=== PATIENT | female | born 1960 | race Caucasian/White ===

== ENCOUNTER → 2016-07-10 | Outpatient (CLI) | payer MEDICARE, MEDICAID ==
[~2016-07-10] MED LIST: AMIT10TA6 PO; AMIT25TA9 PO; AMLO5TAB2 PO; ASP81TEC PO; ATEN100T88 PO; ATOR40TA PO; DEXT1DRO8 OU; LEVO125T6 PO; LSNP20T PO; METO25TA PO; MULT1CAP27 PO; NF-FLON16G; SALINE EYE DROPS; VITA1CAP59 PO
--- NOTE | 2016-07-11 08:13 | Diagnostic Imaging Report ---
Bilateral screening mammogram The current study was also evaluated with a Computer Aided Detection (CAD) system. Indication: Screening. No current complaints stated on the questionnaire. COMPARISON: 05/12/15 FINDINGS: The breasts are composed of heterogeneously dense parenchyma which may decrease mammographic sensitivity. There are benign-appearing calcifications. Allowing for technique and positional differences, no suspicious change is seen. IMPRESSION: No significant change. ACR BI-RADS Category 2: Benign findings. Result letter will be mailed to the patient. Note: At least 10% of breast cancer is not imaged by mammography. Dictated by: Dictated on workstation # [id number]
== END ==
LOC: RAD 12:38
PROVIDERS: ATTEND Nurse Practitioner Community Health
DX: Z12.31 Encounter for screening mammogram for malignant neoplasm of breast (principal)
CPT/HCPCS: 77067

== ENCOUNTER → 2017-06-24 | Outpatient (CLI) | payer MEDICARE, MEDICAID ==
--- NOTE | 2017-06-24 10:37 | Diagnostic Imaging Report ---
CLINICAL INDICATION: Patient with stenosis of carotid artery. COMPARISON: None. EXAMINATION: Real-time carotid Doppler duplex imaging is performed bilaterally. Peak systolic velocity, ICA/CCA peak systolic ratio, spectral analysis, and vascular morphology are studied. FINDINGS: ARTERY VELOCITY Right Left CCA 0.68 m/s 0.73 m/s ICA 1.20 m/s 1.96 m/s ECA 1.45 m/s 1.33 m/s ICA/CCA 1.8 2.7 VERT.ART Antegrade Antegrade There is interval progression of elevated velocities within the distal left ICA which are 1.96 m/s compared to the prior study previously measured 1.17 m/s. There is also progression of elevated velocities within the right and left ECA which measure 1.45 m/s and 1.33 m/s, respectively, compared to the prior study measured at 1.12 m/s and 1.27 m/s, respectively. The bilateral ECA and distal left ICA does not show as much visible stenosis as indicated by velocities. There is heterogeneous atherosclerotic disease involving the bilateral carotid arteries which has slightly progressed. IMPRESSION: 1: There are elevated velocities involving the distal left ICA and bilateral ECAs suggesting 60-79% stenosis. The degree of visible grayscale stenosis on the imaging does not appear as significant as the velocities. CT angiogram of the head and neck is suggested to better evaluate for true stenosis. 2: There is slight progression of carotid artery atherosclerotic disease. Dictated by: Dictated on workstation # [id number]
== END ==
LOC: RAD 09:03
PROVIDERS: ATTEND Internal Medicine
DX: I65.22 Occlusion and stenosis of left carotid artery (principal)
CPT/HCPCS: 93880

== ENCOUNTER → 2019-04-21 | Outpatient (CLI) | payer MEDICARE, MEDICAID ==
--- NOTE | 2019-04-21 16:56 | Diagnostic Imaging Report ---
EXAMINATION: Digital mammogram bilateral screening. The current study was also evaluated with a Computer Aided Detection (CAD) system. 3-D tomosynthesis was also performed and reviewed. INDICATION: Breast cancer screening. This study was compared to the prior exams of 07/10/2016, 05/12/2015, and 08/25/2013. At this time, there are no current complaints. FINDINGS: The fibroglandular tissue in both breasts is heterogeneously dense. This does limit the sensitivity of this exam. Overall, there does not appear to have been any significant change when compared to the prior study. No primary or secondary sign of malignancy is noted. 3D tomographic images fail to show any sign of malignancy. IMPRESSION: 1. There is no evidence for malignancy. 2. The patient should have her annual bilateral screening mammogram on schedule in April 2020. ACR BI-RADS Category 1: Negative. Result letter will be mailed to the patient. Note: At least 10% of breast cancer is not imaged by mammography. Dictated by: Dictated on workstation # [id number]
== END ==
LOC: CARD 13:26
PROVIDERS: ATTEND Nurse Practitioner Community Health
DX: Z12.31 Encounter for screening mammogram for malignant neoplasm of breast (principal); R01.1 Cardiac murmur, unspecified
CPT/HCPCS: 77067; 93306

== ENCOUNTER 2019-04-29 16:41 | Emergency (ER) | payer MEDICARE, MEDICAID ==
[~2019-04-29] VITALS: Ht 167 cm; Wt 85.0 kg
[2019-04-29] MEDS ORDERED: cloNIDine 0.1 MG (CATAPRES) TAB PO ONE (17:00)
--- NOTE | 2019-04-29 17:04 | ED Headache ---
General Chief Complaint: Head/Cervical Problems Stated Complaint: BP COMPLICATIONS Nursing Triage Note: THE PT IS AMBULATORY TO THE ROOM WITHOUT DIFFICULTY. NO DISTRESS IS SEEN ON ARRIVAL. LOC IS NORMAL FOR THE PT. THE TP C/O OF A HEADACHE. Nursing Sepsis Screen: No Definite Risk Source: patient Exam Limitations: no limitations History of Present Illness Date Seen by Provider: Apr 29, 2019 Time Seen by Provider: 17:02 Initial Comments To ER with reports of high blood pressure. She reports lightheadedness. She takes propranolol. She was seeing her neurologist today who she sees for chronic daily migraines with aura and without pain (takes amitriptyline for this). They noticed her blood pressure to be elevated, recommended that she go to the emergency room at [facility]. However, she wanted to come to the emergency room here. Timing/Duration: 4-6 hours Severity/Quality: moderate Associated Symptoms: denies symptoms Allergies and Home Medications Allergies Coded Allergies: No Known Drug Allergies (Unverified , 11/20/10) Home Medications Amitriptyline Hcl 10 Mg Tablet, 1 EACH PO HS, (Reported) Amitriptyline Hcl 25 Mg Tablet, 1 EACH PO HS, (Reported) Aspirin 81 Mg Tabec, 162 MG PO DAILY, (Reported) Atenolol 100 Mg Tablet, 1 EACH PO DAILY, (Reported) Atorvastatin Calcium 40 Mg Tablet, 1 EACH PO DAILY, (Reported) Dextran 70/Hypromellose/Pf 1 Each Droperette, 1 EACH OU PRN, (Reported) Fluticasone Propionate 50 Mcg/16 G [place], 50 MCG NA PRN, (Reported) Levothyroxine Sodium 125 Mcg Tablet, 1 EACH PO DAILY, (Reported) Lisinopril 20 Mg Tab, 20 MG PO HS, (Reported) Metoprolol Succinate 25 Mg Tab.sr.24h, 1 EACH PO DAILY, (Reported) Multivitamins 1 Each Capsule, 1 EACH PO EVERY OTHER DAY, (Reported) Vitamin B Complex 1 Cap Capsule, 1 CAP PO EVERY OTHER DAY, (Reported) [Saline Eye Drops] , PRN, (Reported) Patient Home Medication List Home Medication List Reviewed: Yes Review of Systems Review of Systems Constitutional: see HPI, dizziness Eyes: No Symptoms Reported Ears, Nose, Mouth, Throat: no symptoms reported Respiratory: no symptoms reported Cardiovascular: no symptoms reported Genitourinary: no symptoms reported Musculoskeletal: no symptoms reported Skin: no symptoms reported Psychiatric/Neurological: No Symptoms Reported Past Jkocrve-Ndkxry-Iwtjuu Hx Patient Social History Recent Foreign Travel: No Contact w/Someone Who Travel: No Recent Infectious Disease Expo: No Physical Abuse: No Sexual Abuse: No Mistreated: No Fear: No Physical Exam Vital Signs Vital Signs - First Documented 04/29/19 16:50 Temp 36.6 Pulse 89 Resp 18 B/P (MAP) 180/90 (120) Capillary Refill : Less Than 3 Seconds Height, Weight, BMI Height: '" Weight: lbs. oz. kg; 30.00 BMI Method:Stated General Appearance: WD/WN, no apparent distress HEENT: PERRL/EOMI, normal ENT inspection Respiratory: no respiratory distress, no accessory muscle use Extremities: normal range of motion, non-tender Psychiatric: alert, oriented x 3 Crainal Nerves: normal hearing, normal speech, PERRL Progress/Results/Core Measures Results/Orders Lab Results Laboratory Tests Test 04/29/19 17:15 Range/Units White Blood Count 8.7 4.3-11.0 10^3/uL Red Blood Count 5.16 4.35-5.85 10^6/uL Hemoglobin 14.5 11.5-16.0 G/DL Hematocrit 44 35-52 % Mean Corpuscular Volume 85 80-99 FL Mean Corpuscular Hemoglobin 28 25-34 PG Mean Corpuscular Hemoglobin Concent 33 32-36 G/DL Red Cell Distribution Width 14.4 10.0-14.5 % Platelet Count 228 130-400 10^3/uL Mean Platelet Volume 9.7 7.4-10.4 FL Neutrophils (%) (Auto) 67 42-75 % Lymphocytes (%) (Auto) 23 12-44 % Monocytes (%) (Auto) 8 0-12 % Eosinophils (%) (Auto) 1 0-10 % Basophils (%) (Auto) 0 0-10 % Neutrophils # (Auto) 5.8 1.8-7.8 X 10^3 Lymphocytes # (Auto) 2.0 1.0-4.0 X 10^3 Monocytes # (Auto) 0.7 0.0-1.0 X 10^3 Eosinophils # (Auto) 0.1 0.0-0.3 10^3/uL Basophils # (Auto) 0.0 0.0-0.1 10^3/uL Sodium Level 139 135-145 MMOL/L Potassium Level 3.5 L 3.6-5.0 MMOL/L Chloride Level 102 98-107 MMOL/L Carbon Dioxide Level 26 21-32 MMOL/L Anion Gap 11 5-14 MMOL/L Blood Urea Nitrogen 12 7-18 MG/DL Creatinine 0.74 0.60-1.30 MG/DL Estimat Glomerular Filtration Rate > 60 BUN/Creatinine Ratio 16 Glucose Level 109 H 70-105 MG/DL Calcium Level 9.1 8.5-10.1 MG/DL My Orders Orders - BERKLEY MARIN APRN Clonidine Tablet (Catapres Tablet) (04/29/19 17:00) Cbc With Automated Diff (04/29/19 17:01) Basic Metabolic Panel (04/29/19 17:01) Medications Given in ED Current Medications Medications Dose Ordered Sig/Marv Route Start Time Stop Time Status Last Admin Dose Admin Clonidine HCl 0.1 mg ONCE ONCE PO 04/29/19 17:00 04/29/19 17:01 DC 04/29/19 17:16 0.1 MG Vital Signs/I&O 04/29/19 16:50 Temp 36.6 Pulse 89 Resp 18 B/P (MAP) 180/90 (120) Blood Pressure Mean: 120 Departure Communication (Admissions) She is feeling better at this time, 1741. Blood pressure down to 150 systolic. Impression Primary Impression: Hypertension Qualified Codes: I10 - Essential (primary) hypertension Disposition: HOME, SELF-CARE Condition: Stable Departure-Patient Inst. Decision time for Depature: 17:04 Referrals: [facility] (PCP) Primary Care Physician ANASTACIO VAZQUEZ (Family) Primary Care Physician Patient Instructions: High Blood Pressure in Adults Scripts Clonidine HCl (Clonidine HCl) 0.1 Mg Tablet 0.1 MG PO BID PRN for high blood pressure, #10 TAB Used for systolic (top number) blood pressure over 170 Prov: BERKLEY MARIN APRN 04/29/19 BERKLEY MARIN APRN Apr 29, 2019 17:04
[2019-04-29 17:24] LABS: BASOPHILS % (AUTO) 0 % (0-10); EOSINOPHILS # (AUTO) 0.1 10^3/uL (0.0-0.3); EOSINOPHILS % (AUTO) 1 % (0-10); HEMATOCRIT 44 % (35-52); HEMOGLOBIN 14.5 G/DL (11.5-16.0); LYMPHOCYTES % (AUTO) 23 % (12-44); MEAN CORPUSCULAR HEMOGLOBIN 28 PG (25-34); MEAN CORPUSCULAR HGB CONC 33 G/DL (32-36); MEAN CORPUSCULAR VOLUME 85 FL (80-99); MEAN PLATELET VOLUME 9.7 FL (7.4-10.4); MONOCYTES # (AUTO) 0.7 X 10^3 (0.0-1.0); MONOCYTES % (AUTO) 8 % (0-12); NEUTROPHILS # (AUTO) 5.8 X 10^3 (1.8-7.8); NEUTROPHILS % (AUTO) 67 % (42-75); PLATELET COUNT 228 10^3/uL (130-400); RED CELL DISTRIBUTION WIDTH 14.4 % (10.0-14.5); WHITE BLOOD COUNT 8.7 10^3/uL (4.3-11.0)
[2019-04-29 17:49] LABS: BUN/CREATININE RATIO 16; CALCIUM 9.1 MG/DL (8.5-10.1); CARBON DIOXIDE 26 MMOL/L (21-32); CHLORIDE 102 MMOL/L (98-107); CREATININE SERUM 0.74 MG/DL (0.60-1.30); GFR ESTIMATED > 60; GLUCOSE 109 MG/DL (70-105); POTASSIUM 3.5 MMOL/L (3.6-5.0); SODIUM 139 MMOL/L (135-145)
[2019-04-29 17:52] VITALS: BP 155/88
[2019-04-29] MEDS ORDERED: CLON0.1T PO (17:53)
--- OUTSIDE RECORDS SUMMARY | 2019-05-01 17:42 | XMS REPORT | Encounter Summary ---
Author Author [facility] Organization [facility] Address Unknown Phone Unavailable Care Team Providers Care Extract Wringer Name Role Phone Zandra Peter SOUND TESTER PCP Reason for Referral * Radiology Services (Routine) Referred By Contact Referred To Contact Status Reason Specialty Diagnoses / [place] [address] [place] [address] New Request Radiology Diagnoses Stenosis of left carotid artery P rocedures CTA NECK WO/W CONTRAST+POST P Reason for Visit * Reason Comments Migraine Encounter Details Care Team Description Date Type [place] [address] [place] [address] [phone] Migraine with aura and without status mi grainosus, not intractable (Primary Dx); Stenosis of left carotid artery 04/29/2019 Office Visit [facility] [address] [place] [address] Social History Date Tobacco Use Types Packs/Day Years Used Passive Smoke Exposure - Never Smoker Smokeless Tobacco: Never Used Tobacco Cessation: Counseling Given: No Drinks/Week oz/Week Comments Alcohol Use No Sex Assigned at Date Recorded Not on file Industry Job Start Date Occupation Not on file Not on file Not on file Travel End Travel History Travel Start No recent travel history available. documented as of this encounter Last Filed Vital Signs Reading Time Taken Comments Vital Sign 185/81 04/29/2019 1:48 PM CDT Notified Miguel Walton MD Blood Pressure 73 04/29/2019 1:48 PM CDT Pulse - - Temperature - - Respiratory Rate 97% 04/29/2019 12:37 PM CDT Oxygen Saturation - - Inhaled Oxygen Concentration 92.3 kg (203 lb 6.4 oz) 04/29/2019 12:37 PM CDT Weight 170.2 cm (5' 7") 04/29/2019 12:37 PM CDT Height 31.86 04/29/2019 12:37 PM CDT Body Mass Index documented in this encounter Patient Instructions * Patient Instructions* Luis Alberto Walton MD - 04/29/2019 12:30 PM CDT RECOMMENDATIONS -- Continue aspirin 81mg daily -- Continue amitriptyline 150mg daily for prevention/prophylaxis. -- CTA neck due to h/o carotid stenosis, upcoming surgery on heart, migraines. - -> order is placed, but since you are seeing cardiothoracic surgery, they will likely be able to address this as well with the imaging they will be doing. --> I have placed a vascular surgery referral in the past, but Ms. Lan says she did not follow up on this. She is agreeable to having this looked at more locall y. --> prior reports was more significant in findings of ECAs, but also had some elevated velocities in left ICA. Check BUN/Creatinine one week prior to procedure. -- Please follow up with your PCP about your blood pressure. For Acute Headache: -- For a more severe headache, take naproxen 220-440mg + magnesium 400mg +/- be nadryl 25mg (depending on if you are at work/needing to drive) -- Please refrain from taking any combination of "as needed" medications more th an 8-10 times per month, as this can lead to medication overuse/rebound headache s. documented in this encounter Progress Notes * Inge More, RN - 04/29/2019 12:30 PM CDT This nurse checked BP as check-in BP was >150/90. Notified Miguel Walton MD about elevated pressures. (180/88 MAP 111, 181/89 MAP 113, 188/87 MAP 113, 185/81 MAP 110) patient refused to go to ER here in [place], wants to drive home to [place], [place]. Notifsmita Walton MD. * Luis Alberto Walton MD - 04/29/2019 12:30 PM CDT Subjective: History of Present Illness Candace Lan is a 58 y.o. female. Initial Visit Date: 11/14/16 Reason for Visit: Migraines Previous Neurologist: Dr. Collins Type of Work: She is disabled. 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 Onset: October 2010 She had a stroke in the past by diagnosis per review of her MRI. There was poten tial symptoms 10 years earlier and her PCP then told her it was a stroke. She de scribes "feeling weak" and that there was a problem into her arm. Location: right sided behind the eye Quality: dull, but uncomfortable Severity: moderate Total headache days per month: This visit she notes about 1-2 migraines per year and last up to 17 days. Associated symptoms: photophobia Denies: nausea, vomiting, phonophobia Aura: some flashes of light or static in her vision Triggers: lack of sleep, too much sleep, lighting, stress, weather changes Mood is good. Using CPAP. She is getting a surgery for a calcified heart valve, but she says that she is n ot sure which valve just yet. She says that this was due to her PCP hearing a he art murmur. CTA neck 01/01/17 recommended Cartoid US in 6 months, which she says she did get completed, but we did not get the results. She says in the past she was told she had 90% blockage, but on formal testing she says it was not blocked. Ultrasound carotids done at [facility] on 06/24/17 which we just now go t on 11/20/17 at 1340: There are elevated velocities involving the distal left IC A and bilateral ECA suggesting 60-79% stenosis. The degree of visible grayscal e stenosis on the imaging does not appear significant at the velocities. CT an giogram of the head and neck is suggested to better evaluate for true stenosis. There is slight progression of carotid artery atherosclerotic disease. Please contact the patient and advise that I would like her to be evaluated with vascular surgery due to the stenosis and the bruit she has. Order placed. Abortive tx: Aspirin 81mg Diclofenac PPx tried/length of trial: Amitriptyline 150mg bedtime daily Atenolol 20 mg twice daily - no help Timolol 20mg twice daily Botoxnot covered by her insurance Acetazolamide 250 mg twice daily Depakote 500 mg twice dailymade her sick Topamax - did not help Venlafaxine 75 mg twice daily Echocardiogram 01/23/2011: Essentially normal with moderate mitral regurgitation moderate tricuspid regurgitation mild to moderate aortic regurgitation, estimate d PA pressure 35. Sleep study 01/04/2011: Obstructive sleep apnea recommended CPAP at 9 cm H2O. MRI brain with and without contrast 12/07/2010 impression: There are scattered f oci of T2 and flair hyperintense signal abnormality, nonspecific especially in a patient of this age. White matter changes have been described in patients with migraine headaches. Sequela of chronic microvascular ischemic disease would be another consideration. The distribution is not particularly suggestive of infl ammatory demyelinating disease. There is no abnormal intracranial enhancement o r evidence of an acute infarct. There is fluid within mastoid air cells on the greater on the left MRA head without contrast 11/21/2010: Unremarkable MRI cervical spine without contrast 12/07/2010: There is no significant spinal s tenosis of the cervical spine, minimal left lateral recess stenosis at C5-6 and right lateral recess stenosis at C4-5. There is mild to moderate neuroforaminal compromise as described including on the right at C2-3 and C4-5 and on the left at C5-6. There is multilevel facet degenerative change. CTA of the neck performed 12/26/16, noted the patient had 30% right and 50% left ICA stenosis. Calcified carotid bulb plaque bilaterally is advanced for age. It was recommended that the patient had a six-month follow-up carotid ultrasoun d. There is no high-grade stenosis noted. __ Medical History: Diagnosis Date Anxiety Cerebrovascular disease Depression Dyslipidemia Dysthymia Heart abnormality Hypertension Hypothyroid Impulse disorder, unspecified Migraines Obstructive sleep apnea Strabismus Stroke (HCC) Unspecified glaucoma(365.9) Surgical History: Procedure Laterality Date EYE SURGERY 1975 RHINOPLASTY 1976 MOUTH SURGERY 1986 jaw reconstruction APPENDECTOMY 1990 HYSTERECTOMY 2000 STRABISMUS SURGERY 1974, 1978 Social History Socioeconomic History Marital status: Single Spouse name: Not on file Number of children: Not on file Years of education: Not on file Highest education level: Not on file Occupational History Not on file Tobacco Use Smoking status: Passive Smoke Exposure - Never Smoker Smokeless tobacco: Never Used Substance and Sexual Activity Alcohol use: No Drug use: No Sexual activity: Not on file Other Topics Concern Not on file Social History Narrative Not on file Family History Problem Relation Age of Onset Cancer Mother Hypertension Mother Lung Disease Mother Anxiety Mother Depression Mother Seizures Mother Cancer Father Heart Attack Father Lung Disease Father Mental Illness Father Heart Disease Father Stroke Maternal Grandmother Allergies Allergen Reactions Tetanus Toxoid UNKNOWN Review of Systems Constitutional: Negative. HENT: Negative. Eyes: Positive for photophobia and visual disturbance. Respiratory: Negative. Cardiovascular: Negative. Gastrointestinal: Negative. Genitourinary: Negative. Musculoskeletal: Negative. Skin: Negative. Neurological: Positive for headaches. Psychiatric/Behavioral: Negative. Objective: amitriptyline (ELAVIL) 150 mg tablet Take one tablet by mouth at bedtime neal ly. aspirin EC 81 mg tablet Take 81 mg by mouth daily. Take with food. atorvastatin (LIPITOR) 80 mg tablet Take 80 mg by mouth daily. BIMATOPROST (LUMIGAN OP) Place 1 drop into or around eye(s) daily. gabapentin (NEURONTIN) 300 mg capsule Take one capsule by mouth twice daily. levothyroxine (SYNTHROID) 150 mcg tablet Take 150 mcg by mouth daily. Timolol Maleate 20 mg tab Take 20 mg by mouth twice daily. Vitals: 04/29/19 1237 BP: (!) 177/91 Pulse: 75 SpO2: 97% Weight: 92.3 kg (203 lb 6.4 oz) Height: 170.2 cm (67") PainSc: Three Body mass index is 31.86 kg/m. Physical Exam General: alert, oriented x 3 Speech: normal, no dysarthria Cardiovascular: regular rate and rhythm, + murmur Lungs: clear to auscultation Ext: no edema, pedal pulses 2+, skin with no breakdown Carotids: + right sided bruit vs extension of murmur? Cranial nerves: ophthalmoscopic exam: no papilledema or optic pallor; II Visual rao full to finger counting; III, IV, PERRL, extraocular muscles with weak ness of abduction bilaterally - has h/o strabismus with surgery on both eyes, no nystagmus; V facial sensation intact; VII facial expression symmetric; VIII hea ring intact to conversation; IX, X palate rise symmetric; XI sternocleidomastoid strength intact; XII tongue midline, no fasciculations present Motor: (Right/Left) Deltoid 5/5, Biceps 5/5, Triceps 5/5, Finger ext 5/5, inter ossei 5/5, Hip Flexion 5/5, Knee ext 5/5, Knee flex 5/5, Ankle dorsiflexion 5/5 Sensory: Normal to light touch. Coordination: normal finger nose finger Gait: normal based, good arm swing Assessment and Plan: Candace Lan is a 58 y.o. female who presents for evaluation of rare bobby elodia with aura, but mainly auras only now. This is in both eyes. She also rep orts visual distortion, which may be related to her glaucoma and strabismus hist ory as well. 1. Migraine with aura and without status migrainosus, not intractable 2. Stenosis of left carotid artery RECOMMENDATIONS -- Continue aspirin 81mg daily -- Continue amitriptyline 150mg daily for prevention/prophylaxis. -- CTA neck due to h/o carotid stenosis, upcoming surgery on heart, migraines. - -> order is placed, but since you are seeing cardiothoracic surgery, they will likely be able to address this as well with the imaging they will be doing. --> I have placed a vascular surgery referral in the past, but Ms. Lan says she did not follow up on this. She is agreeable to having this looked at more locall y. --> prior reports was more significant in findings of ECAs, but also had some elevated velocities in left ICA. Check BUN/Creatinine one week prior to procedure. -- Please follow up with your PCP about your blood pressure. For Acute Headache: -- For a more severe headache, take naproxen 220-440mg + magnesium 400mg +/- be nadryl 25mg (depending on if you are at work/needing to drive) -- Please refrain from taking any combination of "as needed" medications more th an 8-10 times per month, as this can lead to medication overuse/rebound headache s. Ms. Lan had a very elevated blood pressure on multiple repeats, associated wi th headache. She declined going to ED or calling EMS. She signed AMA form due to h/o stroke/carotid disease/valvular disease. She expressed clear understanding of her risk of stroke or other end organ damage. FOLLOWUP PLAN Return in about 1 year (around 04/28/2020) for follow up headaches. The patient is instructed to contact me if there are any concerns with the agree d plan. documented in this encounter Plan of Treatment Order Schedule Name Type Priority Associated Diag noses Expected: 04/29/2019 (Approximate), Expi res: 04/28/2020 CTA NECK WO/W Imaging Routine Stenosis of lef t carotid CONTRAST+POST P artery Expected: 04/29/2019 (Approximate), Expi res: 04/28/2020 BUN Lab Routine Stenosis of lef t carotid artery Expected: 04/29/2019 (Approximate), Expi res: 04/28/2020 CREATININE Lab Routine Stenosis of lef t carotid artery documented as of this encounter Visit Diagnoses Diagnosis Migraine with aura and without status m igrainosus, not intractable Migraine with aura, without mention of intractable migraine without mention of status migrainosus Stenosis of left carotid artery Occlusion and stenosis of carotid arter y without mention of cerebral infarction documented in this encounter
--- OUTSIDE RECORDS SUMMARY | 2019-05-01 17:42 | XMS REPORT | Clinical Summary ---
Author Author [facility] Organization [facility] Address Unknown Phone Unavailable Care Team Providers Care Metal Tester Name Role Phone Zandra Peter APRN PCP Source Comments Some departments are not documenting in the electronic medical record. If you d o not see the information that you expected, contact Release of Information in [facility] Must See [place] Information Management department at [phone] for further assistan ce in locating additional records.[facility] Allergies Comments Active Allergy Reactions Severity Noted Date Tetanus Toxoid UNKNOWN Low 11/02/2016 Medications End Date Status Medication Sig Dispensed Refills Start Date Active levothyroxine (SYNTHROID) Take 150 mcg 0 150 mcg tablet by mouth daily. Active Timolol Maleate 20 mg tab Take 20 mg by 0 mouth twice daily. Active atorvastatin (LIPITOR) 80 Take 80 mg by 0 mg tablet mouth daily. Active BIMATOPROST (LUMIGAN OP) Place 1 drop 0 into or around eye(s) daily. Active aspirin EC 81 mg tablet Take 81 mg by 0 mouth daily. Take with food. Active gabapentin (NEURONTIN) Take one 60 capsule 3 300 mg capsule capsule by 8 mouth twice daily. Active amitriptyline (ELAVIL) Take one 90 tablet 4 150 mg tablet tablet by 0 mouth at bedtime daily. 04/29/2019 Discontinued (Reorder) amitriptyline (ELAVIL) TAKE 1 TABLET 90 tablet 4 1 150 mg tablet AT BEDTIME 9 Active Problems No known active problems Encounters Care Team Description Date Type Specialty Luis Alberto Walton MD Migraine with aura and without status mi grainosus, not intractable (Primary Dx); Stenosis of left carotid artery 04/29/2019 Office Visit Neurology from Last 3 Months Family History Medical History Relation Name Comments Cancer Father Heart Attack Father Heart Disease Father Lung Disease Father Mental Illness Father Stroke Maternal Grandmother Anxiety Mother Cancer Mother Depression Mother Hypertension Mother Lung Disease Mother Seizures Mother Relation Name Status Comments Father (Age 59) Maternal Grandmother Mother (Age 69) Social History Date Tobacco Use Types Packs/Day Years Used Passive Smoke Exposure - Never Smoker Smokeless Tobacco: Never Used Tobacco Cessation: Counseling Given: No Drinks/Week oz/Week Comments Alcohol Use No Sex Assigned at Date Recorded Not on file Industry Job Start Date Occupation Not on file Not on file Not on file Travel End Travel History Travel Start No recent travel history available. Last Filed Vital Signs Reading Time Taken [...] 04/29/2019 12:37 PM CDT Body Mass Index Plan of Treatment Health Maintenance Due Date Last Done Comments HEPATITIS C SCREENING 1960 MEDICARE ANNUAL WELLNESS 1960 VISIT DTAP/TDAP VACCINES (1 - 10/09/1971 Tdap) HIV SCREENING 10/09/1975 PHYSICAL (COMPREHENSIVE) 1978 EXAM CERVICAL CANCER SCREENING 1990 BREAST CANCER SCREENING 2000 COLORECTAL CANCER 2010 SCREENING SHINGLES RECOMBINANT 2010 VACCINE (1 of 2) INFLUENZA VACCINE 09/18/2018 11/25/2007, 02/14/2006, 12/28/2002, Additional history exists Results Not on filefrom Last 3 Months Insurance Type Payer Benefit Subscriber ID Effective Phone Address Plan / Dates Group Medicare MEDICARE MEDICARE xxxxxxxxxxx 2003-P PART A AND resent B Medicaid [facility] MEDICAID [facility] xxxxxxxxx 2016-P [place] [address] [address] Third Self 1960 [phone] [id number] [place] ([place]) [place] [address] Liability Advance Directives Patient Ensemble Member Explanation Type Date Recorded Advance Directive/DPOA
--- OUTSIDE RECORDS SUMMARY | 2019-05-01 17:42 | XMS REPORT | Encounter Summary ---
Author Author [facility] Organization [facility] Address Unknown Phone Unavailable Care Team Providers Care Looper Fixer Name Role Phone RomeZnadra dang NAMRATA PCP Reason for Visit * Reason Comments Medication Refill Encounter Details Care Team Description Date [place] [address] [facility] [place] [address] [place] [address] 01/04/[address] [facility] [address] [place], [place] [id number] Social History Date Tobacco Use Types Packs/Day Years Used Passive Smoke Exposure - Never Smoker Smokeless Tobacco: Never Used Drinks/Week oz/Week Comments Alcohol Use No Sex Assigned at Date Recorded Not on file Industry Job Start Date Occupation Not on file Not on file Not on file Travel End Travel History Travel Start No recent travel history available. documented as of this encounter Plan of Treatment Not on filedocumented as of this encounter Visit Diagnoses Not on filedocumented in this encounter
--- OUTSIDE RECORDS SUMMARY | 2019-05-01 17:42 | XMS REPORT ---
Author Author Wally. Organization Wally. Address [address] [address] Care Team Providers Care Strategic Planner Name Role Phone GEORGE, ANASTACIO Unavailable Unavailable GEORGE, ANASTACIO Unavailable GEORGE, ANASTACIO Unavailable Andra Klein Unavailable STEVEN PULIDO Unavailable Unavailable MO ROBLES Unavailable Unavailable Andra Klein Unavailable Unavailable GEORGE, ANASTACIO Unavailable GEORGE, ANASTACIO Unavailable GEORGE, ANASTACIO Unavailable TAHIR ZUNIGA Unavailable GEORGE, ANASTACIO Unavailable GEORGE, ANASTACIO Unavailable GEORGE, ANASTACIO Unavailable GEORGE, ANASTACIO Unavailable GEORGE, ANASTACIO Unavailable GEORGE, ANASTACIO Unavailable GEORGE, ANASTACIO Unavailable GEORGE, ANASTACIO Unavailable CYNTHIA MARTELL Unavailable GEORGE, ANASTACIO Unavailable GEORGE, ANASTACIO Unavailable ALVARO RICH Unavailable Unavailable GEORGE, ANASTACIO Unavailable GEORGE, ANASTACIO Unavailable GEORGE, ANASTACIO Unavailable Migration, Doctor Unavailable Unavailable Migration, Doctor Unavailable Unavailable GEORGE, ANASTACIO Unavailable GEORGE, ANASTACIO Unavailable GEORGE, ANASTACIO Unavailable GEORGE, ANASTACIO Unavailable GEORGE, ANASTACIO Unavailable GEORGE, ANASTACIO Unavailable GEORGE, ANASTACIO Unavailable GEORGE, ANASTACIO Unavailable GEORGE, ANASTACIO Unavailable GEORGE, ANASTACIO Unavailable GEORGE, ANASTACIO METAL CONTROL COORDINATOR Unavailable Unavailable GEORGE, ANASTACIO Unavailable GEORGE, ANASTACIO S Unavailable Unavailable GEORGE, ANASTACIO Unavailable GEORGE, ANASTACIO Unavailable GEORGE, ANASTACIO Unavailable GEORGE, ANASTACIO Unavailable GEORGE, ANASATCIO Unavailable GEORGE METAL CONTROL COORDINATOR, ANASTACIO Unavailable Unavailable [facility] BENTLEY MD Unavailable Unavailable GEORGE, ANASTACIO Unavailable GEORGE, ANASTACIO Unavailable GEORGE, ANASTACIO Unavailable GEORGE, ANASTACIO Unavailable Allergies Normalized Allergy Reported Date of Reaction(s) Care Provider Facility Allergy Type classification allergen Allergy Onset DA (8 Unclassified No Known Drug 11-20-2010 - no information ESEQUIEL Not Available sources.) Allergies EDITH , (65106) DO NKMA (1 Unclassified No Known no information no name Not A vailable source.) Medication (80433) Allergies Medications Current Medications Medication Ingredient Drug Dose Dates Status Sig Sig Care Class(es) (Normalized) (Original) Provid er augmented betamethaso Corticoster 0.5 09-10-19 Active no Betamethason no betamethaso ne oid mg/mL 18 - information e name ne 0.5 Translation 09-20-19 Dipropionate (no mg/ml s: [ 18 Aug 0.05 % phone) topical Betamethaso Externally cream (1 ne Once a day 1 source.) Dipropionat application e Aug 0.05 to affected %] area 24h Aug, Sep, 10 days Active bimatoprost bimatoprost Prostagland 1 Active take 1 Lumigan 0.01 no 0.1 mg/ml Translation in Analog drop(s drop(s) into % Ophthalm ic name ophthalmic s: [ ) the eye(s) Once a day 1 (no solution (6 Lumigan once daily drop into phone) sources.) 0.01 %, in the affected eye Lumigan evening in the 0.01 %] evening 24h Active 1 drop(s) Active take 1 Lumigan no name drop(s 0.01 % (no ) into Ophthalm phone) the ic Once eye(s) a day 1 once drop daily into in the affected evenin eye in g the evening 24h Active no cetirizine Histamine-1 10 mg 08-01-19 Active no Zyrt ec no information Translation Receptor 18 - information Allergy 1 0 name (1 source.) s: [ Zyrtec Antagonist 08-31-19 mg Orally (no Allergy 10 18 Once a day 1 phone) mg] tablet 24h Jul, 13 Aug, 2017 30 day(s) Active no Flonase 50 no 1 Active take 1 Flonase 50 no information MCG/ACT information spray( spray(s) MCG/ACT nam e (1 source.) s) nasal route Nasally Once (no once daily a day 1 phone) spray in each nostril 24h Active no Flonase 50 no 1 04-24-19 Active take 1 Flonase 5 0 no information mcg/actuati information spray( 14 spray(s) mcg/ac tuatio name (1 source.) on s) nasal route n 1 sprays (no twice daily by Nasal phone) route 2 times per day in each nostril Apr, Active gabapentin gabapentin Anti-epilep 300 mg 12-13-19 Active take 1 Gabapentin no 300 mg oral Translation tic Agent 18 capsule by 300 MG name capsule (2 s: [ mouth twice Orally twice (no sources.) Gabapentin daily a day 1 phone) 300 MG] capsule 12h Nov, 30 day(s) Active predniSONE predniSONE Corticoster 20 mg 08-01-19 Active no PredniSONE no 10 mg oral Translation oid 18 - information 10 mg Orall y name tablet (1 s: [ 08-06-19 Once a day (no source.) PredniSONE 18 On Saturday, phone) 10 mg] begin taking 2 tablets daily for 5 days 24h 13 Jul, 2017 18 Jul, 2017 05 days Active propranolol Propranolol beta-Adrene 20 mg 03-03-19 Active take 1 Propranolol no hydrochlori Translation rgic 19 tablet by HCl 20 mg n suze de 20 mg s: [ Logan mouth twice Orally twice (no oral tablet Propranolol daily a day 1 phone) (1 source.) HCl 20 mg] tablet on an empty stomach 12h Feb, 30 days Active Completed/Discontinued Medications Medication Ingredient Drug Dose Dates Status Sig Sig Care Class(es) (Normalized) (Original) Provid er no docusate no 100 mg 09-10-19 Suspende no Colace 10 0 no information Translation information 18 - d information mg Orally name (2 s: [ Colace 20 twice a day (no sources.) 100 mg] 18 1 capsule as phone) needed 12h Aug, 20 Dec, 2017 30 day(s) Not-Taking 100 mg 09-09-2017 Active no Colace no name - inform 100 mg (no 01-07-2018 ation Orally phone) twice a day 1 capsule as needed 12h Aug, 20 Dec, 2017 30 day(s) Active NEGATED no no 30 mg 03-01-19 no no no no no information information 17 informat information infor mation name information ion (no (2 phone) sources.) 30 mg 12-06-2015 no no no no name - information inform informat (no 03-01-2016 ation ion phone) Problems Active Problems Problem Normalized Date of Normalized Normalized Provider Fac ili Classification Problem(s) Problem Problem Problem Sta tus Onset/Resoluti Duration on Attention-defi Attention-defi 12-06-2015 - Chronic Active no name Not Available cit conduct cit (50478) and disruptive hyperactivity behavior disorder, disorders (1 combined type source.) Attention-defi Attention-defi 12-06-2015 - Chronic Active no name Not Available cit conduct cit (56504) and disruptive hyperactivity behavior disorder, disorders (1 unspecified source.) type 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 EDITH , (48675) r disease (1 occlusion, DO source.) unspecified with cerebral infarction Other skin Corns and Episodic Active TAHIR Community disorders (20 callosities [facility] sources.) Translations: [address] of [facility] [ - Callus [place] (84894) L84, - Hidradenitis L73.2, - Callus L84] Administrative Exercise Episodic Active ANASTACIO VAZQUEZ Com munity /social counseling [address] [facility] Center admission (4 Translations: of [facility] sources.) [ - Exercise [place] (81484) counseling Z71.82] Heart valve Mitral valve Chronic Active ESEQUIEL Not Sindy ilable disorders (2 insufficiency EDITH , (17390) sources.) and aortic DO valve insufficiency Translations: [ TRICUSPID VALVE DISEASE] Occlusion or Occlusion and 04-13-2019 - Chronic Active [facility] Via stenosis of stenosis of [place] [facility] arteries (9 artery [place] sources.) (99636) Other Other obesity 12-06-2015 - Chronic Active no name Not Available nutritional; due to excess (64388) endocrine; and calories metabolic disorders (1 source.) Other Psoriasis, Chronic Active JAIMA MARTELL Communit y inflammatory unspecified [address] [facility] Center condition of Translations: of [facility] skin (20 [ - Psoriasis [place] (57319) sources.) L40.9, - Psoriasis L40.9] Past or Other Problems Problem Normalized Date of Normalized Normalized Provider Fac ility Classification Problem(s) Problem Problem Problem Sta tus Onset/Resoluti Duration on Other Care involving Episodic Completed YESY Not Sindy ilable aftercare (2 other physical MD BETSY (83531) sources.) therapy Spondylosis; Cervicalgia Episodic Completed YESY Not Sindy ilable intervertebral MD BETSY (16803) disc disorders; other back problems (2 sources.) Procedures Procedure Normalized Procedure Procedure Result Performer Facility Date 04-23-2013 Assay of thyroid no information no name (no phone) [facility] hormone [facility] ([id number]) 04-02-2018 [facility] visit, estab pt no information no name (no janes ne) [facility] (36395) 10-22-2017 [facility] visit, estab pt no information no name (no janes ne) [facility] (01700) 09-09-2017 [facility] visit, estab pt no information no name (no janes ne) [facility] (61074) 07-31-2017 [facility] visit, estab pt no information no name (no janes ne) [facility] (97066) 05-06-2017 [facility] visit, estab pt no information no name (no janes ne) [facility] (47468) 01-30-2017 [facility] visit, estab pt no information no name (no janes ne) [facility] (30743) 11-06-2016 [facility] visit, estab pt no information no name (no janes ne) [facility] (76915) Initial comprehensive no information no name (no phone) Not Available (01240) preventive medicine evaluation and management of an individual including an age and gender appropriate history, examination, counseling/anticipator y guidance/risk factor reductio 04-02-2018 LAB NOT BILLED BY no information no name (no phone) [facility] (98554) 10-22-2017 LAB NOT BILLED BY no information no name (no phone) [facility] (66213) 11-06-2016 LAB NOT BILLED BY no information no name (no phone) [facility] (52098) 09-24-2011 Mammogram, screening no information no name (no janes ne) [facility] ([id number]) 07-31-2017 Methylprednisolone no information no name (no phone ) [facility] injection [facility] (83471) 07-31-2017 Therapeutic no information no name (no phone) [facility] prophylactic/dx [facility] subq/im [place] (03004) 10-22-2017 Urnls dip stick/tablet no information no name (no p fili) [facility] rgnt auto w/o [facility] (83405) Immunizations Normalized Immunization Date Notes Care Provider Facili ty Immunization influenza, seasonal, 12-22-2018 no information no name [facility] injectable [facility] (71689) influenza, seasonal, 12-05-2009 no information no name [facility] injectable [facility] (14835) SOLUMEDROL (UP TO 07-31-2017 no information CYNTHIA MARTELL [address]2747 [facility] 125 MG) [facility] (79540) Results Test Name Value Interpretation Reference Range Date Time Fa cility (Normalized) (Normalized) (Medline Reference) cologuard (outside order) on null COLOGUARD no information (no code) [facility] ([facility] ORDER) [facility] (67718) No panel information on 2019-01-08 Albumin 4.0 g/dL (N) 3.4 - 5.4 g/dL [facility] [Mass/Vol] [facility] (95143) Albumin/Globulin 1.5 {ratio} (N) 1 - 2.5 {ratio} [facility] [Mass ratio] [facility] (82642) ALP [Catalytic 139 U/L (H) 44 - 147 U/L [facility] activity/Vol] [facility] (99631) ALT [Catalytic 31 U/L (H) 4 - 40 U/L [facility] activity/Vol] [facility] (34034) AST [Catalytic 23 U/L (N) 10 - 34 U/L [facility] activity/Vol] [facility] (33889) Basophils (Bld) 0.031 10*3/uL (N) 0 - 0.3 10*3/uL [facility] [#/Vol] [facility] (86930) Basophils/100 0.7 % (N) 0.5 - 1 % [facility] WBC (Bld) [facility] (30021) Bilirubin 0.5 mg/dL (N) 0.1 - 1.2 mg/dL [facility] [Mass/Vol] [facility] (17973) Calcium 9.4 mg/dL (N) 8.5 - 10.2 mg/dL [facility] [Mass/Vol] [facility] (03679) Chloride 103 mmol/L (N) 95 - 106 mmol/L [facility] [Moles/Vol] [facility] (56934) Cholesterol 278 mg/dL (H) 180 - 200 mg/dL [facility] [Mass/Vol] [facility] (55239) Cholesterol in 41 mg/dL (L) [facility] HDL [Mass/Vol] [facility] (57187) Cholesterol in 214 mg/dL (H) 0 - 100 mg/dL [facility] LDL [Mass/Vol] [facility] (63592) Cholesterol non 237 mg/dL (H) [facility] HDL [Mass/Vol] [facility] (53599) Cholesterol.tota 6.8 {ratio} (H) [facility]Ch[facility] HDL [Mass ratio] [facility] (12399) CO2 [Moles/Vol] 31 mmol/L (N) 23 - 29 mmol/L [facility] (97034) Creatinine 0.71 mg/dL (N) [facility] h [Mass/Vol] [facility] (90172) Eosinophils 0.07 10*3/uL (N) 0.05 - 0.5 [facility] lth (Bld) [#/Vol] 10*3/uL [facility] (96940) Eosinophils/100 1.6 % (N) 1 - 4 % [facility] WBC (Bld) [facility] (31534) Erythrocyte 13.2 % (N) 11.6 - 14.6 % [facility] distribution [facility] width (RBC) [facility] [Ratio] (84451) GFR/1.73 sq M 109 (N) 90 - 120 [facility] predicted among mL/min/{1.73_m2} mL/min/{1.73_m2} [facility] [place] MDRD [facility] (S/P/Bld) [Vol (46692) rate/Area] GFR/1.73 sq 94 (N) 90 - 120 [facility] M.predicted MDRD mL/min/{1.73_m2} mL/min/{1.73_m2} [facility] (S/P/Bld) [Vol [facility] rate/Area] (48471) Globulin (S) 2.6 g/dL (N) 2 - 3.5 g/dL [facility] [Mass/Vol] [facility] (84010) Glucose 87 mg/dL (N) 60 - 125 mg/dL [facility] [Mass/Vol] [facility] (00275) Hematocrit (Bld) 44.7 % (N) 36.1 - 50.3 % [facility] ity [facility] [Volume [facility] (88578) Hemoglobin (Bld) 15.1 g/dL (N) 12.1 - 17.2 g/dL [facility] [Mass/Vol] [facility] (06084) Lymphocytes 0.959 10*3/uL (N) 0.9 - 2.9 [facility]th (Bld) [#/Vol] 10*3/uL [facility] (31598) Lymphocytes/100 21.8 % (N) 20 - 40 % [facility] WBC (Bld) [facility] (29448) MCH (RBC) 28.4 pg (N) 27 - 31 pg [facility] th [Entitic mass] [facility] (36900) MCHC (RBC) 33.8 g/dL (N) 32 - 36 g/dL [facility] alth [Mass/Vol] [facility] (00719) MCV (RBC) 84.2 fL (N) 80 - 100 fL [facility] [Entitic vol] [facility] (59185) Monocytes (Bld) 0.51 10*3/uL (N) 0.3 - 0.9 [facility] [#/Vol] 10*3/uL [facility] (62659) Monocytes/100 11.6 % (N) 2 - 8 % [facility] WBC (Bld) [facility] (55072) Neutrophils 2.829 10*3/uL (N) 1.7 - 7 10*3/uL [facility] Health (Bld) [#/Vol] [facility] (62611) Neutrophils/100 64.3 % (N) 40 - 60 % [facility] WBC (Bld) [facility] (90091) Platelet mean 10.3 fL (N) 7.2 - 11.7 fL [facility] volume (Bld) [facility] [Entitic vol] [facility] (37216) Platelets (Bld) 236 10*3/uL (N) 150 - 450 [facility] [#/Vol] 10*3/uL [facility] () Potassium 3.9 mmol/L (N) 3.7 - 5.2 mmol/L [facility] [Moles/Vol] [facility] (38438) Protein 6.6 g/dL (N) 6.4 - 8.3 g/dL [facility] [Mass/Vol] [facility] (09105) RBC (Bld) 5.31 10*6/uL (H) 4.2 - 6.1 [facility] lth [#/Vol] 10*6/uL [facility] () Sodium 140 mmol/L (N) 135 - 145 mmol/L [facility] [Moles/Vol] [facility] (42051) Triglyceride 104 mg/dL (N) 0 - 150 mg/dL [facility] [Mass/Vol] [facility] () TSH Qn 0.13 m[IU]/L (L) 0.4 - 4 m[IU]/L [facility] (07083) Urea nitrogen 12 mg/dL (N) 7 - 20 mg/dL [facility] [Mass/Vol] [facility] (11400) Urea NOT APPLICABLE (no code) [facility] nitrogen/Creatin [facility] [Mass ratio] [facility] () WBC (Bld) 4.4 10*3/uL (N) 3.5 - 10.5 [facility] [#/Vol] 10*3/uL [facility] (59830) No panel information on 2018-04-02 Albumin 4.0 g/dL (N) 3.4 - 5.4 g/dL [facility] [Mass/Vol] [facility] (19645) Albumin/Globulin 1.6 (N) [facility] [Mass ratio] [facility] (58150) ALP [Catalytic 155 U/L (H) 44 - 147 U/L [facility] activity/Vol] [facility] (04621) ALT [Catalytic 34 U/L (H) 4 - 40 U/L [facility] e[facility] activity/Vol] [facility] (74381) AST [Catalytic 24 U/L (N) 10 - 34 U/L [facility] activity/Vol] [facility] (54065) Basophils (Bld) 0.04 10*3/uL (N) 0 - 0.3 10*3/uL [facility] [#/Vol] [facility] () Basophils/100 0.5 % (N) 0.5 - 1 % [facility] WBC (Bld) [facility] () Bilirubin 0.4 mg/dL (N) 0.1 - 1.2 mg/dL [facility] [Mass/Vol] [facility] (14707) Calcium 9.3 mg/dL (N) 8.5 - 10.2 mg/dL [facility] [Mass/Vol] [facility] (37191) Chloride 105 mmol/L (N) 95 - 106 mmol/L [facility] [Moles/Vol] [facility] (73133) Cholesterol 188 mg/dL (N) 180 - 200 mg/dL [facility] [Mass/Vol] [facility] (85463) Cholesterol in 40 mg/dL (L) [facility] h HDL [Mass/Vol] [facility] (64131) Cholesterol in 111 (H) [facility] LDL [Mass/Vol] [facility] (66365) Cholesterol non 148 (H) [facility] HDL [Mass/Vol] [facility] (36883) Cholesterol.tota 4.7 (N) [facility] l/Cholesterol in [facility] HDL [Mass ratio] [facility] (10163) CO2 [Moles/Vol] 29 mmol/L (N) 23 - 29 mmol/L [facility] (45393) Creatinine 0.65 mg/dL (N) [facility] [Mass/Vol] [facility] (46312) Eosinophils 0.198 10*3/uL (N) 0.05 - 0.5 [facility] (Bld) [#/Vol] 10*3/uL [facility] (48215) Eosinophils/100 2.5 % (N) 1 - 4 % [facility] WBC (Bld) [facility] (98729) Erythrocyte 13.2 % (N) 11.6 - 14.6 % [facility] width (RBC) [facility] [Ratio] (23091) GFR/1.73 sq M 114 (N) 90 - 120 [facility] predicted among mL/min/{1.73_m2} mL/min/{1.73_m2} [facility] blacks MDRD [facility] (S/P/Bld) [Vol (22649) rate/Area] GFR/1.73 sq 99 (N) 90 - 120 [facility] th M.predicted MDRD mL/min/{1.73_m2} mL/min/{1.73_m2} [facility] (S/P/Bld) [Vol [facility] rate/Area] (62150) Globulin (S) 2.5 (N) [facility] h [Mass/Vol] [facility] (93806) Glucose 104 mg/dL (H) 60 - 125 mg/dL [facility] [Mass/Vol] [facility] (31769) Hematocrit (Bld) 42.9 % (N) 36.1 - 50.3 % [facility] [Volume Center [facility] (87213) Hemoglobin (Bld) 14.3 g/dL (N) 12.1 - 17.2 g/dL [facility] [Mass/Vol] [facility] (93728) Lymphocytes 1.785 10*3/uL (N) 0.9 - 2.9 [facility] (Bld) [#/Vol] 10*3/uL [facility] (75275) Lymphocytes/100 22.6 % (N) 20 - 40 % [facility] WBC (Bld) [facility] (94809) MCH (RBC) 28.5 pg (N) 27 - 31 pg [facility] [Entitic mass] [facility] (64677) MCHC (RBC) 33.3 g/dL (N) 32 - 36 g/dL [facility] [Mass/Vol] [facility] (05954) MCV (RBC) 85.5 fL (N) 80 - 100 fL [facility] [Entitic vol] [facility] (25926) Monocytes (Bld) 0.735 10*3/uL (N) 0.3 - 0.9 [facility] [#/Vol] 10*3/uL [facility] (95447) Monocytes/100 9.3 % (N) 2 - 8 % [facility] WBC (Bld) [facility] (04495) Neutrophils 5.143 10*3/uL (N) 1.7 - 7 10*3/uL [facility] Health (Bld) [#/Vol] [facility] (05911) Neutrophils/100 65.1 % (N) 40 - 60 % [facility] WBC (Bld) [facility] (40628) Platelet mean 10.4 fL (N) 7.2 - 11.7 fL [facility] volume (Bld) [facility] [Entitic vol] [facility] (04618) Platelets (Bld) 249 10*3/uL (N) 150 - 450 [facility] [#/Vol] 10*3/uL [facility] (68144) Potassium 3.9 mmol/L (N) 3.7 - 5.2 mmol/L [facility] [Moles/Vol] [facility] (75563) Protein 6.5 g/dL (N) 6.4 - 8.3 g/dL [facility] [Mass/Vol] [facility] (02245) RBC (Bld) 5.02 10*6/uL (N) 4.2 - 6.1 [facility] lth [#/Vol] 10*6/uL [facility] (61346) Sodium 141 mmol/L (N) 135 - 145 mmol/L [facility] [Moles/Vol] [facility] (92042) Triglyceride 246 mg/dL (H) 0 - 150 mg/dL [facility] [Mass/Vol] [facility] (37398) TSH Qn 0.74 m[IU]/L (N) 0.4 - 4 m[IU]/L [facility] (03624) Urea nitrogen 15 mg/dL (N) 7 - 20 mg/dL [facility] [Mass/Vol] [facility] (88394) Urea NOT APPLICABLE (no code) [facility] nitrogen/Creatin [facility] [Mass ratio] [facility] (25133) WBC (Bld) 7.9 10*3/uL (N) 3.5 - 10.5 [facility] th [#/Vol] 10*3/uL [facility] (82063) No panel information on 2017-10-22 Bacteria SEE NOTE (no code) [facility] (U) [facility] (85255) NEGATED no information (no code) no information no information NEGATED no information (no code) no information no information NEGATED no information (no code) no information no information NEGATED no information (no code) no information no information NEGATED no information (no code) no information no information NEGATED no information (no code) no information no information NEGATED no information (no code) no information no information NEGATED no information (no code) no information no information stool (o & p) on 2016-11-06 Ova + Parasite no information (no code) 11-06-2016 [facility] Exam 13:00-0400 [facility] (69948) culture, stool on 2016-11-06 Campylobacter in Preliminary (no code) 11-06-2016 [facility] stool report 13:00-0400 [facility] (08349) Campylobacter in Final report (no code) 11-06-2016 [facility] stool 13:00-0400 [facility] (51131) E coli no information (no code) 11-06-2016 [facility] shiga-like 13:00-0400 [place] [facility] stool (27418) Salmonella/Shige Final report (no code) 11-06-2016 [facility] lla Screen 13:00-0400 [facility] (04904) CULTURE, STOOL no information (no code) 11-06-2016 [facility] 13:00-0400 [facility] (55357) No panel information on 2016-05-08 TSH Qn 0.308 (L) 05-08-2016 Not Available 09:57 (08393) Vital Signs Vital Sign Value Interpretation Reference Date Time Care Prov ider Facility (Normalized) (Normalized) Range BMI (Body Mass 33.31 kg/m2 (no code) 15 - 25 kg/m2 04-02-2018 B ELISE VAZQUEZ Community Index) 10:00-[address] [place] [address] ([id number]) BMI (Body Mass 32.89 kg/m2 (no code) 15 - 25 kg/m2 10-22-2017 Kevon RICH Community Index) 10:20-[address] [place] [address] ([id number]) BMI (Body Mass 33.39 kg/m2 (no code) 15 - 25 kg/m2 09-09-2017 B ELISE VAZQUEZ Community Index) 11:40-[address] [place] [address] ([id number]) BMI (Body Mass 33.07 kg/m2 (no code) 15 - 25 kg/m2 07-31-2017 Alexey MARTELL Community Index) 10:50-[address] [place] [address] ([id number]) BMI (Body Mass 32.79 kg/m2 (no code) 15 - 25 kg/m2 05-06-2017 B ELISE VAZQUEZ Community Index) 11:00-[address] [place] [address] ([id number]) BMI (Body Mass 31.79 kg/m2 (no code) 15 - 25 kg/m2 01-30-2017 B ELISE VAZQUEZ Community Index) 13:00-[address] [place] [address] ([id number]) BMI (Body Mass 32.01 kg/m2 (no code) 15 - 25 kg/m2 11-06-2016 VASQUEZ OROZCO Community Index) 13:05-0400 [place] [id number] [place] [address] ([id number]) Body height 170.18 cm (no code) cm 04-23-2013 ANASTACIO HILL Community 11:17-[address] [place] [address] ([id number]) Body 97.9 [degF] (no code) 97.8 - 99.0 04-02-2018 [facility] [degF[facility] 10:00-0500 [id number] [facility] ([id number]) Body 98.1 [degF] (no code) 97.8 - 99.0 10-22-2017 [facility] Temperature [degF] 10:20-0400 73191 [facility] ([id number]) Body 98 [degF] (no code) 97.8 - 99.0 09-09-2017 [facility] Temperature [degF] 11:40-0400 45877 [facility] ([id number]) Body 98.3 [degF] (no code) 97.8 - 99.0 07-31-2017 [facility] Temperature [degF] 10:50-0400 14909 [facility] ([id number]) Body 98.1 [degF] (no code) 97.8 - 99.0 05-06-2017 [facility] Temperature [degF] 11:00-0400 99131 [facility] ([id number]) Body 98.3 [degF] (no code) 97.8 - 99.0 01-30-2017 [facility] Temperature [degF] 13:00-0500 21898 [facility] Cent[facility] ([id number]) Body 97.9 [degF] (no code) 97.8 - 99.0 11-06-2016 [facility] Temperature [degF] 13:05-0400 [facility] [id number] [facility] ([id number]) Body 99.2 [degF] (no code) 97.8 - 99.0 05-12-2014 [facility] Temperature [degF] 12:02-0400 52888 [facility] ([id number]) Body 98.6 [degF] (no code) 97.8 - 99.0 11-11-2013 [facility] Temperature [degF] 09:57-0400 83221 [facility] Cent[facility] ([id number]) Body 98.2 [degF] (no code) 97.8 - 99.0 04-23-2013 [facility] temperature [degF] 11:17-[id number] [place] [address] ([id number]) Body 97.4 [degF] (no code) 97.8 - 99.0 09-24-2011 [facility] Temperature [degF] 12:48-0400 96919 [facility] ([id number]) Body weight 90.52 kg (no code) kg 05-12-2014 [facility] 12:02-0400 19343 [facility] ([id number]) Body weight 90.89 kg (no code) kg 11-11-2013 [facility] 09:57-[address] [place] [address] ([id number]) Body weight 87.2 kg (no code) kg 04-23-2013 [facility] 11:1705[id number] [place] [address] ([id number]) Body weight 84.55 kg (no code) kg 09-24-2011 [facility] 12:48-[address] [place] [address] ([id number]) Height 170.18 cm (no code) cm 04-02-2018 [facility] 10:00-[address] [place] [address] ([id number]) Height 170.18 cm (no code) cm 10-22-[address] [facility] 10:20-0400 27288 [facility] ([id number]) Height 170.18 cm (no code) cm 09-09-2017 [facility] 11:40-[id number] [place] [address] ([id number]) Height 170.18 cm (no code) cm 07-31-2017 CYNTHIA Dove [facility] 10:50-0400 22549 [facility] ([id number]) Height 170.18 cm (no code) cm 05-06-2017 [facility] 11:00-[address] [place] [address] ([id number]) Height 170.18 cm (no code) cm 01-30-2017 [facility] 13:00-[address] [place] [address] ([id number]) Height 170.18 cm (no code) cm 11-06-2016 TAHIR graham 13:05-0400 [place] [id number] ([id number]) Height 170.18 cm (no code) cm 05-12-2014 [facility] 12:02-[address] [place] [address] ([id number]) Height 170.18 cm (no code) cm 11-11-2013 [facility] 09:57-[address] [place] [address] ([id number]) Height 170.18 cm (no code) cm 09-24-2011 [facility] 12:48-[address] [place] [address] ([id number]) Pulse Oximetry 98 % (no code) 95 - 100 % 04-02-2018 [facility] 10:00-[address] [place] [address] ([id number]) Pulse Oximetry 98 % (no code) 95 - 100 % 09-09-2017 [facility] 11:40-[address] [place] [address] ([id number]) Weight 96.48 kg (no code) kg 04-02-2018 [facility] 10:00-[address] [place] [address] ([id number]) Weight 95.26 kg (no code) kg 10-22-[address] [facility] 10:20-[address] [place] [address] ([id number]) Weight 96.71 kg (no code) kg 09-09-2017 [facility] 11:40-[address] [place] [address] ([id number]) Weight 95.8 kg (no code) kg 07-31-[address] [facility] 10:50-[address] [place] [address] ([id number]) Weight 94.98 kg (no code) kg 05-06-2017 ANASTACIO VAZQUEZ [facility] 11:00-0400 01801 [facility] ([id number]) Weight 92.08 kg (no code) kg 01-30-2017 ANASTACIO VAZQUEZ [facility] 13:00-0500 76307 [facility] ([id number]) Weight 92.72 kg (no code) kg 11-06-2016 TAHIR Simpson [facility] 13:05-0400 [facility] [id number] [facility] ([id number]) Interventions No Information Plan of Treatment Normalized Care Care Detail Care Activity Date Care Provider F acility Activity Patient encounter no information 04-21-2019 YUE JI [facility] ([id number]) no information no information no information ANASTACIO VAZQUEZ [phone] [facility] ([id number]) Goals No Information Social History The data below is from unstructured sources Social History Element Description Quantity Unknown Functional Status No Information Mental Status No Information Encounters Encounter Normalized Encounter Encounter Diagnosis Care Provi selena Organization Date Type 04-08-2019 [facility] Exercise counseling ANASTACIO GARCIA (no [facility] - phone) (no phone) 04-08-2019 - 04-08-2019 NEGATED Patient encounter no information no name (no phone) no organization name 10-22-2017 (no phone) NEGATED Patient encounter no information no name (no phone) no organization name 09-13-2017 (no phone) NEGATED Patient encounter no information no name (no phone) no organization name 09-09-2017 (no phone) 07-31-2017 Patient encounter no information no name (no phone) no organization name (no phone) 06-24-2017 Patient encounter no information no name (no phone) no organization name (no phone) 05-06-2017 Patient encounter no information no name (no phone) no organization name (no phone) 04-08-2019 Patient encounter no information ANASTACIO VAZQUEZ ( no [facility] phone) [facility] (no phone) 03-30-2019 Patient encounter no information ANASTACIO VAZQUEZ ( no [facility] procedure phone) [facility] (no phone) 01-08-2019 Patient encounter no information no name (no phone) no organization name procedure (no phone) 12-30-2018 Patient encounter no information no name (no phone) no organization name procedure (no phone) 12-26-2018 Patient encounter no information no name (no phone) no organization name procedure (no phone) 12-22-2018 Patient encounter no information no name (no phone) no organization name procedure (no phone) 04-02-2018 Patient encounter no information no name (no phone) no organization name procedure (no phone) 06-24-2017 Patient encounter no information [facility] BENTLEY MD ( no [facility] procedure phone) [facility] (no phone) 07-10-2016 Patient encounter no information no name (no phone) no organization name procedure (no phone) 07-10-2016 Patient encounter no information ANASTACIO James [facility] procedure (no phone) [facility] (no phone) 05-12-2015 Patient encounter no information ANASTACIO James [facility] procedure (no phone) [facility] (no phone) 08-25-2013 Patient encounter no information no name (no phone) no organization name procedure (no phone) 03-16-2013 Patient encounter no information no name (no phone) no organization name - procedure (no phone) 05-01-2013 10-01-2011 Patient encounter no information no name (no phone) no organization name procedure (no phone) 05-17-2011 Patient encounter no information no name (no phone) no organization name - procedure (no phone) 05-17-2011 01-23-2011 Patient encounter no information no name (no phone) no organization name procedure (no phone) 12-06-2015 no information Encounter for general no name (no ph one) no organization name [facility] (no phone) examination without abnormal findings Medical Equipment No Information Payers The data below is from unstructured sources Payer name Insurance type Covered alliance party ID Authorization(s) Unknown History general Narrative - Reported Note Type Note Facility History general Narrative - Reported Type Medical Hypertension History Medical Hyperlipidemia History Medical Migraines History Medical Anxiety History Medical Compulsive Disorder History Medical depression History Medical hypothyroidism History Medical TIA-in 2002 History Medical right heel spur History Medical stroke History Surgical thyroid surgery 1989 History Surgical appendectomy 1989 History Surgical hysterectomy partial 2000 History Surgical Rhinoplasty 1996 History Surgical eye surgery 1975 History Surgical facial reconstruction 1986 History Surgical jaw surgery History Surgical torn retina/eye surgery 07/2018 History Hospitaliz surgeries ation History [facility] ([id number]) Summary Purpose eClinicalWorks SubmissioneClinicalWorks SubmissioneClinicalWorks SubmissioneClinicalWorks SubmissioneClinicalWorks SubmissioneClinicalWorks SubmissioneClinicalWorks SubmissioneClinicalWorks Submission Assessments and Plan Title: Office Author: Ernie, Date: Visit Note Andra Fitzgerald MD 12/06/15 Assessment/Plan 1.Routine medical exam She will return to clinic in 6 months for reevaluation. Patient was seen for her hypertension, fatigue,obesity. Way. Patient agrees white femalepatient return to clinic in one year for routine physical exam. Patient to current care for hypertension. Did discuss ways to lose weight. ÂWe'll follow-up on lab for her fatigue. She may be diabetic. Patient work on diet and exercise. Patient has had her flu shot. She does have a new job. Her weight is down 6 pounds. I'm hoping she continues to lose weight. Continue the current blood pressure dose that she may decrease if she loses 10 more pounds. Refills were given on her medication for ADHD. 2.Fatigue Ordered: Comprehensive Metabolic Panel Hemoglobin A1c Lipid Panel Urinalysis with Culture if Indicated Vitamin B12 Level 3.Hypertension Ordered: Comprehensive Metabolic Panel Hemoglobin A1c Lipid Panel Urinalysis with Culture if Indicated Vitamin B12 Level 4.Obesity due to excess calories Ordered: Comprehensive Metabolic Panel Hemoglobin A1c Lipid Panel Urinalysis with Culture if Indicated Vitamin B12 Level 5.ADHD (attention deficit hyperactivity disorder) Ordered: Comprehensive Metabolic Panel Hemoglobin A1c Lipid Panel Urinalysis with Culture if Indicated Vitamin B12 Level Title: Office Author: Ernie, Date: Visit Note Andra Fitzgerald MD 12/03/14 Assessment/Plan 1.Routine medical exam Patient was seen in one year for routine physical exam. 2.Benign essential HTN Continue medications for blood pressure be seen in 6 months. 3.Adult ADHD Refill given on her Adderall. 4.Obesity due to excess calories Did discuss diet, exercise and weight loss. Patient was given a refill on her B12 shots. Orders: cyanocobalamin, 1,000 mcg 1 mL, IntraMuscular, qMonth, Pt wants single dose injections., # 1 mL, 11 Refill(s), Pharmacy: [facility] [id number], 1 mL IntraMuscular qMonth,Instr:Pt wants single dose injections. dextroamphetamine-amphetamine, 0.5, Oral, BID, for ADD, # 30 tabs, 0 Refill(s) Title: Author: Gianfrancokhanh, Date: Ambulatory Patient Education Andra Fitzgerald MD 06/07/15 Family Medicine Cholesterol Cholesterol is a fat. Your body needs a small amount of cholesterol. Cholesterol may build up in your blood vessels. This increases your chance of having a heart attack or stroke. You cannot feel your cholesterol levels. The only way to know your cholesterol level is high is with a blood test. Keep your test results. Work with your doctor to keep your cholesterol at a good level. WHAT DO THE TEST RESULTS MEAN? Total cholesterol is how much cholesterol is in your blood. LDL is bad cholesterol. This is the type that can build up. You want LDL to be low. HDL is good cholesterol. It cleans your blood vessels and carries LDL away. You want HDL to be high. Triglycerides are fat that the body can burn for energy or store. WHAT ARE GOOD LEVELS OF CHOLESTEROL? Total cholesterol below 200. LDL below 100 for people at risk. Below 70 for those at very high risk. HDL above 50 is good. Above 60 is best. Triglycerides below 150. HOW CAN I LOWER MY CHOLESTEROL? Diet. Follow your diet programs as told by your doctor. Choose fish, white meat chicken, roasted turkey, or baked turkey. Try not to eat red meat, fried foods, or processed meats such as sausage and lunch meats. Eat lots of fresh fruits and vegetables. Choose whole grains, beans, pasta, potatoes, and cereals. Use only small amounts of olive, corn, or canola oils. Try not to eat butter, mayonnaise, shortening, or palm kernel oils. Try not to eat foods with trans fats. Drink skim or nonfat milk. Eat low-fat or nonfat yogurt and cheeses. Try not to drink whole milk or cream. Try not to eat ice cream, egg yolks, and full-fat cheeses. Healthy desserts include shalom food cake, everardo snaps, animal crackers, hard candy, popsicles, and low-fat or nonfat frozen yogurt. Try not to eat pastries, cakes, pies, and cookies. Exercise. Follow your exercise programs as told by your doctor. Be more active. You can try gardening, walking, or taking the stairs. Ask your doctor about how you can be more active. Medicine. Take medicine as told by your doctor. This information is not intended to replace advice given to you by your health care provider. Make sure you discuss any questions you have with your health care provider. Document Released: 05/03/2009 Document Revised: 06/21/2014 Document Reviewed: 11/18/2013 ExitCare Patient Information 2015 [employer]. No follow up information was provided. Title: Office Author: Ernie, Date: Visit Note Andra Fitzgerald MD 06/07/15 Assessment/Plan 1.Benign essential HTN Patient will continue current care and be seen in 6 months. Patient really needs to work on weight loss and exercise. I believe her ADHD is not adequately controlled. She believes it is. She did not want to go up on the medication. Patient is to seek out a counselor. 2.Fatigue Lab 3.Glucose intolerance not due to malabsorption Lab 4.Mixed hyperlipidemia Lab 5.Obesity due to excess calories Patient continue to work on diet and exercise. She'll increase fiber. Patient watch the starches. 6.Adult ADHD Patient will continue current medications. We did not discuss her back pain today. Patient be seen by me at least every 6 months. Patient will fill her prescriptions monthly for ADHDand B12 deficiency. Orders: cyanocobalamin, 1,000 mcg 1 mL, IntraMuscular, qMonth, Pt wants single dose injections., # 1 mL, 11 Refill(s), 1 mL IntraMuscular qMonth,Instr:Pt wants single dose injections. dextroamphetamine-amphetamine, 0.5, Oral, BID, for ADD may fill 5-16, # 30 tabs, 0 Refill(s) lisinopril, See Instructions, TAKE 1 TABLET BY MOUTH EVERY DAY., # 90 tabs, 3 Refill(s), [id number], TAKE 1 TABLET BY MOUTH EVERY DAY. Family History Family Member Diagnosis Age At Onset Status Father (Unknown) Diabetes Yes Father (Unknown) Hyperlipidemia Yes Mother (Unknown) COPD Yes Father (Unknown) Hypertension Yes Father (Unknown) MVA Yes Additional Source Comments This clinical document has been generated using Fin[employer] software that has been certified by the Office of the National Coordinator for Health Information Technology (ONC 15.99.04.3023.Diam.31.00.0.265877) and the National Committee for Metal Flow Coordinator (NCQA, as an eMeasure certified technology). FOR RECORDS PERTAINING TO PATIENTS WHO ARE OR HAVE BEEN ENROLLED IN A CHEMICAL D EPENDENCY/SUBSTANCE ABUSE PROGRAM, SOME INFORMATION MAY BE OMITTED. This clinica l summary was aggregated from multiple sources. Caution should be exercised in using it in the provision of clinical care. This summary normalizes information from multiple sources, and as a consequence, information in this document may ma terially change the coding, format and clinical context of patient data. In donta tion, data may be omitted in some cases. CLINICAL DECISIONS SHOULD BE BASED ON T HE PRIMARY CLINICAL RECORDS. [employer] provides no warranty or guara ntee of the accuracy or completeness of information in this document.The [facility] information is based on time limited clinical information UNRECOGNIZED CONTENT PROVIDED BELOW FOR UNRECOGNIZED SECTION MEDICAL (GENERAL) HISTORY Type Description Date Medical History Hypertension Medical History Hyperlipidemia Medical History Migraines Medical History Anxiety Medical History Compulsive Disorder Medical History depression Medical History hypothyroidism Medical History TIA-in 2002 Medical History right heel spur Medical History stroke Surgical History thyroid surgery 1989 Surgical History appendectomy 1989 Surgical History hysterectomy partial 2000 Surgical History Rhinoplasty 1996 Surgical History eye surgery 1975 Surgical History facial reconstruction 1986 Surgical History jaw surgery Hospitalization History surgeries UNRECOGNIZED CONTENT PROVIDED BELOW FOR UNRECOGNIZED SECTION REASON FOR VISIT Refill requestHypothyroid, PT reports she needs some medication for her psoriasi s flared up on the palm of her hands -Thomas CHOE UTI symptoms started almost 2 weeks ago JStrasserRNmedication reconciliationmedication reconciliation--per [facility] visitHypothyroid --Jennifer Rachel-Mig
--- OUTSIDE RECORDS SUMMARY | 2019-05-01 17:43 | XMS REPORT ---
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 Name Role Phone ANASTACIO VAZQUEZ Unavailable PROBLEMS Type Condition ICD9-CM Code JWF93-ML Code Onset Dates Condition S tatus SNOMED Code Problem Sleep apnea in adult G47.33 Active 46480834 Problem Hyperlipidemia, unspecified hyperlipidemia type E7 8.5 Active 17246094 Problem Lipoma D17.9 Active 43299145 Problem Migraine with aura, not intractable, without sta tus migrainosus G43.109 Active 29593012 Problem Slow transit constipation K59.01 Acti ve 12285675 Problem Mood disorder F39 Active 612183 05 Problem Tension headache G44.209 Active 398 084119 Problem Essential (primary) hypertension I10 Active 67847723 Problem Hypothyroid E03.9 Active 78560649 Problem Sleep apnea, unspecified G47.30 Activ e 62897660 Problem Seasonal allergic rhinitis due to pollen J30.1 Active 24986835 Problem Psoriasis L40.9 Active 6813594 ALLERGIES No Information ENCOUNTERS Encounter Location Date Diagnosis [place] [address] [address] 19 Mar, 2019 Exercise counseling Z71.[address] [address] Mar, Hyperlipidemia, unspecified hyperlipidem ia type E78.5 ; Hypothyroid E03.9 ; Breast cancer screening by mammogram Z12.31 and Heart murmur, systolic R01.1 [place] [address] [address] Jan, Hyperlipidemia, unspecified hyperlipidem ia type E78.5 and Hypothyroidism, unspecified E03.[address] [address] Dec, Hyperlipidemia, unspecified hyperlipidem ia type E78.5 ; Essential (primary) hypertension I10 and Hypothyroid E03.9 [place] [address] [address] Dec, Hyperlipidemia, unspecified hyperlipidem ia type E78.5 ; Hypothyroid E03.9 ; Essential (primary) hypertension I10 ; Tension headache G44.209 ; Breast cancer screening by mammogram Z12.31 and Encounter for immunization Z23 [place] [address] [address] Oct, [place] [address] [address] Sep, [place] [address] [address] June, [place] [address] [address] May, Hyperlipidemia, unspecified hyperlipidem ia type E78.5 [place] [address] [address] Mar, Hypothyroid E03.9 ; Hyperlipidemia, unsp ecified hyperlipidemia type E78.5 ; Tension headache G44.209 ; Psoriasis L40.9 and Breast cancer screening by mammogram Z12.31 [place] [address] [address] Feb, Essential (primary) hypertension I10 [place] [address] [address] Feb, Essential (primary) hypertension I10 [place] [address] [address] Dec, Essential (primary) hypertension I10 [place] [address] [address] Nov, Migraine with aura, not intractable, wit hout status migrainosus G43.109 [facility] [address] [facility] [id number] [address] [address] Oct, Dysuria R30.0 [place] [address] [address] Sep, Psoriasis L40.9 [place] [address] [address] Aug, Psoriasis L40.9 ; Poison jaylon L23.7 ; Slo w transit constipation K59.01 ; Breast cancer screening by mammogram Z12.31 and Colon cancer screening Z12.11 [facility] [address] [facility] [id number] [address] [address] Jul, Poison jaylon L23.7 [place] [address] [address] Apr, Elevated LFTs R79.89 ; Hypothyroid E03.9 ; Hyperlipidemia, unspecified hyperlipidemia type E78.5 ; Seasonal allergic rhinitis due to pollen J30.1 and Essential (primary) hypertension I10 [place] [address] [address] Mar, [place] [address] [address] Mar, [place] [address] [address] Feb, Hypothyroid E03.9 and Hyperlipidemia, un specified hyperlipidemia type E78.5 [place] [address] [address] Jan, Sleep apnea, unspecified G47.30 ; Hypoth yroid E03.9 and Hyperlipidemia, unspecified hyperlipidemia type E78.5 [place] [address] [address] Jan, [place] [address] [address] Jan, [place] [address] [address] Dec, [facility] [address] [facility] [id number] [address] [place] [address] Oct, Blood in stool K92.1 and Ext ernal hemorrhoid, bleeding K64.4 [place] [address] [address] Aug, Migraine with aura, not intractable, wit hout status migrainosus G43.109 [place] [address] [address] June, Breast cancer screening Z12.39 [place] [address] [address] May, Callus L84 [place] [address] [address] Apr, Callus L84 [place] [address] [address] Apr, Hypothyroid E03.9 [place] [address] [address] Apr, Hypothyroid E03.9 ; Callus L84 and Hidra denitis L73.2 [place] [address] [address] Jan, Hyperlipidemia, unspecified hyperlipidem ia type E78.5 [place] [address] [address] Jan, [place] [address] [address] Oct, Hyperlipidemia, unspecified hyperlipidem ia type E78.5 [place] [address] [address] Oct, Seroma T14.8 [place] [address] [address] Sep, [place] [address] [place] [id number] Sep, Hyperlipidemia, unspecified hyperlipidem ia type E78.5 and Hypothyroid E03.9 [place] [address] [address] Sep, Hyperlipidemia, unspecified hyperlipidem ia type E78.5 ; Hypothyroid E03.9 ; Tension headache G44.209 and Candidiasis of anus B37.89 [place] [address] [address] Jul, [place] [address] [address] June, Tension headache G44.209 [place] [address] [address] Apr, Hyperlipidemia, unspecified hyperlipidem ia type E78.5 ; Hypothyroid E03.9 ; Lipoma D17.9 and Breast cancer screening Z12.39 [place] [address] [address] Mar, [facility] [address] [facility] [place] [id number] 10 Mar, 2015 Encounter for dental examination Z01.20 [place] [address] [address] Feb, [facility] [address] [place] [id number] [place] [address] Jan, Allergic rhinitis J30.9 [place] [address] [address] Jan, [facility] [address] [place] [id number] [place] [address] Dec, Dysuria R30.0 and UTI (urina ry tract infection) N39.0 [place] [address] [address] Dec, [place] [address] [address] Dec, Dysuria R30.0 and Urinary tract infectio n, site unspecified N39.0 [facility] [address] [address] Nov, Benign lipomatous neoplasm of 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, face and neck D17.0 and Hypothyroidism, unspecified E03.9 [facility] [address] [address] Sep, [facility] [address] [address] Aug, Hypothyroidism 244.9 [facility] [address] [address] Jul, Hypothyroidism 244.9 [facility] [address] [address] Jul, Sleep apnea 780.57 [facility] [address] [address] May, [facility] [address] [address] May, [facility] [address] [address] Apr, [facility] [address] [address] Apr, [facility] [address] [address] Mar, [facility] [address] [address] Mar, [facility] [address] [address] Mar, [facility] [address] [address] Mar, [facility] [address] [address] Mar, [facility] [id number] [place] [address] Mar, [facility] [id number] [place] [address] Jan, [facility] [id number] [place] [address] Jan, [facility] [id number] [place] [address] Jan, [facility] [id number] [place] [address] Jan, [facility] [id number] [place] [address] Oct, [facility] [id number] [place] [address] Oct, [facility] [id number] [place] [address] Sep, [facility] [id number] [place] [address] Sep, [facility] [id number] [place] [address] Aug, [facility] [id number] [place] [address] Aug, [facility] [id number] [place] [address] Aug, [facility] [id number] [place] [address] Aug, [facility] [id number] [place] [address] Jul, [facility] [id number] [place] [address] Jul, [facility] [id number] [place] [address] June, [facility] [id number] [place] [address] June, [facility] [id number] [place] [address] June, [facility] [id number] [place] [address] June, [facility] [id number] [place] [address] June, [facility] [id number] [place] [address] June, [facility] [id number] [facility] [place] [address] May, [facility] [id number] [place] [address] May, [facility] [id number] [place] [address] Apr, [facility] [id number] [place] [address] Apr, [facility] [id number] [place] [address] Apr, [facility] [id number] [place] [address] Apr, [facility] [id number] [place] [address] Apr, [facility] [id number] [place] [address] Mar, [facility] [id number] [place] [address] Mar, [facility] [id number] [place] [address] Mar, [facility] [id number] [place] [address] Mar, [facility] [id number] [place] [address] Feb, [facility] [id number] [place] [address] Feb, [facility] [id number] [place] [address] Jan, [facility] [id number] [place] [address] Jan, [facility] [id number] [place] [address] Jan, [facility] [id number] [place] [address] Jan, [facility] [id number] [place] [address] Jan, [facility] [id number] [place] [address] Jan, [facility] [id number] [place] [address] Dec, [facility] [id number] [place] [address] Dec, [facility] [id number] [place] [address] Nov, [facility] [id number] [place] [address] Nov, [facility] [id number] [place] [address] Oct, [facility] [id number] [place] [address] Aug, [facility] [id number] [place] [address] Aug, [facility] [id number] [place] [address] Jul, [facility] [id number] [place] [address] May, [facility] [id number] [place] [address] Apr, [facility] [id number] [place] [address] Apr, [facility] [id number] [place] [address] Mar, [facility] [id number] [place] [address] Dec, [facility] [id number] [place] [address] Dec, [facility] [id number] [place] [address] Dec, [facility] [id number] [place] [address] Dec, [facility] [id number] [place] [address] Dec, [facility] [id number] [place] [address] Dec, [facility] [id number] [place] [address] Nov, [facility] [id number] [place] [address] Nov, [facility] [id number] [place] [address] Nov, [facility] [id number] [place] [address] Nov, [facility] [id number] [place] [address] Sep, [facility] [id number] [place] [address] Sep, [facility] [id number] [place] [address] Aug, [facility] [id number] [place] [address] Aug, [facility] [id number] [place] [address] 08 May, 2011 [facility] [id number] [place] [address] May, [facility] [id number] [place] [address] May, [facility] [id number] [place] [address] Apr, [facility] [id number] [place] [address] 14 Apr, 2011 [facility] [id number] [place] [address] Apr, [facility] [id number] [place] [address] Feb, [facility] [id number] [place] [address] Feb, [facility] [address] [place] [id number] [place] [address] Jan, [facility] [id number] [place] [address] Jan, [facility] [address] [place] [id number] [place] [address] Dec, [facility] [id number] [place] [address] Dec, [facility] [address] [place] [id number] [place] [address] Dec, [facility] [id number] [place] [address] Nov, [facility] [address] [place] [id number] [place] [address] 10 Nov, 2010 [facility] [id number] [place] [address] 15 Mar, 2010 [facility] [id number] [place] [address] 16 Jan, 2010 [facility] [id number] [place] [address] Dec, [facility] [id number] [place] [address] Dec, [facility] [id number] [place] [address] Dec, [facility] [id number] [place] [address] Dec, [facility] [id number] [place] [address] Nov, [facility] [id number] [place] [address] 14 Jan, 2009 [facility] [id number] [place] [address] 14 Nov, 2008 [facility] [id number] [place] [address] 12 Nov, 2008 IMMUNIZATIONS No Known Immunizations SOCIAL HISTORY Never Assessed REASON FOR VISIT PLAN OF CARE VITAL SIGNS MEDICATIONS Unknown Medications RESULTS No Results PROCEDURES No Known procedures INSTRUCTIONS MEDICATIONS ADMINISTERED No Known Medications MEDICAL (GENERAL) HISTORY Type Description Date Medical History Hypertension Medical History Hyperlipidemia Medical History Migraines Medical History Anxiety Medical History Compulsive Disorder Medical History depression Medical History hypothyroidism Medical History TIA-in 2002 Medical History right heel spur Medical History stroke Surgical History thyroid surgery 1989 Surgical History appendectomy 1989 Surgical History hysterectomy partial 2000 Surgical History Rhinoplasty 1996 Surgical History eye surgery 1976 Surgical History facial reconstruction 1986 Surgical History jaw surgery Surgical History torn retina/eye surgery 07/2018 Hospitalization History surgeries
--- OUTSIDE RECORDS SUMMARY | 2019-05-01 17:43 | XMS REPORT ---
Author Author Candace VAZQUEZ Organization [facility] Address [address] [place] [address] Care Team Providers Care Gear Repair Supervisor Name Role Phone ANASTACIO VAZQUEZ Unavailable PROBLEMS Type Condition ICD9-CM Code MSP12-CP Code Onset Dates Condition S tatus SNOMED Code Problem Sleep apnea in adult G47.33 Active 71014525 Problem Hyperlipidemia, unspecified hyperlipidemia type E7 8.5 Active 07573178 Problem Lipoma D17.9 Active 48129099 Problem Migraine with aura, not intractable, without sta tus migrainosus G43.109 Active 82574491 Problem Slow transit constipation K59.01 Acti ve 74737644 Problem Mood disorder F39 Active 335034 05 Problem Tension headache G44.209 Active 398 360605 Problem Essential (primary) hypertension I10 Active 33574684 Problem Hypothyroid E03.9 Active 97464766 Problem Sleep apnea, unspecified G47.30 Activ e 28315545 Problem Seasonal allergic rhinitis due to pollen J30.1 Active 75579352 Problem Psoriasis L40.9 Active 3775335 ALLERGIES No Information ENCOUNTERS Encounter Location Date Diagnosis [place] [address] [address] 19 Mar, 2019 Exercise counseling Z71.[address] [address] Mar, Hyperlipidemia, unspecified hyperlipidem ia type E78.5 ; Hypothyroid E03.9 ; Breast cancer screening by mammogram Z12.31 and Heart murmur, systolic R01.1 [place] [address] [address] Jan, Hyperlipidemia, unspecified hyperlipidem ia type E78.5 and Hypothyroidism, unspecified E03.[address] [address] Dec, Hyperlipidemia, unspecified hyperlipidem ia type E78.5 ; Essential (primary) hypertension I10 and Hypothyroid E03.9 [place] [address] [address] Dec, Hyperlipidemia, unspecified hyperlipidem ia type E78.5 ; Hypothyroid E03.9 ; Essential (primary) hypertension I10 ; Tension headache G44.209 ; Breast cancer screening by mammogram Z12.31 and Encounter for immunization Z23 [place] [address] [address] Oct, [place] [address] [address] Sep, [place] [address] [address] June, [place] [address] [address] May, Hyperlipidemia, unspecified hyperlipidem ia type E78.5 [place] [address] [address] Mar, Hypothyroid E03.9 ; Hyperlipidemia, unsp ecified hyperlipidemia type E78.5 ; Tension headache G44.209 ; Psoriasis L40.9 and Breast cancer screening by mammogram Z12.31 [place] [address] [address] Feb, Essential (primary) hypertension I10 [place] [address] [address] Feb, Essential (primary) hypertension I10 [place] [address] [address] Dec, Essential (primary) hypertension I10 [place] [address] [address] Nov, Migraine with aura, not intractable, wit hout status migrainosus G43.109 [facility] [address] [facility] [id number] [address] [address] Oct, Dysuria R30.0 [place] [address] [address] Sep, Psoriasis L40.9 [place] [address] [address] Aug, Psoriasis L40.9 ; Poison jaylon L23.7 ; Slo w transit constipation K59.01 ; Breast cancer screening by mammogram Z12.31 and Colon cancer screening Z12.11 [facility] [address] [facility] [id number] [address] [address] Jul, Poison jaylon L23.7 [place] [address] [address] Apr, Elevated LFTs R79.89 ; Hypothyroid E03.9 ; Hyperlipidemia, unspecified hyperlipidemia type E78.5 ; Seasonal allergic rhinitis due to pollen J30.1 and Essential (primary) hypertension I10 [place] [address] [address] Mar, [place] [address] [address] Mar, [place] [address] [address] Feb, Hypothyroid E03.9 and Hyperlipidemia, un specified hyperlipidemia type E78.5 [place] [address] [address] Jan, Sleep apnea, unspecified G47.30 ; Hypoth yroid E03.9 and Hyperlipidemia, unspecified hyperlipidemia type E78.5 [place] [address] [address] Jan, [place] [address] [address] Jan, [place] [address] [address] Dec, [facility] [address] [facility] [id number] [address] [place] [address] Oct, Blood in stool K92.1 and Ext ernal hemorrhoid, bleeding K64.4 [place] [address] [address] Aug, Migraine with aura, not intractable, wit hout status migrainosus G43.109 [place] [address] [address] June, Breast cancer screening Z12.39 [place] [address] [address] May, Callus L84 [place] [address] [address] Apr, Callus L84 [place] [address] [address] Apr, Hypothyroid E03.9 [place] [address] [address] Apr, Hypothyroid E03.9 ; Callus L84 and Hidra denitis L73.2 [place] [address] [address] Jan, Hyperlipidemia, unspecified hyperlipidem ia type E78.5 [place] [address] [address] Jan, [place] [address] [address] Oct, Hyperlipidemia, unspecified hyperlipidem ia type E78.5 [place] [address] [address] Oct, Seroma T14.8 [place] [address] [address] Sep, [place] [address] [place] [id number] Sep, Hyperlipidemia, unspecified hyperlipidem ia type E78.5 and Hypothyroid E03.9 [place] [address] [address] Sep, Hyperlipidemia, unspecified hyperlipidem ia type E78.5 ; Hypothyroid E03.9 ; Tension headache G44.209 and Candidiasis of anus B37.89 [place] [address] [address] Jul, [place] [address] [address] June, Tension headache G44.209 [place] [address] [address] Apr, Hyperlipidemia, unspecified hyperlipidem ia type E78.5 ; Hypothyroid E03.9 ; Lipoma D17.9 and Breast cancer screening Z12.39 [place] [address] [address] Mar, [facility] [address] [facility] [place] [id number] 10 Mar, 2015 Encounter for dental examination Z01.20 [place] [address] [address] Feb, [facility] [address] [place] [id number] [place] [address] Jan, Allergic rhinitis J30.9 [place] [address] [address] Jan, [facility] [address] [place] [id number] [place] [address] Dec, Dysuria R30.0 and UTI (urina ry tract infection) N39.0 [place] [address] [address] Dec, [place] [address] [address] Dec, Dysuria R30.0 and Urinary tract infectio n, site unspecified N39.0 [facility] [address] [address] Nov, Benign lipomatous neoplasm of 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, face and neck D17.0 and Hypothyroidism, unspecified E03.9 [facility] [address] [address] Sep, [facility] [address] [address] Aug, Hypothyroidism 244.9 [facility] [address] [address] Jul, Hypothyroidism 244.9 [facility] [address] [address] Jul, Sleep apnea 780.57 [facility] [address] [address] May, [facility] [address] [address] May, [facility] [address] [address] Apr, [facility] [address] [address] Apr, [facility] [address] [address] Mar, [facility] [address] [address] Mar, [facility] [address] [address] Mar, [facility] [address] [address] Mar, [facility] [address] [address] Mar, [facility] [address] [id number] [place] [address] Mar, [facility] [address] [id number] [place] [address] Jan, [facility] [address] [id number] [place] [address] Jan, [facility] [address] [id number] [place] [address] Jan, [facility] [address] [id number] [place] [address] Jan, [facility] [address] [id number] [place] [address] Oct, [facility] [address] [id number] [place] [address] Oct, [facility] [address] [id number] [place] [address] Sep, [facility] [address] [id number] [place] [address] Sep, [facility] [address] [id number] [place] [address] Aug, [facility] [address] [id number] [place] [address] Aug, [facility] [address] [id number] [place] [address] Aug, [facility] [address] [id number] [place] [address] Aug, [facility] [address] [id number] [place] [address] Jul, [facility] [address] [id number] [place] [address] Jul, [facility] [address] [id number] [place] [address] June, [facility] [address] [id number] [place] [address] June, [facility] [address] [id number] [place] [address] June, [facility] [address] [id number] [place] [address] June, [facility] [address] [id number] [place] [address] June, [facility] [address] [id number] [place] [address] June, [facility] [address] [id number] [facility] [place] [address] May, [facility] [address] [id number] [place] [address] May, [facility] [address] [id number] [place] [address] Apr, [facility] [address] [id number] [place] [address] Apr, [facility] [address] [id number] [place] [address] Apr, [facility] [address] [id number] [place] [address] Apr, [facility] [address] [id number] [place] [address] Apr, [facility] [address] [id number] [place] [address] Mar, [facility] [address] [id number] [place] [address] Mar, [facility] [address] [id number] [place] [address] Mar, [facility] [address] [id number] [place] [address] Mar, [facility] [address] [id number] [place] [address] Feb, [facility] [address] [id number] [place] [address] Feb, [facility] [address] [id number] [place] [address] Jan, [facility] [address] [id number] [place] [address] Jan, [facility] [address] [id number] [place] [address] Jan, [facility] [address] [id number] [place] [address] Jan, [facility] [address] [id number] [place] [address] Jan, [facility] [address] [id number] [place] [address] Jan, [facility] [address] [id number] [place] [address] Dec, [facility] [address] [id number] [place] [address] Dec, [facility] [address] [id number] [place] [address] Nov, [facility] [address] [id number] [place] [address] Nov, [facility] [address] [id number] [place] [address] Oct, [facility] [address] [id number] [place] [address] Aug, [facility] [address] [id number] [place] [address] Aug, [facility] [address] [id number] [place] [address] Jul, [facility] [address] [id number] [place] [address] May, [facility] [address] [id number] [place] [address] Apr, [facility] [address] [id number] [place] [address] Apr, [facility] [address] [id number] [place] [address] Mar, [facility] [address] [id number] [place] [address] Dec, [facility] [address] [id number] [place] [address] Dec, [facility] [address] [id number] [place] [address] Dec, [facility] [address] [id number] [place] [address] Dec, [facility] [address] [id number] [place] [address] Dec, [facility] [address] [id number] [place] [address] Dec, [facility] [address] [id number] [place] [address] Nov, [facility] [address] [id number] [place] [address] Nov, [facility] [address] [id number] [place] [address] Nov, [facility] [address] [id number] [place] [address] Nov, [facility] [address] [id number] [place] [address] Sep, [facility] [address] [id number] [place] [address] Sep, [facility] [address] [id number] [place] [address] Aug, [facility] [address] [id number] [place] [address] Aug, [facility] [address] [id number] [place] [address] 08 May, 2011 [facility] [address] [id number] [place] [address] May, [facility] [address] [id number] [place] [address] May, [facility] [address] [id number] [place] [address] Apr, [facility] [address] [id number] [place] [address] 14 Apr, 2011 [facility] [address] [id number] [place] [address] Apr, [facility] [address] [id number] [place] [address] Feb, [facility] [address] [id number] [place] [address] Feb, [facility] [address] [place] [id number] [place] [address] Jan, [facility] [address] [id number] [place] [address] Jan, [facility] [address] [place] [id number] [place] [address] Dec, [facility] [address] [id number] [place] [address] Dec, [facility] [address] [place] [id number] [place] [address] Dec, [facility] [address] [id number] [place] [address] Nov, [facility] [address] [place] [id number] [place] [address] 10 Nov, 2010 [facility] [address] [id number] [place] [address] 15 Mar, 2010 [facility] [address] [id number] [place] [address] 16 Jan, 2010 [facility] [address] [id number] [place] [address] Dec, [facility] [address] [id number] [place] [address] Dec, [facility] [address] [id number] [place] [address] Dec, [facility] [address] [id number] [place] [address] Dec, [facility] [address] [id number] [place] [address] Nov, [facility] [address] [id number] [place] [address] 14 Jan, 2009 [facility] [address] [id number] [place] [address] 14 Nov, 2008 [facility] [address] [id number] [place] [address] 12 Nov, 2008 IMMUNIZATIONS No Known Immunizations [...]
--- OUTSIDE RECORDS SUMMARY | 2019-05-01 17:43 | XMS REPORT ---
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 Name Role Phone ANASTACIO VAZQUEZ Unavailable PROBLEMS Type Condition ICD9-CM Code OHD02-OS Code Onset Dates Condition S tatus SNOMED Code Problem Sleep apnea in adult G47.33 Active 78871092 Problem Hyperlipidemia, unspecified hyperlipidemia type E7 8.5 Active 23459410 Problem Lipoma D17.9 Active 50590393 Problem Migraine with aura, not intractable, without sta tus migrainosus G43.109 Active 92068325 Problem Slow transit constipation K59.01 Acti ve 43333754 Problem Mood disorder F39 Active 298135 05 Problem Tension headache G44.209 Active 398 403864 Problem Essential (primary) hypertension I10 Active 02367468 Problem Hypothyroid E03.9 Active 09095375 Problem Sleep apnea, unspecified G47.30 Activ e 62634801 Problem Seasonal allergic rhinitis due to pollen J30.1 Active 36657885 Problem Psoriasis L40.9 Active 3917855 ALLERGIES No Information ENCOUNTERS Encounter Location Date Diagnosis [place] [address] [address] Mar, [address] [address] Mar, Hyperlipidemia, unspecified hyperlipidem ia type E78.5 ; Hypothyroid E03.9 ; Breast cancer screening by mammogram Z12.31 and Heart murmur, systolic R01.1 [place] [address] [address] Jan, Hyperlipidemia, unspecified hyperlipidem ia type E78.5 and Hypothyroidism, unspecified E03.9 [place] [address] [address] Dec, Hyperlipidemia, unspecified hyperlipidem ia type E78.5 ; Essential (primary) hypertension I10 and Hypothyroid E03.9 [place] [address] [address] Dec, Hyperlipidemia, unspecified hyperlipidem ia type E78.5 ; Hypothyroid E03.9 ; Essential (primary) hypertension I10 ; Tension headache G44.209 ; Breast cancer screening by mammogram Z12.31 and Encounter for immunization Z23 [place] [address] [address] Oct, [place] [address] [address] Sep, [place] [address] [address] June, [place] [address] [address] May, Hyperlipidemia, unspecified hyperlipidem ia type E78.5 [place] [address] [address] Mar, Hypothyroid E03.9 ; Hyperlipidemia, unsp ecified hyperlipidemia type E78.5 ; Tension headache G44.209 ; Psoriasis L40.9 and Breast cancer screening by mammogram Z12.31 [place] [address] [address] Feb, Essential (primary) hypertension I10 [place] [address] [address] Feb, Essential (primary) hypertension I10 [place] [address] [address] Dec, Essential (primary) hypertension I10 [place] [address] [address] Nov, Migraine with aura, not intractable, wit hout status migrainosus G43.109 [facility] [address] [address] 04 Oct, 2017 Dysuria R30.0 [place] [address] [address] Sep, Psoriasis L40.9 [place] [address] [address] Aug, Psoriasis L40.9 ; Poison jaylon L23.7 ; Slo w transit constipation K59.01 ; Breast cancer screening by mammogram Z12.31 and Colon cancer screening Z12.11 [facility] [address] [address] Jul, Poison jaylon L23.7 [place] [address] [address] Apr, Elevated LFTs R79.89 ; Hypothyroid E03.9 ; Hyperlipidemia, unspecified hyperlipidemia type E78.5 ; Seasonal allergic rhinitis due to pollen J30.1 and Essential (primary) hypertension I10 [place] [address] [address] Mar, [place] [address] [address] Mar, [place] [address] [address] Feb, Hypothyroid E03.9 and Hyperlipidemia, un specified hyperlipidemia type E78.5 [place] [address] [address] Jan, Sleep apnea, unspecified G47.30 ; Hypoth yroid E03.9 and Hyperlipidemia, unspecified hyperlipidemia type E78.5 [place] [address] [address] Jan, [place] [address] [address] Jan, [place] [address] [address] Dec, [facility] [address] [facility] [id number] [place] [address] Oct, Blood in stool K92.1 and Ext ernal hemorrhoid, bleeding K64.4 [place] [address] [address] Aug, Migraine with aura, not intractable, wit hout status migrainosus G43.109 [place] [address] [address] June, Breast cancer screening Z12.39 [place] [address] [address] May, Callus L84 [place] [address] [address] Apr, Callus L84 [place] [address] [address] Apr, Hypothyroid E03.9 [place] [address] [address] Apr, Hypothyroid E03.9 ; Callus L84 and Hidra denitis L73.2 [place] [address] [address] Jan, Hyperlipidemia, unspecified hyperlipidem ia type E78.5 [place] [address] [address] Jan, [place] [address] [address] Oct, Hyperlipidemia, unspecified hyperlipidem ia type E78.5 [place] [address] [address] Oct, Seroma T14.8 [place] [address] [address] Sep, [place] [address] [address] Sep, Hyperlipidemia, unspecified hyperlipidem ia type E78.5 and Hypothyroid E03.9 [place] [address] [address] Sep, Hyperlipidemia, unspecified hyperlipidem ia type E78.5 ; Hypothyroid E03.9 ; Tension headache G44.209 and Candidiasis of anus B37.89 [place] [address] [address] Jul, [place] [address] [address] June, Tension headache G44.209 [place] [address] [address] Apr, Hyperlipidemia, unspecified hyperlipidem ia type E78.5 ; Hypothyroid E03.9 ; Lipoma D17.9 and Breast cancer screening Z12.39 [place] [address] [address] Mar, [facility] [address] [id number] [place] [id number] Mar, Encounter for dental examination Z01.20 [place] [address] [address] Feb, [facility] [address] [place] [id number] [place] [address] Jan, Allergic rhinitis J30.9 [place] [address] [address] Jan, [facility] [address] [place] [id number] [place] [address] Dec, Dysuria R30.0 and UTI (urina ry tract infection) N39.0 [place] [address] [address] Dec, [place] [address] [address] Dec, Dysuria R30.0 and Urinary tract infectio n, site unspecified N39.0 [facility] [address] [address] Nov, Benign lipomatous neoplasm of 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, face and neck D17.0 and Hypothyroidism, unspecified E03.9 [facility] [address] [address] Sep, [facility] [address] [address] Aug, Hypothyroidism 244.9 [facility] [address] [address] Jul, Hypothyroidism 244.9 [facility] [address] [address] Jul, Sleep apnea 780.57 [facility] [address] [address] May, [facility] [address] [address] May, [facility] [address] [address] Apr, [facility] [address] [address] Apr, [facility] [address] [address] Mar, [facility] [address] [address] Mar, [facility] [address] [address] Mar, [facility] [address] [address] Mar, [facility] [address] [address] Mar, [facility] [address] [id number] [place] [address] Mar, [facility] [address] [id number] [place] [address] Jan, [facility] [address] [id number] [place] [address] Jan, [facility] [address] [id number] [place] [address] Jan, [facility] [address] [id number] [place] [address] Jan, [facility] [address] [id number] [place] [address] Oct, [facility] [address] [id number] [place] [address] Oct, [facility] [address] [id number] [place] [address] Sep, [facility] [address] [id number] [place] [address] Sep, [facility] [address] [id number] [place] [address] Aug, [facility] [address] [id number] [place] [address] Aug, [facility] [address] [id number] [place] [address] Aug, [facility] [address] [id number] [place] [address] Aug, [facility] [address] [id number] [place] [address] Jul, [facility] [address] [id number] [place] [address] Jul, [facility] [address] [id number] [place] [address] June, [facility] [address] [id number] [place] [address] June, [facility] [address] [facility] [id number] [place] [address] June, [facility] [address] [facility] [id number] [place] [address] June, [facility] [address] [facility] [id number] [place] [address] June, [facility] [address] [id number] [place] [address] June, [facility] [address] [facility] [id number] [place] [address] May, [facility] [address] [id number] [place] [address] May, [facility] [address] [id number] [place] [address] Apr, [facility] [address] [id number] [place] [address] Apr, [facility] [address] [id number] [place] [address] Apr, [facility] [address] [id number] [place] [address] Apr, [facility] [address] [id number] [place] [address] Apr, [facility] [address] [id number] [place] [address] Mar, [facility] [address] [id number] [place] [address] Mar, [facility] [address] [id number] [place] [address] Mar, [facility] [address] [id number] [place] [address] Mar, [facility] [address] [id number] [place] [address] Feb, [facility] [address] [id number] [place] [address] Feb, [facility] [address] [id number] [place] [address] Jan, [facility] [address] [id number] [place] [address] Jan, [facility] [address] [id number] [place] [address] Jan, [facility] [address] [id number] [place] [address] Jan, [facility] [address] [id number] [place] [address] Jan, [facility] [address] [id number] [place] [address] Jan, [facility] [address] [id number] [place] [address] Dec, [facility] [address] [id number] [place] [address] Dec, [facility] [address] [id number] [place] [address] Nov, [facility] [address] [id number] [place] [address] Nov, [facility] [address] [id number] [place] [address] Oct, [facility] [address] [id number] [place] [address] Aug, [facility] [address] [id number] [place] [address] Aug, [facility] [address] [place] [id number] [place] [address] Jul, [facility] [address] [id number] [place] [address] May, [facility] [address] [id number] [place] [address] Apr, [facility] [address] [id number] [place] [address] Apr, [facility] [address] [id number] [place] [address] Mar, [facility] [address] [id number] [place] [address] Dec, [facility] [address] [id number] [place] [address] Dec, [facility] [address] [id number] [place] [address] Dec, [facility] [address] [id number] [place] [address] Dec, [facility] [address] [id number] [place] [address] Dec, [facility] [address] [id number] [place] [address] Dec, [facility] [address] [id number] [place] [address] Nov, [facility] [address] [id number] [place] [address] Nov, [facility] [address] [id number] [place] [address] Nov, [facility] [address] [id number] [place] [address] Nov, [facility] [address] [id number] [place] [address] Sep, [facility] [address] [id number] [place] [address] Sep, [facility] [address] [id number] [place] [address] Aug, [facility] [address] [id number] [place] [address] Aug, [facility] [address] [id number] [place] [address] 08 May, 2011 [facility] [address] [id number] [place] [address] May, [facility] [address] [id number] [place] [address] May, [facility] [address] [id number] [place] [address] Apr, [facility] [address] [id number] [place] [address] Apr, [facility] [address] [id number] [place] [address] Apr, [facility] [address] [id number] [place] [address] Feb, [facility] [address] [id number] [place] [address] Feb, [facility] [address] [place] [id number] [place] [address] Jan, [facility] [address] [id number] [place] [address] Jan, [facility] [address] [place] [id number] [place] [address] Dec, [facility] [address] [place] [id number] [place] [address] 29 Dec, 2010 [facility] [address] [place] [id number] [place] [address] Dec, [facility] [address] [id number] [place] [address] Nov, [facility] [address] [place] [id number] [place] [address] Nov, [facility] [address] [id number] [place] [address] 15 Mar, 2010 [facility] [address] [place] [id number] [place] [address] 16 Jan, 2010 [facility] [address] [id number] [place] [address] Dec, [facility] [address] [id number] [place] [address] Dec, [facility] [address] [id number] [place] [address] Dec, [facility] [address] [id number] [place] [address] Dec, [facility] [address] [id number] [place] [address] Nov, [facility] [address] [id number] [place] [address] Jan, [facility] [address] [id number] [place] [address] 14 Nov, 2008 [facility] [address] [id number] [place] [address] Nov, IMMUNIZATIONS No Known Immunizations SOCIAL HISTORY Never [...]
--- OUTSIDE RECORDS SUMMARY | 2019-05-01 17:43 | XMS REPORT ---
Author Author Candace VAZQUEZ Organization [facility] Address [address] [place] [address] Care Team Providers Care Manager Behavior Name Role Phone ANASTACIO VAZQUEZ Unavailable PROBLEMS Type Condition ICD9-CM Code OJH14-GM Code Onset Dates Condition S tatus SNOMED Code Problem Sleep apnea in adult G47.33 Active 22811123 Problem Hyperlipidemia, unspecified hyperlipidemia type E7 8.5 Active 16579649 Problem Lipoma D17.9 Active 07073042 Problem Migraine with aura, not intractable, without sta tus migrainosus G43.109 Active 67612046 Problem Slow transit constipation K59.01 Acti ve 82265354 Problem Mood disorder F39 Active 412213 05 Problem Tension headache G44.209 Active 398 639324 Problem Essential (primary) hypertension I10 Active 56018869 Problem Hypothyroid E03.9 Active 61327904 Problem Sleep apnea, unspecified G47.30 Activ e 85079278 Problem Seasonal allergic rhinitis due to pollen J30.1 Active 69284204 Problem Psoriasis L40.9 Active 3792614 ALLERGIES No Information ENCOUNTERS Encounter Location Date Diagnosis [place] [address] [address] 19 Mar, 2019 Exercise counseling Z71.[address] [address] Mar, Hyperlipidemia, unspecified hyperlipidem ia type E78.5 ; Hypothyroid E03.9 ; Breast cancer screening by mammogram Z12.31 and Heart murmur, systolic R01.1 [place] [address] [address] Jan, Hyperlipidemia, unspecified hyperlipidem ia type E78.5 and Hypothyroidism, unspecified E03.[address] [address] Dec, Hyperlipidemia, unspecified hyperlipidem ia type E78.5 ; Essential (primary) hypertension I10 and Hypothyroid E03.9 [place] [address] [address] Dec, Hyperlipidemia, unspecified hyperlipidem ia type E78.5 ; Hypothyroid E03.9 ; Essential (primary) hypertension I10 ; Tension headache G44.209 ; Breast cancer screening by mammogram Z12.31 and Encounter for immunization Z23 [place] [address] [address] Oct, [place] [address] [address] Sep, [place] [address] [address] June, [place] [address] [address] May, Hyperlipidemia, unspecified hyperlipidem ia type E78.5 [place] [address] [address] Mar, Hypothyroid E03.9 ; Hyperlipidemia, unsp ecified hyperlipidemia type E78.5 ; Tension headache G44.209 ; Psoriasis L40.9 and Breast cancer screening by mammogram Z12.31 [place] [address] [address] Feb, Essential (primary) hypertension I10 [place] [address] [address] Feb, Essential (primary) hypertension I10 [place] [address] [address] Dec, Essential (primary) hypertension I10 [place] [address] [address] Nov, Migraine with aura, not intractable, wit hout status migrainosus G43.109 [facility] [address] [facility] [id number] [address] [address] Oct, Dysuria R30.0 [place] [address] [address] Sep, Psoriasis L40.9 [place] [address] [address] Aug, Psoriasis L40.9 ; Poison jaylon L23.7 ; Slo w transit constipation K59.01 ; Breast cancer screening by mammogram Z12.31 and Colon cancer screening Z12.11 [facility] [address] [facility] [id number] [address] [address] Jul, Poison jaylon L23.7 [place] [address] [address] Apr, Elevated LFTs R79.89 ; Hypothyroid E03.9 ; Hyperlipidemia, unspecified hyperlipidemia type E78.5 ; Seasonal allergic rhinitis due to pollen J30.1 and Essential (primary) hypertension I10 [place] [address] [address] Mar, [place] [address] [address] Mar, [place] [address] [address] Feb, Hypothyroid E03.9 and Hyperlipidemia, un specified hyperlipidemia type E78.5 [place] [address] [address] Jan, Sleep apnea, unspecified G47.30 ; Hypoth yroid E03.9 and Hyperlipidemia, unspecified hyperlipidemia type E78.5 [place] [address] [address] Jan, [place] [address] [address] Jan, [place] [address] [address] Dec, [facility] [address] [facility] [id number] [address] [place] [address] Oct, Blood in stool K92.1 and Ext ernal hemorrhoid, bleeding K64.4 [place] [address] [address] Aug, Migraine with aura, not intractable, wit hout status migrainosus G43.109 [place] [address] [address] June, Breast cancer screening Z12.39 [place] [address] [address] May, Callus L84 [place] [address] [address] Apr, Callus L84 [place] [address] [address] Apr, Hypothyroid E03.9 [place] [address] [address] Apr, Hypothyroid E03.9 ; Callus L84 and Hidra denitis L73.2 [place] [address] [address] Jan, Hyperlipidemia, unspecified hyperlipidem ia type E78.5 [place] [address] [address] Jan, [place] [address] [address] Oct, Hyperlipidemia, unspecified hyperlipidem ia type E78.5 [place] [address] [address] Oct, Seroma T14.8 [place] [address] [address] Sep, [place] [address] [place] [id number] Sep, Hyperlipidemia, unspecified hyperlipidem ia type E78.5 and Hypothyroid E03.9 [place] [address] [address] Sep, Hyperlipidemia, unspecified hyperlipidem ia type E78.5 ; Hypothyroid E03.9 ; Tension headache G44.209 and Candidiasis of anus B37.89 [place] [address] [address] Jul, [place] [address] [address] June, Tension headache G44.209 [place] [address] [address] Apr, Hyperlipidemia, unspecified hyperlipidem ia type E78.5 ; Hypothyroid E03.9 ; Lipoma D17.9 and Breast cancer screening Z12.39 [place] [address] [address] Mar, [facility] [address] [id number] [place] [id number] 10 Mar, 2015 Encounter for dental examination Z01.20 [place] [address] [address] Feb, [facility] [address] [place] [id number] [place] [address] Jan, Allergic rhinitis J30.9 [place] [address] [address] Jan, [facility] [address] [place] [id number] [place] [address] Dec, Dysuria R30.0 and UTI (urina ry tract infection) N39.0 [place] [address] [address] Dec, [place] [address] [address] Dec, Dysuria R30.0 and Urinary tract infectio n, site unspecified N39.0 [facility] [address] [address] Nov, Benign lipomatous neoplasm of 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, face and neck D17.0 and Hypothyroidism, unspecified E03.9 [facility] [address] [address] Sep, [facility] [address] [address] Aug, Hypothyroidism 244.9 [facility] [address] [address] Jul, Hypothyroidism 244.9 [facility] [address] [address] Jul, Sleep apnea 780.57 [facility] [address] [address] May, [facility] [address] [address] May, [facility] [address] [address] Apr, [facility] [address] [address] Apr, [facility] [address] [address] Mar, [facility] [address] [address] Mar, [facility] [address] [address] Mar, [facility] [address] [address] Mar, [facility] [address] [address] Mar, [facility] [id number] [place] [address] Mar, [facility] [id number] [place] [address] Jan, [facility] [id number] [place] [address] Jan, [facility] [id number] [place] [address] Jan, [facility] [id number] [place] [address] Jan, [facility] [id number] [place] [address] Oct, [facility] [id number] [place] [address] Oct, [facility] [id number] [place] [address] Sep, [facility] [id number] [place] [address] Sep, [facility] [id number] [place] [address] Aug, [facility] [id number] [place] [address] Aug, [facility] [id number] [place] [address] Aug, [facility] [id number] [place] [address] Aug, [facility] [id number] [place] [address] Jul, [facility] [id number] [place] [address] Jul, [facility] [id number] [place] [address] June, [facility] [id number] [place] [address] June, [facility] [id number] [place] [address] June, [facility] [id number] [place] [address] June, [facility] [id number] [place] [address] June, [facility] [id number] [place] [address] June, [facility] [id number] [facility] [place] [address] May, [facility] [id number] [place] [address] May, [facility] [id number] [place] [address] Apr, [facility] [id number] [place] [address] Apr, [facility] [id number] [place] [address] Apr, [facility] [id number] [place] [address] Apr, [facility] [id number] [place] [address] Apr, [facility] [id number] [place] [address] Mar, [facility] [id number] [place] [address] Mar, [facility] [id number] [place] [address] Mar, [facility] [id number] [place] [address] Mar, [facility] [id number] [place] [address] Feb, [facility] [id number] [place] [address] Feb, [facility] [id number] [place] [address] Jan, [facility] [id number] [place] [address] Jan, [facility] [id number] [place] [address] Jan, [facility] [id number] [place] [address] Jan, [facility] [id number] [place] [address] Jan, [facility] [id number] [place] [address] Jan, [facility] [id number] [place] [address] Dec, [facility] [id number] [place] [address] Dec, [facility] [id number] [place] [address] Nov, [facility] [id number] [place] [address] Nov, [facility] [id number] [place] [address] Oct, [facility] [id number] [place] [address] Aug, [facility] [id number] [place] [address] Aug, [facility] [id number] [place] [address] Jul, [facility] [id number] [place] [address] May, [facility] [id number] [place] [address] Apr, [facility] [id number] [place] [address] Apr, [facility] [id number] [place] [address] Mar, [facility] [id number] [place] [address] Dec, [facility] [id number] [place] [address] Dec, [facility] [id number] [place] [address] Dec, [facility] [id number] [place] [address] Dec, [facility] [id number] [place] [address] Dec, [facility] [id number] [place] [address] Dec, [facility] [id number] [place] [address] Nov, [facility] [id number] [place] [address] Nov, [facility] [id number] [place] [address] Nov, [facility] [id number] [place] [address] Nov, [facility] [id number] [place] [address] Sep, [facility] [id number] [place] [address] Sep, [facility] [id number] [place] [address] Aug, [facility] [id number] [place] [address] Aug, [facility] [id number] [place] [address] 08 May, 2011 [facility] [id number] [place] [address] May, [facility] [id number] [place] [address] May, [facility] [id number] [place] [address] Apr, [facility] [id number] [place] [address] 14 Apr, 2011 [facility] [id number] [place] [address] Apr, [facility] [id number] [place] [address] Feb, [facility] [id number] [place] [address] Feb, [facility] [address] [place] [id number] [place] [address] Jan, [facility] [id number] [place] [address] Jan, [facility] [address] [place] [id number] [place] [address] Dec, [facility] [id number] [place] [address] Dec, [facility] [address] [place] [id number] [place] [address] Dec, [facility] [id number] [place] [address] Nov, [facility] [address] [place] [id number] [place] [address] 10 Nov, 2010 [facility] [id number] [place] [address] 15 Mar, 2010 [facility] [id number] [place] [address] 16 Jan, 2010 [facility] [id number] [place] [address] Dec, [facility] [id number] [place] [address] Dec, [facility] [id number] [place] [address] Dec, [facility] [id number] [place] [address] Dec, [facility] [id number] [place] [address] Nov, [facility] [id number] [place] [address] 14 Jan, 2009 [facility] [id number] [place] [address] 14 Nov, 2008 [facility] [id number] [place] [address] 12 Nov, 2008 IMMUNIZATIONS No Known Immunizations [...]
--- OUTSIDE RECORDS SUMMARY | 2019-05-01 17:43 | XMS REPORT ---
Author Author Candace VAZQUEZ Organization [facility] Address [address] [place] [address] Care Team Providers Care Lace Roller Name Role Phone ANASTACIO VAZQUEZ Unavailable PROBLEMS Type Condition ICD9-CM Code VVE47-HM Code Onset Dates Condition S tatus SNOMED Code Problem Sleep apnea in adult G47.33 Active 90256184 Problem Hyperlipidemia, unspecified hyperlipidemia type E7 8.5 Active 18902792 Problem Lipoma D17.9 Active 08920540 Problem Migraine with aura, not intractable, without sta tus migrainosus G43.109 Active 44845451 Problem Slow transit constipation K59.01 Acti ve 72497673 Problem Mood disorder F39 Active 750989 05 Problem Tension headache G44.209 Active 398 023818 Problem Essential (primary) hypertension I10 Active 53294807 Problem Hypothyroid E03.9 Active 69849099 Problem Sleep apnea, unspecified G47.30 Activ e 37811715 Problem Seasonal allergic rhinitis due to pollen J30.1 Active 91504836 Problem Psoriasis L40.9 Active 8351677 ALLERGIES No Information ENCOUNTERS Encounter Location Date Diagnosis [place] [address] [address] 19 Mar, 2019 Exercise counseling Z71.[address] [address] Mar, Hyperlipidemia, unspecified hyperlipidem ia type E78.5 ; Hypothyroid E03.9 ; Breast cancer screening by mammogram Z12.31 and Heart murmur, systolic R01.1 [place] [address] [address] Jan, Hyperlipidemia, unspecified hyperlipidem ia type E78.5 and Hypothyroidism, unspecified E03.[address] [address] Dec, Hyperlipidemia, unspecified hyperlipidem ia type E78.5 ; Essential (primary) hypertension I10 and Hypothyroid E03.9 [place] [address] [address] Dec, Hyperlipidemia, unspecified hyperlipidem ia type E78.5 ; Hypothyroid E03.9 ; Essential (primary) hypertension I10 ; Tension headache G44.209 ; Breast cancer screening by mammogram Z12.31 and Encounter for immunization Z23 [place] [address] [address] Oct, [place] [address] [address] Sep, [place] [address] [address] June, [place] [address] [address] May, Hyperlipidemia, unspecified hyperlipidem ia type E78.5 [place] [address] [address] Mar, Hypothyroid E03.9 ; Hyperlipidemia, unsp ecified hyperlipidemia type E78.5 ; Tension headache G44.209 ; Psoriasis L40.9 and Breast cancer screening by mammogram Z12.31 [place] [address] [address] Feb, Essential (primary) hypertension I10 [place] [address] [address] Feb, Essential (primary) hypertension I10 [place] [address] [address] Dec, Essential (primary) hypertension I10 [place] [address] [address] Nov, Migraine with aura, not intractable, wit hout status migrainosus G43.109 [facility] [address] [facility] [id number] [address] [address] Oct, Dysuria R30.0 [place] [address] [address] Sep, Psoriasis L40.9 [place] [address] [address] Aug, Psoriasis L40.9 ; Poison jaylon L23.7 ; Slo w transit constipation K59.01 ; Breast cancer screening by mammogram Z12.31 and Colon cancer screening Z12.11 [facility] [address] [facility] [id number] [address] [address] Jul, Poison jaylon L23.7 [place] [address] [address] Apr, Elevated LFTs R79.89 ; Hypothyroid E03.9 ; Hyperlipidemia, unspecified hyperlipidemia type E78.5 ; Seasonal allergic rhinitis due to pollen J30.1 and Essential (primary) hypertension I10 [place] [address] [address] Mar, [place] [address] [address] Mar, [place] [address] [address] Feb, Hypothyroid E03.9 and Hyperlipidemia, un specified hyperlipidemia type E78.5 [place] [address] [address] Jan, Sleep apnea, unspecified G47.30 ; Hypoth yroid E03.9 and Hyperlipidemia, unspecified hyperlipidemia type E78.5 [place] [address] [address] Jan, [place] [address] [address] Jan, [place] [address] [address] Dec, [facility] [address] [facility] [id number] [address] [place] [address] Oct, Blood in stool K92.1 and Ext ernal hemorrhoid, bleeding K64.4 [place] [address] [address] Aug, Migraine with aura, not intractable, wit hout status migrainosus G43.109 [place] [address] [address] June, Breast cancer screening Z12.39 [place] [address] [address] May, Callus L84 [place] [address] [address] Apr, Callus L84 [place] [address] [address] Apr, Hypothyroid E03.9 [place] [address] [address] Apr, Hypothyroid E03.9 ; Callus L84 and Hidra denitis L73.2 [place] [address] [address] Jan, Hyperlipidemia, unspecified hyperlipidem ia type E78.5 [place] [address] [address] Jan, [place] [address] [address] Oct, Hyperlipidemia, unspecified hyperlipidem ia type E78.5 [place] [address] [address] Oct, Seroma T14.8 [place] [address] [address] Sep, [place] [address] [place] [id number] Sep, Hyperlipidemia, unspecified hyperlipidem ia type E78.5 and Hypothyroid E03.9 [place] [address] [address] Sep, Hyperlipidemia, unspecified hyperlipidem ia type E78.5 ; Hypothyroid E03.9 ; Tension headache G44.209 and Candidiasis of anus B37.89 [place] [address] [address] Jul, [place] [address] [address] June, Tension headache G44.209 [place] [address] [address] Apr, Hyperlipidemia, unspecified hyperlipidem ia type E78.5 ; Hypothyroid E03.9 ; Lipoma D17.9 and Breast cancer screening Z12.39 [place] [address] [address] Mar, [facility] [address] [id number] [place] [id number] 10 Mar, 2015 Encounter for dental examination Z01.20 [place] [address] [address] Feb, [facility] [address] [place] [id number] [place] [address] Jan, Allergic rhinitis J30.9 [place] [address] [address] Jan, [facility] [address] [place] [id number] [place] [address] Dec, Dysuria R30.0 and UTI (urina ry tract infection) N39.0 [place] [address] [address] Dec, [place] [address] [address] Dec, Dysuria R30.0 and Urinary tract infectio n, site unspecified N39.0 [facility] [address] [address] Nov, Benign lipomatous neoplasm of 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, face and neck D17.0 and Hypothyroidism, unspecified E03.9 [facility] [address] [address] Sep, [facility] [address] [address] Aug, Hypothyroidism 244.9 [facility] [address] [address] Jul, Hypothyroidism 244.9 [facility] [address] [address] Jul, Sleep apnea 780.57 [facility] [address] [address] May, [facility] [address] [address] May, [facility] [address] [address] Apr, [facility] [address] [address] Apr, [facility] [address] [address] Mar, [facility] [address] [address] Mar, [facility] [address] [address] Mar, [facility] [address] [address] Mar, [facility] [address] [address] Mar, [facility] [address] [id number] [place] [address] Mar, [facility] [address] [id number] [place] [address] Jan, [facility] [address] [id number] [place] [address] Jan, [facility] [address] [id number] [place] [address] Jan, [facility] [address] [id number] [place] [address] Jan, [facility] [address] [id number] [place] [address] Oct, [facility] [address] [id number] [place] [address] Oct, [facility] [address] [id number] [place] [address] Sep, [facility] [address] [id number] [place] [address] Sep, [facility] [address] [id number] [place] [address] Aug, [facility] [address] [id number] [place] [address] Aug, [facility] [address] [id number] [place] [address] Aug, [facility] [address] [id number] [place] [address] Aug, [facility] [address] [id number] [place] [address] Jul, [facility] [address] [id number] [place] [address] Jul, [facility] [address] [id number] [place] [address] June, [facility] [address] [id number] [place] [address] June, [facility] [address] [id number] [place] [address] June, [facility] [address] [id number] [place] [address] June, [facility] [address] [id number] [place] [address] June, [facility] [address] [id number] [place] [address] June, [facility] [address] [id number] [place] [address] May, [facility] [address] [id number] [place] [address] May, [facility] [address] [id number] [place] [address] Apr, [facility] [address] [id number] [place] [address] Apr, [facility] [address] [id number] [place] [address] Apr, [facility] [address] [id number] [place] [address] Apr, [facility] [address] [id number] [place] [address] Apr, [facility] [address] [id number] [place] [address] Mar, [facility] [address] [id number] [place] [address] Mar, [facility] [address] [id number] [place] [address] Mar, [facility] [address] [id number] [place] [address] Mar, [facility] [address] [id number] [place] [address] Feb, [facility] [address] [id number] [place] [address] Feb, [facility] [address] [id number] [place] [address] Jan, [facility] [address] [id number] [place] [address] Jan, [facility] [address] [id number] [place] [address] Jan, [facility] [address] [id number] [place] [address] Jan, [facility] [address] [id number] [place] [address] Jan, [facility] [address] [id number] [place] [address] Jan, [facility] [address] [id number] [place] [address] Dec, [facility] [address] [id number] [place] [address] Dec, [facility] [address] [id number] [place] [address] Nov, [facility] [address] [id number] [place] [address] Nov, [facility] [address] [id number] [place] [address] Oct, [facility] [address] [id number] [place] [address] Aug, [facility] [address] [id number] [place] [address] Aug, [facility] [address] [id number] [place] [address] Jul, [facility] [address] [id number] [place] [address] May, [facility] [address] [id number] [place] [address] Apr, [facility] [address] [id number] [place] [address] Apr, [facility] [address] [id number] [place] [address] Mar, [facility] [address] [id number] [place] [address] Dec, [facility] [address] [id number] [place] [address] Dec, [facility] [address] [id number] [place] [address] Dec, [facility] [address] [id number] [place] [address] Dec, [facility] [address] [id number] [place] [address] Dec, [facility] [address] [id number] [place] [address] Dec, [facility] [address] [id number] [place] [address] Nov, [facility] [address] [id number] [place] [address] Nov, [facility] [address] [id number] [place] [address] Nov, [facility] [address] [id number] [place] [address] Nov, [facility] [address] [id number] [place] [address] Sep, [facility] [address] [id number] [place] [address] Sep, [facility] [address] [id number] [place] [address] Aug, [facility] [address] [id number] [place] [address] Aug, [facility] [address] [id number] [place] [address] 08 May, 2011 [facility] [address] [id number] [place] [address] May, [facility] [address] [id number] [place] [address] May, [facility] [address] [id number] [place] [address] Apr, [facility] [address] [id number] [place] [address] 14 Apr, 2011 [facility] [address] [id number] [place] [address] Apr, [facility] [address] [id number] [place] [address] Feb, [facility] [address] [id number] [place] [address] Feb, [facility] [address] [place] [id number] [place] [address] Jan, [facility] [address] [id number] [place] [address] Jan, [facility] [address] [place] [id number] [place] [address] Dec, [facility] [address] [id number] [place] [address] Dec, [facility] [address] [place] [id number] [place] [address] Dec, [facility] [address] [id number] [place] [address] Nov, [facility] [address] [place] [id number] [place] [address] 10 Nov, 2010 [facility] [address] [id number] [place] [address] 15 Mar, 2010 [facility] [address] [id number] [place] [address] 16 Jan, 2010 [facility] [address] [id number] [place] [address] Dec, [facility] [address] [id number] [place] [address] Dec, [facility] [address] [id number] [place] [address] Dec, [facility] [address] [id number] [place] [address] Dec, [facility] [address] [id number] [place] [address] Nov, [facility] [address] [place] [id number] [place] [address] Jan, [facility] [address] [id number] [place] [address] Nov, [facility] [address] [id number] [place] [address] Nov, IMMUNIZATIONS No Known Immunizations SOCIAL HISTORY Never Assessed REASON FOR VISIT PLAN OF CARE VITAL SIGNS Height 67 in 2013-04-23 Weight 192.25 lbs 2013-04-23 Temperature 98.2 degrees Fahrenheit 2013-04-23 Heart Rate 76 bpm 2013-04-23 Respiratory Rate 18 2013-04-23 Blood pressure systolic 132 mmHg 2013-04-23 Blood pressure diastolic 84 mmHg 2013-04-23 MEDICATIONS Unknown Medications RESULTS No Results PROCEDURES Procedure Date Ordered Result Body Site ASSAY THYROID STIM HORMONE April 23, 2013 INSTRUCTIONS MEDICATIONS ADMINISTERED No Known Medications MEDICAL [...]
--- OUTSIDE RECORDS SUMMARY | 2019-05-01 17:44 | XMS REPORT ---
Author Author Candace VAZQUEZ Organization [facility] Address [address] [place] [address] Care Team Providers Care Cop Breaker Name Role Phone ANASTACIO VAZQUEZ Unavailable PROBLEMS Type Condition ICD9-CM Code ZKW35-GT Code Onset Dates Condition S tatus SNOMED Code Problem Essential (primary) hypertension I10 Active 68292443 Problem Migraine with aura, not intractable, without sta tus migrainosus G43.109 Active 07191933 Problem Hyperlipidemia, unspecified hyperlipidemia type E7 8.5 Active 38913654 Problem Lipoma D17.9 Active 17347057 Problem Hypothyroid E03.9 Active 16433878 Problem Tension headache G44.209 Active 398 899458 Problem Sleep apnea in adult G47.33 Active 83985912 Problem Hypothyroidism, unspecified E03.9 Ac tive 39067044 Problem Mood disorder F39 Active 206980 05 Problem Sleep apnea, unspecified G47.30 Activ e 23941788 Problem Seasonal allergic rhinitis due to pollen J30.1 Active 11781036 Problem Slow transit constipation K59.01 Acti ve 08866301 Problem Psoriasis L40.9 Active 3636345 ALLERGIES No Information ENCOUNTERS Encounter Location Date Diagnosis [place] [address] [address] Mar, [facility] [address] [address] Jan, Hyperlipidemia, unspecified hyperlipidem ia type E78.5 and Hypothyroidism, unspecified E03.9 [place] [address] [address] Dec, Hyperlipidemia, unspecified hyperlipidem ia type E78.5 ; Essential (primary) hypertension I10 and Hypothyroid E03.9 [place] [address] [address] Dec, Hyperlipidemia, unspecified hyperlipidem ia type E78.5 ; Hypothyroid E03.9 ; Essential (primary) hypertension I10 ; Tension headache G44.209 ; Breast cancer screening by mammogram Z12.31 and Encounter for immunization Z23 [place] [address] [address] Oct, [place] [address] [address] Sep, [place] [address] [address] June, [place] [address] [address] May, Hyperlipidemia, unspecified hyperlipidem ia type E78.5 [place] [address] [address] Mar, Hypothyroid E03.9 ; Hyperlipidemia, unsp ecified hyperlipidemia type E78.5 ; Tension headache G44.209 ; Psoriasis L40.9 and Breast cancer screening by mammogram Z12.31 [place] [address] [address] Feb, Essential (primary) hypertension I10 [place] [address] [address] Feb, Essential (primary) hypertension I10 [place] [address] [address] Dec, Essential (primary) hypertension I10 [place] [address] [address] Nov, Migraine with aura, not intractable, wit hout status migrainosus G43.109 [facility] [address] [facility] [facility] [id number] [place] [address] Oct, Dysuria R30.0 [facility] [address] [address] Sep, Psoriasis L40.9 [facility] [address] [address] Aug, Psoriasis L40.9 ; Poison jaylon L23.7 ; Slo w transit constipation K59.01 ; Breast cancer screening by mammogram Z12.31 and Colon cancer screening Z12.11 [facility] [address] [place] [id number] [address] [place] [address] Jul, Poison jaylon L23.7 [place] [address] [address] Apr, Elevated LFTs R79.89 ; Hypothyroid E03.9 ; Hyperlipidemia, unspecified hyperlipidemia type E78.5 ; Seasonal allergic rhinitis due to pollen J30.1 and Essential (primary) hypertension I10 [place] [address] [address] Mar, [place] [address] [address] Mar, [place] [address] [address] Feb, Hypothyroid E03.9 and Hyperlipidemia, un specified hyperlipidemia type E78.5 [place] [address] [address] Jan, Sleep apnea, unspecified G47.30 ; Hypoth yroid E03.9 and Hyperlipidemia, unspecified hyperlipidemia type E78.5 [place] [address] [address] Jan, [place] [address] [address] Jan, [place] [address] [address] Dec, [facility] [address] [facility] [address] [facility] [id number] [address] [address] Oct, Blood in stool K92.1 and Ext ernal hemorrhoid, bleeding K64.4 [place] [address] [address] Aug, Migraine with aura, not intractable, wit hout status migrainosus G43.109 [place] [address] [address] June, Breast cancer screening Z12.39 [place] [address] [address] May, Callus L84 [place] [address] [address] Apr, Callus L84 [place] [address] [address] Apr, Hypothyroid E03.9 [place] [address] [address] Apr, Hypothyroid E03.9 ; Callus L84 and Hidra denitis L73.2 [place] [address] [address] Jan, Hyperlipidemia, unspecified hyperlipidem ia type E78.5 [place] [address] [address] Jan, [place] [address] [address] Oct, Hyperlipidemia, unspecified hyperlipidem ia type E78.5 [place] [address] [address] Oct, Seroma T14.8 [place] [address] [address] Sep, [place] [address] [address] Sep, Hyperlipidemia, unspecified hyperlipidem ia type E78.5 and Hypothyroid E03.9 [place] [address] [address] Sep, Hyperlipidemia, unspecified hyperlipidem ia type E78.5 ; Hypothyroid E03.9 ; Tension headache G44.209 and Candidiasis of anus B37.89 [place] [address] [address] Jul, [place] [address] [address] June, Tension headache G44.[address] [address] Apr, Hyperlipidemia, unspecified hyperlipidem ia type E78.5 ; Hypothyroid E03.9 ; Lipoma D17.9 and Breast cancer screening Z12.[address] [address] 24 Mar, 2015 [facility] [address] [id number] [place] [id number] 10 Mar, 2015 Encounter for dental examination Z01.[address] [address] Feb, [facility] [address] [place] [address] Jan, Allergic rhinitis J30.[address] [address] Jan, [facility] [address] [place] [address] Dec, Dysuria R30.0 and UTI (urina ry tract infection) N39.[address] [address] Dec, [address] [address] Dec, Dysuria R30.0 and Urinary tract infectio n, site unspecified N39.[address] [address] Nov, Benign lipomatous neoplasm of 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, face and neck D17.0 and Hypothyroidism, unspecified E03.9 [facility] [address] [address] Sep, [facility] [address] [address] Aug, Hypothyroidism 244.9 [facility] [address] [address] Jul, Hypothyroidism 244.9 [facility] [address] [address] Jul, Sleep apnea 780.57 [facility] [address] [address] May, [facility] [address] [address] May, [facility] [address] [address] Apr, [facility] [address] [address] Apr, [facility] [address] [address] Mar, [facility] [address] [address] Mar, [facility] [address] [address] Mar, [facility] [address] [address] Mar, [facility] [address] [address] Mar, [facility] [address] [address] Mar, [facility] [address] [address] Jan, [facility] [address] [id number] [place] [address] Jan, [facility] [address] [id number] [place] [address] Jan, [facility] [address] [id number] [place] [address] Jan, [facility] [address] [id number] [place] [address] Oct, [facility] [address] [id number] [place] [address] Oct, [facility] [address] [id number] [place] [address] Sep, [facility] [address] [id number] [place] [address] Sep, [facility] [address] [id number] [place] [address] Aug, [facility] [address] [id number] [place] [address] Aug, [facility] [address] [id number] [place] [address] Aug, [facility] [address] [id number] [place] [address] Aug, [facility] [address] [id number] [place] [address] Jul, [facility] [address] [id number] [place] [address] Jul, [facility] [address] [id number] [place] [address] June, [facility] [address] [id number] [place] [address] June, [facility] [address] [id number] [place] [address] June, [facility] [address] [id number] [place] [address] June, [facility] [address] [id number] [place] [address] June, [facility] [address] [id number] [place] [address] June, [facility] [address] [id number] [place] [address] May, [facility] [address] [id number] [place] [address] May, [facility] [address] [id number] [place] [address] Apr, [facility] [address] [id number] [place] [address] Apr, [facility] [address] [id number] [place] [address] Apr, [facility] [address] [id number] [place] [address] Apr, [facility] [address] [id number] [place] [address] Apr, [facility] [address] [id number] [place] [address] Mar, [facility] [address] [id number] [place] [address] Mar, [facility] [address] [id number] [place] [address] Mar, [facility] [address] [id number] [place] [address] Mar, [facility] [address] [id number] [place] [address] Feb, [facility] [address] [id number] [place] [address] Feb, [facility] [address] [id number] [place] [address] Jan, [facility] [address] [id number] [place] [address] Jan, [facility] [address] [id number] [place] [address] Jan, [facility] [address] [id number] [place] [address] Jan, [facility] [address] [id number] [place] [address] Jan, [facility] [address] [id number] [place] [address] Jan, [facility] [address] [id number] [place] [address] Dec, [facility] [address] [id number] [place] [address] Dec, [facility] [address] [id number] [place] [address] Nov, [facility] [address] [id number] [place] [address] Nov, [facility] [address] [id number] [place] [address] Oct, [facility] [address] [id number] [place] [address] Aug, [facility] [address] [id number] [place] [address] Aug, [facility] [address] [id number] [place] [address] Jul, [facility] [address] [id number] [place] [address] May, [facility] [address] [id number] [place] [address] Apr, [facility] [address] [id number] [place] [address] Apr, [facility] [address] [id number] [place] [address] Mar, [facility] [address] [id number] [place] [address] Dec, [facility] [address] [id number] [place] [address] Dec, [facility] [address] [id number] [place] [address] Dec, [facility] [address] [id number] [place] [address] Dec, [facility] [address] [id number] [place] [address] Dec, [facility] [address] [id number] [place] [address] Dec, [facility] [address] [id number] [place] [address] Nov, [facility] [address] [place] [id number] [place] [address] Nov, [facility] [address] [id number] [place] [address] Nov, [facility] [address] [id number] [place] [address] Nov, [facility] [address] [id number] [place] [address] Sep, [facility] [address] [id number] [place] [address] Sep, [facility] [address] [id number] [place] [address] Aug, [facility] [address] [id number] [place] [address] Aug, [facility] [address] [id number] [place] [address] May, [facility] [address] [id number] [place] [address] May, [facility] [address] [id number] [place] [address] May, [facility] [address] [id number] [place] [address] Apr, [facility] [address] [id number] [place] [address] Apr, [facility] [address] [id number] [place] [address] Apr, [facility] [address] [id number] [place] [address] Feb, [facility] [address] [id number] [place] [address] Feb, [facility] [address] [id number] [place] [address] Jan, [facility] [address] [id number] [place] [address] Jan, [facility] [address] [id number] [place] [address] Dec, [facility] [address] [id number] [place] [address] 29 Dec, 2010 [facility] [address] [id number] [place] [address] Dec, [facility] [address] [id number] [place] [address] Nov, [facility] [address] [id number] [place] [address] Nov, [facility] [address] [id number] [place] [address] 15 Mar, 2010 [facility] [address] [id number] [place] [address] Jan, [facility] [address] [id number] [place] [address] Dec, [facility] [address] [id number] [place] [address] Dec, [facility] [address] [id number] [place] [address] 18 Dec, 2009 [facility] [address] [id number] [place] [address] Dec, [facility] [address] [id number] [place] [address] Nov, [facility] [address] [id number] [place] [address] 14 Jan, 2009 [facility] [address] [id number] [place] [address] 14 Nov, 2008 [facility] [address] [id number] [place] [address] 12 Nov, 2008 IMMUNIZATIONS No Known Immunizations SOCIAL HISTORY Never Assessed REASON FOR VISIT PLAN OF CARE VITAL SIGNS Height 67 in 2013-08-12 Weight 195.6 lbs 2013-08-12 Temperature 98.9 degrees Fahrenheit 2013-08-12 Heart Rate 80 bpm 2013-08-12 Respiratory Rate 18 2013-08-12 Blood pressure systolic 152 mmHg 2013-08-12 Blood pressure diastolic 92 mmHg 2013-08-12 MEDICATIONS Unknown Medications RESULTS No Results PROCEDURES Procedure Date Ordered Result Body Site MAMMOGRAM, SCREENING August 12, 2013 INSTRUCTIONS MEDICATIONS ADMINISTERED No Known Medications [...]
--- OUTSIDE RECORDS SUMMARY | 2019-05-01 17:44 | XMS REPORT ---
Author Author Candace VAZQUEZ Organization [facility] Address [address] [place] [address] Care Team Providers Care Stem Maker Name Role Phone ANASTACIO VAZQUEZ Unavailable PROBLEMS Type Condition ICD9-CM Code [id number] Code Onset Dates Condition S tatus SNOMED Code Problem Essential (primary) hypertension I10 Active 22089503 Problem Migraine with aura, not intractable, without sta tus migrainosus G43.109 Active 32016831 Problem Hyperlipidemia, unspecified hyperlipidemia type E7 8.5 Active 62786096 Problem Lipoma D17.9 Active 05349714 Problem Hypothyroid E03.9 Active 97234392 Problem Tension headache G44.209 Active 398 274055 Problem Sleep apnea in adult G47.33 Active 41990750 Problem Hypothyroidism, unspecified E03.9 Ac tive 43853737 Problem Mood disorder F39 Active 081801 05 Problem Sleep apnea, unspecified G47.30 Activ e 72116109 Problem Seasonal allergic rhinitis due to pollen J30.1 Active 50924449 Problem Slow transit constipation K59.01 Acti ve 92369633 Problem Psoriasis L40.9 Active 1014803 ALLERGIES No Information ENCOUNTERS Encounter Location Date Diagnosis [place] [address] [address] Mar, [facility] [address] [address] Jan, Hyperlipidemia, unspecified hyperlipidem ia type E78.5 and Hypothyroidism, unspecified E03.9 [place] [address] [address] Dec, Hyperlipidemia, unspecified hyperlipidem ia type E78.5 ; Essential (primary) hypertension I10 and Hypothyroid E03.9 [place] [address] [address] Dec, Hyperlipidemia, unspecified hyperlipidem ia type E78.5 ; Hypothyroid E03.9 ; Essential (primary) hypertension I10 ; Tension headache G44.209 ; Breast cancer screening by mammogram Z12.31 and Encounter for immunization Z23 [place] [address] [address] Oct, [place] [address] [address] Sep, [place] [address] [address] June, [place] [address] [address] May, Hyperlipidemia, unspecified hyperlipidem ia type E78.5 [place] [address] [address] Mar, Hypothyroid E03.9 ; Hyperlipidemia, unsp ecified hyperlipidemia type E78.5 ; Tension headache G44.209 ; Psoriasis L40.9 and Breast cancer screening by mammogram Z12.31 [place] [address] [address] Feb, Essential (primary) hypertension I10 [place] [address] [address] Feb, Essential (primary) hypertension I10 [place] [address] [address] Dec, Essential (primary) hypertension I10 [place] [address] [address] Nov, Migraine with aura, not intractable, wit hout status migrainosus G43.109 [facility] [address] [facility] [id number] [address] [place] [address] Oct, Dysuria R30.0 [facility] [address] [address] Sep, Psoriasis L40.9 [facility] [address] [address] Aug, Psoriasis L40.9 ; Poison jaylon L23.7 ; Slo w transit constipation K59.01 ; Breast cancer screening by mammogram Z12.31 and Colon cancer screening Z12.11 [facility] [address] [place] [id number] [address] [place] [address] Jul, Poison jaylon L23.7 [place] [address] [address] Apr, Elevated LFTs R79.89 ; Hypothyroid E03.9 ; Hyperlipidemia, unspecified hyperlipidemia type E78.5 ; Seasonal allergic rhinitis due to pollen J30.1 and Essential (primary) hypertension I10 [place] [address] [address] Mar, [place] [address] [address] Mar, [place] [address] [address] Feb, Hypothyroid E03.9 and Hyperlipidemia, un specified hyperlipidemia type E78.5 [place] [address] [address] Jan, Sleep apnea, unspecified G47.30 ; Hypoth yroid E03.9 and Hyperlipidemia, unspecified hyperlipidemia type E78.5 [place] [address] [address] Jan, [place] [address] [address] Jan, [place] [address] [address] Dec, [facility] [address] [facility] [id number] [place] [address] Oct, Blood in stool K92.1 and Ext ernal hemorrhoid, bleeding K64.4 [place] [address] [address] Aug, Migraine with aura, not intractable, wit hout status migrainosus G43.109 [place] [address] [address] June, Breast cancer screening Z12.39 [place] [address] [address] May, Callus L84 [place] [address] [address] Apr, Callus L84 [place] [address] [address] Apr, Hypothyroid E03.9 [place] [address] [address] Apr, Hypothyroid E03.9 ; Callus L84 and Hidra denitis L73.2 [place] [address] [address] Jan, Hyperlipidemia, unspecified hyperlipidem ia type E78.5 [place] [address] [address] Jan, [place] [address] [address] Oct, Hyperlipidemia, unspecified hyperlipidem ia type E78.5 [place] [address] [address] Oct, Seroma T14.8 [place] [address] [address] Sep, [place] [address] [address] Sep, Hyperlipidemia, unspecified hyperlipidem ia type E78.5 and Hypothyroid E03.9 [place] [address] [address] Sep, Hyperlipidemia, unspecified hyperlipidem ia type E78.5 ; Hypothyroid E03.9 ; Tension headache G44.209 and Candidiasis of anus B37.89 [place] [address] [address] Jul, [place] [address] [address] June, Tension headache G44.[address] [address] Apr, Hyperlipidemia, unspecified hyperlipidem ia type E78.5 ; Hypothyroid E03.9 ; Lipoma D17.9 and Breast cancer screening Z12.[address] [address] 24 Mar, 2015 [facility] [address] [id number] [place] [id number] 10 Mar, 2015 Encounter for dental examination Z01.[address] [address] Feb, [facility] [address] [place] [address] Jan, Allergic rhinitis J30.[address] [address] Jan, [facility] [address] [place] [address] Dec, Dysuria R30.0 and UTI (urina ry tract infection) N39.[address] [address] Dec, [address] [address] Dec, Dysuria R30.0 and Urinary tract infectio n, site unspecified N39.[address] [address] Nov, Benign lipomatous neoplasm of 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, face and neck D17.0 and Hypothyroidism, unspecified E03.9 [facility] [address] [address] Sep, [facility] [address] [address] Aug, Hypothyroidism 244.9 [facility] [address] [address] Jul, Hypothyroidism 244.9 [facility] [address] [address] Jul, Sleep apnea 780.57 [facility] [address] [address] May, [facility] [address] [address] May, [facility] [address] [address] Apr, [facility] [address] [address] Apr, [facility] [address] [address] Mar, [facility] [address] [address] Mar, [facility] [address] [address] Mar, [facility] [address] [address] Mar, [facility] [address] [address] Mar, [facility] [address] [address] Mar, [facility] [address] [address] Jan, [facility] [address] [id number] [place] [address] Jan, [facility] [address] [id number] [place] [address] Jan, [facility] [address] [id number] [place] [address] Jan, [facility] [address] [id number] [place] [address] Oct, [facility] [address] [id number] [place] [address] Oct, [facility] [address] [id number] [place] [address] Sep, [facility] [address] [id number] [place] [address] Sep, [facility] [address] [id number] [place] [address] Aug, [facility] [address] [id number] [place] [address] Aug, [facility] [address] [id number] [place] [address] Aug, [facility] [address] [id number] [place] [address] Aug, [facility] [address] [id number] [place] [address] Jul, [facility] [address] [id number] [place] [address] Jul, [facility] [address] [id number] [place] [address] June, [facility] [address] [id number] [place] [address] June, [facility] [address] [id number] [place] [address] June, [facility] [address] [id number] [place] [address] June, [facility] [address] [id number] [place] [address] June, [facility] [address] [id number] [place] [address] June, [facility] [address] [id number] [place] [address] May, [facility] [address] [id number] [place] [address] May, [facility] [address] [id number] [place] [address] Apr, [facility] [address] [id number] [place] [address] Apr, [facility] [address] [id number] [place] [address] Apr, [facility] [address] [id number] [place] [address] Apr, [facility] [address] [id number] [place] [address] Apr, [facility] [address] [id number] [place] [address] Mar, [facility] [address] [id number] [place] [address] Mar, [facility] [address] [id number] [place] [address] Mar, [facility] [address] [id number] [place] [address] Mar, [facility] [address] [id number] [place] [address] Feb, [facility] [address] [id number] [place] [address] Feb, [facility] [address] [id number] [place] [address] Jan, [facility] [address] [id number] [place] [address] Jan, [facility] [address] [id number] [place] [address] Jan, [facility] [address] [id number] [place] [address] Jan, [facility] [address] [id number] [place] [address] Jan, [facility] [address] [id number] [place] [address] Jan, [facility] [address] [id number] [place] [address] Dec, [facility] [address] [id number] [place] [address] Dec, [facility] [address] [id number] [place] [address] Nov, [facility] [address] [id number] [place] [address] Nov, [facility] [address] [id number] [place] [address] Oct, [facility] [address] [id number] [place] [address] Aug, [facility] [address] [id number] [place] [address] Aug, [facility] [address] [id number] [place] [address] Jul, [facility] [address] [id number] [place] [address] May, [facility] [address] [id number] [place] [address] Apr, [facility] [address] [id number] [place] [address] Apr, [facility] [address] [id number] [place] [address] Mar, [facility] [address] [id number] [place] [address] Dec, [facility] [address] [id number] [place] [address] Dec, [facility] [address] [id number] [place] [address] Dec, [facility] [address] [id number] [place] [address] Dec, [facility] [address] [id number] [place] [address] Dec, [facility] [address] [id number] [place] [address] Dec, [facility] [address] [id number] [place] [address] Nov, [facility] [address] [place] [id number] [place] [address] Nov, [facility] [address] [id number] [place] [address] Nov, [facility] [address] [id number] [place] [address] Nov, [facility] [address] [id number] [place] [address] Sep, [facility] [address] [id number] [place] [address] Sep, [facility] [address] [id number] [place] [address] Aug, [facility] [address] [id number] [place] [address] Aug, [facility] [address] [id number] [place] [address] May, [facility] [address] [id number] [place] [address] May, [facility] [address] [id number] [place] [address] May, [facility] [address] [id number] [place] [address] Apr, [facility] [address] [id number] [place] [address] Apr, [facility] [address] [id number] [place] [address] Apr, [facility] [address] [id number] [place] [address] Feb, [facility] [address] [id number] [place] [address] Feb, [facility] [address] [id number] [place] [address] Jan, [facility] [address] [id number] [place] [address] Jan, [facility] [address] [id number] [place] [address] Dec, [facility] [address] [id number] [place] [address] 29 Dec, 2010 [facility] [address] [id number] [place] [address] Dec, [facility] [address] [id number] [place] [address] Nov, [facility] [address] [id number] [place] [address] Nov, [facility] [address] [id number] [place] [address] 15 Mar, 2010 [facility] [address] [id number] [place] [address] Jan, [facility] [address] [id number] [place] [address] Dec, [facility] [address] [id number] [place] [address] Dec, [facility] [address] [id number] [place] [address] 18 Dec, 2009 [facility] [address] [id number] [place] [address] Dec, [facility] [address] [id number] [place] [address] 18 Nov, 2009 [facility] [address] [id number] [place] [address] 14 Jan, 2009 [facility] [address] [id number] [place] [address] 14 Nov, 2008 [facility] [address] [id number] [place] [address] 12 Nov, 2008 IMMUNIZATIONS No Known Immunizations [...]
--- OUTSIDE RECORDS SUMMARY | 2019-05-01 17:44 | XMS REPORT ---
Author Author Candace VAZQUEZ Organization [facility] Address [address] [place] [address] Care Team Providers Care Fiberglass Boat Maker Name Role Phone ANASTACIO VAZQUEZ Unavailable PROBLEMS Type Condition ICD9-CM Code XAF93-XX Code Onset Dates Condition S tatus SNOMED Code Problem Essential (primary) hypertension I10 Active 99493323 Problem Migraine with aura, not intractable, without sta tus migrainosus G43.109 Active 71520422 Problem Hyperlipidemia, unspecified hyperlipidemia type E7 8.5 Active 01979835 Problem Lipoma D17.9 Active 30549492 Problem Hypothyroid E03.9 Active 78871774 Problem Tension headache G44.209 Active 398 858251 Problem Sleep apnea in adult G47.33 Active 74176800 Problem Hypothyroidism, unspecified E03.9 Ac tive 03077152 Problem Mood disorder F39 Active 084190 05 Problem Sleep apnea, unspecified G47.30 Activ e 22441595 Problem Seasonal allergic rhinitis due to pollen J30.1 Active 14595316 Problem Slow transit constipation K59.01 Acti ve 39601171 Problem Psoriasis L40.9 Active 6534639 ALLERGIES No Information ENCOUNTERS Encounter Location Date Diagnosis [place] [address] [address] Mar, [facility] [address] [address] Jan, Hyperlipidemia, unspecified hyperlipidem ia type E78.5 and Hypothyroidism, unspecified E03.9 [place] [address] [address] Dec, Hyperlipidemia, unspecified hyperlipidem ia type E78.5 ; Essential (primary) hypertension I10 and Hypothyroid E03.9 [place] [address] [address] Dec, Hyperlipidemia, unspecified hyperlipidem ia type E78.5 ; Hypothyroid E03.9 ; Essential (primary) hypertension I10 ; Tension headache G44.209 ; Breast cancer screening by mammogram Z12.31 and Encounter for immunization Z23 [place] [address] [address] Oct, [place] [address] [address] Sep, [place] [address] [address] June, [place] [address] [address] May, Hyperlipidemia, unspecified hyperlipidem ia type E78.5 [place] [address] [address] Mar, Hypothyroid E03.9 ; Hyperlipidemia, unsp ecified hyperlipidemia type E78.5 ; Tension headache G44.209 ; Psoriasis L40.9 and Breast cancer screening by mammogram Z12.31 [place] [address] [address] Feb, Essential (primary) hypertension I10 [place] [address] [address] Feb, Essential (primary) hypertension I10 [place] [address] [address] Dec, Essential (primary) hypertension I10 [place] [address] [address] Nov, Migraine with aura, not intractable, wit hout status migrainosus G43.109 [facility] [address] [facility] [id number] [place] [address] Oct, Dysuria R30.0 [facility] [address] [address] Sep, Psoriasis L40.9 [facility] [address] [address] Aug, Psoriasis L40.9 ; Poison jaylon L23.7 ; Slo w transit constipation K59.01 ; Breast cancer screening by mammogram Z12.31 and Colon cancer screening Z12.11 [facility] [address] [place] [id number] [place] [address] Jul, Poison jaylon L23.7 [place] [address] [address] Apr, Elevated LFTs R79.89 ; Hypothyroid E03.9 ; Hyperlipidemia, unspecified hyperlipidemia type E78.5 ; Seasonal allergic rhinitis due to pollen J30.1 and Essential (primary) hypertension I10 [place] [address] [address] Mar, [place] [address] [address] Mar, [place] [address] [address] Feb, Hypothyroid E03.9 and Hyperlipidemia, un specified hyperlipidemia type E78.5 [place] [address] [address] Jan, Sleep apnea, unspecified G47.30 ; Hypoth yroid E03.9 and Hyperlipidemia, unspecified hyperlipidemia type E78.5 [place] [address] [address] Jan, [place] [address] [address] Jan, [place] [address] [address] Dec, [facility] [address] [facility] [id number] [address] Oct, Blood in stool K92.1 and Ext ernal hemorrhoid, bleeding K64.4 [place] [address] [address] Aug, Migraine with aura, not intractable, wit hout status migrainosus G43.109 [place] [address] [address] June, Breast cancer screening Z12.39 [place] [address] [address] May, Callus L84 [place] [address] [address] Apr, Callus L84 [place] [address] [address] Apr, Hypothyroid E03.9 [place] [address] [address] Apr, Hypothyroid E03.9 ; Callus L84 and Hidra denitis L73.2 [place] [address] [address] Jan, Hyperlipidemia, unspecified hyperlipidem ia type E78.5 [place] [address] [address] Jan, [place] [address] [address] Oct, Hyperlipidemia, unspecified hyperlipidem ia type E78.5 [place] [address] [address] Oct, Seroma T14.8 [place] [address] [address] Sep, [place] [address] [address] Sep, Hyperlipidemia, unspecified hyperlipidem ia type E78.5 and Hypothyroid E03.9 [place] [address] [address] Sep, Hyperlipidemia, unspecified hyperlipidem ia type E78.5 ; Hypothyroid E03.9 ; Tension headache G44.209 and Candidiasis of anus B37.89 [place] [address] [address] Jul, [place] [address] [address] June, Tension headache G44.[address] [address] Apr, Hyperlipidemia, unspecified hyperlipidem ia type E78.5 ; Hypothyroid E03.9 ; Lipoma D17.9 and Breast cancer screening Z12.[address] [address] 24 Mar, 2015 [facility] [address] [id number] [place] [id number] 10 Mar, 2015 Encounter for dental examination Z01.[address] [address] Feb, [facility] [address] [place] [address] Jan, Allergic rhinitis J30.[address] [address] Jan, [facility] [address] [place] [address] Dec, Dysuria R30.0 and UTI (urina ry tract infection) N39.[address] [address] Dec, [address] [address] Dec, Dysuria R30.0 and Urinary tract infectio n, site unspecified N39.[address] [address] Nov, Benign lipomatous neoplasm of 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, face and neck D17.0 and Hypothyroidism, unspecified E03.9 [facility] [address] [address] Sep, [facility] [address] [address] Aug, Hypothyroidism 244.9 [facility] [address] [address] Jul, Hypothyroidism 244.9 [facility] [address] [address] Jul, Sleep apnea 780.57 [facility] [address] [address] May, [facility] [address] [address] May, [facility] [address] [address] Apr, [facility] [address] [address] Apr, [facility] [address] [address] Mar, [facility] [address] [address] Mar, [facility] [address] [address] Mar, [facility] [address] [address] Mar, [facility] [address] [address] Mar, [facility] [address] [address] Mar, [facility] [address] [address] Jan, [facility] [address] [id number] [place] [address] Jan, [facility] [address] [id number] [place] [address] Jan, [facility] [address] [id number] [place] [address] Jan, [facility] [address] [id number] [place] [address] Oct, [facility] [address] [id number] [place] [address] Oct, [facility] [address] [id number] [place] [address] Sep, [facility] [address] [id number] [place] [address] Sep, [facility] [address] [id number] [place] [address] Aug, [facility] [address] [id number] [place] [address] Aug, [facility] [address] [id number] [place] [address] Aug, [facility] [address] [id number] [place] [address] Aug, [facility] [address] [id number] [place] [address] Jul, [facility] [address] [id number] [place] [address] Jul, [facility] [address] [id number] [place] [address] June, [facility] [address] [id number] [place] [address] June, [facility] [address] [id number] [place] [address] June, [facility] [address] [id number] [place] [address] June, [facility] [address] [id number] [place] [address] June, [facility] [address] [id number] [place] [address] June, [facility] [address] [id number] [place] [address] May, [facility] [address] [id number] [place] [address] May, [facility] [address] [id number] [place] [address] Apr, [facility] [address] [id number] [place] [address] Apr, [facility] [address] [id number] [place] [address] Apr, [facility] [address] [id number] [place] [address] Apr, [facility] [address] [id number] [place] [address] Apr, [facility] [address] [id number] [place] [address] Mar, [facility] [address] [id number] [place] [address] Mar, [facility] [address] [id number] [place] [address] Mar, [facility] [address] [id number] [place] [address] Mar, [facility] [address] [id number] [place] [address] Feb, [facility] [address] [id number] [place] [address] Feb, [facility] [address] [id number] [place] [address] Jan, [facility] [address] [id number] [place] [address] Jan, [facility] [address] [id number] [place] [address] Jan, [facility] [address] [id number] [place] [address] Jan, [facility] [address] [id number] [place] [address] Jan, [facility] [address] [id number] [place] [address] Jan, [facility] [address] [id number] [place] [address] Dec, [facility] [address] [id number] [place] [address] Dec, [facility] [address] [id number] [place] [address] Nov, [facility] [address] [id number] [place] [address] Nov, [facility] [address] [id number] [place] [address] Oct, [facility] [address] [id number] [place] [address] Aug, [facility] [address] [id number] [place] [address] Aug, [facility] [address] [id number] [place] [address] Jul, [facility] [address] [id number] [place] [address] May, [facility] [address] [id number] [place] [address] Apr, [facility] [address] [id number] [place] [address] Apr, [facility] [address] [id number] [place] [address] Mar, [facility] [address] [id number] [place] [address] Dec, [facility] [address] [id number] [place] [address] Dec, [facility] [address] [id number] [place] [address] Dec, [facility] [address] [id number] [place] [address] Dec, [facility] [address] [id number] [place] [address] Dec, [facility] [address] [id number] [place] [address] Dec, [facility] [address] [id number] [place] [address] Nov, [facility] [address] [place] [id number] [place] [address] Nov, [facility] [address] [id number] [place] [address] Nov, [facility] [address] [id number] [place] [address] Nov, [facility] [address] [id number] [place] [address] Sep, [facility] [address] [id number] [place] [address] Sep, [facility] [address] [id number] [place] [address] Aug, [facility] [address] [id number] [place] [address] Aug, [facility] [address] [id number] [place] [address] May, [facility] [address] [id number] [place] [address] May, [facility] [address] [id number] [place] [address] May, [facility] [address] [id number] [place] [address] Apr, [facility] [address] [id number] [place] [address] Apr, [facility] [address] [id number] [place] [address] Apr, [facility] [address] [id number] [place] [address] Feb, [facility] [address] [id number] [place] [address] Feb, [facility] [address] [id number] [place] [address] Jan, [facility] [address] [id number] [place] [address] Jan, [facility] [address] [id number] [place] [address] Dec, [facility] [address] [id number] [place] [address] 29 Dec, 2010 [facility] [address] [id number] [place] [address] Dec, [facility] [address] [id number] [place] [address] Nov, [facility] [address] [id number] [place] [address] Nov, [facility] [address] [id number] [place] [address] 15 Mar, 2010 [facility] [address] [id number] [place] [address] Jan, [facility] [address] [id number] [place] [address] Dec, [facility] [address] [id number] [place] [address] Dec, [facility] [address] [id number] [place] [address] 18 Dec, 2009 [facility] [address] [id number] [place] [address] Dec, [facility] [address] [id number] [place] [address] 18 Nov, 2009 [facility] [address] [id number] [place] [address] 14 Jan, 2009 [facility] [address] [id number] [place] [address] 14 Nov, 2008 [facility] [address] [id number] [place] [address] 12 Nov, 2008 IMMUNIZATIONS No Known Immunizations [...]
--- OUTSIDE RECORDS SUMMARY | 2019-05-01 17:44 | XMS REPORT ---
Author Author Candace VAZQUEZ Organization [facility] Address [address] [place] [address] Care Team Providers Care Manager Corporate Strategy Name Role Phone ANASTACIO VAZQUEZ Unavailable PROBLEMS Type Condition ICD9-CM Code UIL78-BX Code Onset Dates Condition S tatus SNOMED Code Problem Essential (primary) hypertension I10 Active 76833936 Problem Migraine with aura, not intractable, without sta tus migrainosus G43.109 Active 31801891 Problem Hyperlipidemia, unspecified hyperlipidemia type E7 8.5 Active 96526085 Problem Lipoma D17.9 Active 87794649 Problem Hypothyroid E03.9 Active 40200207 Problem Tension headache G44.209 Active 398 484325 Problem Sleep apnea in adult G47.33 Active 10786664 Problem Hypothyroidism, unspecified E03.9 Ac tive 45126689 Problem Mood disorder F39 Active 568243 05 Problem Sleep apnea, unspecified G47.30 Activ e 86632827 Problem Seasonal allergic rhinitis due to pollen J30.1 Active 04499059 Problem Slow transit constipation K59.01 Acti ve 77022031 Problem Psoriasis L40.9 Active 1105865 ALLERGIES No Information ENCOUNTERS Encounter Location Date Diagnosis [place] [address] [address] Mar, [facility] [address] [address] Jan, Hyperlipidemia, unspecified hyperlipidem ia type E78.5 and Hypothyroidism, unspecified E03.9 [place] [address] [address] Dec, Hyperlipidemia, unspecified hyperlipidem ia type E78.5 ; Essential (primary) hypertension I10 and Hypothyroid E03.9 [place] [address] [address] Dec, Hyperlipidemia, unspecified hyperlipidem ia type E78.5 ; Hypothyroid E03.9 ; Essential (primary) hypertension I10 ; Tension headache G44.209 ; Breast cancer screening by mammogram Z12.31 and Encounter for immunization Z23 [place] [address] [address] Oct, [place] [address] [address] Sep, [place] [address] [address] June, [place] [address] [address] May, Hyperlipidemia, unspecified hyperlipidem ia type E78.5 [place] [address] [address] Mar, Hypothyroid E03.9 ; Hyperlipidemia, unsp ecified hyperlipidemia type E78.5 ; Tension headache G44.209 ; Psoriasis L40.9 and Breast cancer screening by mammogram Z12.31 [place] [address] [address] Feb, Essential (primary) hypertension I10 [place] [address] [address] Feb, Essential (primary) hypertension I10 [place] [address] [address] Dec, Essential (primary) hypertension I10 [place] [address] [address] Nov, Migraine with aura, not intractable, wit hout status migrainosus G43.109 [facility] [address] [facility] [id number] [address] [place] [address] Oct, Dysuria R30.0 [facility] [address] [address] Sep, Psoriasis L40.9 [facility] [address] [address] Aug, Psoriasis L40.9 ; Poison jaylon L23.7 ; Slo w transit constipation K59.01 ; Breast cancer screening by mammogram Z12.31 and Colon cancer screening Z12.11 [facility] [address] [place] [id number] [place] [address] Jul, Poison jaylon L23.7 [place] [address] [address] Apr, Elevated LFTs R79.89 ; Hypothyroid E03.9 ; Hyperlipidemia, unspecified hyperlipidemia type E78.5 ; Seasonal allergic rhinitis due to pollen J30.1 and Essential (primary) hypertension I10 [place] [address] [address] Mar, [place] [address] [address] Mar, [place] [address] [address] Feb, Hypothyroid E03.9 and Hyperlipidemia, un specified hyperlipidemia type E78.5 [place] [address] [address] Jan, Sleep apnea, unspecified G47.30 ; Hypoth yroid E03.9 and Hyperlipidemia, unspecified hyperlipidemia type E78.5 [place] [address] [address] Jan, [place] [address] [address] Jan, [place] [address] [address] Dec, [facility] [address] [facility] [id number] [address] [address] Oct, Blood in stool K92.1 and Ext ernal hemorrhoid, bleeding K64.4 [place] [address] [address] Aug, Migraine with aura, not intractable, wit hout status migrainosus G43.109 [place] [address] [address] June, Breast cancer screening Z12.39 [place] [address] [address] May, Callus L84 [place] [address] [address] Apr, Callus L84 [place] [address] [address] Apr, Hypothyroid E03.9 [place] [address] [address] Apr, Hypothyroid E03.9 ; Callus L84 and Hidra denitis L73.2 [place] [address] [address] Jan, Hyperlipidemia, unspecified hyperlipidem ia type E78.5 [place] [address] [address] Jan, [place] [address] [address] Oct, Hyperlipidemia, unspecified hyperlipidem ia type E78.5 [place] [address] [address] Oct, Seroma T14.8 [place] [address] [address] Sep, [place] [address] [address] Sep, Hyperlipidemia, unspecified hyperlipidem ia type E78.5 and Hypothyroid E03.9 [place] [address] [address] Sep, Hyperlipidemia, unspecified hyperlipidem ia type E78.5 ; Hypothyroid E03.9 ; Tension headache G44.209 and Candidiasis of anus B37.89 [place] [address] [address] Jul, [place] [address] [address] June, Tension headache G44.[address] [address] Apr, Hyperlipidemia, unspecified hyperlipidem ia type E78.5 ; Hypothyroid E03.9 ; Lipoma D17.9 and Breast cancer screening Z12.[address] [address] 24 Mar, 2015 [facility] [address] [id number] [place] [id number] 10 Mar, 2015 Encounter for dental examination Z01.[address] [address] Feb, [facility] [address] [place] [address] Jan, Allergic rhinitis J30.[address] [address] Jan, [facility] [address] [place] [address] Dec, Dysuria R30.0 and UTI (urina ry tract infection) N39.[address] [address] Dec, [address] [address] Dec, Dysuria R30.0 and Urinary tract infectio n, site unspecified N39.[address] [address] Nov, Benign lipomatous neoplasm of 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, face and neck D17.0 and Hypothyroidism, unspecified E03.9 [facility] [address] [address] Sep, [facility] [address] [address] Aug, Hypothyroidism 244.9 [facility] [address] [address] Jul, Hypothyroidism 244.9 [facility] [address] [address] Jul, Sleep apnea 780.57 [facility] [address] [address] May, [facility] [address] [address] May, [facility] [address] [address] Apr, [facility] [address] [address] Apr, [facility] [address] [address] Mar, [facility] [address] [address] Mar, [facility] [address] [address] Mar, [facility] [address] [address] Mar, [facility] [address] [address] Mar, [facility] [address] [address] Mar, [facility] [address] [address] Jan, [facility] [address] [id number] [place] [address] Jan, [facility] [address] [id number] [place] [address] Jan, [facility] [address] [id number] [place] [address] Jan, [facility] [address] [id number] [place] [address] Oct, [facility] [address] [id number] [place] [address] Oct, [facility] [address] [id number] [place] [address] Sep, [facility] [address] [id number] [place] [address] Sep, [facility] [address] [id number] [place] [address] Aug, [facility] [address] [id number] [place] [address] Aug, [facility] [address] [id number] [place] [address] Aug, [facility] [address] [id number] [place] [address] Aug, [facility] [address] [id number] [place] [address] Jul, [facility] [address] [id number] [place] [address] Jul, [facility] [address] [id number] [place] [address] June, [facility] [address] [id number] [place] [address] June, [facility] [address] [id number] [place] [address] June, [facility] [address] [id number] [place] [address] June, [facility] [address] [id number] [place] [address] June, [facility] [address] [id number] [place] [address] June, [facility] [address] [id number] [place] [address] May, [facility] [address] [id number] [place] [address] May, [facility] [address] [id number] [place] [address] Apr, [facility] [address] [id number] [place] [address] Apr, [facility] [address] [id number] [place] [address] Apr, [facility] [address] [id number] [place] [address] Apr, [facility] [address] [id number] [place] [address] Apr, [facility] [address] [id number] [place] [address] Mar, [facility] [address] [id number] [place] [address] Mar, [facility] [address] [id number] [place] [address] Mar, [facility] [address] [id number] [place] [address] Mar, [facility] [address] [id number] [place] [address] Feb, [facility] [address] [id number] [place] [address] Feb, [facility] [address] [id number] [place] [address] Jan, [facility] [address] [id number] [place] [address] Jan, [facility] [address] [id number] [place] [address] Jan, [facility] [address] [id number] [place] [address] Jan, [facility] [address] [id number] [place] [address] Jan, [facility] [address] [id number] [place] [address] Jan, [facility] [address] [id number] [place] [address] Dec, [facility] [address] [id number] [place] [address] Dec, [facility] [address] [id number] [place] [address] Nov, [facility] [address] [id number] [place] [address] Nov, [facility] [address] [id number] [place] [address] Oct, [facility] [address] [id number] [place] [address] Aug, [facility] [address] [id number] [place] [address] Aug, [facility] [address] [id number] [place] [address] Jul, [facility] [address] [id number] [place] [address] May, [facility] [address] [id number] [place] [address] Apr, [facility] [address] [id number] [place] [address] Apr, [facility] [address] [id number] [place] [address] Mar, [facility] [address] [id number] [place] [address] Dec, [facility] [address] [id number] [place] [address] Dec, [facility] [address] [id number] [place] [address] Dec, [facility] [address] [id number] [place] [address] Dec, [facility] [address] [id number] [place] [address] Dec, [facility] [address] [id number] [place] [address] Dec, [facility] [address] [id number] [place] [address] Nov, [facility] [address] [place] [id number] [place] [address] Nov, [facility] [address] [id number] [place] [address] Nov, [facility] [address] [id number] [place] [address] Nov, [facility] [address] [id number] [place] [address] Sep, [facility] [address] [id number] [place] [address] Sep, [facility] [address] [id number] [place] [address] Aug, [facility] [address] [id number] [place] [address] Aug, [facility] [address] [id number] [place] [address] May, [facility] [address] [id number] [place] [address] May, [facility] [address] [id number] [place] [address] May, [facility] [address] [id number] [place] [address] Apr, [facility] [address] [id number] [place] [address] Apr, [facility] [address] [id number] [place] [address] Apr, [facility] [address] [id number] [place] [address] Feb, [facility] [address] [id number] [place] [address] Feb, [facility] [address] [id number] [place] [address] Jan, [facility] [address] [id number] [place] [address] Jan, [facility] [address] [id number] [place] [address] Dec, [facility] [address] [id number] [place] [address] 29 Dec, 2010 [facility] [address] [id number] [place] [address] Dec, [facility] [address] [id number] [place] [address] Nov, [facility] [address] [id number] [place] [address] Nov, [facility] [address] [id number] [place] [address] 15 Mar, 2010 [facility] [address] [id number] [place] [address] Jan, [facility] [address] [id number] [place] [address] Dec, [facility] [address] [id number] [place] [address] Dec, [facility] [address] [id number] [place] [address] 18 Dec, 2009 [facility] [address] [id number] [place] [address] Dec, [facility] [address] [id number] [place] [address] 18 Nov, 2009 [facility] [address] [id number] [place] [address] 14 Jan, 2009 [facility] [address] [id number] [place] [address] 14 Nov, 2008 [facility] [address] [id number] [place] [address] 12 Nov, 2008 IMMUNIZATIONS No Known Immunizations [...]
--- OUTSIDE RECORDS SUMMARY | 2019-05-01 17:44 | XMS REPORT ---
Author Author Candace VAZQUEZ Organization [facility] Address [address] [place] [address] Care Team Providers Care [employer] Inspector Name Role Phone ANASTACIO VAZQUEZ Unavailable PROBLEMS Type Condition ICD9-CM Code XSZ23-ZF Code Onset Dates Condition S tatus SNOMED Code Problem Essential (primary) hypertension I10 Active 59557055 Problem Migraine with aura, not intractable, without sta tus migrainosus G43.109 Active 79303471 Problem Hyperlipidemia, unspecified hyperlipidemia type E7 8.5 Active 18204688 Problem Lipoma D17.9 Active 89658669 Problem Hypothyroid E03.9 Active 19690599 Problem Tension headache G44.209 Active 398 112088 Problem Sleep apnea in adult G47.33 Active 29338052 Problem Hypothyroidism, unspecified E03.9 Ac tive 23626157 Problem Mood disorder F39 Active 533991 05 Problem Sleep apnea, unspecified G47.30 Activ e 82019795 Problem Seasonal allergic rhinitis due to pollen J30.1 Active 13863856 Problem Slow transit constipation K59.01 Acti ve 84905868 Problem Psoriasis L40.9 Active 5203960 ALLERGIES No Information ENCOUNTERS Encounter Location Date Diagnosis [place] [address] [address] Mar, [facility] [address] [address] Jan, Hyperlipidemia, unspecified hyperlipidem ia type E78.5 and Hypothyroidism, unspecified E03.9 [place] [address] [address] Dec, Hyperlipidemia, unspecified hyperlipidem ia type E78.5 ; Essential (primary) hypertension I10 and Hypothyroid E03.9 [place] [address] [address] Dec, Hyperlipidemia, unspecified hyperlipidem ia type E78.5 ; Hypothyroid E03.9 ; Essential (primary) hypertension I10 ; Tension headache G44.209 ; Breast cancer screening by mammogram Z12.31 and Encounter for immunization Z23 [place] [address] [address] Oct, [place] [address] [address] Sep, [place] [address] [address] June, [place] [address] [address] May, Hyperlipidemia, unspecified hyperlipidem ia type E78.5 [place] [address] [address] Mar, Hypothyroid E03.9 ; Hyperlipidemia, unsp ecified hyperlipidemia type E78.5 ; Tension headache G44.209 ; Psoriasis L40.9 and Breast cancer screening by mammogram Z12.31 [place] [address] [address] Feb, Essential (primary) hypertension I10 [place] [address] [address] Feb, Essential (primary) hypertension I10 [place] [address] [address] Dec, Essential (primary) hypertension I10 [place] [address] [address] Nov, Migraine with aura, not intractable, wit hout status migrainosus G43.109 [facility] [address] [facility] [id number] [address] [place] [address] Oct, Dysuria R30.0 [facility] [address] [address] Sep, Psoriasis L40.9 [facility] [address] [address] Aug, Psoriasis L40.9 ; Poison jaylon L23.7 ; Slo w transit constipation K59.01 ; Breast cancer screening by mammogram Z12.31 and Colon cancer screening Z12.11 [facility] [address] [place] [id number] [address] [place] [address] Jul, Poison jaylon L23.7 [place] [address] [address] Apr, Elevated LFTs R79.89 ; Hypothyroid E03.9 ; Hyperlipidemia, unspecified hyperlipidemia type E78.5 ; Seasonal allergic rhinitis due to pollen J30.1 and Essential (primary) hypertension I10 [place] [address] [address] Mar, [place] [address] [address] Mar, [place] [address] [address] Feb, Hypothyroid E03.9 and Hyperlipidemia, un specified hyperlipidemia type E78.5 [place] [address] [address] Jan, Sleep apnea, unspecified G47.30 ; Hypoth yroid E03.9 and Hyperlipidemia, unspecified hyperlipidemia type E78.5 [place] [address] [address] Jan, [place] [address] [address] Jan, [place] [address] [address] Dec, [facility] [address] [facility] [id number] [address] [address] Oct, Blood in stool K92.1 and Ext ernal hemorrhoid, bleeding K64.4 [place] [address] [address] Aug, Migraine with aura, not intractable, wit hout status migrainosus G43.109 [place] [address] [address] June, Breast cancer screening Z12.39 [place] [address] [address] May, Callus L84 [place] [address] [address] Apr, Callus L84 [place] [address] [address] Apr, Hypothyroid E03.9 [place] [address] [address] Apr, Hypothyroid E03.9 ; Callus L84 and Hidra denitis L73.2 [place] [address] [address] Jan, Hyperlipidemia, unspecified hyperlipidem ia type E78.5 [place] [address] [address] Jan, [place] [address] [address] Oct, Hyperlipidemia, unspecified hyperlipidem ia type E78.5 [place] [address] [address] Oct, Seroma T14.8 [place] [address] [address] Sep, [place] [address] [address] Sep, Hyperlipidemia, unspecified hyperlipidem ia type E78.5 and Hypothyroid E03.9 [place] [address] [address] Sep, Hyperlipidemia, unspecified hyperlipidem ia type E78.5 ; Hypothyroid E03.9 ; Tension headache G44.209 and Candidiasis of anus B37.89 [place] [address] [address] Jul, [place] [address] [address] June, Tension headache G44.[address] [address] Apr, Hyperlipidemia, unspecified hyperlipidem ia type E78.5 ; Hypothyroid E03.9 ; Lipoma D17.9 and Breast cancer screening Z12.[address] [address] 24 Mar, 2015 [facility] [address] [id number] [place] [id number] 10 Mar, 2015 Encounter for dental examination Z01.[address] [address] Feb, [facility] [address] [place] [address] Jan, Allergic rhinitis J30.[address] [address] Jan, [facility] [address] [place] [address] Dec, Dysuria R30.0 and UTI (urina ry tract infection) N39.[address] [address] Dec, [address] [address] Dec, Dysuria R30.0 and Urinary tract infectio n, site unspecified N39.[address] [address] Nov, Benign lipomatous neoplasm of 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, face and neck D17.0 and Hypothyroidism, unspecified E03.9 [facility] [address] [address] Sep, [facility] [address] [address] Aug, Hypothyroidism 244.9 [facility] [address] [address] Jul, Hypothyroidism 244.9 [facility] [address] [address] Jul, Sleep apnea 780.57 [facility] [address] [address] May, [facility] [address] [address] May, [facility] [address] [address] Apr, [facility] [address] [address] Apr, [facility] [address] [address] Mar, [facility] [address] [address] Mar, [facility] [address] [address] Mar, [facility] [address] [address] Mar, [facility] [address] [address] Mar, [facility] [address] [address] Mar, [facility] [address] [address] Jan, [facility] [address] [id number] [place] [address] Jan, [facility] [address] [id number] [place] [address] Jan, [facility] [address] [id number] [place] [address] Jan, [facility] [address] [id number] [place] [address] Oct, [facility] [address] [id number] [place] [address] Oct, [facility] [address] [id number] [place] [address] Sep, [facility] [address] [id number] [place] [address] Sep, [facility] [address] [id number] [place] [address] Aug, [facility] [address] [id number] [place] [address] Aug, [facility] [address] [id number] [place] [address] Aug, [facility] [address] [id number] [place] [address] Aug, [facility] [address] [id number] [place] [address] Jul, [facility] [address] [id number] [place] [address] Jul, [facility] [address] [id number] [place] [address] June, [facility] [address] [id number] [place] [address] June, [facility] [address] [id number] [place] [address] June, [facility] [address] [id number] [place] [address] June, [facility] [address] [id number] [place] [address] June, [facility] [address] [id number] [place] [address] June, [facility] [address] [id number] [place] [address] May, [facility] [address] [id number] [place] [address] May, [facility] [address] [id number] [place] [address] Apr, [facility] [address] [id number] [place] [address] Apr, [facility] [address] [id number] [place] [address] Apr, [facility] [address] [id number] [place] [address] Apr, [facility] [address] [id number] [place] [address] Apr, [facility] [address] [id number] [place] [address] Mar, [facility] [address] [id number] [place] [address] Mar, [facility] [address] [id number] [place] [address] Mar, [facility] [address] [id number] [place] [address] Mar, [facility] [address] [id number] [place] [address] Feb, [facility] [address] [id number] [place] [address] Feb, [facility] [address] [id number] [place] [address] Jan, [facility] [address] [id number] [place] [address] Jan, [facility] [address] [id number] [place] [address] Jan, [facility] [address] [id number] [place] [address] Jan, [facility] [address] [id number] [place] [address] Jan, [facility] [address] [id number] [place] [address] Jan, [facility] [address] [id number] [place] [address] Dec, [facility] [address] [id number] [place] [address] Dec, [facility] [address] [id number] [place] [address] Nov, [facility] [address] [id number] [place] [address] Nov, [facility] [address] [id number] [place] [address] Oct, [facility] [address] [id number] [place] [address] Aug, [facility] [address] [id number] [place] [address] Aug, [facility] [address] [id number] [place] [address] Jul, [facility] [address] [id number] [place] [address] May, [facility] [address] [id number] [place] [address] Apr, [facility] [address] [id number] [place] [address] Apr, [facility] [address] [id number] [place] [address] Mar, [facility] [address] [id number] [place] [address] Dec, [facility] [address] [id number] [place] [address] Dec, [facility] [address] [id number] [place] [address] Dec, [facility] [address] [id number] [place] [address] Dec, [facility] [address] [id number] [place] [address] Dec, [facility] [address] [id number] [place] [address] Dec, [facility] [address] [id number] [place] [address] Nov, [facility] [address] [place] [id number] [place] [address] Nov, [facility] [address] [id number] [place] [address] Nov, [facility] [address] [id number] [place] [address] Nov, [facility] [address] [id number] [place] [address] Sep, [facility] [address] [id number] [place] [address] Sep, [facility] [address] [id number] [place] [address] Aug, [facility] [address] [id number] [place] [address] Aug, [facility] [address] [id number] [place] [address] May, [facility] [address] [id number] [place] [address] May, [facility] [address] [id number] [place] [address] May, [facility] [address] [id number] [place] [address] Apr, [facility] [address] [id number] [place] [address] Apr, [facility] [address] [id number] [place] [address] Apr, [facility] [address] [id number] [place] [address] Feb, [facility] [address] [id number] [place] [address] Feb, [facility] [address] [id number] [place] [address] Jan, [facility] [address] [id number] [place] [address] Jan, [facility] [address] [id number] [place] [address] Dec, [facility] [address] [id number] [place] [address] 29 Dec, 2010 [facility] [address] [id number] [place] [address] Dec, [facility] [address] [id number] [place] [address] Nov, [facility] [address] [id number] [place] [address] Nov, [facility] [address] [id number] [place] [address] 15 Mar, 2010 [facility] [address] [id number] [place] [address] Jan, [facility] [address] [id number] [place] [address] Dec, [facility] [address] [id number] [place] [address] Dec, [facility] [address] [id number] [place] [address] 18 Dec, 2009 [facility] [address] [id number] [place] [address] Dec, [facility] [address] [id number] [place] [address] 18 Nov, 2009 [facility] [address] [id number] [place] [address] 14 Jan, 2009 [facility] [address] [id number] [place] [address] 14 Nov, 2008 [facility] [address] [id number] [place] [address] 12 Nov, 2008 IMMUNIZATIONS No Known Immunizations [...]
--- OUTSIDE RECORDS SUMMARY | 2019-05-01 17:45 | XMS REPORT ---
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 Name Role Phone ANASTACIO VAZQUEZ Unavailable PROBLEMS Type Condition ICD9-CM Code CAZ31-YR Code Onset Dates Condition S tatus SNOMED Code Problem Mood disorder F39 Active 655567 05 Problem Sleep apnea in adult G47.33 Active 16700011 Problem Hypothyroid E03.9 Active 17623488 Problem Psoriasis L40.9 Active 3071299 Problem Essential (primary) hypertension I10 Active 06709191 Problem Slow transit constipation K59.01 Acti ve 40605657 Problem Migraine with aura, not intractable, without sta tus migrainosus G43.109 Active 27613785 Problem Hyperlipidemia, unspecified hyperlipidemia type E7 8.5 Active 43899445 Problem Lipoma D17.9 Active 44316012 Problem Sleep apnea, unspecified G47.30 Activ e 88421846 Problem Seasonal allergic rhinitis due to pollen J30.1 Active 39529346 ALLERGIES No Information ENCOUNTERS Encounter Location Date Diagnosis [place] [id number] [facility] [id number] [address] [place] [address] Oct, [facility] [address] [place] [id number] [address] [place] [address] Sep, [facility] [address] [facility] [id number] [address] [place] [address] June, [facility] [address] [place] [id number] [address] [place] [address] May, Hyperlipidemia, unspecified hyperlipidemia type E78.5 [facility] [address] [facility] [id number] [address] [place] [address] Mar, Hypothyroid E03.9 ; Hyperlip idemia, unspecified hyperlipidemia type E78.5 ; Tension headache G44.209 ; Psoriasis L40.9 and Breast cancer screening by mammogram Z12.31 [place] [address] [address] Feb, Essential (primary) hyperten vandana I10 [place] [address] [address] Feb, Essential (primary) hyperten vandana I10 [place] [address] [address] Dec, Essential (primary) hyperten vandana I10 [place] [address] [address] Nov, Migraine with aura, not intr actable, without status migrainosus G43.109 [facility] [place] [address] [address] 04 Oct, 2017 Dysuria R30.0 [place] [address] [address] Sep, Psoriasis L40.[address] [address] Aug, Psoriasis L40.9 ; Poison jaylon L23.7 ; Slow transit constipation K59.01 ; Breast cancer screening by mammogram Z12.31 and Colon cancer screening Z12.11 [facility] [place] [address] [address] Jul, Poison jaylon L23.7 [place] [address] [address] Apr, Elevated LFTs R79.89 ; Hypot hyroid E03.9 ; Hyperlipidemia, unspecified hyperlipidemia type E78.5 ; Seasonal allergic rhinitis due to pollen J30.1 and Essential (primary) hypertension I10 [place] [address] [address] Mar, [facility] [address] [address] Mar, [facility] [address] [address] Feb, Hypothyroid E03.9 and Hyperl ipidemia, unspecified hyperlipidemia type E78.5 [place] [address] [address] Jan, Sleep apnea, unspecified G47 .30 ; Hypothyroid E03.9 and Hyperlipidemia, unspecified hyperlipidemia type E78.5 [place] [address] [address] Jan, [place] [address] [address] Jan, [place] [address] [address] Dec, [facility] [address] [address] Oct, Blood in stool K92.1 and Ext ernal hemorrhoid, bleeding K64.4 [place] [address] [address] Aug, Migraine with aura, not intr actable, without status migrainosus G43.109 [place] [address] [address] June, Breast cancer screening Z12. 39 [place] [address] [address] May, Callus L84 [place] [address] [address] Apr, Callus L84 [place] [address] [address] Apr, Hypothyroid E03.9 [place] [address] [address] Apr, Hypothyroid E03.9 ; Callus L 84 and Hidradenitis L73.2 [place] [address] [address] Jan, Hyperlipidemia, unspecified hyperlipidemia type E78.5 [place] [address] [address] Jan, [place] [address] [address] Oct, Hyperlipidemia, unspecified hyperlipidemia type E78.5 [place] [address] [address] Oct, Seroma T14.8 [place] [address] [address] Sep, [place] [address] [address] Sep, Hyperlipidemia, unspecified hyperlipidemia type E78.5 and Hypothyroid E03.9 [place] [address] [address] Sep, Hyperlipidemia, unspecified hyperlipidemia type E78.5 ; Hypothyroid E03.9 ; Tension headache G44.209 and Candidiasis of anus B37.89 [place] [address] [address] Jul, [place] [address] [address] June, Tension headache G44.209 [place] [address] [address] Apr, Hyperlipidemia, unspecified hyperlipidemia type E78.5 ; Hypothyroid E03.9 ; Lipoma D17.9 and Breast cancer screening Z12.39 [place] [address] [address] Mar, [facility] [address] [facility] [id number] [address] [place] [address] [id number] Mar, 2015 Encounter for dental examina tion Z01.20 [facility] [address] [facility] [id number] [address] [place] [address] Feb, [facility] [address] [place] [id number] [address] [place] [address] Jan, Allergic rhinitis J30.9 [facility] [address] [place] [id number] [address] [place] [address] Jan, [facility] [address] [place] [address] Dec, Dysuria R30.0 and UTI (urina ry tract infection) N39.0 [place] [address] [place] [id number] [address] [place] [address] Dec, [facility] [address] [place] [address] Dec, Dysuria R30.0 and Urinary tr act infection, site unspecified N39.0 [place] [address] [place] [id number] [address] [place] [address] Nov, Benign lipomatous neoplasm o f skin and subcutaneous tissue of head, face and neck D17.0 and Hypothyroidism, unspecified E03.9 [place] [address] [place] [id number] [address] [place] [address] Sep, [facility] [address] [place] [id number] [address] [place] [address] Aug, Hypothyroidism 244.9 [place] [address] [place] [address] Jul, Hypothyroidism 244.9 [facility] [address] [place] [id number] [address] [place] [address] Jul, Sleep apnea 780.57 [facility] [address] [id number] [address] [place] [address], [place] [address] 14 May, 2014 [facility] [address] [id number] [address] [place] [address], [place] [address] May, [facility] [address] [id number] [address] [place] [address], [place] [address] Apr, [facility] [address] [id number] [address] [place] [address], [place] [address] Apr, [facility] [address] [id number] [address] [place] [address], [place] [address] Mar, 2014 [facility] [address] [id number] [address] [place] [address], [place] [address] Mar, 2014 [facility] [address] [id number] [address] [place] [address], [place] [address] Mar, 2014 [facility] [address] [id number] [address] [place] [address], [place] [address] Mar, 2014 [facility] [address] [id number] [address] [place] [address], [place] [address] Mar, [facility] [address] [id number] [address] [place] [address], [place] [address] Mar, [facility] [address] [id number] [address] [place] [address], [place] [address] Jan, [facility] [address] [id number] [address] [place] [address], [place] [address] Jan, [facility] [address] [id number] [address] [place] [address], [place] [address] Jan, [facility] [address] [id number] [address] [place] [address], [place] [address] Jan, [facility] [address] [id number] [address] [place] [address], [place] [address] 24 Oct, 2013 [facility] [address] [id number] [address] [place] [address], [place] [address] Oct, [facility] [address] [id number] [address] [place] [address], [place] [address] Sep, [facility] [address] [id number] [address] [place] [address], [place] [address] Sep, [facility] [address] [id number] [address] [place] [address], [place] [address] Aug, [facility] [address] [id number] [address] [place] [address], [place] [address] Aug, [facility] [address] [id number] [address] [place] [address], [place] [address] Aug, [facility] [address] [id number] [address] [place] [address], [place] [address] Aug, [facility] [address] [id number] [address] [place] [address], [place] [address] Jul, [facility] [address] [id number] [address] [place] [address], [place] [address] Jul, [facility] [address] [id number] [address] [place] [address], [place] [address] June, [facility] [address] [id number] [address] [place] [address], [place] [address] June, [facility] [address] [id number] [address] [place] [address], [place] [address] June, [facility] [address] [id number] [address] [place] [address], [place] [address] June, [facility] [address] [id number] [address] [place] [address], [place] [address] June, [facility] [address] [id number] [address] [place] [address], [place] [address] June, [facility] [address] [id number] [address] [place] [address], [place] [address] May, [facility] [address] [id number] [address] [place] [address], [place] [address] 02 May, 2013 [facility] [address] [id number] [address] [place] [address], [place] [address] Apr, [facility] [address] [id number] [address] [place] [address], [place] [address] Apr, [facility] [address] [id number] [address] [place] [address], [place] [address] Apr, [facility] [address] [id number] [address] [place] [address], [place] [address] Apr, [facility] [address] [id number] [address] [place] [address], [place] [address] Apr, [facility] [address] [id number] [address] [place] [address], [place] [address] Mar, [facility] [address] [id number] [address] [place] [address], [place] [address] Mar, [facility] [address] [id number] [address] [place] [address], [place] [address] Mar, [facility] [address] [id number] [address] [place] [address], [place] [address] Mar, [facility] [address] [id number] [address] [place] [address], [place] [address] Feb, [facility] [address] [id number] [address] [place] [address], [place] [address] Feb, [facility] [address] [id number] [address] [place] [address], [place] [address] Jan, [facility] [address] [id number] [address] [place] [address], [place] [address] Jan, [facility] [address] [id number] [address] [place] [address], [place] [address] Jan, [facility] [address] [id number] [address] [place] [address], [place] [address] Jan, [facility] [address] [id number] [address] [place] [address], [place] [address] Jan, [facility] [address] [id number] [address] [place] [address], [place] [address] Jan, [facility] [address] [id number] [address] [place] [address], [place] [address] Dec, [facility] [address] [id number] [address] [place] [address], [place] [address] Dec, [facility] [address] [id number] [address] [place] [address], [place] [address] Nov, [facility] [address] [id number] [address] [place] [address], [place] [address] Nov, [facility] [address] [id number] [address] [place] [address], [place] [address] Oct, [facility] [address] [id number] [address] [place] [address], [place] [address] Aug, [facility] [address] [id number] [address] [place] [address], [place] [address] Aug, [facility] [address] [id number] [address] [place] [address], [place] [address] Jul, [facility] [address] [id number] [address] [place] [address], [place] [address] May, [facility] [address] [id number] [address] [place] [address] Apr, [facility] [address] [id number] [address] [place] [address], [place] [address] Apr, [facility] [address] [id number] [address] [place] [address], [place] [address] Mar, [facility] [address] [id number] [address] [place] [address], [place] [address] Dec, [facility] [address] [id number] [address] [place] [address], [place] [address] 16 Dec, 2011 [facility] [address] [id number] [address] [place] [address], [place] [address] Dec, [facility] [address] [id number] [address] [place] [address], [place] [address] Dec, [facility] [address] [id number] [address] [place] [address], [place] [address] Dec, [facility] [address] [id number] [address] [place] [address], [place] [address] Dec, [facility] [address] [id number] [address] [place] [address], [place] [address] Nov, [facility] [address] [id number] [address] [place] [address], [place] [address] Nov, [facility] [address] [id number] [address] [place] [address], [place] [address] Nov, [facility] [address] [id number] [address] [place] [address], [place] [address] Nov, [facility] [address] [id number] [address] [place] [address], [place] [address] Sep, [facility] [address] [id number] [address] [place] [address], [place] [address] Sep, [facility] [address] [id number] [address] [place] [address], [place] [address] Aug, [facility] [address] [id number] [address] [place] [address], [place] [address] Aug, [facility] [address] [id number] [address] [place] [address], [place] [address] May, [facility] [address] [id number] [address] [place] [address], [place] [address] May, [facility] [address] [id number] [address] [place] [address], [place] [address] May, [facility] [address] [id number] [address] [place] [address], [place] [address] Apr, [facility] [address] [id number] [address] [place] [address], [place] [address] 14 Apr, 2011 [facility] [address] [id number] [address] [place] [address], [place] [address] Apr, [facility] [address] [id number] [address] [place] [address], [place] [address] Feb, [facility] [address] [id number] [address] [place] [address], [place] [address] Feb, [facility] [address] [id number] [address] [place] [address], [place] [address] Jan, [facility] [address] [id number] [address] [place] [address], [place] [address] Jan, [facility] [address] [id number] [address] [place] [address], [place] [address] Dec, [facility] [address] [id number] [address] [place] [address], [place] [address] Dec, [facility] [address] [id number] [address] [place] [address], [place] [address] Dec, [facility] [address] [id number] [address] [place] [address], [place] [address] Nov, [facility] [address] [id number] [address] [place] [address], [place] [address] Nov, [facility] [address] [id number] [address] [place] [address], [place] [address] 15 Mar, 2010 [facility] [address] [id number] [address] [place] [address], [place] [address] 16 Jan, 2010 [facility] [address] [id number] [address] [place] [address], [place] [address] Dec, [facility] [address] [id number] [address] [place] [address] Dec, [facility] [address] [facility] [id number] [address] [place] [address] Dec, [facility] [address] [facility] [id number] [address] [place] [address] Dec, [facility] [address] [facility] [id number] [address] [place] [address] Nov, [facility] [address] [facility] [id number] [address] [place] [address] Jan, [facility] [address] [facility] [id number] [address] [place] [address] Nov, [facility] [address] [facility] [id number] [address] [place] [address] 12 Nov, 2008 IMMUNIZATIONS No Known Immunizations [...]
--- OUTSIDE RECORDS SUMMARY | 2019-05-01 17:45 | XMS REPORT ---
Author Author Candace VAZQUEZ Organization [facility] Address [address] [place] [address] Care Team Providers Care Hog Sticker Name Role Phone ANASTACIO VAZQUEZ Unavailable PROBLEMS Type Condition ICD9-CM Code CGP39-HD Code Onset Dates Condition S tatus SNOMED Code Problem Mood disorder F39 Active 201600 05 Problem Sleep apnea in adult G47.33 Active 93554634 Problem Hypothyroid E03.9 Active 93408212 Problem Psoriasis L40.9 Active 9067903 Problem Essential (primary) hypertension I10 Active 65665266 Problem Slow transit constipation K59.01 Acti ve 66591783 Problem Migraine with aura, not intractable, without sta tus migrainosus G43.109 Active 38076323 Problem Hyperlipidemia, unspecified hyperlipidemia type E7 8.5 Active 86921191 Problem Lipoma D17.9 Active 02905510 Problem Sleep apnea, unspecified G47.30 Activ e 17233038 Problem Seasonal allergic rhinitis due to pollen J30.1 Active 45205615 ALLERGIES No Information ENCOUNTERS Encounter Location Date Diagnosis [place] [id number] [facility] [id number] [address] [place] [address] Oct, [facility] [address] [place] [id number] [address] [place] [address] Sep, [facility] [address] [facility] [id number] [address] [place] [address] June, [facility] [address] [place] [id number] [address] [place] [address] May, Hyperlipidemia, unspecified hyperlipidemia type E78.5 [facility] [address] [facility] [id number] [address] [place] [address] Mar, Hypothyroid E03.9 ; Hyperlip idemia, unspecified hyperlipidemia type E78.5 ; Tension headache G44.209 ; Psoriasis L40.9 and Breast cancer screening by mammogram Z12.31 [place] [address] [address] Feb, Essential (primary) hyperten vandana I10 [place] [address] [address] Feb, Essential (primary) hyperten vandana I10 [place] [address] [address] Dec, Essential (primary) hyperten vandana I10 [place] [address] [address] Nov, Migraine with aura, not intr actable, without status migrainosus G43.109 [facility] [place] [address] [address] 04 Oct, 2017 Dysuria R30.0 [place] [address] [address] Sep, Psoriasis L40.[address] [address] Aug, Psoriasis L40.9 ; Poison jaylon L23.7 ; Slow transit constipation K59.01 ; Breast cancer screening by mammogram Z12.31 and Colon cancer screening Z12.11 [facility] [place] [address] [address] Jul, Poison jaylon L23.7 [place] [address] [address] Apr, Elevated LFTs R79.89 ; Hypot hyroid E03.9 ; Hyperlipidemia, unspecified hyperlipidemia type E78.5 ; Seasonal allergic rhinitis due to pollen J30.1 and Essential (primary) hypertension I10 [place] [address] [address] Mar, [facility] [address] [address] Mar, [facility] [address] [address] Feb, Hypothyroid E03.9 and Hyperl ipidemia, unspecified hyperlipidemia type E78.5 [place] [address] [address] Jan, Sleep apnea, unspecified G47 .30 ; Hypothyroid E03.9 and Hyperlipidemia, unspecified hyperlipidemia type E78.5 [place] [address] [address] Jan, [place] [address] [address] Jan, [place] [address] [address] Dec, [facility] [address] [address] Oct, Blood in stool K92.1 and Ext ernal hemorrhoid, bleeding K64.4 [place] [address] [address] Aug, Migraine with aura, not intr actable, without status migrainosus G43.109 [place] [address] [address] June, Breast cancer screening Z12. 39 [place] [address] [address] May, Callus L84 [place] [address] [address] Apr, Callus L84 [place] [address] [address] Apr, Hypothyroid E03.9 [place] [address] [address] Apr, Hypothyroid E03.9 ; Callus L 84 and Hidradenitis L73.2 [place] [address] [address] Jan, Hyperlipidemia, unspecified hyperlipidemia type E78.5 [place] [address] [address] Jan, [place] [address] [address] Oct, Hyperlipidemia, unspecified hyperlipidemia type E78.5 [place] [address] [address] Oct, Seroma T14.8 [place] [address] [address] Sep, [place] [address] [address] Sep, Hyperlipidemia, unspecified hyperlipidemia type E78.5 and Hypothyroid E03.9 [place] [address] [address] Sep, Hyperlipidemia, unspecified hyperlipidemia type E78.5 ; Hypothyroid E03.9 ; Tension headache G44.209 and Candidiasis of anus B37.89 [place] [address] [address] Jul, [place] [address] [address] June, Tension headache G44.209 [place] [address] [address] Apr, Hyperlipidemia, unspecified hyperlipidemia type E78.5 ; Hypothyroid E03.9 ; Lipoma D17.9 and Breast cancer screening Z12.39 [place] [address] [address] Mar, [facility] [address] [facility] [id number] [address] [place] [address] [id number] Mar, 2015 Encounter for dental examina tion Z01.20 [facility] [address] [facility] [id number] [address] [place] [address] Feb, [facility] [address] [place] [id number] [address] [place] [address] Jan, Allergic rhinitis J30.9 [facility] [address] [place] [id number] [address] [place] [address] Jan, [facility] [address] [place] [address] Dec, Dysuria R30.0 and UTI (urina ry tract infection) N39.0 [place] [address] [place] [id number] [address] [place] [address] Dec, [facility] [address] [place] [address] Dec, Dysuria R30.0 and Urinary tr act infection, site unspecified N39.0 [place] [address] [place] [id number] [address] [place] [address] Nov, Benign lipomatous neoplasm o f skin and subcutaneous tissue of head, face and neck D17.0 and Hypothyroidism, unspecified E03.9 [place] [address] [place] [id number] [address] [place] [address] Sep, [facility] [address] [place] [id number] [address] [place] [address] Aug, Hypothyroidism 244.9 [place] [address] [place] [address] Jul, Hypothyroidism 244.9 [facility] [address] [place] [id number] [address] [place] [address] Jul, Sleep apnea 780.57 [facility] [address] [id number] [address] [place] [address], [place] [address] 14 May, 2014 [facility] [address] [id number] [address] [place] [address], [place] [address] May, [facility] [address] [id number] [address] [place] [address], [place] [address] Apr, [facility] [address] [id number] [address] [place] [address], [place] [address] Apr, [facility] [address] [id number] [address] [place] [address], [place] [address] Mar, 2014 [facility] [address] [id number] [address] [place] [address], [place] [address] Mar, 2014 [facility] [address] [id number] [address] [place] [address], [place] [address] Mar, 2014 [facility] [address] [id number] [address] [place] [address], [place] [address] Mar, 2014 [facility] [address] [id number] [address] [place] [address], [place] [address] Mar, [facility] [address] [id number] [address] [place] [address], [place] [address] Mar, [facility] [address] [id number] [address] [place] [address], [place] [address] Jan, [facility] [address] [id number] [address] [place] [address], [place] [address] Jan, [facility] [address] [id number] [address] [place] [address], [place] [address] Jan, [facility] [address] [id number] [address] [place] [address], [place] [address] Jan, [facility] [address] [id number] [address] [place] [address], [place] [address] 24 Oct, 2013 [facility] [address] [id number] [address] [place] [address], [place] [address] Oct, [facility] [address] [id number] [address] [place] [address], [place] [address] Sep, [facility] [address] [id number] [address] [place] [address], [place] [address] Sep, [facility] [address] [id number] [address] [place] [address], [place] [address] Aug, [facility] [address] [id number] [address] [place] [address], [place] [address] Aug, [facility] [address] [id number] [address] [place] [address], [place] [address] Aug, [facility] [address] [id number] [address] [place] [address], [place] [address] Aug, [facility] [address] [id number] [address] [place] [address], [place] [address] Jul, [facility] [address] [id number] [address] [place] [address], [place] [address] Jul, [facility] [address] [id number] [address] [place] [address], [place] [address] June, [facility] [address] [id number] [address] [place] [address], [place] [address] June, [facility] [address] [id number] [address] [place] [address], [place] [address] June, [facility] [address] [id number] [address] [place] [address], [place] [address] June, [facility] [address] [id number] [address] [place] [address], [place] [address] June, [facility] [address] [id number] [address] [place] [address], [place] [address] June, [facility] [address] [id number] [address] [place] [address], [place] [address] May, [facility] [address] [id number] [address] [place] [address], [place] [address] 02 May, 2013 [facility] [address] [id number] [address] [place] [address], [place] [address] Apr, [facility] [address] [id number] [address] [place] [address], [place] [address] Apr, [facility] [address] [id number] [address] [place] [address], [place] [address] Apr, [facility] [address] [id number] [address] [place] [address], [place] [address] Apr, [facility] [address] [id number] [address] [place] [address], [place] [address] Apr, [facility] [address] [id number] [address] [place] [address], [place] [address] Mar, [facility] [address] [id number] [address] [place] [address], [place] [address] Mar, [facility] [address] [id number] [address] [place] [address], [place] [address] Mar, [facility] [address] [id number] [address] [place] [address], [place] [address] Mar, [facility] [address] [id number] [address] [place] [address], [place] [address] Feb, [facility] [address] [id number] [address] [place] [address], [place] [address] Feb, [facility] [address] [id number] [address] [place] [address], [place] [address] Jan, [facility] [address] [id number] [address] [place] [address], [place] [address] Jan, [facility] [address] [id number] [address] [place] [address], [place] [address] Jan, [facility] [address] [id number] [address] [place] [address], [place] [address] Jan, [facility] [address] [id number] [address] [place] [address], [place] [address] Jan, [facility] [address] [id number] [address] [place] [address], [place] [address] Jan, [facility] [address] [id number] [address] [place] [address], [place] [address] Dec, [facility] [address] [id number] [address] [place] [address], [place] [address] Dec, [facility] [address] [id number] [address] [place] [address], [place] [address] Nov, [facility] [address] [id number] [address] [place] [address], [place] [address] Nov, [facility] [address] [id number] [address] [place] [address], [place] [address] Oct, [facility] [address] [id number] [address] [place] [address], [place] [address] Aug, [facility] [address] [id number] [address] [place] [address], [place] [address] Aug, [facility] [address] [id number] [address] [place] [address], [place] [address] Jul, [facility] [address] [id number] [address] [place] [address], [place] [address] May, [facility] [address] [id number] [address] [place] [address] Apr, [facility] [address] [id number] [address] [place] [address], [place] [address] Apr, [facility] [address] [id number] [address] [place] [address], [place] [address] Mar, [facility] [address] [id number] [address] [place] [address], [place] [address] Dec, [facility] [address] [id number] [address] [place] [address], [place] [address] 16 Dec, 2011 [facility] [address] [id number] [address] [place] [address], [place] [address] Dec, [facility] [address] [id number] [address] [place] [address], [place] [address] Dec, [facility] [address] [id number] [address] [place] [address], [place] [address] Dec, [facility] [address] [id number] [address] [place] [address], [place] [address] Dec, [facility] [address] [id number] [address] [place] [address], [place] [address] Nov, [facility] [address] [id number] [address] [place] [address], [place] [address] Nov, [facility] [address] [id number] [address] [place] [address], [place] [address] Nov, [facility] [address] [id number] [address] [place] [address], [place] [address] Nov, [facility] [address] [id number] [address] [place] [address], [place] [address] Sep, [facility] [address] [id number] [address] [place] [address], [place] [address] Sep, [facility] [address] [id number] [address] [place] [address], [place] [address] Aug, [facility] [address] [id number] [address] [place] [address], [place] [address] Aug, [facility] [address] [id number] [address] [place] [address], [place] [address] May, [facility] [address] [id number] [address] [place] [address], [place] [address] May, [facility] [address] [id number] [address] [place] [address], [place] [address] May, [facility] [address] [id number] [address] [place] [address], [place] [address] Apr, [facility] [address] [id number] [address] [place] [address], [place] [address] 14 Apr, 2011 [facility] [address] [id number] [address] [place] [address], [place] [address] Apr, [facility] [address] [id number] [address] [place] [address], [place] [address] Feb, [facility] [address] [id number] [address] [place] [address], [place] [address] Feb, [facility] [address] [id number] [address] [place] [address], [place] [address] Jan, [facility] [address] [id number] [address] [place] [address], [place] [address] Jan, [facility] [address] [id number] [address] [place] [address], [place] [address] Dec, [facility] [address] [id number] [address] [place] [address], [place] [address] Dec, [facility] [address] [id number] [address] [place] [address], [place] [address] Dec, [facility] [address] [id number] [address] [place] [address], [place] [address] Nov, [facility] [address] [id number] [address] [place] [address], [place] [address] Nov, [facility] [address] [id number] [address] [place] [address], [place] [address] 15 Mar, 2010 [facility] [address] [id number] [address] [place] [address], [place] [address] 16 Jan, 2010 [facility] [address] [id number] [address] [place] [address], [place] [address] Dec, [facility] [address] [id number] [address] [place] [address] Dec, [facility] [address] [facility] [id number] [address] [place] [address] Dec, [facility] [address] [facility] [id number] [address] [place] [address] Dec, [facility] [address] [facility] [id number] [address] [place] [address] Nov, [facility] [address] [facility] [id number] [address] [place] [address] Jan, [facility] [address] [facility] [id number] [address] [place] [address] Nov, [facility] [address] [facility] [id number] [address] [place] [address] 12 Nov, 2008 IMMUNIZATIONS No Known Immunizations [...]
--- OUTSIDE RECORDS SUMMARY | 2019-05-01 17:45 | XMS REPORT ---
Author Author Candace VZAQUEZ Organization [facility] Address [address] [place] [address] Care Team Providers Care Securities Compliance Examiner Name Role Phone ANASTACIO VAZQUEZ Unavailable PROBLEMS Type Condition ICD9-CM Code PDT96-YL Code Onset Dates Condition S tatus SNOMED Code Problem Mood disorder F39 Active 651634 05 Problem Sleep apnea in adult G47.33 Active 78174365 Problem Hypothyroid E03.9 Active 60650329 Problem Psoriasis L40.9 Active 3266061 Problem Essential (primary) hypertension I10 Active 69757840 Problem Slow transit constipation K59.01 Acti ve 64655627 Problem Migraine with aura, not intractable, without sta tus migrainosus G43.109 Active 90469689 Problem Hyperlipidemia, unspecified hyperlipidemia type E7 8.5 Active 97640611 Problem Lipoma D17.9 Active 09655318 Problem Sleep apnea, unspecified G47.30 Activ e 19447548 Problem Seasonal allergic rhinitis due to pollen J30.1 Active 67653117 ALLERGIES No Information ENCOUNTERS Encounter Location Date Diagnosis [id number] [facility] [id number] [address] [place] [address] Oct, [facility] [address] [place] [id number] [address] [place] [address] Sep, [facility] [address] [facility] [id number] [address] [place] [address] June, [facility] [address] [place] [id number] [address] [place] [address] May, Hyperlipidemia, unspecified hyperlipidemia type E78.5 [facility] [address] [facility] [id number] [address] [place] [address] Mar, Hypothyroid E03.9 ; Hyperlip idemia, unspecified hyperlipidemia type E78.5 ; Tension headache G44.209 ; Psoriasis L40.9 and Breast cancer screening by mammogram Z12.31 [place] [address] [address] Feb, Essential (primary) hyperten vandana I10 [place] [address] [address] Feb, Essential (primary) hyperten vandana I10 [place] [address] [address] Dec, Essential (primary) hyperten vandana I10 [place] [address] [address] Nov, Migraine with aura, not intr actable, without status migrainosus G43.109 [facility] [place] [address] [address] 04 Oct, 2017 Dysuria R30.0 [place] [address] [address] Sep, Psoriasis L40.[address] [address] Aug, Psoriasis L40.9 ; Poison jaylon L23.7 ; Slow transit constipation K59.01 ; Breast cancer screening by mammogram Z12.31 and Colon cancer screening Z12.11 [facility] [place] [address] [address] Jul, Poison jaylon L23.7 [place] [address] [address] Apr, Elevated LFTs R79.89 ; Hypot hyroid E03.9 ; Hyperlipidemia, unspecified hyperlipidemia type E78.5 ; Seasonal allergic rhinitis due to pollen J30.1 and Essential (primary) hypertension I10 [place] [address] [address] Mar, [facility] [address] [address] Mar, [facility] [address] [address] Feb, Hypothyroid E03.9 and Hyperl ipidemia, unspecified hyperlipidemia type E78.5 [place] [address] [address] Jan, Sleep apnea, unspecified G47 .30 ; Hypothyroid E03.9 and Hyperlipidemia, unspecified hyperlipidemia type E78.5 [place] [address] [address] Jan, [place] [address] [address] Jan, [place] [address] [address] Dec, [facility] [address] [address] Oct, Blood in stool K92.1 and Ext ernal hemorrhoid, bleeding K64.4 [place] [address] [address] Aug, Migraine with aura, not intr actable, without status migrainosus G43.109 [place] [address] [address] June, Breast cancer screening Z12. 39 [place] [address] [address] May, Callus L84 [place] [address] [address] Apr, Callus L84 [place] [address] [address] Apr, Hypothyroid E03.9 [place] [address] [address] Apr, Hypothyroid E03.9 ; Callus L 84 and Hidradenitis L73.2 [place] [address] [address] Jan, Hyperlipidemia, unspecified hyperlipidemia type E78.5 [place] [address] [address] Jan, [place] [address] [address] Oct, Hyperlipidemia, unspecified hyperlipidemia type E78.5 [place] [address] [address] Oct, Seroma T14.8 [place] [address] [address] Sep, [place] [address] [address] Sep, Hyperlipidemia, unspecified hyperlipidemia type E78.5 and Hypothyroid E03.9 [place] [address] [address] Sep, Hyperlipidemia, unspecified hyperlipidemia type E78.5 ; Hypothyroid E03.9 ; Tension headache G44.209 and Candidiasis of anus B37.89 [place] [address] [address] Jul, [place] [address] [address] June, Tension headache G44.209 [place] [address] [address] Apr, Hyperlipidemia, unspecified hyperlipidemia type E78.5 ; Hypothyroid E03.9 ; Lipoma D17.9 and Breast cancer screening Z12.39 [place] [address] [address] Mar, [facility] [address] [facility] [id number] [address] [place] [id number] 10 Mar, 2015 Encounter for dental examina tion Z01.20 [facility] [address] [facility] [id number] [address] [place] [address] Feb, [facility] [address] [place] [id number] [address] [place] [address] Jan, Allergic rhinitis J30.9 [facility] [address] [place] [id number] [address] [place] [address] Jan, [facility] [address] [place] [address] Dec, Dysuria R30.0 and UTI (urina ry tract infection) N39.0 [place] [address] [place] [id number] [address] [place] [address] Dec, [facility] [address] [place] [address] Dec, Dysuria R30.0 and Urinary tr act infection, site unspecified N39.0 [place] [address] [place] [id number] [address] [place] [address] Nov, Benign lipomatous neoplasm o f skin and subcutaneous tissue of head, face and neck D17.0 and Hypothyroidism, unspecified E03.9 [place] [address] [place] [id number] [address] [place] [address] Sep, [facility] [address] [place] [id number] [address] [place] [address] Aug, Hypothyroidism 244.9 [place] [address] [place] [address] Jul, Hypothyroidism 244.9 [facility] [address] [place] [id number] [address] [place] [address] Jul, Sleep apnea 780.57 [facility] [address] [id number] [address] [place] [address], [place] [address] 14 May, 2014 [facility] [address] [id number] [address] [place] [address], [place] [address] May, [facility] [address] [id number] [address] [place] [address], [place] [address] Apr, [facility] [address] [id number] [address] [place] [address], [place] [address] Apr, [facility] [address] [id number] [address] [place] [address], [place] [address] Mar, 2014 [facility] [address] [id number] [address] [place] [address], [place] [address] Mar, 2014 [facility] [address] [id number] [address] [place] [address], [place] [address] Mar, 2014 [facility] [address] [id number] [address] [place] [address], [place] [address] Mar, 2014 [facility] [address] [id number] [address] [place] [address], [place] [address] Mar, [facility] [address] [id number] [address] [place] [address], [place] [address] Mar, [facility] [address] [id number] [address] [place] [address], [place] [address] Jan, [facility] [address] [id number] [address] [place] [address], [place] [address] Jan, [facility] [address] [id number] [address] [place] [address], [place] [address] Jan, [facility] [address] [id number] [address] [place] [address], [place] [address] Jan, [facility] [address] [id number] [address] [place] [address], [place] [address] 24 Oct, 2013 [facility] [address] [id number] [address] [place] [address], [place] [address] Oct, [facility] [address] [id number] [address] [place] [address], [place] [address] Sep, [facility] [address] [id number] [address] [place] [address], [place] [address] Sep, [facility] [address] [id number] [address] [place] [address], [place] [address] Aug, [facility] [address] [id number] [address] [place] [address], [place] [address] Aug, [facility] [address] [id number] [address] [place] [address], [place] [address] Aug, [facility] [address] [id number] [address] [place] [address], [place] [address] Aug, [facility] [address] [id number] [address] [place] [address], [place] [address] Jul, [facility] [address] [id number] [address] [place] [address], [place] [address] Jul, [facility] [address] [id number] [address] [place] [address], [place] [address] June, [facility] [address] [id number] [address] [place] [address], [place] [address] June, [facility] [address] [id number] [address] [place] [address], [place] [address] June, [facility] [address] [id number] [address] [place] [address], [place] [address] June, [facility] [address] [id number] [address] [place] [address], [place] [address] June, [facility] [address] [id number] [address] [place] [address], [place] [address] June, [facility] [address] [id number] [address] [place] [address], [place] [address] May, [facility] [address] [id number] [address] [place] [address], [place] [address] 02 May, 2013 [facility] [address] [id number] [address] [place] [address], [place] [address] Apr, [facility] [address] [id number] [address] [place] [address], [place] [address] Apr, [facility] [address] [id number] [address] [place] [address], [place] [address] Apr, [facility] [address] [id number] [address] [place] [address], [place] [address] Apr, [facility] [address] [id number] [address] [place] [address], [place] [address] Apr, [facility] [address] [id number] [address] [place] [address], [place] [address] Mar, [facility] [address] [id number] [address] [place] [address], [place] [address] Mar, [facility] [address] [id number] [address] [place] [address], [place] [address] Mar, [facility] [address] [id number] [address] [place] [address], [place] [address] Mar, [facility] [address] [id number] [address] [place] [address], [place] [address] Feb, [facility] [address] [id number] [address] [place] [address], [place] [address] Feb, [facility] [address] [id number] [address] [place] [address], [place] [address] Jan, [facility] [address] [id number] [address] [place] [address], [place] [address] Jan, [facility] [address] [id number] [address] [place] [address], [place] [address] Jan, [facility] [address] [id number] [address] [place] [address], [place] [address] Jan, [facility] [address] [id number] [address] [place] [address], [place] [address] Jan, [facility] [address] [id number] [address] [place] [address], [place] [address] Jan, [facility] [address] [id number] [address] [place] [address], [place] [address] Dec, [facility] [address] [id number] [address] [place] [address], [place] [address] Dec, [facility] [address] [id number] [address] [place] [address], [place] [address] Nov, [facility] [address] [id number] [address] [place] [address], [place] [address] Nov, [facility] [address] [id number] [address] [place] [address], [place] [address] Oct, [facility] [address] [id number] [address] [place] [address], [place] [address] Aug, [facility] [address] [id number] [address] [place] [address], [place] [address] Aug, [facility] [address] [id number] [address] [place] [address], [place] [address] Jul, [facility] [address] [id number] [address] [place] [address], [place] [address] May, [facility] [address] [id number] [address] [place] [address] Apr, [facility] [address] [id number] [address] [place] [address], [place] [address] Apr, [facility] [address] [id number] [address] [place] [address], [place] [address] Mar, [facility] [address] [id number] [address] [place] [address], [place] [address] Dec, [facility] [address] [id number] [address] [place] [address], [place] [address] 16 Dec, 2011 [facility] [address] [id number] [address] [place] [address], [place] [address] Dec, [facility] [address] [id number] [address] [place] [address], [place] [address] Dec, [facility] [address] [id number] [address] [place] [address], [place] [address] Dec, [facility] [address] [id number] [address] [place] [address], [place] [address] Dec, [facility] [address] [id number] [address] [place] [address], [place] [address] Nov, [facility] [address] [id number] [address] [place] [address], [place] [address] Nov, [facility] [address] [id number] [address] [place] [address], [place] [address] Nov, [facility] [address] [id number] [address] [place] [address], [place] [address] Nov, [facility] [address] [id number] [address] [place] [address], [place] [address] Sep, [facility] [address] [id number] [address] [place] [address], [place] [address] Sep, [facility] [address] [id number] [address] [place] [address], [place] [address] Aug, [facility] [address] [id number] [address] [place] [address], [place] [address] Aug, [facility] [address] [id number] [address] [place] [address], [place] [address] May, [facility] [address] [id number] [address] [place] [address], [place] [address] May, [facility] [address] [id number] [address] [place] [address], [place] [address] May, [facility] [address] [id number] [address] [place] [address], [place] [address] Apr, [facility] [address] [id number] [address] [place] [address], [place] [address] 14 Apr, 2011 [facility] [address] [id number] [address] [place] [address], [place] [address] Apr, [facility] [address] [id number] [address] [place] [address], [place] [address] Feb, [facility] [address] [id number] [address] [place] [address], [place] [address] Feb, [facility] [address] [id number] [address] [place] [address], [place] [address] Jan, [facility] [address] [id number] [address] [place] [address], [place] [address] Jan, [facility] [address] [id number] [address] [place] [address], [place] [address] Dec, [facility] [address] [id number] [address] [place] [address], [place] [address] Dec, [facility] [address] [id number] [address] [place] [address], [place] [address] Dec, [facility] [address] [id number] [address] [place] [address], [place] [address] Nov, [facility] [address] [id number] [address] [place] [address], [place] [address] Nov, [facility] [address] [id number] [address] [place] [address], [place] [address] 15 Mar, 2010 [facility] [address] [id number] [address] [place] [address], [place] [address] 16 Jan, 2010 [facility] [address] [id number] [address] [place] [address], [place] [address] Dec, [facility] [address] [id number] [address] [place] [address] Dec, [facility] [address] [facility] [id number] [address] [place] [address] Dec, [facility] [address] [facility] [id number] [address] [place] [address] Dec, [facility] [address] [facility] [id number] [address] [place] [address] Nov, [facility] [address] [facility] [id number] [address] [place] [address] Jan, [facility] [address] [facility] [id number] [address] [place] [address] Nov, [facility] [address] [facility] [id number] [address] [place] [address] 12 Nov, 2008 IMMUNIZATIONS No Known Immunizations [...]
--- OUTSIDE RECORDS SUMMARY | 2019-05-01 17:45 | XMS REPORT ---
Author Author Candace VAZQUEZ Organization [facility] Address [address] [place] [address] Care Team Providers Care Home Based Assistant Name Role Phone ANASTACIO VAZQUEZ Unavailable PROBLEMS Type Condition ICD9-CM Code [id number] Code Onset Dates Condition S tatus SNOMED Code Problem Mood disorder F39 Active 551217 05 Problem Sleep apnea in adult G47.33 Active 55564325 Problem Hypothyroid E03.9 Active 63991172 Problem Psoriasis L40.9 Active 5884979 Problem Essential (primary) hypertension I10 Active 91245294 Problem Slow transit constipation K59.01 Acti ve 24497756 Problem Migraine with aura, not intractable, without sta tus migrainosus G43.109 Active 79972666 Problem Hyperlipidemia, unspecified hyperlipidemia type E7 8.5 Active 97923102 Problem Lipoma D17.9 Active 70957037 Problem Sleep apnea, unspecified G47.30 Activ e 72111805 Problem Seasonal allergic rhinitis due to pollen J30.1 Active [id number] ALLERGIES No Information ENCOUNTERS Encounter Location Date Diagnosis [place] [address] [place] [id number] [address] [place] [id number] June, [place] [id number] [place] [id number] [place] [address] May, Hyperlipidemia, unspecified hyperlipidemia type E78.5 [facility] [address] [facility] [id number] [address] [place] [id number] 13 Mar, 2018 Hypothyroid E03.9 ; Hyperlip idemia, unspecified hyperlipidemia type E78.5 ; Tension headache G44.209 ; Psoriasis L40.9 and Breast cancer screening by mammogram Z12.31 [place] [id number] [facility] [id number] [address] [place] [address] Feb, Essential (primary) hyperten vandana I10 [facility] [address] [address] Feb, Essential (primary) hyperten vandana I10 [place] [address] [address] Dec, Essential (primary) hyperten vandana I10 [place] [address] [address] Nov, Migraine with aura, not intr actable, without status migrainosus G43.109 [facility] [address] [address] Oct, Dysuria R30.0 [place] [address] [address] Sep, Psoriasis L40.9 [place] [address] [address] Aug, Psoriasis L40.9 ; Poison jaylon L23.7 ; Slow transit constipation K59.01 ; Breast cancer screening by mammogram Z12.31 and Colon cancer screening Z12.11 [facility] [place] [address] [address] Jul, Poison jaylon L23.7 [place] [address] [address] Apr, Elevated LFTs R79.89 ; Hypot hyroid E03.9 ; Hyperlipidemia, unspecified hyperlipidemia type E78.5 ; Seasonal allergic rhinitis due to pollen J30.1 and Essential (primary) hypertension I10 [place] [address] [address] Mar, [place] [address] [address] Mar, [place] [address] [address] Feb, Hypothyroid E03.9 and Hyperl ipidemia, unspecified hyperlipidemia type E78.5 [place] [address] [address] Jan, Sleep apnea, unspecified G47 .30 ; Hypothyroid E03.9 and Hyperlipidemia, unspecified hyperlipidemia type E78.5 [place] [address] [address] Jan, [place] [address] [address] Jan, [place] [address] [address] Dec, [facility] [address] [address] Oct, Blood in stool K92.1 and Ext ernal hemorrhoid, bleeding K64.4 [place] [address] [address] Aug, Migraine with aura, not intr actable, without status migrainosus G43.109 [place] [address] [address] June, Breast cancer screening Z12. [address] [address] May, Callus L84 [place] [address] [address] Apr, Callus L84 [place] [address] [address] Apr, Hypothyroid E03.9 [place] [address] [address] 15 Apr, 2016 Hypothyroid E03.9 ; Callus L 84 and Hidradenitis L73.2 [place] [address] [address] Jan, Hyperlipidemia, unspecified hyperlipidemia type E78.5 [facility] [address] [facility] [id number] [address] [place] [id number] Jan, [facility] [address] [facility] [id number] [address] [place] [address] Oct, Hyperlipidemia, unspecified hyperlipidemia type E78.5 [facility] [address] [facility] [id number] [address] [place] [address] Oct, Seroma T14.8 [facility] [address] [facility] [id number] [address] [place] [address] Sep, [facility] [address] [facility] [id number] [address] [place] [address] Sep, Hyperlipidemia, unspecified hyperlipidemia type E78.5 and Hypothyroid E03.9 [facility] [address] [place] [id number] [place] [address] Sep, Hyperlipidemia, unspecified hyperlipidemia type E78.5 ; Hypothyroid E03.9 ; Tension headache G44.209 and Candidiasis of anus B37.89 [facility] [address] [place] [id number] [place] [address] Jul, [facility] [address] [place] [id number] [place] [address] June, Tension headache G44.209 [facility] [address] [place] [id number] [place] [address] Apr, Hyperlipidemia, unspecified hyperlipidemia type E78.5 ; Hypothyroid E03.9 ; Lipoma D17.9 and Breast cancer screening Z12.39 [facility] [address] [facility] [id number] [address] [place] [address] 24 Mar, 2015 [facility] [address] [id number] [address] [place] [id number] 10 Mar, 2015 Encounter for dental examina tion Z01.20 [facility] [address] [place] [id number] [place] [address] Feb, [facility] [address] [facility] [id number] [address] [place] [address] Jan, Allergic rhinitis J30.9 [facility] [address] [place] [id number] [place] [address] Jan, [facility] [address] [place] [id number] [place] [id number] Dec, Dysuria R30.0 and UTI (urina ry tract infection) N39.0 [facility] [address] [address] Dec, [facility] [address] [address] Dec, Dysuria R30.0 and Urinary tr act infection, site unspecified N39.0 [facility] [address] [place] [id number] [address] [place] [address] Nov, Benign lipomatous neoplasm o f skin and subcutaneous tissue of head, face and neck D17.0 and Hypothyroidism, unspecified E03.9 [facility] [address] [place] [id number] [address] [place] [address] Sep, [facility] [address] [place] [id number] [address] [place] [address] Aug, Hypothyroidism 244.9 [facility] [address] [place] [id number] [address] [place] [address] Jul, Hypothyroidism 244.9 [facility] [address] [place] [id number] [address] [place] [address] Jul, Sleep apnea 780.57 [facility] [address] [place] [id number] [address] [place] [address] May, [facility] [address] [place] [id number] [address] [place] [address] May, [facility] [address] [id number] [address] [place] [address], [place] [address] Apr, [facility] [address] [id number] [address] [place] [address], [place] [address] Apr, [facility] [address] [id number] [address] [place] [address], [place] [address] Mar, 2014 [facility] [address] [id number] [address] [place] [address], [place] [address] Mar, 2014 [facility] [address] [id number] [address] [place] [address], [place] [address] Mar, 2014 [facility] [address] [id number] [address] [place] [address], [place] [address] Mar, 2014 [facility] [address] [id number] [address] [place] [address], [place] [address] Mar, 2014 [facility] [address] [id number] [address] [place] [address], [place] [address] Mar, [facility] [address] [id number] [address] [place] [address], [place] [address] Jan, [facility] [address] [id number] [address] [place] [address], [place] [address] Jan, [facility] [address] [id number] [address] [place] [address], [place] [address] Jan, [facility] [address] [id number] [address] [place] [address], [place] [address] Jan, [facility] [address] [id number] [address] [place] [address], [place] [address] Oct, [facility] [address] [id number] [address] [place] [address], [place] [address] Oct, [facility] [address] [id number] [address] [place] [address], [place] [address] Sep, [facility] [address] [id number] [address] [place] [address], [place] [address] Sep, [facility] [address] [id number] [address] [place] [address], [place] [address] Aug, [facility] [address] [id number] [address] [place] [address], [place] [address] Aug, [facility] [address] [id number] [address] [place] [address], [place] [address] Aug, [facility] [address] [id number] [address] [place] [address], [place] [address] Aug, [facility] [address] [id number] [address] [place] [address], [place] [address] Jul, [facility] [address] [id number] [address] [place] [address], [place] [address] Jul, [facility] [address] [id number] [address] [place] [address], [place] [address] June, [facility] [address] [id number] [address] [place] [address], [place] [address] June, [facility] [address] [id number] [address] [place] [address], [place] [address] June, [facility] [address] [id number] [address] [place] [address], [place] [address] June, [facility] [address] [id number] [address] [place] [address], [place] [address] June, [facility] [address] [id number] [address] [place] [address], [place] [address] June, [facility] [address] [id number] [address] [place] [address], [place] [address] May, [facility] [address] [id number] [address] [place] [address], [place] [address] May, [facility] [address] [id number] [address] [place] [address], [place] [address] Apr, [facility] [address] [id number] [address] [place] [address], [place] [address] Apr, [facility] [address] [id number] [address] [place] [address], [place] [address] Apr, [facility] [address] [id number] [address] [place] [address], [place] [address] Apr, [facility] [address] [id number] [address] [place] [address], [place] [address] Apr, [facility] [address] [id number] [address] [place] [address], [place] [address] Mar, [facility] [address] [id number] [address] [place] [address], [place] [address] Mar, [facility] [address] [id number] [address] [place] [address], [place] [address] Mar, [facility] [address] [id number] [address] [place] [address], [place] [address] Mar, [facility] [address] [id number] [address] [place] [address], [place] [address] Feb, [facility] [address] [id number] [address] [place] [address], [place] [address] Feb, [facility] [address] [id number] [address] [place] [address], [place] [address] Jan, [facility] [address] [id number] [address] [place] [address], [place] [address] Jan, [facility] [address] [id number] [address] [place] [address], [place] [address] Jan, [facility] [address] [id number] [address] [place] [address], [place] [address] Jan, [facility] [address] [id number] [address] [place] [address], [place] [address] Jan, [facility] [address] [id number] [address] [place] [address], [place] [address] Jan, [facility] [address] [id number] [address] [place] [address], [place] [address] Dec, [facility] [address] [id number] [address] [place] [address], [place] [address] Dec, [facility] [address] [id number] [address] [place] [address], [place] [address] Nov, [facility] [address] [id number] [address] [place] [address], [place] [address] Nov, [facility] [address] [id number] [address] [place] [address], [place] [address] Oct, [facility] [address] [id number] [address] [place] [address], [place] [address] Aug, [facility] [address] [id number] [address] [place] [address], [place] [address] Aug, [facility] [address] [id number] [address] [place] [address], [place] [address] Jul, [facility] [address] [id number] [address] [place] [address], [place] [address] May, [facility] [address] [id number] [address] [place] [address], [place] [address] Apr, [facility] [address] [id number] [address] [place] [address], [place] [address] Apr, [facility] [address] [id number] [address] [place] [address] Mar, [facility] [address] [id number] [address] [place] [address], [place] [address] Dec, [facility] [address] [id number] [address] [place] [address], [place] [address] Dec, [facility] [address] [id number] [address] [place] [address], [place] [address] 15 Dec, 2011 [facility] [address] [id number] [address] [place] [address], [place] [address] Dec, [facility] [address] [id number] [address] [place] [address], [place] [address] Dec, [facility] [address] [id number] [address] [place] [address], [place] [address] Dec, [facility] [address] [id number] [address] [place] [address], [place] [address] Nov, [facility] [address] [id number] [address] [place] [address], [place] [address] Nov, [facility] [address] [id number] [address] [place] [address], [place] [address] Nov, [facility] [address] [id number] [address] [place] [address], [place] [address] Nov, [facility] [address] [id number] [address] [place] [address], [place] [address] Sep, [facility] [address] [id number] [address] [place] [address], [place] [address] Sep, [facility] [address] [id number] [address] [place] [address], [place] [address] Aug, [facility] [address] [id number] [address] [place] [address], [place] [address] Aug, [facility] [address] [id number] [address] [place] [address], [place] [address] May, [facility] [address] [id number] [address] [place] [address], [place] [address] May, [facility] [address] [id number] [address] [place] [address], [place] [address] May, [facility] [address] [id number] [address] [place] [address], [place] [address] Apr, [facility] [address] [id number] [address] [place] [address], [place] [address] Apr, [facility] [address] [id number] [address] [place] [address], [place] [address] Apr, [facility] [address] [id number] [address] [place] [address], [place] [address] Feb, [facility] [address] [id number] [address] [place] [address], [place] [address] Feb, [facility] [address] [id number] [address] [place] [address], [place] [address] Jan, [facility] [address] [id number] [address] [place] [address], [place] [address] Jan, [facility] [address] [id number] [address] [place] [address], [place] [address] Dec, [facility] [address] [id number] [address] [place] [address], [place] [address] Dec, [facility] [address] [id number] [address] [place] [address], [place] [address] Dec, [facility] [address] [id number] [address] [place] [address], [place] [address] Nov, [facility] [address] [id number] [address] [place] [address], [place] [address] Nov, [facility] [address] [id number] [address] [place] [address], [place] [address] 15 Mar, 2010 [facility] [address] [id number] [address] [place] [address], [place] [address] Jan, [facility] [address] [id number] [address] [place] [address], [place] [address] Dec, [facility] [address] [id number] [address] [place] [address], [place] [address] Dec, [facility] [address] [id number] [address] [place] [address], [place] [address] Dec, [facility] [address] [id number] [address] [place] [address] Dec, [facility] [address] [facility] [id number] [address] [place] [address] Nov, [facility] [address] [facility] [id number] [address] [place] [address] Jan, [facility] [address] [facility] [id number] [address] [place] [id number] Nov, [facility] [address] [facility] [id number] [address] [place] [address] Nov, IMMUNIZATIONS No Known Immunizations SOCIAL HISTORY [...]
--- OUTSIDE RECORDS SUMMARY | 2019-05-01 17:45 | XMS REPORT ---
Author Author Candace VAZQUEZ Organization [facility] Address [address] [place] [address] Care Team Providers Care Volunteer Services Supervisor Name Role Phone ANASTACIO VAZQUEZ Unavailable PROBLEMS Type Condition ICD9-CM Code [id number] Code Onset Dates Condition S tatus SNOMED Code Problem Mood disorder F39 Active 261901 05 Problem Sleep apnea in adult G47.33 Active 10091512 Problem Hypothyroid E03.9 Active 42813042 Problem Psoriasis L40.9 Active 9898023 Problem Essential (primary) hypertension I10 Active 81410915 Problem Slow transit constipation K59.01 Acti ve 56141499 Problem Migraine with aura, not intractable, without sta tus migrainosus G43.109 Active 44761542 Problem Hyperlipidemia, unspecified hyperlipidemia type E7 8.5 Active 25111771 Problem Lipoma D17.9 Active 24831124 Problem Sleep apnea, unspecified G47.30 Activ e 72144140 Problem Seasonal allergic rhinitis due to pollen J30.1 Active 52940803 ALLERGIES No Information ENCOUNTERS Encounter Location Date Diagnosis [place] [id number] [facility] [id number] [address] [place] [address] Oct, [facility] [address] [place] [id number] [address] [place] [address] Sep, [facility] [address] [facility] [id number] [address] [place] [address] June, [facility] [address] [place] [id number] [address] [place] [address] May, Hyperlipidemia, unspecified hyperlipidemia type E78.5 [facility] [address] [facility] [id number] [address] [place] [address] Mar, Hypothyroid E03.9 ; Hyperlip idemia, unspecified hyperlipidemia type E78.5 ; Tension headache G44.209 ; Psoriasis L40.9 and Breast cancer screening by mammogram Z12.31 [place] [address] [address] Feb, Essential (primary) hyperten vandana I10 [place] [address] [address] Feb, Essential (primary) hyperten vandana I10 [place] [address] [address] Dec, Essential (primary) hyperten vandana I10 [place] [address] [address] Nov, Migraine with aura, not intr actable, without status migrainosus G43.109 [facility] [place] [address] [address] 04 Oct, 2017 Dysuria R30.0 [place] [address] [address] Sep, Psoriasis L40.[address] [address] Aug, Psoriasis L40.9 ; Poison jaylon L23.7 ; Slow transit constipation K59.01 ; Breast cancer screening by mammogram Z12.31 and Colon cancer screening Z12.11 [facility] [place] [address] [address] Jul, Poison jaylon L23.7 [place] [address] [address] Apr, Elevated LFTs R79.89 ; Hypot hyroid E03.9 ; Hyperlipidemia, unspecified hyperlipidemia type E78.5 ; Seasonal allergic rhinitis due to pollen J30.1 and Essential (primary) hypertension I10 [place] [address] [address] Mar, [facility] [address] [address] Mar, [facility] [address] [address] Feb, Hypothyroid E03.9 and Hyperl ipidemia, unspecified hyperlipidemia type E78.5 [place] [address] [address] Jan, Sleep apnea, unspecified G47 .30 ; Hypothyroid E03.9 and Hyperlipidemia, unspecified hyperlipidemia type E78.5 [place] [address] [address] Jan, [place] [address] [address] Jan, [place] [address] [address] Dec, [facility] [address] [address] Oct, Blood in stool K92.1 and Ext ernal hemorrhoid, bleeding K64.4 [place] [address] [address] Aug, Migraine with aura, not intr actable, without status migrainosus G43.109 [place] [address] [address] June, Breast cancer screening Z12. 39 [place] [address] [address] May, Callus L84 [place] [address] [address] Apr, Callus L84 [place] [address] [address] Apr, Hypothyroid E03.9 [place] [address] [address] Apr, Hypothyroid E03.9 ; Callus L 84 and Hidradenitis L73.2 [place] [address] [address] Jan, Hyperlipidemia, unspecified hyperlipidemia type E78.5 [place] [address] [address] Jan, [place] [address] [address] Oct, Hyperlipidemia, unspecified hyperlipidemia type E78.5 [place] [address] [address] Oct, Seroma T14.8 [place] [address] [address] Sep, [place] [address] [address] Sep, Hyperlipidemia, unspecified hyperlipidemia type E78.5 and Hypothyroid E03.9 [place] [address] [address] Sep, Hyperlipidemia, unspecified hyperlipidemia type E78.5 ; Hypothyroid E03.9 ; Tension headache G44.209 and Candidiasis of anus B37.89 [place] [address] [address] Jul, [place] [address] [address] June, Tension headache G44.209 [place] [address] [address] Apr, Hyperlipidemia, unspecified hyperlipidemia type E78.5 ; Hypothyroid E03.9 ; Lipoma D17.9 and Breast cancer screening Z12.39 [place] [address] [address] Mar, [facility] [address] [facility] [id number] [address] [place] [id number] 10 Mar, 2015 Encounter for dental examina tion Z01.20 [facility] [address] [facility] [id number] [address] [place] [address] Feb, [facility] [address] [place] [id number] [address] [place] [address] Jan, Allergic rhinitis J30.9 [facility] [address] [place] [id number] [address] [place] [address] Jan, [facility] [address] [place] [address] Dec, Dysuria R30.0 and UTI (urina ry tract infection) N39.0 [place] [address] [place] [id number] [address] [place] [address] Dec, [facility] [address] [place] [address] Dec, Dysuria R30.0 and Urinary tr act infection, site unspecified N39.0 [place] [address] [place] [id number] [place] [address] Nov, Benign lipomatous neoplasm o f skin and subcutaneous tissue of head, face and neck D17.0 and Hypothyroidism, unspecified E03.9 [place] [address] [place] [id number] [address] [place] [address] Sep, [facility] [address] [place] [id number] [address] [place] [address] Aug, Hypothyroidism 244.9 [place] [address] [place] [address] Jul, Hypothyroidism 244.9 [facility] [address] [place] [id number] [address] [place] [address] Jul, Sleep apnea 780.57 [facility] [address] [id number] [address] [place] [address], [place] [address] 14 May, 2014 [facility] [address] [id number] [address] [place] [address], [place] [address] May, [facility] [address] [id number] [address] [place] [address], [place] [address] Apr, [facility] [address] [id number] [address] [place] [address], [place] [address] Apr, [facility] [address] [id number] [address] [place] [address], [place] [address] Mar, 2014 [facility] [address] [id number] [address] [place] [address], [place] [address] Mar, 2014 [facility] [address] [id number] [address] [place] [address], [place] [address] Mar, 2014 [facility] [address] [id number] [address] [place] [address], [place] [address] Mar, 2014 [facility] [address] [id number] [address] [place] [address], [place] [address] Mar, [facility] [address] [id number] [address] [place] [address], [place] [address] Mar, [facility] [address] [id number] [address] [place] [address], [place] [address] Jan, [facility] [address] [id number] [address] [place] [address], [place] [address] Jan, [facility] [address] [id number] [address] [place] [address], [place] [address] Jan, [facility] [address] [id number] [address] [place] [address], [place] [address] Jan, [facility] [address] [id number] [address] [place] [address], [place] [address] 24 Oct, 2013 [facility] [address] [id number] [address] [place] [address], [place] [address] Oct, [facility] [address] [id number] [address] [place] [address], [place] [address] Sep, [facility] [address] [id number] [address] [place] [address], [place] [address] Sep, [facility] [address] [id number] [address] [place] [address], [place] [address] Aug, [facility] [address] [id number] [address] [place] [address], [place] [address] Aug, [facility] [address] [id number] [address] [place] [address], [place] [address] Aug, [facility] [address] [id number] [address] [place] [address], [place] [address] Aug, [facility] [address] [id number] [address] [place] [address], [place] [address] Jul, [facility] [address] [id number] [address] [place] [address], [place] [address] Jul, [facility] [address] [id number] [address] [place] [address], [place] [address] June, [facility] [address] [id number] [address] [place] [address], [place] [address] June, [facility] [address] [id number] [address] [place] [address], [place] [address] June, [facility] [address] [id number] [address] [place] [address], [place] [address] June, [facility] [address] [id number] [address] [place] [address], [place] [address] June, [facility] [address] [id number] [address] [place] [address], [place] [address] June, [facility] [address] [id number] [address] [place] [address], [place] [address] May, [facility] [address] [id number] [address] [place] [address], [place] [address] 02 May, 2013 [facility] [address] [id number] [address] [place] [address], [place] [address] Apr, [facility] [address] [id number] [address] [place] [address], [place] [address] Apr, [facility] [address] [id number] [address] [place] [address], [place] [address] Apr, [facility] [address] [id number] [address] [place] [address], [place] [address] Apr, [facility] [address] [id number] [address] [place] [address], [place] [address] Apr, [facility] [address] [id number] [address] [place] [address], [place] [address] Mar, [facility] [address] [id number] [address] [place] [address], [place] [address] Mar, [facility] [address] [id number] [address] [place] [address], [place] [address] Mar, [facility] [address] [id number] [address] [place] [address], [place] [address] Mar, [facility] [address] [id number] [address] [place] [address], [place] [address] Feb, [facility] [address] [id number] [address] [place] [address], [place] [address] Feb, [facility] [address] [id number] [address] [place] [address], [place] [address] Jan, [facility] [address] [id number] [address] [place] [address], [place] [address] Jan, [facility] [address] [id number] [address] [place] [address], [place] [address] Jan, [facility] [address] [id number] [address] [place] [address], [place] [address] Jan, [facility] [address] [id number] [address] [place] [address], [place] [address] Jan, [facility] [address] [id number] [address] [place] [address], [place] [address] Jan, [facility] [address] [id number] [address] [place] [address], [place] [address] Dec, [facility] [address] [id number] [address] [place] [address], [place] [address] Dec, [facility] [address] [id number] [address] [place] [address], [place] [address] Nov, [facility] [address] [id number] [address] [place] [address], [place] [address] Nov, [facility] [address] [id number] [address] [place] [address], [place] [address] Oct, [facility] [address] [id number] [address] [place] [address], [place] [address] Aug, [facility] [address] [id number] [address] [place] [address], [place] [address] Aug, [facility] [address] [id number] [address] [place] [address], [place] [address] Jul, [facility] [address] [id number] [address] [place] [address], [place] [address] May, [facility] [address] [id number] [address] [place] [address] Apr, [facility] [address] [id number] [address] [place] [address], [place] [address] Apr, [facility] [address] [id number] [address] [place] [address], [place] [address] Mar, [facility] [address] [id number] [address] [place] [address], [place] [address] Dec, [facility] [address] [id number] [address] [place] [address], [place] [address] 16 Dec, 2011 [facility] [address] [id number] [address] [place] [address], [place] [address] Dec, [facility] [address] [id number] [address] [place] [address], [place] [address] Dec, [facility] [address] [id number] [address] [place] [address], [place] [address] Dec, [facility] [address] [id number] [address] [place] [address], [place] [address] Dec, [facility] [address] [id number] [address] [place] [address], [place] [address] Nov, [facility] [address] [id number] [address] [place] [address], [place] [address] Nov, [facility] [address] [id number] [address] [place] [address], [place] [address] Nov, [facility] [address] [id number] [address] [place] [address], [place] [address] Nov, [facility] [address] [id number] [address] [place] [address], [place] [address] Sep, [facility] [address] [id number] [address] [place] [address], [place] [address] Sep, [facility] [address] [id number] [address] [place] [address], [place] [address] Aug, [facility] [address] [id number] [address] [place] [address], [place] [address] Aug, [facility] [address] [id number] [address] [place] [address], [place] [address] May, [facility] [address] [id number] [address] [place] [address], [place] [address] May, [facility] [address] [id number] [address] [place] [address], [place] [address] May, [facility] [address] [id number] [address] [place] [address], [place] [address] Apr, [facility] [address] [id number] [address] [place] [address], [place] [address] 14 Apr, 2011 [facility] [address] [id number] [address] [place] [address], [place] [address] Apr, [facility] [address] [id number] [address] [place] [address], [place] [address] Feb, [facility] [address] [id number] [address] [place] [address], [place] [address] Feb, [facility] [address] [id number] [address] [place] [address], [place] [address] Jan, [facility] [address] [id number] [address] [place] [address], [place] [address] Jan, [facility] [address] [id number] [address] [place] [address], [place] [address] Dec, [facility] [address] [id number] [address] [place] [address], [place] [address] Dec, [facility] [address] [id number] [address] [place] [address], [place] [address] Dec, [facility] [address] [id number] [address] [place] [address], [place] [address] Nov, [facility] [address] [id number] [address] [place] [address], [place] [address] Nov, [facility] [address] [id number] [address] [place] [address], [place] [address] 15 Mar, 2010 [facility] [address] [id number] [address] [place] [address], [place] [address] 16 Jan, 2010 [facility] [address] [id number] [address] [place] [address], [place] [address] Dec, [facility] [address] [id number] [address] [place] [address] Dec, [facility] [address] [facility] [id number] [address] [place] [address] Dec, [facility] [address] [facility] [id number] [address] [place] [address] Dec, [facility] [address] [facility] [id number] [address] [place] [address] Nov, [facility] [address] [facility] [id number] [address] [place] [address] Jan, [facility] [address] [facility] [id number] [address] [place] [address] Nov, [facility] [address] [facility] [id number] [address] [place] [address] 12 Nov, 2008 IMMUNIZATIONS No Known Immunizations [...]
--- OUTSIDE RECORDS SUMMARY | 2019-05-01 17:46 | XMS REPORT ---
Author Author Candace VAZQUEZ Organization [facility] [place] Address [address] [place] [address] Care Team Providers Care Digital Experience Manager Name Role Phone ANASTACIO VAZQUEZ Unavailable PROBLEMS Type Condition ICD9-CM Code [id number] Code Onset Dates Condition S tatus SNOMED Code Problem Mood disorder F39 Active 174329 05 Problem Sleep apnea in adult G47.33 Active 46687283 Problem Hypothyroid E03.9 Active 50159135 Problem Psoriasis L40.9 Active 0907323 Problem Essential (primary) hypertension I10 Active 53609297 Problem Slow transit constipation K59.01 Acti ve 91195825 Problem Migraine with aura, not intractable, without sta tus migrainosus G43.109 Active 69151817 Problem Hyperlipidemia, unspecified hyperlipidemia type E7 8.5 Active 67749490 Problem Lipoma D17.9 Active 13293036 Problem Sleep apnea, unspecified G47.30 Activ e 24364985 Problem Seasonal allergic rhinitis due to pollen J30.1 Active 82895505 ALLERGIES No Information ENCOUNTERS Encounter Location Date Diagnosis [place] [address] [place] [id number] [address] [place] [address] June, [place] [address] [place] [id number] [address] [place] [address] May, Hyperlipidemia, unspecified hyperlipidemia type E78.5 [facility] [place] [address] [facility] [id number] [address] [place] [address] 13 Mar, 2018 Hypothyroid E03.9 ; Hyperlip idemia, unspecified hyperlipidemia type E78.5 ; Tension headache G44.209 ; Psoriasis L40.9 and Breast cancer screening by mammogram Z12.31 [place] [address] [facility] [id number] [address] [place] [address] Feb, Essential (primary) hyperten vandana I10 [facility] [place] [address] [address] Feb, Essential (primary) hyperten vandana I10 [place] [address] [address] Dec, Essential (primary) hyperten vandana I10 [place] [address] [address] Nov, Migraine with aura, not intr actable, without status migrainosus G43.109 [facility] [address] [address] Oct, Dysuria R30.0 [place] [address] [address] Sep, Psoriasis L40.9 [place] [address] [address] Aug, Psoriasis L40.9 ; Poison jaylon L23.7 ; Slow transit constipation K59.01 ; Breast cancer screening by mammogram Z12.31 and Colon cancer screening Z12.11 [facility] IN [place] [address] [address] Jul, Poison jaylon L23.7 [place] [address] [address] Apr, Elevated LFTs R79.89 ; Hypot hyroid E03.9 ; Hyperlipidemia, unspecified hyperlipidemia type E78.5 ; Seasonal allergic rhinitis due to pollen J30.1 and Essential (primary) hypertension I10 [place] [address] [address] Mar, [place] [address] [address] Mar, [place] [address] [address] Feb, Hypothyroid E03.9 and Hyperl ipidemia, unspecified hyperlipidemia type E78.5 [place] [address] [address] Jan, Sleep apnea, unspecified G47 .30 ; Hypothyroid E03.9 and Hyperlipidemia, unspecified hyperlipidemia type E78.5 [place] [address] [address] Jan, [place] [address] [address] Jan, [place] [address] [address] Dec, [facility] N [address] [address] Oct, Blood in stool K92.1 and Ext ernal hemorrhoid, bleeding K64.4 [place] [address] [address] Aug, Migraine with aura, not intr actable, without status migrainosus G43.109 [place] [address] [address] June, Breast cancer screening Z12. [address] [address] May, Callus L84 [place] [address] [address] Apr, Callus L84 [place] [address] [address] Apr, Hypothyroid E03.9 [place] [address] [address] 15 Apr, 2016 Hypothyroid E03.9 ; Callus L 84 and Hidradenitis L73.2 [place] [address] [address] Jan, Hyperlipidemia, unspecified hyperlipidemia type E78.5 [facility] [place] [address] [facility] [id number] [address] [place] [address] Jan, [facility] [place] [address] [facility] [id number] [address] [place] [address] Oct, Hyperlipidemia, unspecified hyperlipidemia type E78.5 [facility] [place] [address] [facility] [id number] [address] [place] [address] Oct, Seroma T14.8 [facility] [place] [address] [facility] [id number] [address] [place] [address] Sep, [facility] [place] [address] [facility] [id number] [address] [place] [address] Sep, Hyperlipidemia, unspecified hyperlipidemia type E78.5 and Hypothyroid E03.9 [facility] [place] [address] [place] [id number] [address] [place] [address] Sep, Hyperlipidemia, unspecified hyperlipidemia type E78.5 ; Hypothyroid E03.9 ; Tension headache G44.209 and Candidiasis of anus B37.89 [facility] [place] [address] [place] [id number] [address] [place] [address] Jul, [facility] [place] [address] [place] [id number] [address] [place] [address] June, Tension headache G44.209 [facility] [place] [address] [place] [id number] [address] [place] [address] Apr, Hyperlipidemia, unspecified hyperlipidemia type E78.5 ; Hypothyroid E03.9 ; Lipoma D17.9 and Breast cancer screening Z12.39 [facility] [place] [address] [facility] [id number] [address] [place] [address] 24 Mar, 2015 [facility] [address] [id number] [address] [place] [id number] 10 Mar, 2015 Encounter for dental examina tion Z01.20 [facility] [place] [address] [place] [id number] [place] [address] Feb, [facility] [address] [facility] [id number] [address] [place] [address] Jan, Allergic rhinitis J30.9 [facility] [place] [address] [place] [id number] [address] [place] [address] Jan, [facility] [address] [place] [id number] [address] [place] [address] Dec, Dysuria R30.0 and UTI (urina ry tract infection) N39.0 [facility] [place] [address] [address] Dec, [facility] [place] [address] [address] Dec, Dysuria R30.0 and Urinary tr act infection, site unspecified N39.0 [facility] [place] [address] [place] [id number] [address] [place] [address] Nov, Benign lipomatous neoplasm o f skin and subcutaneous tissue of head, face and neck D17.0 and Hypothyroidism, unspecified E03.9 [facility] [place] [address] [place] [id number] [address] [place] [address] Sep, [facility] [place] [address] [place] [id number] [address] [place] [address] Aug, Hypothyroidism 244.9 [facility] [place] [address] [place] [id number] [address] [place] [address] Jul, Hypothyroidism 244.9 [facility] [place] [address] [place] [id number] [address] [place] [address] Jul, Sleep apnea 780.57 [facility] [place] [address] [place] [id number] [address] [place] [address] May, [facility] [place] [address] [place] [id number] [address] [place] [address] May, [facility] [address] [id number] [address] [place] [address], [place] [address] Apr, [facility] [address] [id number] [address] [place] [address], [place] [address] Apr, [facility] [address] [id number] [address] [place] [address], [place] [address] Mar, 2014 [facility] [address] [id number] [address] [place] [address], [place] [address] Mar, 2014 [facility] [address] [id number] [address] [place] [address], [place] [address] Mar, 2014 [facility] [address] [id number] [address] [place] [address], [place] [address] Mar, 2014 [facility] [address] [id number] [address] [place] [address], [place] [address] Mar, 2014 [facility] [address] [id number] [address] [place] [address], [place] [address] Mar, [facility] [address] [id number] [address] [place] [address], [place] [address] Jan, [facility] [address] [id number] [address] [place] [address], [place] [address] Jan, [facility] [address] [id number] [address] [place] [address], [place] [address] Jan, [facility] [address] [id number] [address] [place] [address], [place] [address] Jan, [facility] [address] [id number] [address] [place] [address], [place] [address] Oct, [facility] [address] [id number] [address] [place] [address], [place] [address] Oct, [facility] [address] [id number] [address] [place] [address], [place] [address] Sep, [facility] [address] [id number] [address] [place] [address], [place] [address] Sep, [facility] [address] [id number] [address] [place] [address], [place] [address] Aug, [facility] [address] [id number] [address] [place] [address], [place] [address] Aug, [facility] [address] [id number] [address] [place] [address], [place] [address] Aug, [facility] [address] [id number] [address] [place] [address], [place] [address] Aug, [facility] [address] [id number] [address] [place] [address], [place] [address] Jul, [facility] [address] [id number] [address] [place] [address], [place] [address] Jul, [facility] [address] [id number] [address] [place] [address], [place] [address] June, [facility] [address] [id number] [address] [place] [address], [place] [address] June, [facility] [address] [id number] [address] [place] [address], [place] [address] June, [facility] [address] [id number] [address] [place] [address], [place] [address] June, [facility] [address] [id number] [address] [place] [address], [place] [address] June, [facility] [address] [id number] [address] [place] [address], [place] [address] June, [facility] [address] [id number] [address] [place] [address], [place] [address] May, [facility] [address] [id number] [address] [place] [address], [place] [address] May, [facility] [address] [id number] [address] [place] [address], [place] [address] Apr, [facility] [address] [id number] [address] [place] [address], [place] [address] Apr, [facility] [address] [id number] [address] [place] [address], [place] [address] Apr, [facility] [address] [id number] [address] [place] [address], [place] [address] Apr, [facility] [address] [id number] [address] [place] [address], [place] [address] Apr, [facility] [address] [id number] [address] [place] [address], [place] [address] Mar, [facility] [address] [id number] [address] [place] [address], [place] [address] Mar, [facility] [address] [id number] [address] [place] [address], [place] [address] Mar, [facility] [address] [id number] [address] [place] [address], [place] [address] Mar, [facility] [address] [id number] [address] [place] [address], [place] [address] Feb, [facility] [address] [id number] [address] [place] [address], [place] [address] Feb, [facility] [address] [id number] [address] [place] [address], [place] [address] Jan, [facility] [address] [id number] [address] [place] [address], [place] [address] Jan, [facility] [address] [id number] [address] [place] [address], [place] [address] Jan, [facility] [address] [id number] [address] [place] [address], [place] [address] Jan, [facility] [address] [id number] [address] [place] [address], [place] [address] Jan, [facility] [address] [id number] [address] [place] [address], [place] [address] Jan, [facility] [address] [id number] [address] [place] [address], [place] [address] Dec, [facility] [address] [id number] [address] [place] [address], [place] [address] Dec, [facility] [address] [id number] [address] [place] [address], [place] [address] Nov, [facility] [address] [id number] [address] [place] [address], [place] [address] Nov, [facility] [address] [id number] [address] [place] [address], [place] [address] Oct, [facility] [address] [id number] [address] [place] [address], [place] [address] Aug, [facility] [address] [id number] [address] [place] [address], [place] [address] Aug, [facility] [address] [id number] [address] [place] [address], [place] [address] Jul, [facility] [address] [id number] [address] [place] [address], [place] [address] May, [facility] [address] [id number] [address] [place] [address], [place] [address] Apr, [facility] [address] [id number] [address] [place] [address], [place] [address] Apr, [facility] [address] [id number] [address] [place] [address] Mar, [facility] [address] [id number] [address] [place] [address], [place] [address] Dec, [facility] [address] [id number] [address] [place] [address], [place] [address] Dec, [facility] [address] [id number] [address] [place] [address], [place] [address] 15 Dec, 2011 [facility] [address] [id number] [address] [place] [address], [place] [address] Dec, [facility] [address] [id number] [address] [place] [address], [place] [address] Dec, [facility] [address] [id number] [address] [place] [address], [place] [address] Dec, [facility] [address] [id number] [address] [place] [address], [place] [address] Nov, [facility] [address] [id number] [address] [place] [address], [place] [address] Nov, [facility] [address] [id number] [address] [place] [address], [place] [address] Nov, [facility] [address] [id number] [address] [place] [address], [place] [address] Nov, [facility] [address] [id number] [address] [place] [address], [place] [address] Sep, [facility] [address] [id number] [address] [place] [address], [place] [address] Sep, [facility] [address] [id number] [address] [place] [address], [place] [address] Aug, [facility] [address] [id number] [address] [place] [address], [place] [address] Aug, [facility] [address] [id number] [address] [place] [address], [place] [address] May, [facility] [address] [id number] [address] [place] [address], [place] [address] May, [facility] [address] [id number] [address] [place] [address], [place] [address] May, [facility] [address] [id number] [address] [place] [address], [place] [address] Apr, [facility] [address] [id number] [address] [place] [address], [place] [address] Apr, [facility] [address] [id number] [address] [place] [address], [place] [address] Apr, [facility] [address] [id number] [address] [place] [address], [place] [address] Feb, [facility] [address] [id number] [address] [place] [address], [place] [address] Feb, [facility] [address] [id number] [address] [place] [address], [place] [address] Jan, [facility] [address] [id number] [address] [place] [address], [place] [address] Jan, [facility] [address] [id number] [address] [place] [address], [place] [address] Dec, [facility] [address] [id number] [address] [place] [address], [place] [address] Dec, [facility] [address] [id number] [address] [place] [address], [place] [address] Dec, [facility] [address] [id number] [address] [place] [address], [place] [address] Nov, [facility] [address] [id number] [address] [place] [address], [place] [address] Nov, [facility] [address] [id number] [address] [place] [address], [place] [address] 15 Mar, 2010 [facility] [address] [id number] [address] [place] [address], [place] [address] Jan, [facility] [address] [id number] [address] [place] [address], [place] [address] Dec, [facility] [address] [id number] [address] [place] [address], [place] [address] Dec, [facility] [address] [id number] [address] [place] [address], [place] [address] Dec, [facility] [address] [id number] [place] [address] Dec, [facility] [place] [address] [facility] [id number] [address] [place] [address] Nov, [facility] [place] [address] [facility] [id number] [address] [place] [address] Jan, [facility] [place] [address] [facility] [id number] [address] [place] [address] Nov, [facility] [place] [address] [facility] [id number] [address] [place] [address] Nov, IMMUNIZATIONS No Known Immunizations SOCIAL HISTORY Never Assessed REASON FOR VISIT PLAN OF CARE VITAL SIGNS Height 67 in 2014-05-12 Weight 199.56 lbs 2014-05-12 Temperature 99.2 degrees Fahrenheit 2014-05-12 Heart Rate 80 bpm 2014-05-12 Respiratory Rate 20 2014-05-12 Blood pressure systolic 136 mmHg 2014-05-12 Blood pressure diastolic 72 mmHg 2014-05-12 MEDICATIONS Unknown Medications RESULTS No Results PROCEDURES [...]
--- OUTSIDE RECORDS SUMMARY | 2019-05-01 17:46 | XMS REPORT ---
Author Author Candace VAZQUEZ Organization [facility] Address [address] [place] [address] Care Team Providers Care Manager Poker Name Role Phone ANASTACIO VAZQUEZ Unavailable PROBLEMS Type Condition ICD9-CM Code ECF61-QC Code Onset Dates Condition S tatus SNOMED Code Problem Mood disorder F39 Active 998878 05 Problem Sleep apnea in adult G47.33 Active 95306205 Problem Hypothyroid E03.9 Active 27820409 Problem Psoriasis L40.9 Active 8492603 Problem Essential (primary) hypertension I10 Active 05555766 Problem Slow transit constipation K59.01 Acti ve 88907797 Problem Migraine with aura, not intractable, without sta tus migrainosus G43.109 Active 52585469 Problem Hyperlipidemia, unspecified hyperlipidemia type E7 8.5 Active 48028349 Problem Lipoma D17.9 Active 18902591 Problem Sleep apnea, unspecified G47.30 Activ e 81121026 Problem Seasonal allergic rhinitis due to pollen J30.1 Active 25558687 ALLERGIES No Information ENCOUNTERS Encounter Location Date Diagnosis [place] [address] [place] [id number] [address] [place] [address] June, [place] [id number] [place] [id number] [address] [place] [address] May, Hyperlipidemia, unspecified hyperlipidemia type E78.5 [facility] [address] [facility] [id number] [address] [place] [address] 13 Mar, 2018 Hypothyroid E03.9 ; Hyperlip idemia, unspecified hyperlipidemia type E78.5 ; Tension headache G44.209 ; Psoriasis L40.9 and Breast cancer screening by mammogram Z12.31 [place] [id number] [facility] [id number] [address] [place] [address] Feb, Essential (primary) hyperten vandana I10 [facility] [address] [address] Feb, Essential (primary) hyperten vandana I10 [place] [address] [address] Dec, Essential (primary) hyperten vandana I10 [place] [address] [address] Nov, Migraine with aura, not intr actable, without status migrainosus G43.109 [facility] [address] [address] Oct, Dysuria R30.0 [place] [address] [address] Sep, Psoriasis L40.9 [place] [address] [address] Aug, Psoriasis L40.9 ; Poison jaylon L23.7 ; Slow transit constipation K59.01 ; Breast cancer screening by mammogram Z12.31 and Colon cancer screening Z12.11 [facility] [place] [address] [address] Jul, Poison jaylon L23.7 [place] [address] [address] Apr, Elevated LFTs R79.89 ; Hypot hyroid E03.9 ; Hyperlipidemia, unspecified hyperlipidemia type E78.5 ; Seasonal allergic rhinitis due to pollen J30.1 and Essential (primary) hypertension I10 [place] [address] [address] Mar, [place] [address] [address] Mar, [place] [address] [address] Feb, Hypothyroid E03.9 and Hyperl ipidemia, unspecified hyperlipidemia type E78.5 [place] [address] [address] Jan, Sleep apnea, unspecified G47 .30 ; Hypothyroid E03.9 and Hyperlipidemia, unspecified hyperlipidemia type E78.5 [place] [address] [address] Jan, [place] [address] [address] Jan, [place] [address] [address] Dec, [facility] [address] [address] Oct, Blood in stool K92.1 and Ext ernal hemorrhoid, bleeding K64.4 [place] [address] [address] Aug, Migraine with aura, not intr actable, without status migrainosus G43.109 [place] [address] [address] June, Breast cancer screening Z12. [address] [address] May, Callus L84 [place] [address] [address] Apr, Callus L84 [place] [address] [address] Apr, Hypothyroid E03.9 [place] [address] [address] 15 Apr, 2016 Hypothyroid E03.9 ; Callus L 84 and Hidradenitis L73.2 [place] [address] [address] Jan, Hyperlipidemia, unspecified hyperlipidemia type E78.5 [facility] [address] [facility] [id number] [address] [place] [address] Jan, [facility] [address] [facility] [id number] [address] [place] [address] Oct, Hyperlipidemia, unspecified hyperlipidemia type E78.5 [facility] [address] [facility] [id number] [address] [place] [address] Oct, Seroma T14.8 [facility] [address] [facility] [id number] [address] [place] [address] Sep, [facility] [address] [facility] [id number] [address] [place] [address] Sep, Hyperlipidemia, unspecified hyperlipidemia type E78.5 and Hypothyroid E03.9 [facility] [address] [place] [id number] [address] [place] [address] Sep, Hyperlipidemia, unspecified hyperlipidemia type E78.5 ; Hypothyroid E03.9 ; Tension headache G44.209 and Candidiasis of anus B37.89 [facility] [address] [place] [id number] [address] [place] [address] Jul, [facility] [address] [place] [id number] [address] [place] [address] June, Tension headache G44.209 [facility] [address] [place] [id number] [address] [place] [address] Apr, Hyperlipidemia, unspecified hyperlipidemia type E78.5 ; Hypothyroid E03.9 ; Lipoma D17.9 and Breast cancer screening Z12.39 [facility] [address] [facility] [id number] [address] [place] [address] 24 Mar, 2015 [facility] [address] [id number] [address] [place] [id number] 10 Mar, 2015 Encounter for dental examina tion Z01.20 [facility] [address] [place] [id number] [address] [place] [address] Feb, [facility] [address] [facility] [id number] [address] [place] [address] Jan, Allergic rhinitis J30.9 [facility] [address] [place] [id number] [address] [place] [address] Jan, [facility] [address] [place] [id number] [address] [place] [address] Dec, Dysuria R30.0 and UTI (urina ry tract infection) N39.0 [facility] [address] [address] Dec, [facility] [address] [address] Dec, Dysuria R30.0 and Urinary tr act infection, site unspecified N39.0 [facility] [address] [place] [id number] [address] [place] [address] Nov, Benign lipomatous neoplasm o f skin and subcutaneous tissue of head, face and neck D17.0 and Hypothyroidism, unspecified E03.9 [facility] [address] [place] [id number] [address] [place] [address] Sep, [facility] [address] [place] [id number] [address] [place] [address] Aug, Hypothyroidism 244.9 [facility] [address] [place] [id number] [address] [place] [address] Jul, Hypothyroidism 244.9 [facility] [address] [place] [id number] [address] [place] [address] Jul, Sleep apnea 780.57 [facility] [address] [place] [id number] [address] [place] [address] May, [facility] [address] [place] [id number] [address] [place] [address] May, [facility] [address] [id number] [address] [place] [address], [place] [address] Apr, [facility] [address] [id number] [address] [place] [address], [place] [address] Apr, [facility] [address] [id number] [address] [place] [address], [place] [address] Mar, 2014 [facility] [address] [id number] [address] [place] [address], [place] [address] Mar, 2014 [facility] [address] [id number] [address] [place] [address], [place] [address] Mar, 2014 [facility] [address] [id number] [address] [place] [address], [place] [address] Mar, 2014 [facility] [address] [id number] [address] [place] [address], [place] [address] Mar, 2014 [facility] [address] [id number] [address] [place] [address], [place] [address] Mar, [facility] [address] [id number] [address] [place] [address], [place] [address] Jan, [facility] [address] [id number] [address] [place] [address], [place] [address] Jan, [facility] [address] [id number] [address] [place] [address], [place] [address] Jan, [facility] [address] [id number] [address] [place] [address], [place] [address] Jan, [facility] [address] [id number] [address] [place] [address], [place] [address] Oct, [facility] [address] [id number] [address] [place] [address], [place] [address] Oct, [facility] [address] [id number] [address] [place] [address], [place] [address] Sep, [facility] [address] [id number] [address] [place] [address], [place] [address] Sep, [facility] [address] [id number] [address] [place] [address], [place] [address] Aug, [facility] [address] [id number] [address] [place] [address], [place] [address] Aug, [facility] [address] [id number] [address] [place] [address], [place] [address] Aug, [facility] [address] [id number] [address] [place] [address], [place] [address] Aug, [facility] [address] [id number] [address] [place] [address], [place] [address] Jul, [facility] [address] [id number] [address] [place] [address], [place] [address] Jul, [facility] [address] [id number] [address] [place] [address], [place] [address] June, [facility] [address] [id number] [address] [place] [address], [place] [address] June, [facility] [address] [id number] [address] [place] [address], [place] [address] June, [facility] [address] [id number] [address] [place] [address], [place] [address] June, [facility] [address] [id number] [address] [place] [address], [place] [address] June, [facility] [address] [id number] [address] [place] [address], [place] [address] June, [facility] [address] [id number] [address] [place] [address], [place] [address] May, [facility] [address] [id number] [address] [place] [address], [place] [address] May, [facility] [address] [id number] [address] [place] [address], [place] [address] Apr, [facility] [address] [id number] [address] [place] [address], [place] [address] Apr, [facility] [address] [id number] [address] [place] [address], [place] [address] Apr, [facility] [address] [id number] [address] [place] [address], [place] [address] Apr, [facility] [address] [id number] [address] [place] [address], [place] [address] Apr, [facility] [address] [id number] [address] [place] [address], [place] [address] Mar, [facility] [address] [id number] [address] [place] [address], [place] [address] Mar, [facility] [address] [id number] [address] [place] [address], [place] [address] Mar, [facility] [address] [id number] [address] [place] [address], [place] [address] Mar, [facility] [address] [id number] [address] [place] [address], [place] [address] Feb, [facility] [address] [id number] [address] [place] [address], [place] [address] Feb, [facility] [address] [id number] [address] [place] [address], [place] [address] Jan, [facility] [address] [id number] [address] [place] [address], [place] [address] Jan, [facility] [address] [id number] [address] [place] [address], [place] [address] Jan, [facility] [address] [id number] [address] [place] [address], [place] [address] Jan, [facility] [address] [id number] [address] [place] [address], [place] [address] Jan, [facility] [address] [id number] [address] [place] [address], [place] [address] Jan, [facility] [address] [id number] [address] [place] [address], [place] [address] Dec, [facility] [address] [id number] [address] [place] [address], [place] [address] Dec, [facility] [address] [id number] [address] [place] [address], [place] [address] Nov, [facility] [address] [id number] [address] [place] [address], [place] [address] Nov, [facility] [address] [id number] [address] [place] [address], [place] [address] Oct, [facility] [address] [id number] [address] [place] [address], [place] [address] Aug, [facility] [address] [id number] [address] [place] [address], [place] [address] Aug, [facility] [address] [id number] [address] [place] [address], [place] [address] Jul, [facility] [address] [id number] [address] [place] [address], [place] [address] May, [facility] [address] [id number] [address] [place] [address], [place] [address] Apr, [facility] [address] [id number] [address] [place] [address], [place] [address] Apr, [facility] [address] [id number] [address] [place] [address] Mar, [facility] [address] [id number] [address] [place] [address], [place] [address] Dec, [facility] [address] [id number] [address] [place] [address], [place] [address] Dec, [facility] [address] [id number] [address] [place] [address], [place] [address] 15 Dec, 2011 [facility] [address] [id number] [address] [place] [address], [place] [address] Dec, [facility] [address] [id number] [address] [place] [address], [place] [address] Dec, [facility] [address] [id number] [address] [place] [address], [place] [address] Dec, [facility] [address] [id number] [address] [place] [address], [place] [address] Nov, [facility] [address] [id number] [address] [place] [address], [place] [address] Nov, [facility] [address] [id number] [address] [place] [address], [place] [address] Nov, [facility] [address] [id number] [address] [place] [address], [place] [address] Nov, [facility] [address] [id number] [address] [place] [address], [place] [address] Sep, [facility] [address] [id number] [address] [place] [address], [place] [address] Sep, [facility] [address] [id number] [address] [place] [address], [place] [address] Aug, [facility] [address] [id number] [address] [place] [address], [place] [address] Aug, [facility] [address] [id number] [address] [place] [address], [place] [address] May, [facility] [address] [id number] [address] [place] [address], [place] [address] May, [facility] [address] [id number] [address] [place] [address], [place] [address] May, [facility] [address] [id number] [address] [place] [address], [place] [address] Apr, [facility] [address] [id number] [address] [place] [address], [place] [address] Apr, [facility] [address] [id number] [address] [place] [address], [place] [address] Apr, [facility] [address] [id number] [address] [place] [address], [place] [address] Feb, [facility] [address] [id number] [address] [place] [address], [place] [address] Feb, [facility] [address] [id number] [address] [place] [address], [place] [address] Jan, [facility] [address] [id number] [address] [place] [address], [place] [address] Jan, [facility] [address] [id number] [address] [place] [address], [place] [address] Dec, [facility] [address] [id number] [address] [place] [address], [place] [address] Dec, [facility] [address] [id number] [address] [place] [address], [place] [address] Dec, [facility] [address] [id number] [address] [place] [address], [place] [address] Nov, [facility] [address] [id number] [address] [place] [address], [place] [address] Nov, [facility] [address] [id number] [address] [place] [address], [place] [address] 15 Mar, 2010 [facility] [address] [id number] [address] [place] [address], [place] [address] Jan, [facility] [address] [id number] [address] [place] [address], [place] [address] Dec, [facility] [address] [id number] [address] [place] [address], [place] [address] Dec, [facility] [address] [id number] [address] [place] [address], [place] [address] Dec, [facility] [address] [id number] [address] [address] Dec, [facility] [address] [facility] [id number] [address] [place] [address] Nov, [facility] [address] [facility] [id number] [address] [place] [address] Jan, [facility] [address] [facility] [id number] [address] [place] [address] Nov, [facility] [address] [facility] [id number] [address] [place] [address] Nov, IMMUNIZATIONS No Known Immunizations SOCIAL HISTORY Never Assessed REASON FOR VISIT PLAN OF CARE VITAL SIGNS Height 67 in 2013-11-11 Weight 200.38 lbs 2013-11-11 Temperature 98.6 degrees Fahrenheit 2013-11-11 Heart Rate 82 bpm 2013-11-11 Respiratory Rate 18 2013-11-11 Blood pressure systolic 134 mmHg 2013-11-11 Blood pressure diastolic 74 mmHg 2013-11-11 MEDICATIONS Unknown Medications RESULTS No Results PROCEDURES [...]
--- OUTSIDE RECORDS SUMMARY | 2019-05-01 17:46 | XMS REPORT ---
Author Author Candace VAZQUEZ Organization [facility] Address [address] [place] [address] Care Team Providers Care Bander Name Role Phone ANASTACIO VAZQUEZ Unavailable PROBLEMS Type Condition ICD9-CM Code NYH24-LV Code Onset Dates Condition S tatus SNOMED Code Problem Mood disorder F39 Active 941595 05 Problem Sleep apnea in adult G47.33 Active 96687753 Problem Hypothyroid E03.9 Active 30303645 Problem Psoriasis L40.9 Active 8798046 Problem Essential (primary) hypertension I10 Active 65620143 Problem Slow transit constipation K59.01 Acti ve 19558864 Problem Migraine with aura, not intractable, without sta tus migrainosus G43.109 Active 24002699 Problem Hyperlipidemia, unspecified hyperlipidemia type E7 8.5 Active 30563572 Problem Lipoma D17.9 Active 27295256 Problem Sleep apnea, unspecified G47.30 Activ e 48548791 Problem Seasonal allergic rhinitis due to pollen J30.1 Active 82563750 ALLERGIES No Information ENCOUNTERS Encounter Location Date Diagnosis [place] [address] [place] [id number] [address] [place] [address] June, [place] [address] [place] [id number] [address] [place] [address] May, Hyperlipidemia, unspecified hyperlipidemia type E78.5 [place] [id number] [facility] [id number] [address] [place] [address] 13 Mar, 2018 Hypothyroid E03.9 ; Hyperlip idemia, unspecified hyperlipidemia type E78.5 ; Tension headache G44.209 ; Psoriasis L40.9 and Breast cancer screening by mammogram Z12.31 [place] [address] [facility] [id number] [address] [place] [address] Feb, Essential (primary) hyperten vandana I10 [facility] [address] [address] Feb, Essential (primary) hyperten vandana I10 [place] [address] [address] Dec, Essential (primary) hyperten vandana I10 [place] [address] [address] Nov, Migraine with aura, not intr actable, without status migrainosus G43.109 [facility] [address] [address] Oct, Dysuria R30.0 [place] [address] [address] Sep, Psoriasis L40.9 [place] [address] [address] Aug, Psoriasis L40.9 ; Poison jaylon L23.7 ; Slow transit constipation K59.01 ; Breast cancer screening by mammogram Z12.31 and Colon cancer screening Z12.11 [facility] [place] [address] [address] Jul, Poison jaylon L23.7 [place] [address] [address] Apr, Elevated LFTs R79.89 ; Hypot hyroid E03.9 ; Hyperlipidemia, unspecified hyperlipidemia type E78.5 ; Seasonal allergic rhinitis due to pollen J30.1 and Essential (primary) hypertension I10 [place] [address] [address] Mar, [place] [address] [address] Mar, [place] [address] [address] Feb, Hypothyroid E03.9 and Hyperl ipidemia, unspecified hyperlipidemia type E78.5 [place] [address] [address] Jan, Sleep apnea, unspecified G47 .30 ; Hypothyroid E03.9 and Hyperlipidemia, unspecified hyperlipidemia type E78.5 [place] [address] [address] Jan, [place] [address] [address] Jan, [place] [address] [address] Dec, [facility] [address] [address] Oct, Blood in stool K92.1 and Ext ernal hemorrhoid, bleeding K64.4 [place] [address] [address] Aug, Migraine with aura, not intr actable, without status migrainosus G43.109 [place] [address] [address] June, Breast cancer screening Z12. [address] [address] May, Callus L84 [place] [address] [address] Apr, Callus L84 [place] [address] [address] Apr, Hypothyroid E03.9 [place] [address] [address] 15 Apr, 2016 Hypothyroid E03.9 ; Callus L 84 and Hidradenitis L73.2 [place] [address] [address] Jan, Hyperlipidemia, unspecified hyperlipidemia type E78.5 [facility] [address] [facility] [id number] [address] [place] [address] Jan, [facility] [address] [facility] [id number] [address] [place] [address] Oct, Hyperlipidemia, unspecified hyperlipidemia type E78.5 [facility] [address] [facility] [id number] [address] [place] [address] Oct, Seroma T14.8 [facility] [address] [facility] [id number] [address] [place] [address] Sep, [facility] [address] [facility] [id number] [address] [place] [address] Sep, Hyperlipidemia, unspecified hyperlipidemia type E78.5 and Hypothyroid E03.9 [facility] [address] [place] [id number] [address] [place] [address] Sep, Hyperlipidemia, unspecified hyperlipidemia type E78.5 ; Hypothyroid E03.9 ; Tension headache G44.209 and Candidiasis of anus B37.89 [facility] [address] [place] [id number] [address] [place] [address] Jul, [facility] [address] [place] [id number] [address] [place] [address] June, Tension headache G44.209 [facility] [address] [place] [id number] [address] [place] [address] Apr, Hyperlipidemia, unspecified hyperlipidemia type E78.5 ; Hypothyroid E03.9 ; Lipoma D17.9 and Breast cancer screening Z12.39 [facility] [address] [facility] [id number] [address] [place] [address] 24 Mar, 2015 [facility] [address] [id number] [address] [place] [id number] 10 Mar, 2015 Encounter for dental examina tion Z01.20 [facility] [address] [place] [id number] [address] [place] [address] Feb, [facility] [address] [facility] [id number] [address] [place] [address] Jan, Allergic rhinitis J30.9 [facility] [address] [place] [id number] [address] [place] [address] Jan, [facility] [address] [place] [id number] [address] [place] [address] Dec, Dysuria R30.0 and UTI (urina ry tract infection) N39.0 [facility] [address] [address] Dec, [facility] [address] [address] Dec, Dysuria R30.0 and Urinary tr act infection, site unspecified N39.0 [facility] [address] [place] [id number] [address] [place] [address] Nov, Benign lipomatous neoplasm o f skin and subcutaneous tissue of head, face and neck D17.0 and Hypothyroidism, unspecified E03.9 [facility] [address] [place] [id number] [address] [place] [address] Sep, [facility] [address] [place] [id number] [address] [place] [address] Aug, Hypothyroidism 244.9 [facility] [address] [place] [id number] [address] [place] [address] Jul, Hypothyroidism 244.9 [facility] [address] [place] [id number] [address] [place] [address] Jul, Sleep apnea 780.57 [facility] [address] [place] [id number] [address] [place] [address] May, [facility] [address] [place] [id number] [address] [place] [address] May, [facility] [address] [id number] [address] [place] [address], [place] [address] Apr, [facility] [address] [id number] [address] [place] [address], [place] [address] Apr, [facility] [address] [id number] [address] [place] [address], [place] [address] Mar, 2014 [facility] [address] [id number] [address] [place] [address], [place] [address] Mar, 2014 [facility] [address] [id number] [address] [place] [address], [place] [address] Mar, 2014 [facility] [address] [id number] [address] [place] [address], [place] [address] Mar, 2014 [facility] [address] [id number] [address] [place] [address], [place] [address] Mar, 2014 [facility] [address] [id number] [address] [place] [address], [place] [address] Mar, [facility] [address] [id number] [address] [place] [address], [place] [address] Jan, [facility] [address] [id number] [address] [place] [address], [place] [address] Jan, [facility] [address] [id number] [address] [place] [address], [place] [address] Jan, [facility] [address] [id number] [address] [place] [address], [place] [address] Jan, [facility] [address] [id number] [address] [place] [address], [place] [address] Oct, [facility] [address] [id number] [address] [place] [address], [place] [address] Oct, [facility] [address] [id number] [address] [place] [address], [place] [address] Sep, [facility] [address] [id number] [address] [place] [address], [place] [address] Sep, [facility] [address] [id number] [address] [place] [address], [place] [address] Aug, [facility] [address] [id number] [address] [place] [address], [place] [address] Aug, [facility] [address] [id number] [address] [place] [address], [place] [address] Aug, [facility] [address] [id number] [address] [place] [address], [place] [address] Aug, [facility] [address] [id number] [address] [place] [address], [place] [address] Jul, [facility] [address] [id number] [address] [place] [address], [place] [address] Jul, [facility] [address] [id number] [address] [place] [address], [place] [address] June, [facility] [address] [id number] [address] [place] [address], [place] [address] June, [facility] [address] [id number] [address] [place] [address], [place] [address] June, [facility] [address] [id number] [address] [place] [address], [place] [address] June, [facility] [address] [id number] [address] [place] [address], [place] [address] June, [facility] [address] [id number] [address] [place] [address], [place] [address] June, [facility] [address] [id number] [address] [place] [address], [place] [address] May, [facility] [address] [id number] [address] [place] [address], [place] [address] May, [facility] [address] [id number] [address] [place] [address], [place] [address] Apr, [facility] [address] [id number] [address] [place] [address], [place] [address] Apr, [facility] [address] [id number] [address] [place] [address], [place] [address] Apr, [facility] [address] [id number] [address] [place] [address], [place] [address] Apr, [facility] [address] [id number] [address] [place] [address], [place] [address] Apr, [facility] [address] [id number] [address] [place] [address], [place] [address] Mar, [facility] [address] [id number] [address] [place] [address], [place] [address] Mar, [facility] [address] [id number] [address] [place] [address], [place] [address] Mar, [facility] [address] [id number] [address] [place] [address], [place] [address] Mar, [facility] [address] [id number] [address] [place] [address], [place] [address] Feb, [facility] [address] [id number] [address] [place] [address], [place] [address] Feb, [facility] [address] [id number] [address] [place] [address], [place] [address] Jan, [facility] [address] [id number] [address] [place] [address], [place] [address] Jan, [facility] [address] [id number] [address] [place] [address], [place] [address] Jan, [facility] [address] [id number] [address] [place] [address], [place] [address] Jan, [facility] [address] [id number] [address] [place] [address], [place] [address] Jan, [facility] [address] [id number] [address] [place] [address], [place] [address] Jan, [facility] [address] [id number] [address] [place] [address], [place] [address] Dec, [facility] [address] [id number] [address] [place] [address], [place] [address] Dec, [facility] [address] [id number] [address] [place] [address], [place] [address] Nov, [facility] [address] [id number] [address] [place] [address], [place] [address] Nov, [facility] [address] [id number] [address] [place] [address], [place] [address] Oct, [facility] [address] [id number] [address] [place] [address], [place] [address] Aug, [facility] [address] [id number] [address] [place] [address], [place] [address] Aug, [facility] [address] [id number] [address] [place] [address], [place] [address] Jul, [facility] [address] [id number] [address] [place] [address], [place] [address] May, [facility] [address] [id number] [address] [place] [address], [place] [address] Apr, [facility] [address] [id number] [address] [place] [address], [place] [address] Apr, [facility] [address] [id number] [address] [place] [address] Mar, [facility] [address] [id number] [address] [place] [address], [place] [address] Dec, [facility] [address] [id number] [address] [place] [address], [place] [address] Dec, [facility] [address] [id number] [address] [place] [address], [place] [address] 15 Dec, 2011 [facility] [address] [id number] [address] [place] [address], [place] [address] Dec, [facility] [address] [id number] [address] [place] [address], [place] [address] Dec, [facility] [address] [id number] [address] [place] [address], [place] [address] Dec, [facility] [address] [id number] [address] [place] [address], [place] [address] Nov, [facility] [address] [id number] [address] [place] [address], [place] [address] Nov, [facility] [address] [id number] [address] [place] [address], [place] [address] Nov, [facility] [address] [id number] [address] [place] [address], [place] [address] Nov, [facility] [address] [id number] [address] [place] [address], [place] [address] Sep, [facility] [address] [id number] [address] [place] [address], [place] [address] Sep, [facility] [address] [id number] [address] [place] [address], [place] [address] Aug, [facility] [address] [id number] [address] [place] [address], [place] [address] Aug, [facility] [address] [id number] [address] [place] [address], [place] [address] May, [facility] [address] [id number] [address] [place] [address], [place] [address] May, [facility] [address] [id number] [address] [place] [address], [place] [address] May, [facility] [address] [id number] [address] [place] [address], [place] [address] Apr, [facility] [address] [id number] [address] [place] [address], [place] [address] Apr, [facility] [address] [id number] [address] [place] [address], [place] [address] Apr, [facility] [address] [id number] [address] [place] [address], [place] [address] Feb, [facility] [address] [id number] [address] [place] [address], [place] [address] Feb, [facility] [address] [id number] [address] [place] [address], [place] [address] Jan, [facility] [address] [id number] [address] [place] [address], [place] [address] Jan, [facility] [address] [id number] [address] [place] [address], [place] [address] Dec, [facility] [address] [id number] [address] [place] [address], [place] [address] Dec, [facility] [address] [id number] [address] [place] [address], [place] [address] Dec, [facility] [address] [id number] [address] [place] [address], [place] [address] Nov, [facility] [address] [id number] [address] [place] [address], [place] [address] Nov, [facility] [address] [id number] [address] [place] [address], [place] [address] 15 Mar, 2010 [facility] [address] [id number] [address] [place] [address], [place] [address] Jan, [facility] [address] [id number] [address] [place] [address], [place] [address] Dec, [facility] [address] [id number] [address] [place] [address], [place] [address] Dec, [facility] [address] [id number] [address] [place] [address], [place] [address] Dec, [facility] [address] [id number] [address] [place] [address] Dec, [facility] [address] [facility] [id number] [address] [place] [address] Nov, [facility] [address] [facility] [id number] [address] [place] [address] Jan, [facility] [address] [facility] [id number] [address] [place] [address] Nov, [facility] [address] [facility] [id number] [address] [place] [address] Nov, IMMUNIZATIONS No Known Immunizations SOCIAL HISTORY [...]
--- OUTSIDE RECORDS SUMMARY | 2019-05-01 17:46 | XMS REPORT ---
Author Author Candace VAZQUEZ Organization [facility] Address [address] [place] [address] Care Team Providers Care Science Analyst Name Role Phone ANASTACIO VAZQUEZ Unavailable PROBLEMS Type Condition ICD9-CM Code [id number] Code Onset Dates Condition S tatus SNOMED Code Problem Mood disorder F39 Active 395294 05 Problem Sleep apnea in adult G47.33 Active 64840980 Problem Hypothyroid E03.9 Active 33917875 Problem Psoriasis L40.9 Active 3160329 Problem Essential (primary) hypertension I10 Active 40668279 Problem Slow transit constipation K59.01 Acti ve 66293685 Problem Migraine with aura, not intractable, without sta tus migrainosus G43.109 Active 31066212 Problem Hyperlipidemia, unspecified hyperlipidemia type E7 8.5 Active 51384715 Problem Lipoma D17.9 Active 45513846 Problem Sleep apnea, unspecified G47.30 Activ e 13162741 Problem Seasonal allergic rhinitis due to pollen J30.1 Active [id number] ALLERGIES No Information ENCOUNTERS Encounter Location Date Diagnosis [place] [address] [address] [place] [id number] [address] [place] [address] June, [place] [address] [place] [id number] [address] [place] [address] May, Hyperlipidemia, unspecified hyperlipidemia type E78.5 [place] [address] [facility] [id number] [address] [place] [address] 13 Mar, 2018 Hypothyroid E03.9 ; Hyperlip idemia, unspecified hyperlipidemia type E78.5 ; Tension headache G44.209 ; Psoriasis L40.9 and Breast cancer screening by mammogram Z12.31 [place] [address] [facility] [id number] [address] [place] [address] Feb, Essential (primary) hyperten vandana I10 [facility] [address] [address] Feb, Essential (primary) hyperten vandana I10 [place] [address] [address] Dec, Essential (primary) hyperten vandana I10 [place] [address] [address] Nov, Migraine with aura, not intr actable, without status migrainosus G43.109 [facility] [address] [address] Oct, Dysuria R30.0 [place] [address] [address] Sep, Psoriasis L40.9 [place] [address] [address] Aug, Psoriasis L40.9 ; Poison jaylon L23.7 ; Slow transit constipation K59.01 ; Breast cancer screening by mammogram Z12.31 and Colon cancer screening Z12.11 [facility] [place] [address] [address] Jul, Poison jaylon L23.7 [place] [address] [address] Apr, Elevated LFTs R79.89 ; Hypot hyroid E03.9 ; Hyperlipidemia, unspecified hyperlipidemia type E78.5 ; Seasonal allergic rhinitis due to pollen J30.1 and Essential (primary) hypertension I10 [place] [address] [address] Mar, [place] [address] [address] Mar, [place] [address] [address] Feb, Hypothyroid E03.9 and Hyperl ipidemia, unspecified hyperlipidemia type E78.5 [place] [address] [address] Jan, Sleep apnea, unspecified G47 .30 ; Hypothyroid E03.9 and Hyperlipidemia, unspecified hyperlipidemia type E78.5 [place] [address] [address] Jan, [place] [address] [address] Jan, [place] [address] [address] Dec, [facility] [address] [address] Oct, Blood in stool K92.1 and Ext ernal hemorrhoid, bleeding K64.4 [place] [address] [address] Aug, Migraine with aura, not intr actable, without status migrainosus G43.109 [place] [address] [address] June, Breast cancer screening Z12. [address] [address] May, Callus L84 [place] [address] [address] Apr, Callus L84 [place] [address] [address] Apr, Hypothyroid E03.9 [place] [address] [address] 15 Apr, 2016 Hypothyroid E03.9 ; Callus L 84 and Hidradenitis L73.2 [place] [address] [address] Jan, Hyperlipidemia, unspecified hyperlipidemia type E78.5 [facility] [address] [facility] [id number] [address] [place] [address] Jan, [facility] [address] [facility] [id number] [address] [place] [address] Oct, Hyperlipidemia, unspecified hyperlipidemia type E78.5 [facility] [address] [facility] [id number] [address] [place] [address] Oct, Seroma T14.8 [facility] [address] [facility] [id number] [address] [place] [address] Sep, [facility] [address] [facility] [id number] [address] [place] [address] Sep, Hyperlipidemia, unspecified hyperlipidemia type E78.5 and Hypothyroid E03.9 [facility] [address] [place] [id number] [address] [place] [address] Sep, Hyperlipidemia, unspecified hyperlipidemia type E78.5 ; Hypothyroid E03.9 ; Tension headache G44.209 and Candidiasis of anus B37.89 [facility] [address] [place] [id number] [address] [place] [address] Jul, [facility] [address] [place] [id number] [address] [place] [address] June, Tension headache G44.209 [facility] [address] [place] [id number] [address] [place] [address] Apr, Hyperlipidemia, unspecified hyperlipidemia type E78.5 ; Hypothyroid E03.9 ; Lipoma D17.9 and Breast cancer screening Z12.39 [facility] [address] [facility] [id number] [address] [place] [address] 24 Mar, 2015 [facility] [address] [id number] [address] [place] [id number] 10 Mar, 2015 Encounter for dental examina tion Z01.20 [facility] [address] [place] [id number] [address] [place] [address] Feb, [facility] [address] [facility] [id number] [address] [place] [address] Jan, Allergic rhinitis J30.9 [facility] [address] [place] [id number] [address] [place] [address] Jan, [facility] [address] [place] [id number] [address] [place] [address] Dec, Dysuria R30.0 and UTI (urina ry tract infection) N39.0 [facility] [address] [address] Dec, [facility] [address] [address] Dec, Dysuria R30.0 and Urinary tr act infection, site unspecified N39.0 [facility] [address] [place] [id number] [address] [place] [address] Nov, Benign lipomatous neoplasm o f skin and subcutaneous tissue of head, face and neck D17.0 and Hypothyroidism, unspecified E03.9 [facility] [address] [place] [id number] [address] [place] [address] Sep, [facility] [address] [place] [id number] [address] [place] [address] Aug, Hypothyroidism 244.9 [facility] [address] [place] [id number] [address] [place] [address] Jul, Hypothyroidism 244.9 [facility] [address] [place] [id number] [address] [place] [address] Jul, Sleep apnea 780.57 [facility] [address] [place] [id number] [address] [place] [address] May, [facility] [address] [place] [id number] [address] [place] [address] May, [facility] [address] [id number] [address] [place] [address], [place] [address] Apr, [facility] [address] [id number] [address] [place] [address], [place] [address] Apr, [facility] [address] [id number] [address] [place] [address], [place] [address] Mar, 2014 [facility] [address] [id number] [address] [place] [address], [place] [address] Mar, 2014 [facility] [address] [id number] [address] [place] [address], [place] [address] Mar, 2014 [facility] [address] [id number] [address] [place] [address], [place] [address] Mar, 2014 [facility] [address] [id number] [address] [place] [address], [place] [address] Mar, 2014 [facility] [address] [id number] [address] [place] [address], [place] [address] Mar, [facility] [address] [id number] [address] [place] [address], [place] [address] Jan, [facility] [address] [id number] [address] [place] [address], [place] [address] Jan, [facility] [address] [id number] [address] [place] [address], [place] [address] Jan, [facility] [address] [id number] [address] [place] [address], [place] [address] Jan, [facility] [address] [id number] [address] [place] [address], [place] [address] Oct, [facility] [address] [id number] [address] [place] [address], [place] [address] Oct, [facility] [address] [id number] [address] [place] [address], [place] [address] Sep, [facility] [address] [id number] [address] [place] [address], [place] [address] Sep, [facility] [address] [id number] [address] [place] [address], [place] [address] Aug, [facility] [address] [id number] [address] [place] [address], [place] [address] Aug, [facility] [address] [id number] [address] [place] [address], [place] [address] Aug, [facility] [address] [id number] [address] [place] [address], [place] [address] Aug, [facility] [address] [id number] [address] [place] [address], [place] [address] Jul, [facility] [address] [id number] [address] [place] [address], [place] [address] Jul, [facility] [address] [id number] [address] [place] [address], [place] [address] June, [facility] [address] [id number] [address] [place] [address], [place] [address] June, [facility] [address] [id number] [address] [place] [address], [place] [address] June, [facility] [address] [id number] [address] [place] [address], [place] [address] June, [facility] [address] [id number] [address] [place] [address], [place] [address] June, [facility] [address] [id number] [address] [place] [address], [place] [address] June, [facility] [address] [id number] [address] [place] [address], [place] [address] May, [facility] [address] [id number] [address] [place] [address], [place] [address] May, [facility] [address] [id number] [address] [place] [address], [place] [address] Apr, [facility] [address] [id number] [address] [place] [address], [place] [address] Apr, [facility] [address] [id number] [address] [place] [address], [place] [address] Apr, [facility] [address] [id number] [address] [place] [address], [place] [address] Apr, [facility] [address] [id number] [address] [place] [address], [place] [address] Apr, [facility] [address] [id number] [address] [place] [address], [place] [address] Mar, [facility] [address] [id number] [address] [place] [address], [place] [address] Mar, [facility] [address] [id number] [address] [place] [address], [place] [address] Mar, [facility] [address] [id number] [address] [place] [address], [place] [address] Mar, [facility] [address] [id number] [address] [place] [address], [place] [address] Feb, [facility] [address] [id number] [address] [place] [address], [place] [address] Feb, [facility] [address] [id number] [address] [place] [address], [place] [address] Jan, [facility] [address] [id number] [address] [place] [address], [place] [address] Jan, [facility] [address] [id number] [address] [place] [address], [place] [address] Jan, [facility] [address] [id number] [address] [place] [address], [place] [address] Jan, [facility] [address] [id number] [address] [place] [address], [place] [address] Jan, [facility] [address] [id number] [address] [place] [address], [place] [address] Jan, [facility] [address] [id number] [address] [place] [address], [place] [address] Dec, [facility] [address] [id number] [address] [place] [address], [place] [address] Dec, [facility] [address] [id number] [address] [place] [address], [place] [address] Nov, [facility] [address] [id number] [address] [place] [address], [place] [address] Nov, [facility] [address] [id number] [address] [place] [address], [place] [address] Oct, [facility] [address] [id number] [address] [place] [address], [place] [address] Aug, [facility] [address] [id number] [address] [place] [address], [place] [address] Aug, [facility] [address] [id number] [address] [place] [address], [place] [address] Jul, [facility] [address] [id number] [address] [place] [address], [place] [address] May, [facility] [address] [id number] [address] [place] [address], [place] [address] Apr, [facility] [address] [id number] [address] [place] [address], [place] [address] Apr, [facility] [address] [id number] [address] [place] [address] Mar, [facility] [address] [id number] [address] [place] [address], [place] [address] Dec, [facility] [address] [id number] [address] [place] [address], [place] [address] Dec, [facility] [address] [id number] [address] [place] [address], [place] [address] 15 Dec, 2011 [facility] [address] [id number] [address] [place] [address], [place] [address] Dec, [facility] [address] [id number] [address] [place] [address], [place] [address] Dec, [facility] [address] [id number] [address] [place] [address], [place] [address] Dec, [facility] [address] [id number] [address] [place] [address], [place] [address] Nov, [facility] [address] [id number] [address] [place] [address], [place] [address] Nov, [facility] [address] [id number] [address] [place] [address], [place] [address] Nov, [facility] [address] [id number] [address] [place] [address], [place] [address] Nov, [facility] [address] [id number] [address] [place] [address], [place] [address] Sep, [facility] [address] [id number] [address] [place] [address], [place] [address] Sep, [facility] [address] [id number] [address] [place] [address], [place] [address] Aug, [facility] [address] [id number] [address] [place] [address], [place] [address] Aug, [facility] [address] [id number] [address] [place] [address], [place] [address] May, [facility] [address] [id number] [address] [place] [address], [place] [address] May, [facility] [address] [id number] [address] [place] [address], [place] [address] May, [facility] [address] [id number] [address] [place] [address], [place] [address] Apr, [facility] [address] [id number] [address] [place] [address], [place] [address] Apr, [facility] [address] [id number] [address] [place] [address], [place] [address] Apr, [facility] [address] [id number] [address] [place] [address], [place] [address] Feb, [facility] [address] [id number] [address] [place] [address], [place] [address] Feb, [facility] [address] [id number] [address] [place] [address], [place] [address] Jan, [facility] [address] [id number] [address] [place] [address], [place] [address] Jan, [facility] [address] [id number] [address] [place] [address], [place] [address] Dec, [facility] [address] [id number] [address] [place] [address], [place] [address] Dec, [facility] [address] [id number] [address] [place] [address], [place] [address] Dec, [facility] [address] [id number] [address] [place] [address], [place] [address] Nov, [facility] [address] [id number] [address] [place] [address], [place] [address] Nov, [facility] [address] [id number] [address] [place] [address], [place] [address] 15 Mar, 2010 [facility] [address] [id number] [address] [place] [address], [place] [address] Jan, [facility] [address] [id number] [address] [place] [address], [place] [address] Dec, [facility] [address] [id number] [address] [place] [address], [place] [address] Dec, [facility] [address] [id number] [address] [place] [address], [place] [address] Dec, [facility] [address] [id number] [address] [place] [address] Dec, [facility] [address] [facility] [id number] [address] [place] [address] Nov, [facility] [address] [facility] [id number] [address] [place] [address] Jan, [facility] [address] [facility] [id number] [address] [place] [address] Nov, [facility] [address] [facility] [id number] [address] [place] [address] Nov, IMMUNIZATIONS No Known Immunizations SOCIAL HISTORY Never Assessed REASON FOR VISIT PLAN OF CARE VITAL SIGNS Height 67 in 2011-09-24 Weight 186.4 lbs 2011-09-24 Temperature 97.4 degrees Fahrenheit 2011-09-24 Heart Rate 72 bpm 2011-09-24 Respiratory Rate 18 2011-09-24 Blood pressure systolic 155 mmHg 2011-09-24 Blood pressure diastolic 82 mmHg 2011-09-24 MEDICATIONS Unknown Medications RESULTS No Results PROCEDURES Procedure Date Ordered Result Body Site MAMMOGRAM, SCREENING Sep 24, 2011 INSTRUCTIONS MEDICATIONS ADMINISTERED No Known Medications MEDICAL [...]
--- OUTSIDE RECORDS SUMMARY | 2019-05-01 17:46 | XMS REPORT ---
Author Author Candace VAZQUEZ Organization [facility] Address [address] [place] [address] Care Team Providers Care Infusion Nurse Name Role Phone ANASTACIO VAZQUEZ Unavailable PROBLEMS Type Condition ICD9-CM Code QHF29-QZ Code Onset Dates Condition S tatus SNOMED Code Problem Mood disorder F39 Active 363641 05 Problem Sleep apnea in adult G47.33 Active 95594314 Problem Hypothyroid E03.9 Active 14090070 Problem Psoriasis L40.9 Active 8652065 Problem Essential (primary) hypertension I10 Active 02728274 Problem Slow transit constipation K59.01 Acti ve 75833593 Problem Migraine with aura, not intractable, without sta tus migrainosus G43.109 Active 56370451 Problem Hyperlipidemia, unspecified hyperlipidemia type E7 8.5 Active 13376687 Problem Lipoma D17.9 Active 80348509 Problem Sleep apnea, unspecified G47.30 Activ e 08430260 Problem Seasonal allergic rhinitis due to pollen J30.1 Active 21314091 ALLERGIES No Information ENCOUNTERS Encounter Location Date Diagnosis [place] [address] [place] [id number] [address] [place] [id number] June, [place] [address] [place] [id number] [address] [place] [address] May, Hyperlipidemia, unspecified hyperlipidemia type E78.5 [facility] [address] [facility] [id number] [address] [place] [address] 13 Mar, 2018 Hypothyroid E03.9 ; Hyperlip idemia, unspecified hyperlipidemia type E78.5 ; Tension headache G44.209 ; Psoriasis L40.9 and Breast cancer screening by mammogram Z12.31 [place] [address] [facility] [id number] [address] [place] [address] Feb, Essential (primary) hyperten vandana I10 [facility] [address] [address] Feb, Essential (primary) hyperten vandana I10 [place] [address] [address] Dec, Essential (primary) hyperten vandana I10 [place] [address] [address] Nov, Migraine with aura, not intr actable, without status migrainosus G43.109 [facility] [address] [address] Oct, Dysuria R30.0 [place] [address] [address] Sep, Psoriasis L40.9 [place] [address] [address] Aug, Psoriasis L40.9 ; Poison jaylon L23.7 ; Slow transit constipation K59.01 ; Breast cancer screening by mammogram Z12.31 and Colon cancer screening Z12.11 [facility] [place] [address] [address] Jul, Poison jaylon L23.7 [place] [address] [address] Apr, Elevated LFTs R79.89 ; Hypot hyroid E03.9 ; Hyperlipidemia, unspecified hyperlipidemia type E78.5 ; Seasonal allergic rhinitis due to pollen J30.1 and Essential (primary) hypertension I10 [place] [address] [address] Mar, [place] [address] [address] Mar, [place] [address] [address] Feb, Hypothyroid E03.9 and Hyperl ipidemia, unspecified hyperlipidemia type E78.5 [place] [address] [address] Jan, Sleep apnea, unspecified G47 .30 ; Hypothyroid E03.9 and Hyperlipidemia, unspecified hyperlipidemia type E78.5 [place] [address] [address] Jan, [place] [address] [address] Jan, [place] [address] [address] Dec, [facility] [address] [address] Oct, Blood in stool K92.1 and Ext ernal hemorrhoid, bleeding K64.4 [place] [address] [address] Aug, Migraine with aura, not intr actable, without status migrainosus G43.109 [place] [address] [address] June, Breast cancer screening Z12. [address] [address] May, Callus L84 [place] [address] [address] Apr, Callus L84 [place] [address] [address] Apr, Hypothyroid E03.9 [place] [address] [address] 15 Apr, 2016 Hypothyroid E03.9 ; Callus L 84 and Hidradenitis L73.2 [place] [address] [address] Jan, Hyperlipidemia, unspecified hyperlipidemia type E78.5 [facility] [address] [facility] [id number] [address] [place] [address] Jan, [facility] [address] [facility] [id number] [address] [place] [address] Oct, Hyperlipidemia, unspecified hyperlipidemia type E78.5 [facility] [address] [facility] [id number] [address] [place] [address] Oct, Seroma T14.8 [facility] [address] [facility] [id number] [address] [place] [address] Sep, [facility] [address] [facility] [id number] [address] [place] [address] Sep, Hyperlipidemia, unspecified hyperlipidemia type E78.5 and Hypothyroid E03.9 [facility] [address] [place] [id number] [address] [place] [address] Sep, Hyperlipidemia, unspecified hyperlipidemia type E78.5 ; Hypothyroid E03.9 ; Tension headache G44.209 and Candidiasis of anus B37.89 [facility] [address] [place] [id number] [address] [place] [address] Jul, [facility] [address] [place] [id number] [address] [place] [address] June, Tension headache G44.209 [facility] [address] [place] [id number] [place] [address] Apr, Hyperlipidemia, unspecified hyperlipidemia type E78.5 ; Hypothyroid E03.9 ; Lipoma D17.9 and Breast cancer screening Z12.39 [facility] [address] [facility] [id number] [address] [place] [address] 24 Mar, 2015 [facility] [address] [id number] [address] [place] [id number] 10 Mar, 2015 Encounter for dental examina tion Z01.20 [facility] [address] [place] [id number] [place] [address] Feb, [facility] [address] [facility] [id number] [address] [place] [address] Jan, Allergic rhinitis J30.9 [facility] [address] [place] [id number] [address] [place] [address] Jan, [facility] [address] [place] [id number] [address] [place] [address] Dec, Dysuria R30.0 and UTI (urina ry tract infection) N39.0 [facility] [address] [address] Dec, [facility] [address] [address] Dec, Dysuria R30.0 and Urinary tr act infection, site unspecified N39.0 [facility] [address] [place] [id number] [address] [place] [address] Nov, Benign lipomatous neoplasm o f skin and subcutaneous tissue of head, face and neck D17.0 and Hypothyroidism, unspecified E03.9 [facility] [address] [place] [id number] [address] [place] [address] Sep, [facility] [address] [place] [id number] [address] [place] [address] Aug, Hypothyroidism 244.9 [facility] [address] [place] [id number] [address] [place] [address] Jul, Hypothyroidism 244.9 [facility] [address] [place] [id number] [address] [place] [address] Jul, Sleep apnea 780.57 [facility] [address] [place] [id number] [address] [place] [address] May, [facility] [address] [place] [id number] [address] [place] [address] May, [facility] [address] [id number] [address] [place] [address], [place] [address] Apr, [facility] [address] [id number] [address] [place] [address], [place] [address] Apr, [facility] [address] [id number] [address] [place] [address], [place] [address] Mar, 2014 [facility] [address] [id number] [address] [place] [address], [place] [address] Mar, 2014 [facility] [address] [id number] [address] [place] [address], [place] [address] Mar, 2014 [facility] [address] [id number] [address] [place] [address], [place] [address] Mar, 2014 [facility] [address] [id number] [address] [place] [address], [place] [address] Mar, 2014 [facility] [address] [id number] [address] [place] [address], [place] [address] Mar, [facility] [address] [id number] [address] [place] [address], [place] [address] Jan, [facility] [address] [id number] [address] [place] [address], [place] [address] Jan, [facility] [address] [id number] [address] [place] [address], [place] [address] Jan, [facility] [address] [id number] [address] [place] [address], [place] [address] Jan, [facility] [address] [id number] [address] [place] [address], [place] [address] Oct, [facility] [address] [id number] [address] [place] [address], [place] [address] Oct, [facility] [address] [id number] [address] [place] [address], [place] [address] Sep, [facility] [address] [id number] [address] [place] [address], [place] [address] Sep, [facility] [address] [id number] [address] [place] [address], [place] [address] Aug, [facility] [address] [id number] [address] [place] [address], [place] [address] Aug, [facility] [address] [id number] [address] [place] [address], [place] [address] Aug, [facility] [address] [id number] [address] [place] [address], [place] [address] Aug, [facility] [address] [id number] [address] [place] [address], [place] [address] Jul, [facility] [address] [id number] [address] [place] [address], [place] [address] Jul, [facility] [address] [id number] [address] [place] [address], [place] [address] June, [facility] [address] [id number] [address] [place] [address], [place] [address] June, [facility] [address] [id number] [address] [place] [address], [place] [address] June, [facility] [address] [id number] [address] [place] [address], [place] [address] June, [facility] [address] [id number] [address] [place] [address], [place] [address] June, [facility] [address] [id number] [address] [place] [address], [place] [address] June, [facility] [address] [id number] [address] [place] [address], [place] [address] May, [facility] [address] [id number] [address] [place] [address], [place] [address] May, [facility] [address] [id number] [address] [place] [address], [place] [address] Apr, [facility] [address] [id number] [address] [place] [address], [place] [address] Apr, [facility] [address] [id number] [address] [place] [address], [place] [address] Apr, [facility] [address] [id number] [address] [place] [address], [place] [address] Apr, [facility] [address] [id number] [address] [place] [address], [place] [address] Apr, [facility] [address] [id number] [address] [place] [address], [place] [address] Mar, [facility] [address] [id number] [address] [place] [address], [place] [address] Mar, [facility] [address] [id number] [address] [place] [address], [place] [address] Mar, [facility] [address] [id number] [address] [place] [address], [place] [address] Mar, [facility] [address] [id number] [address] [place] [address], [place] [address] Feb, [facility] [address] [id number] [address] [place] [address], [place] [address] Feb, [facility] [address] [id number] [address] [place] [address], [place] [address] Jan, [facility] [address] [id number] [address] [place] [address], [place] [address] Jan, [facility] [address] [id number] [address] [place] [address], [place] [address] Jan, [facility] [address] [id number] [address] [place] [address], [place] [address] Jan, [facility] [address] [id number] [address] [place] [address], [place] [address] Jan, [facility] [address] [id number] [address] [place] [address], [place] [address] Jan, [facility] [address] [id number] [address] [place] [address], [place] [address] Dec, [facility] [address] [id number] [address] [place] [address], [place] [address] Dec, [facility] [address] [id number] [address] [place] [address], [place] [address] Nov, [facility] [address] [id number] [address] [place] [address], [place] [address] Nov, [facility] [address] [id number] [address] [place] [address], [place] [address] Oct, [facility] [address] [id number] [address] [place] [address], [place] [address] Aug, [facility] [address] [id number] [address] [place] [address], [place] [address] Aug, [facility] [address] [id number] [address] [place] [address], [place] [address] Jul, [facility] [address] [id number] [address] [place] [address], [place] [address] May, [facility] [address] [id number] [address] [place] [address], [place] [address] Apr, [facility] [address] [id number] [address] [place] [address], [place] [address] Apr, [facility] [address] [id number] [address] [place] [address] Mar, [facility] [address] [id number] [address] [place] [address], [place] [address] Dec, [facility] [address] [id number] [address] [place] [address], [place] [address] Dec, [facility] [address] [id number] [address] [place] [address], [place] [address] 15 Dec, 2011 [facility] [address] [id number] [address] [place] [address], [place] [address] Dec, [facility] [address] [id number] [address] [place] [address], [place] [address] Dec, [facility] [address] [id number] [address] [place] [address], [place] [address] Dec, [facility] [address] [id number] [address] [place] [address], [place] [address] Nov, [facility] [address] [id number] [address] [place] [address], [place] [address] Nov, [facility] [address] [id number] [address] [place] [address], [place] [address] Nov, [facility] [address] [id number] [address] [place] [address], [place] [address] Nov, [facility] [address] [id number] [address] [place] [address], [place] [address] Sep, [facility] [address] [id number] [address] [place] [address], [place] [address] Sep, [facility] [address] [id number] [address] [place] [address], [place] [address] Aug, [facility] [address] [id number] [address] [place] [address], [place] [address] Aug, [facility] [address] [id number] [address] [place] [address], [place] [address] May, [facility] [address] [id number] [address] [place] [address], [place] [address] May, [facility] [address] [id number] [address] [place] [address], [place] [address] May, [facility] [address] [id number] [address] [place] [address], [place] [address] Apr, [facility] [address] [id number] [address] [place] [address], [place] [address] Apr, [facility] [address] [id number] [address] [place] [address], [place] [address] Apr, [facility] [address] [id number] [address] [place] [address], [place] [address] Feb, [facility] [address] [id number] [address] [place] [address], [place] [address] Feb, [facility] [address] [id number] [address] [place] [address], [place] [address] Jan, [facility] [address] [id number] [address] [place] [address], [place] [address] Jan, [facility] [address] [id number] [address] [place] [address], [place] [address] Dec, [facility] [address] [id number] [address] [place] [address], [place] [address] Dec, [facility] [address] [id number] [address] [place] [address], [place] [address] Dec, [facility] [address] [id number] [address] [place] [address], [place] [address] Nov, [facility] [address] [id number] [address] [place] [address], [place] [address] Nov, [facility] [address] [id number] [address] [place] [address], [place] [address] 15 Mar, 2010 [facility] [address] [id number] [address] [place] [address], [place] [address] Jan, [facility] [address] [id number] [address] [place] [address], [place] [address] Dec, [facility] [address] [id number] [address] [place] [address], [place] [address] Dec, [facility] [address] [id number] [address] [place] [address], [place] [address] Dec, [facility] [address] [id number] [address] [place] [address] Dec, [facility] [address] [facility] [id number] [address] [place] [address] Nov, [facility] [address] [facility] [id number] [address] [place] [address] Jan, [facility] [address] [facility] [id number] [address] [place] [address] Nov, [facility] [address] [facility] [id number] [address] [place] [address] Nov, IMMUNIZATIONS No Known Immunizations SOCIAL HISTORY [...]
--- OUTSIDE RECORDS SUMMARY | 2019-05-01 17:47 | XMS REPORT ---
Author Author Candace VAZQUEZ Organization [facility] Address [address] [place] [address] Care Team Providers Care Caption Writer Name Role Phone ANASTACIO VAZQUEZ Unavailable PROBLEMS Type Condition ICD9-CM Code [id number] Code Onset Dates Condition S tatus SNOMED Code Problem Mood disorder F39 Active 230597 05 Problem Sleep apnea in adult G47.33 Active 21503831 Problem Hypothyroid E03.9 Active 73948203 Problem Psoriasis L40.9 Active 3463252 Problem Essential (primary) hypertension I10 Active 52673159 Problem Slow transit constipation K59.01 Acti ve 39259636 Problem Migraine with aura, not intractable, without sta tus migrainosus G43.109 Active 97371617 Problem Hyperlipidemia, unspecified hyperlipidemia type E7 8.5 Active 54913185 Problem Lipoma D17.9 Active 52408732 Problem Sleep apnea, unspecified G47.30 Activ e 25609152 Problem Seasonal allergic rhinitis due to pollen J30.1 Active 53695923 ALLERGIES Substance Reaction Event Type Date Status Tetanus Unknown Drug Allergy Mar, Active ENCOUNTERS Encounter Location Date Diagnosis [id number] [address] [place] [address] Mar, Hypothyroid E03.9 ; Hyperlip idemia, unspecified hyperlipidemia type E78.5 ; Tension headache G44.209 ; Psoriasis L40.9 and Breast cancer screening by mammogram Z12.31 [place] [id number] [place] [address] Feb, Essential (primary) hyperten vandana I10 [place] [address] [place] [id number] [address] [place] [address] Feb, Essential (primary) hyperten vandana I10 [place] [address] [address] Dec, Essential (primary) hyperten vandana I10 [place] [address] [address] Nov, Migraine with aura, not intr actable, without status migrainosus G43.109 [place] [address] [address] Oct, Dysuria R30.0 [place] [address] [address] Sep, Psoriasis L40.[address] [address] Aug, Psoriasis L40.9 ; Poison jaylon L23.7 ; Slow transit constipation K59.01 ; Breast cancer screening by mammogram Z12.31 and Colon cancer screening Z12.11 [place] [address] [address] Jul, Poison jaylon L23.7 [place] [address] [address] Apr, Elevated LFTs R79.89 ; Hypot hyroid E03.9 ; Hyperlipidemia, unspecified hyperlipidemia type E78.5 ; Seasonal allergic rhinitis due to pollen J30.1 and Essential (primary) hypertension I10 [place] [address] [address] Mar, [place] [address] [address] Mar, [place] [address] [address] Feb, Hypothyroid E03.9 and Hyperl ipidemia, unspecified hyperlipidemia type E78.5 [place] [address] [address] 13 Dec, 2017 Sleep apnea, unspecified G47 .30 ; Hypothyroid E03.9 and Hyperlipidemia, unspecified hyperlipidemia type E78.5 [place] [address] [address] Jan, [place] [address] [address] Jan, [place] [address] [address] Dec, [facility] [address] [address] Oct, Blood in stool K92.1 and Ext ernal hemorrhoid, bleeding K64.4 [place] [address] [address] Aug, Migraine with aura, not intr actable, without status migrainosus G43.109 [place] [address] [address] June, Breast cancer screening Z12. 39 [place] [address] [address] May, Callus L84 [place] [address] [address] Apr, Callus L84 [place] [address] [address] Apr, Hypothyroid E03.9 [place] [address] [address] 15 Apr, 2016 Hypothyroid E03.9 ; Callus L 84 and Hidradenitis L73.2 [place] [address] [address] Jan, Hyperlipidemia, unspecified hyperlipidemia type E78.5 [place] [address] [address] Jan, [place] [address] [place] [id number] [address] [place] [address] Oct, Hyperlipidemia, unspecified hyperlipidemia type E78.5 [facility] [address] [address] Oct, Seroma T14.8 [facility] [address] [address] Sep, [facility] [address] [address] Sep, Hyperlipidemia, unspecified hyperlipidemia type E78.5 and Hypothyroid E03.9 [place] [address] [address] Sep, Hyperlipidemia, unspecified hyperlipidemia type E78.5 ; Hypothyroid E03.9 ; Tension headache G44.209 and Candidiasis of anus B37.89 [place] [address] [address] Jul, [place] [address] [address] June, Tension headache G44.209 [place] [address] [place] [id number] [address] [place] [address] Apr, Hyperlipidemia, unspecified hyperlipidemia type E78.5 ; Hypothyroid E03.9 ; Lipoma D17.9 and Breast cancer screening Z12.39 [place] [address] [place] [id number] [place] [address] Mar, [facility] [address] [place] [id number] [address] [place] [id number] Mar, 2015 Encounter for dental examina tion Z01.20 [facility] [address] [place] [address] Feb, [facility] [address] [place] [id number] [address] [place] [address] Jan, Allergic rhinitis J30.9 [facility] [address] [facility] [id number] [address] [place] [address] Jan, [facility] [address] [place] [id number] [place] [address] Dec, Dysuria R30.0 and UTI (urina ry tract infection) N39.0 [facility] [address] [address] Dec, [facility] [address] [place] [id number] [place] [address] Dec, Dysuria R30.0 and Urinary tr act infection, site unspecified N39.0 [facility] [address] [place] [id number] [place] [address] Nov, Benign lipomatous neoplasm o f skin and subcutaneous tissue of head, face and neck D17.0 and Hypothyroidism, unspecified E03.9 [facility] [address] [address] Sep, [facility] [address] [address] Aug, Hypothyroidism 244.9 [facility] [address] [address] Jul, Hypothyroidism 244.9 [facility] [address] [address] Jul, Sleep apnea 780.57 [facility] [address] [address] May, [facility] [address] [address] May, [facility] [address] [address] Apr, [facility] [address] [address] Apr, [facility] [address] [id number] [address] [place] [address], [place] [address] Mar, 2014 [facility] [address] [id number] [address] [place] [address], [place] [address] Mar, 2014 [facility] [address] [id number] [address] [place] [address], [place] [address] Mar, 2014 [facility] [address] [id number] [address] [place] [address], [place] [address] Mar, 2014 [facility] [address] [id number] [address] [place] [address], [place] [address] Mar, 2014 [facility] [address] [id number] [address] [place] [address], [place] [address] Mar, 2014 [facility] [address] [id number] [address] [place] [address], [place] [address] Jan, [facility] [address] [id number] [address] [place] [address], [place] [address] Jan, [facility] [address] [id number] [address] [place] [address], [place] [address] Jan, [facility] [address] [id number] [address] [place] [address], [place] [address] Jan, [facility] [address] [id number] [address] [place] [address], [place] [address] Oct, [facility] [address] [id number] [address] [place] [address], [place] [address] Oct, [facility] [address] [id number] [address] [place] [address], [place] [address] Sep, [facility] [address] [id number] [address] [place] [address], [place] [address] Sep, [facility] [address] [id number] [address] [place] [address], [place] [address] Aug, [facility] [address] [id number] [address] [place] [address], [place] [address] Aug, [facility] [address] [id number] [address] [place] [address], [place] [address] Aug, [facility] [address] [id number] [address] [place] [address], [place] [address] Aug, [facility] [address] [id number] [address] [place] [address], [place] [address] Jul, [facility] [address] [id number] [address] [place] [address], [place] [address] Jul, [facility] [address] [id number] [address] [place] [address], [place] [address] June, [facility] [address] [id number] [address] [place] [address], [place] [address] June, [facility] [address] [id number] [address] [place] [address], [place] [address] June, [facility] [address] [id number] [address] [place] [address], [place] [address] June, [facility] [address] [id number] [address] [place] [address], [place] [address] June, [facility] [address] [id number] [address] [place] [address], [place] [address] June, [facility] [address] [id number] [address] [place] [address], [place] [address] May, [facility] [address] [id number] [address] [place] [address], [place] [address] May, [facility] [address] [id number] [address] [place] [address], [place] [address] Apr, [facility] [address] [id number] [address] [place] [address], [place] [address] Apr, [facility] [address] [id number] [address] [place] [address], [place] [address] Apr, [facility] [address] [id number] [address] [place] [address], [place] [address] Apr, [facility] [address] [id number] [address] [place] [address], [place] [address] Apr, [facility] [address] [id number] [address] [place] [address], [place] [address] Mar, [facility] [address] [id number] [address] [place] [address], [place] [address] Mar, [facility] [address] [id number] [address] [place] [address], [place] [address] Mar, [facility] [address] [id number] [address] [place] [address], [place] [address] Mar, [facility] [address] [id number] [address] [place] [address], [place] [address] Feb, [facility] [address] [id number] [address] [place] [address], [place] [address] Feb, [facility] [address] [id number] [address] [place] [address], [place] [address] Jan, [facility] [address] [id number] [address] [place] [address], [place] [address] Jan, [facility] [address] [id number] [address] [place] [address], [place] [address] Jan, [facility] [address] [id number] [address] [place] [address], [place] [address] Jan, [facility] [address] [id number] [address] [place] [address], [place] [address] Jan, [facility] [address] [id number] [address] [place] [address], [place] [address] Jan, [facility] [address] [id number] [address] [place] [address], [place] [address] Dec, [facility] [address] [id number] [address] [place] [address] Dec, [facility] [address] [id number] [address] [place] [address], [place] [address] Nov, [facility] [address] [id number] [address] [place] [address], [place] [address] Nov, [facility] [address] [id number] [address] [place] [address], [place] [address] Oct, [facility] [address] [id number] [address] [place] [address], [place] [address] Aug, [facility] [address] [id number] [address] [place] [address], [place] [address] Aug, [facility] [address] [id number] [address] [place] [address], [place] [address] Jul, [facility] [address] [id number] [address] [place] [address], [place] [address] May, [facility] [address] [id number] [address] [place] [address], [place] [address] Apr, [facility] [address] [id number] [address] [place] [address], [place] [address] Apr, [facility] [address] [id number] [address] [place] [address], [place] [address] Mar, [facility] [address] [id number] [address] [place] [address], [place] [address] 16 Dec, 2011 [facility] [address] [id number] [address] [place] [address], [place] [address] 16 Dec, 2011 [facility] [address] [id number] [address] [place] [address], [place] [address] 15 Dec, 2011 [facility] [address] [id number] [address] [place] [address], [place] [address] 15 Dec, 2011 [facility] [address] [id number] [address] [place] [address], [place] [address] Dec, [facility] [address] [id number] [address] [place] [address], [place] [address] Dec, [facility] [address] [id number] [address] [place] [address], [place] [address] Nov, [facility] [address] [id number] [address] [place] [address], [place] [address] Nov, [facility] [address] [id number] [address] [place] [address], [place] [address] Nov, [facility] [address] [id number] [address] [place] [address], [place] [address] Nov, [facility] [address] [id number] [address] [place] [address], [place] [address] Sep, [facility] [address] [id number] [address] [place] [address], [place] [address] Sep, [facility] [address] [id number] [address] [place] [address], [place] [address] Aug, [facility] [address] [id number] [address] [place] [address], [place] [address] Aug, [facility] [address] [id number] [address] [place] [address], [place] [address] May, [facility] [address] [id number] [address] [place] [address], [place] [address] May, [facility] [address] [id number] [address] [place] [address], [place] [address] May, [facility] [address] [id number] [address] [place] [address], [place] [address] Apr, [facility] [address] [id number] [address] [place] [address], [place] [address] Apr, [facility] [address] [id number] [address] [place] [address], [place] [address] Apr, [facility] [address] [id number] [address] [place] [address], [place] [address] Feb, [facility] [address] [id number] [address] [place] [address], [place] [address] Feb, [facility] [address] [id number] [address] [place] [address], [place] [address] Jan, [facility] [address] [id number] [address] [place] [address], [place] [address] Jan, [facility] [address] [id number] [address] [place] [address], [place] [address] Dec, [facility] [address] [id number] [address] [place] [address], [place] [address] Dec, [facility] [address] [id number] [address] [place] [address], [place] [address] Dec, [facility] [address] [id number] [address] [place] [address], [place] [address] Nov, [facility] [address] [id number] [address] [place] [address], [place] [address] Nov, [facility] [address] [id number] [address] [place] [address], [place] [address] 15 Mar, 2010 [facility] [address] [id number] [address] [place] [address], [place] [address] 16 Jan, 2010 [facility] [address] [id number] [address] [place] [address], [place] [address] Dec, [facility] [address] [id number] [address] [place] [address], [place] [address] Dec, [facility] [address] [id number] [address] [place] [address], [place] [address] Dec, [facility] [address] [id number] [address] [place] [address], [place] [address] Dec, [facility] [address] [id number] [address] [place] [address], [place] [address] 18 Nov, 2009 [facility] [address] [id number] [address] [place] [address] 14 Jan, 2009 [facility] [address] [facility] [id number] [address] [place] [address] 14 Nov, 2008 [facility] [address] [facility] [id number] [address] [place] [address] 12 Nov, 2008 IMMUNIZATIONS No Known Immunizations SOCIAL HISTORY Never Assessed REASON FOR VISIT Hypothyroid --ДМИТРИЙ Rachel PLAN OF CARE Activity Details Follow Up 6 Months Reason:CHM Pending Test LIPID PANEL Pending Test CMP Pending Test CBC Pending Test TSH Pending Test Mammogram, Bilateral Screeni ng VITAL SIGNS Height 67 in 2018-04-02 Weight 212.7 lbs 2018-04-02 Temperature 97.9 degrees Fahrenheit 2018-04-02 Heart Rate 84 bpm 2018-04-02 Respiratory Rate 18 2018-04-02 Oximetry 98 % 2018-04-02 BMI 33.31 kg/m2 2018-04-02 Blood pressure systolic 122 mmHg 2018-04-02 Blood pressure diastolic 68 mmHg 2018-04-02 MEDICATIONS Medication Instructions Dosage Frequency Start Date End Date Duration S tatus Propranolol HCl 20 mg Orally twice a day 1 tablet on an empty stoma ch 12h Feb, 30 days Active Levothyroxine Sodium 150 MCG TAKE ONE TA BLET BY MOUTH DAILY ON AN EMPTY STOMACH Active Triamcinolone Acetonide 0.5 % Externally Twice a day as need ed 1 application to affected area Sep, Active Flonase 50 MCG/ACT Nasally Once a day 1 spray in each nostril 24h Active Lipitor 80 Orally Once a day 1 tablet 24h 90 Ac tive Amitriptyline HCl 150 MG Orally Once a day 1 tablet 24h 08 Jan, 2017 30 day(s) Active Lumigan 0.01 % Ophthalmic Once a day 1 drop into affected eye i n the evening 24h Active Gabapentin 300 MG Orally twice a day 1 capsule 12h Nov, 30 day(s) Active Levothyroxine Sodium 150 TAKE ONE TABLET BY MOUTH SEBASTIAN Y ON AN EMPTY STOMACH 90 Active Timolol Maleate 20 mg Orally 2 times a day 1 tablet 12h 90 days Active RESULTS No Results PROCEDURES Procedure Date Ordered Result Body Site [facility] VISIT ESTABLISHED PATIENT Apr 02, 2018 LAB NOT BILLED BY [facility] Apr 02, 2018 INSTRUCTIONS MEDICATIONS ADMINISTERED No Known Medications MEDICAL [...] eye surgery 1976 Surgical History facial reconstruction 1987 Surgical History jaw surgery Hospitalization History surgeries
--- OUTSIDE RECORDS SUMMARY | 2019-05-01 17:47 | XMS REPORT ---
Author Author Candace VAZQUEZ Organization [facility] Address [address] [place] [address] Care Team Providers Care Platform Beater Name Role Phone ANASTACIO VAZQUEZ Unavailable PROBLEMS Type Condition ICD9-CM Code CTX43-DD Code Onset Dates Condition S tatus SNOMED Code Problem Mood disorder F39 Active 558240 05 Problem Hypothyroid E03.9 Active 48438553 Problem Sleep apnea in adult G47.33 Active 98869570 Problem Migraine with aura, not intractable, without sta tus migrainosus G43.109 Active 72446557 Problem Essential (primary) hypertension I10 Active 61125444 Problem Slow transit constipation K59.01 Acti ve 08664903 Problem Psoriasis L40.9 Active 9623347 Problem Lipoma D17.9 Active 35763890 Problem Hyperlipidemia, unspecified hyperlipidemia type E7 8.5 Active 39649153 Problem Seasonal allergic rhinitis due to pollen J30.1 Active 54168605 Problem Sleep apnea, unspecified G47.30 Activ e 69290520 ALLERGIES No Information ENCOUNTERS Encounter Location Date Diagnosis [facility] [address] [address] Dec, Essential (primary) hyperten vandana I10 [facility] [address] [id number] [place] [address] Nov, Migraine with aura, not intr actable, without status migrainosus G43.109 [facility] [id number] [place] [id number] 04 Oct, 2017 Dysuria R30.0 [facility] [id number] [place] [id number] Sep, Psoriasis L40.9 [facility] [address] [address] Aug, Psoriasis L40.9 ; Poison jaylon L23.7 ; Slow transit constipation K59.01 ; Breast cancer screening by mammogram Z12.31 and Colon cancer screening Z12.11 [facility] [address] [address] Jul, Poison jaylon L23.7 [place] [address] [address] Apr, Elevated LFTs R79.89 ; Hypot hyroid E03.9 ; Hyperlipidemia, unspecified hyperlipidemia type E78.5 ; Seasonal allergic rhinitis due to pollen J30.1 and Essential (primary) hypertension I10 [place] [address] [address] Mar, [place] [address] [address] Mar, [place] [address] [address] Feb, Hypothyroid E03.9 and Hyperl ipidemia, unspecified hyperlipidemia type E78.5 [place] [address] [address] Jan, Sleep apnea, unspecified G47 .30 ; Hypothyroid E03.9 and Hyperlipidemia, unspecified hyperlipidemia type E78.5 [place] [address] [address] Jan, [place] [address] [address] Jan, [place] [address] [address] Dec, [facility] [id number] [place] [address] 19 Oct, 2016 Blood in stool K92.1 and Ext ernal hemorrhoid, bleeding K64.4 [place] [address] [place] [address] [id number] [place] [address] Aug, Migraine with aura, not intr actable, without status migrainosus G43.109 [place] [address] [place] [address] [id number] [place] [address] June, Breast cancer screening Z12. 39 [place] [address] [address] May, Callus L84 [place] [address] [address] Apr, Callus L84 [place] [address] [address] Apr, Hypothyroid E03.9 [place] [address] [address] Apr, Hypothyroid E03.9 ; Callus L 84 and Hidradenitis L73.2 [place] [address] [address] Jan, Hyperlipidemia, unspecified hyperlipidemia type E78.5 [place] [address] [address] Jan, [place] [address] [address] Oct, Hyperlipidemia, unspecified hyperlipidemia type E78.5 [place] [address] [address] Oct, Seroma T14.8 [place] [address] [address] Sep, [place] [address] [address] Sep, Hyperlipidemia, unspecified hyperlipidemia type E78.5 and Hypothyroid E03.9 [place] [address] [address] Sep, Hyperlipidemia, unspecified hyperlipidemia type E78.5 ; Hypothyroid E03.9 ; Tension headache G44.209 and Candidiasis of anus B37.89 [facility] [id number] [place] [address] Jul, [facility] [id number] [place] [address] June, Tension headache G44.209 [place] [address] [place] [address] [id number] [place] [address] Apr, Hyperlipidemia, unspecified hyperlipidemia type E78.5 ; Hypothyroid E03.9 ; Lipoma D17.9 and Breast cancer screening Z12.39 [place] [address] [address] [id number] [place] [address] Mar, [facility] [id number] [place] [id number] 10 Mar, 2015 Encounter for dental examina tion Z01.20 [place] [address] [place] [address] [id number] [place] [address] Feb, [facility] [address] [address] Jan, Allergic rhinitis J30.9 [place] [address] [place] [id number] [place] [address] Jan, [facility] [id number] [place] [address] Dec, Dysuria R30.0 and UTI (urina ry tract infection) N39.0 [place] [address] [address] Dec, [place] [address] [place] [id number] [place] [address] Dec, Dysuria R30.0 and Urinary tr act infection, site unspecified N39.0 [place] [address] [facility] [id number] [address] [place] [address] Nov, Benign lipomatous neoplasm o f skin and subcutaneous tissue of head, face and neck D17.0 and Hypothyroidism, unspecified E03.9 [facility] [address] [id number] [address] [place] [address] Sep, [facility] [address] [facility] [id number] [address] [place] [address] Aug, Hypothyroidism 244.9 [facility] [address] [id number] [address] [place] [address] Jul, Hypothyroidism 244.9 [facility] [address] [facility] [id number] [address] [place] [address] Jul, Sleep apnea 780.57 [facility] [address] [facility] [id number] [address] [place] [address] May, [facility] [address] [facility] [id number] [address] [place] [address] May, [facility] [address] [facility] [id number] [address] [place] [address] Apr, [facility] [address] [facility] [id number] [address] [place] [address] Apr, [facility] [address] [facility] [id number] [address] [place] [address] Mar, [facility] [address] [facility] [id number] [address] [place] [phone] Mar, [facility] [address] [facility] [id number] [address] [place] [phone] Mar, [facility] [address] [facility] [id number] [address] [place] [address] Mar, [facility] [address] [facility] [id number] [address] [place] [id number] Mar, [facility] [address] [id number] [address] [place] [address], [place] [id number] Mar, [facility] [address] [id number] [address] [place] [address], [place] [id number] Jan, [facility] [address] [id number] [address] [place] [address], [place] [id number] Jan, [facility] [address] [id number] [address] [place] [address], [place] [id number] Jan, [facility] [address] [id number] [address] [place] [address], [place] [id number] Jan, [facility] [address] [id number] [address] [place] [address], [place] [id number] Oct, [facility] [address] [id number] [address] [place] [address], [place] [id number] Oct, [facility] [address] [id number] [address] [place] [address], [place] [id number] Sep, [facility] [address] [id number] [address] [place] [address], [place] [id number] Sep, [facility] [address] [id number] [address] [place] [address], [place] [id number] Aug, [facility] [address] [id number] [address] [place] [address], [place] [id number] Aug, [facility] [address] [id number] [address] [place] [address], [place] [id number] Aug, [facility] [address] [id number] [address] [place] [address], [place] [id number] Aug, [facility] [address] [id number] [address] [place] [address], [place] [id number] Jul, [facility] [address] [id number] [address] [place] [address], [place] [id number] Jul, [facility] [address] [id number] [address] [place] [address], [place] [id number] June, [facility] [address] [id number] [address] [place] [address], [place] [id number] June, [facility] [address] [id number] [address] [place] [address], [place] [id number] June, [facility] [address] [id number] [address] [place] [address], [place] [id number] June, [facility] [address] [id number] [address] [place] [address], [place] [id number] June, [facility] [address] [id number] [address] [place] [address], [place] [id number] June, [facility] [address] [id number] [address] [place] [address], [place] [id number] May, [facility] [address] [id number] [address] [place] [address], [place] [id number] May, [facility] [address] [id number] [address] [place] [address], [place] [id number] Apr, [facility] [address] [id number] [address] [place] [address], [place] [id number] Apr, [facility] [address] [id number] [address] [place] [address], [place] [id number] Apr, [facility] [address] [id number] [address] [place] [address], [place] [id number] Apr, [facility] [address] [id number] [address] [place] [address], [place] [id number] Apr, [facility] [address] [id number] [address] [place] [address], [place] [id number] Mar, [facility] [address] [id number] [address] [place] [address], [place] [id number] Mar, [facility] [address] [id number] [address] [place] [address], [place] [id number] Mar, [facility] [address] [id number] [address] [place] [address], [place] [id number] 13 Mar, 2013 [facility] [address] [id number] [address] [place] [address], [place] [id number] Feb, [facility] [address] [id number] [address] [place] [address], [place] [id number] Feb, [facility] [address] [id number] [address] [place] [address], [place] [id number] Jan, [facility] [address] [id number] [address] [place] [address], [place] [id number] Jan, [facility] [address] [id number] [address] [place] [address], [place] [id number] Jan, [facility] [address] [id number] [address] [place] [address], [place] [id number] Jan, [facility] [address] [id number] [address] [place] [address], [place] [id number] Jan, [facility] [address] [id number] [address] [place] [address], [place] [id number] Jan, [facility] [address] [id number] [address] [place] [address], [place] [id number] Dec, [facility] [address] [id number] [address] [place] [address], [place] [id number] Dec, [facility] [address] [id number] [address] [place] [address], [place] [id number] Nov, [facility] [address] [id number] [address] [place] [address], [place] [id number] Nov, [facility] [address] [id number] [address] [place] [address], [place] [id number] Oct, [facility] [address] [id number] [address] [place] [address], [place] [id number] Aug, [facility] [address] [id number] [address] [place] [address], [place] [id number] Aug, [facility] [address] [id number] [address] [place] [address], [place] [id number] Jul, [facility] [address] [id number] [address] [place] [address], [place] [id number] May, [facility] [address] [id number] [address] [place] [address], [place] [id number] Apr, [facility] [address] [id number] [address] [place] [address], [place] [id number] Apr, [facility] [address] [id number] [address] [place] [address], [place] [id number] Mar, [facility] [address] [id number] [address] [place] [address], [place] [id number] Dec, [facility] [address] [id number] [address] [place] [address], [place] [id number] Dec, [facility] [address] [id number] [address] [place] [address], [place] [id number] Dec, [facility] [address] [id number] [address] [place] [address], [place] [id number] Dec, [facility] [address] [id number] [address] [place] [address], [place] [id number] Dec, [facility] [address] [id number] [address] [place] [address], [place] [id number] Dec, [facility] [address] [id number] [address] [place] [address], [place] [id number] Nov, [facility] [address] [id number] [address] [place] [address], [place] [id number] Nov, [facility] [address] [id number] [address] [place] [address], [place] [id number] Nov, [facility] [address] [id number] [address] [place] [address], [place] [id number] Nov, [facility] [address] [id number] [address] [place] [address], [place] [id number] Sep, [facility] [address] [id number] [address] [place] [address], [place] [id number] Sep, [facility] [address] [id number] [address] [place] [address], [place] [id number] Aug, [facility] [address] [id number] [address] [place] [address], [place] [id number] Aug, [facility] [address] [id number] [address] [place] [address], [place] [id number] May, [facility] [address] [id number] [address] [place] [address], [place] [id number] May, [facility] [address] [id number] [address] [place] [address], [place] [id number] May, [facility] [address] [id number] [address] [place] [address], [place] [id number] Apr, [facility] [address] [id number] [address] [place] [address], [place] [id number] Apr, [facility] [address] [id number] [address] [place] [address], [place] [id number] Apr, [facility] [address] [id number] [address] [place] [address], [place] [id number] Feb, [facility] [address] [id number] [address] [place] [address], [place] [id number] Feb, [facility] [address] [id number] [address] [place] [address], [place] [id number] Jan, [facility] [address] [id number] [address] [place] [address], [place] [id number] Jan, [facility] [address] [id number] [address] [place] [address], [place] [id number] Dec, [facility] [address] [id number] [address] [place] [address], [place] [id number] Dec, [facility] [address] [id number] [address] [place] [id number] 07 Dec, 2010 [facility] [address] [id number] [address] [place] [id number] Nov, [facility] [address] [id number] [address] [place] [id number] 10 Nov, 2010 [facility] [address] [id number] [address] [place] [id number] 15 Mar, 2010 [facility] [address] [id number] [address] [place] [id number] Jan, [facility] [address] [id number] [address] [place] [id number] Dec, [facility] [address] [id number] [address] [place] [id number] Dec, [facility] [address] [id number] [address] [place] [id number] Dec, [facility] [address] [id number] [address] [place] [id number] Dec, [facility] [address] [id number] [address] [place] [id number] Nov, [facility] [address] [id number] [address] [place] [id number] Jan, [facility] [address] [id number] [address] [place] [id number] Nov, [facility] [address] [id number] [address] [place] [id number] Nov, IMMUNIZATIONS No Known Immunizations SOCIAL HISTORY Never Assessed REASON FOR VISIT medication reconciliation--per neurology visit PLAN OF CARE VITAL SIGNS MEDICATIONS Medication Instructions Dosage Frequency Start Date End Date Duration S tatus Aspirin 81 81 MG Orally Once a day 1 tablet 24h Dec, Jan, 30 day(s) Active RESULTS No Results PROCEDURES No Known procedures [...] History hysterectomy partial 2000 Surgical History Rhinoplasty 1997 Surgical History eye surgery 1976 Surgical History facial reconstruction 1987 Surgical History jaw surgery Hospitalization History surgeries
--- OUTSIDE RECORDS SUMMARY | 2019-05-01 17:47 | XMS REPORT ---
Author Author Candace Mane Doctor Organization [facility] Address Unknown Phone Unavailable Care Team Providers Care Railway Head Tender Name Role Phone Migration, Doctor Unavailable Unavailable PROBLEMS Type Condition ICD9-CM Code [id number] Code Onset Dates Condition S tatus SNOMED Code Problem Mood disorder F39 Active 055081 05 Problem Sleep apnea in adult G47.33 Active 14868003 Problem Hypothyroid E03.9 Active 33316414 Problem Psoriasis L40.9 Active 4503020 Problem Essential (primary) hypertension I10 Active 64799876 Problem Slow transit constipation K59.01 Acti ve 13060865 Problem Migraine with aura, not intractable, without sta tus migrainosus G43.109 Active 73907611 Problem Hyperlipidemia, unspecified hyperlipidemia type E7 8.5 Active 48987666 Problem Lipoma D17.9 Active 14011731 Problem Sleep apnea, unspecified G47.30 Activ e 81200570 Problem Seasonal allergic rhinitis due to pollen J30.1 Active 60946434 ALLERGIES No Information ENCOUNTERS Encounter Location Date Diagnosis [place] [address] [place] [id number] [place] [address] 13 Mar, 2018 Hypothyroid E03.9 ; Hyperlip idemia, unspecified hyperlipidemia type E78.5 ; Tension headache G44.209 ; Psoriasis L40.9 and Breast cancer screening by mammogram Z12.31 [place] [address] [place] [address] Feb, Essential (primary) hyperten vandana I10 [place] [address] [place] [id number] [place] [address] Feb, Essential (primary) hyperten vandana I10 [place] [address] [place] [id number] [address] [place] [id number] 05 Dec, 2017 Essential (primary) hyperten vandana I10 [place] [address] [address] Nov, Migraine with aura, not intr actable, without status migrainosus G43.109 [facility] [place] [address] [address] Oct, Dysuria R30.0 [place] [address] [address] Sep, Psoriasis L40.9 [place] [address] [address] Aug, Psoriasis L40.9 ; Poison jaylon L23.7 ; Slow transit constipation K59.01 ; Breast cancer screening by mammogram Z12.31 and Colon cancer screening Z12.11 [place] [address] [address] Jul, Poison jaylon L23.7 [place] [address] [address] Apr, Elevated LFTs R79.89 ; Hypot hyroid E03.9 ; Hyperlipidemia, unspecified hyperlipidemia type E78.5 ; Seasonal allergic rhinitis due to pollen J30.1 and Essential (primary) hypertension I10 [place] [address] [address] Mar, [place] [address] [address] Mar, [place] [address] [address] Feb, Hypothyroid E03.9 and Hyperl ipidemia, unspecified hyperlipidemia type E78.5 [place] [address] [address] Jan, Sleep apnea, unspecified G47 .30 ; Hypothyroid E03.9 and Hyperlipidemia, unspecified hyperlipidemia type E78.5 [place] [address] [address] Jan, [facility] [address] [place] [address] Jan, [facility] [address] [place] [id number] [address] [place] [address] Dec, [facility] [address] [place] [id number] [address] [place] [address] Oct, Blood in stool K92.1 and Ext ernal hemorrhoid, bleeding K64.4 [facility] [address] [place] [id number] [place] [address] Aug, Migraine with aura, not intr actable, without status migrainosus G43.109 [place] [address] [place] [id number] [place] [address] June, Breast cancer screening Z12. 39 [place] [address] [address] May, Callus L84 [place] [address] [place] [id number] [place] [address] Apr, Callus L84 [place] [address] [place] [id number] [place] [address] Apr, Hypothyroid E03.9 [place] [address] [address] Apr, Hypothyroid E03.9 ; Callus L 84 and Hidradenitis L73.2 [facility] [address] [facility] [id number] [address] [place] [address] Jan, Hyperlipidemia, unspecified hyperlipidemia type E78.5 [place] [address] [place] [id number] [place] [address] Jan, [place] [address] [place] [id number] [address] [place] [address] 13 Oct, 2015 Hyperlipidemia, unspecified hyperlipidemia type E78.5 [place] [address] [place] [id number] [place] [address] Oct, Seroma T14.8 [facility] [address] [address] Sep, [facility] [address] [place] [id number] [place] [address] Sep, Hyperlipidemia, unspecified hyperlipidemia type E78.5 and Hypothyroid E03.9 [facility] [address] [address] Sep, Hyperlipidemia, unspecified hyperlipidemia type E78.5 ; Hypothyroid E03.9 ; Tension headache G44.209 and Candidiasis of anus B37.89 [facility] [address] [place] [id number] [place] [address] Jul, [place] [address] [address] June, Tension headache G44.209 [facility] [address] [place] [id number] [place] [address] Apr, Hyperlipidemia, unspecified hyperlipidemia type E78.5 ; Hypothyroid E03.9 ; Lipoma D17.9 and Breast cancer screening Z12.39 [facility] [address] [place] [address] Mar, [facility] [address] [place] [id number] 10 Mar, 2015 Encounter for dental examina tion Z01.20 [facility] [address] [place] [address] Feb, [facility] [address] [place] [id number] [place] [address] Jan, Allergic rhinitis J30.9 [facility] [address] [place] [id number] [place] [address] Jan, [facility] [address] [place] [id number] [place] [address] Dec, Dysuria R30.0 and UTI (urina ry tract infection) N39.0 [facility] [address] [id number] [address] [place] [address] Dec, [facility] [address] [facility] [id number] [address] [place] [address] Dec, Dysuria R30.0 and Urinary tr act infection, site unspecified N39.0 [facility] [address] [id number] [address] [place] [address] Nov, Benign lipomatous neoplasm o f skin and subcutaneous tissue of head, face and neck D17.0 and Hypothyroidism, unspecified E03.9 [facility] [address] [facility] [id number] [address] [place] [address] Sep, [facility] [address] [facility] [id number] [address] [place] [address] Aug, Hypothyroidism 244.9 [facility] [address] [facility] [id number] [address] [place] [address] Jul, Hypothyroidism 244.9 [facility] [address] [facility] [id number] [address] [place] [address] Jul, Sleep apnea 780.57 [facility] [address] [facility] [id number] [address] [place] [address] May, [facility] [address] [facility] [id number] [address] [place] [address] May, [facility] [address] [facility] [id number] [address] [place] [address] Apr, [facility] [address] [facility] [id number] [address] [place] [address] Apr, [facility] [address] [facility] [id number] [address] [place] [address] Mar, [facility] [address] [id number] [address] [place] [address], [place] [address] 08 Mar, 2014 [facility] [address] [id number] [address] [place] [address], [place] [address] Mar, 2014 [facility] [address] [id number] [address] [place] [address], [place] [address] Mar, 2014 [facility] [address] [id number] [address] [place] [address], [place] [address] Mar, 2014 [facility] [address] [id number] [address] [place] [address], [place] [address] Mar, 2014 [facility] [address] [id number] [address] [place] [address], [place] [address] Jan, [facility] [address] [id number] [address] [place] [address], [place] [address] Jan, [facility] [address] [id number] [address] [place] [address], [place] [address] Jan, [facility] [address] [id number] [address] [place] [address], [place] [address] Jan, [facility] [address] [id number] [address] [place] [address], [place] [address] Oct, [facility] [address] [id number] [address] [place] [address], [place] [address] Oct, [facility] [address] [id number] [address] [place] [address], [place] [address] Sep, [facility] [address] [id number] [address] [place] [address], [place] [address] Sep, [facility] [address] [id number] [address] [place] [address], [place] [address] Aug, [facility] [address] [id number] [address] [place] [address], [place] [address] Aug, [facility] [address] [id number] [address] [place] [address], [place] [address] Aug, [facility] [address] [id number] [facility] [place] [address] Aug, [facility] [address] [id number] [address] [place] [address], [place] [address] Jul, [facility] [address] [id number] [address] [place] [address], [place] [address] Jul, [facility] [address] [id number] [address] [place] [address], [place] [address] June, [facility] [address] [id number] [address] [place] [address], [place] [address] June, [facility] [address] [id number] [address] [place] [address], [place] [address] June, [facility] [address] [id number] [address] [place] [address], [place] [address] June, [facility] [address] [id number] [address] [place] [address], [place] [address] June, [facility] [address] [id number] [address] [place] [address], [place] [address] June, [facility] [address] [id number] [address] [place] [address], [place] [address] May, [facility] [address] [id number] [address] [place] [address], [place] [address] May, [facility] [address] [id number] [address] [place] [address], [place] [address] Apr, [facility] [address] [id number] [address] [place] [address], [place] [address] Apr, [facility] [address] [id number] [address] [place] [address], [place] [address] Apr, [facility] [address] [id number] [address] [place] [address], [place] [address] Apr, [facility] [address] [id number] [address] [place] [address], [place] [address] Apr, [facility] [address] [id number] [address] [place] [address], [place] [address] Mar, [facility] [address] [id number] [address] [place] [address], [place] [address] Mar, [facility] [address] [id number] [address] [place] [address], [place] [address] Mar, [facility] [address] [id number] [address] [place] [address], [place] [address] Mar, [facility] [address] [id number] [address] [place] [address], [place] [address] Feb, [facility] [address] [id number] [address] [place] [address], [place] [address] Feb, [facility] [address] [id number] [address] [place] [address], [place] [address] Jan, [facility] [address] [id number] [address] [place] [address], [place] [address] Jan, [facility] [address] [id number] [address] [place] [address], [place] [address] Jan, [facility] [address] [id number] [address] [place] [address], [place] [address] Jan, [facility] [address] [id number] [address] [place] [address], [place] [address] Jan, [facility] [address] [id number] [address] [place] [address], [place] [address] Jan, [facility] [address] [id number] [address] [place] [address], [place] [address] Dec, [facility] [address] [id number] [address] [place] [address], [place] [address] Dec, [facility] [address] [id number] [address] [place] [address], [place] [address] Nov, [facility] [address] [id number] [address] [place] [address], [place] [address] Nov, [facility] [address] [id number] [address] [place] [address], [place] [address] Oct, [facility] [address] [id number] [address] [place] [address], [place] [address] Aug, [facility] [address] [id number] [address] [place] [address], [place] [address] Aug, [facility] [address] [id number] [address] [place] [address], [place] [address] Jul, [facility] [address] [id number] [address] [place] [address], [place] [address] May, [facility] [address] [id number] [address] [place] [address], [place] [address] Apr, [facility] [address] [id number] [address] [place] [address], [place] [address] Apr, [facility] [address] [id number] [address] [place] [address], [place] [address] Mar, [facility] [address] [id number] [address] [place] [address], [place] [address] 16 Dec, 2011 [facility] [address] [id number] [address] [place] [address], [place] [address] 16 Dec, 2011 [facility] [address] [id number] [address] [place] [address], [place] [address] 15 Dec, 2011 [facility] [address] [id number] [address] [place] [address], [place] [address] 15 Dec, 2011 [facility] [address] [id number] [address] [place] [address], [place] [address] Dec, [facility] [address] [id number] [address] [place] [address], [place] [address] Dec, [facility] [address] [id number] [address] [place] [address], [place] [address] Nov, [facility] [address] [id number] [address] [place] [address], [place] [address] Nov, [facility] [address] [id number] [address] [place] [address], [place] [address] Nov, [facility] [address] [id number] [address] [place] [address], [place] [address] Nov, [facility] [address] [id number] [address] [place] [address], [place] [address] Sep, [facility] [address] [id number] [address] [place] [address], [place] [address] Sep, [facility] [address] [id number] [address] [place] [address], [place] [address] Aug, [facility] [address] [id number] [address] [place] [address], [place] [address] Aug, [facility] [address] [id number] [address] [place] [address], [place] [address] May, [facility] [address] [id number] [address] [place] [address], [place] [address] May, [facility] [address] [id number] [address] [place] [address], [place] [address] May, [facility] [address] [id number] [address] [place] [address], [place] [address] Apr, [facility] [address] [id number] [address] [place] [address], [place] [address] Apr, [facility] [address] [id number] [address] [place] [address], [place] [address] Apr, [facility] [address] [id number] [address] [place] [address], [place] [address] Feb, [facility] [address] [id number] [address] [place] [address], [place] [address] Feb, [facility] [address] [id number] [address] [place] [address], [place] [address] 27 Jan, 2011 [facility] [address] [id number] [address] [place] [address], [place] [address] Jan, [facility] [address] [id number] [address] [place] [address], [place] [address] Dec, [facility] [address] [id number] [address] [place] [address], [place] [address] Dec, [facility] [address] [id number] [address] [place] [address], [place] [address] Dec, [facility] [address] [id number] [address] [place] [address], [place] [address] 12 Nov, 2010 [facility] [address] [id number] [address] [place] [address], [place] [address] 10 Nov, 2010 [facility] [address] [id number] [address] [place] [address], [place] [address] 15 Mar, 2010 [facility] [address] [id number] [address] [place] [address], [place] [address] 16 Jan, 2010 [facility] [address] [id number] [address] [place] [address], [place] [address] 22 Dec, [address] [facility] [address] [id number] [address] [place] [address], [place] [address] 19 Dec, 2009 [facility] [address] [id number] [address] [place] [address], [place] [address] 18 Dec, 2009 [facility] [address] [id number] [address] [place] [address], [place] [address] 18 Dec, 2009 [facility] [address] [id number] [address] [place] [address], [place] [address] 18 Nov, 2009 [facility] [address] [id number] [address] [place] [address], [place] [address] 14 Jan, 2009 [facility] [address] [id number] [address] [place] [address], [place] [address] Nov, [facility] [address] [facility] [id number] [address] [place] [address] Nov, IMMUNIZATIONS No Known Immunizations SOCIAL HISTORY Never Assessed REASON FOR VISIT [facility] [place] VITAL SIGNS MEDICATIONS Medication Instructions Dosage Frequency Start Date End Date Duration S tobias levothyroxine 150 mcg 1 tablet by Oral route 1 time per day Apr, Active amitriptyline by oral route 150mg at hs per Dr Collins Mar, Active Lipitor 40 mg 1 tablet by Oral route 1 time per day 2014 Active Timolol Maleate 20 mg 1 Tablet by Oral r oute 2 times per day 03/[address] Collins pt is taking 30mg Jul, Active Flonase 50 mcg/actuation 1 sprays by Donnell al route 2 times per day in each nostril Apr, Active Aspirin by oral route 325mg daily per Dr Collins due to cerebral small vessels Mar, Active RESULTS No Results PROCEDURES No Known [...]
--- OUTSIDE RECORDS SUMMARY | 2019-05-01 17:47 | XMS REPORT ---
Author Author Candace VAZQUEZ Organization [facility] Address [address] [place] [address] Care Team Providers Care Speech Language Pathologist Name Role Phone ANASTACIO VAZQUEZ Unavailable PROBLEMS Type Condition ICD9-CM Code [id number] Code Onset Dates Condition S tatus SNOMED Code Problem Mood disorder F39 Active 610277 05 Problem Hypothyroid E03.9 Active 31453985 Problem Sleep apnea in adult G47.33 Active 22716793 Problem Migraine with aura, not intractable, without sta tus migrainosus G43.109 Active 95605411 Problem Essential (primary) hypertension I10 Active 89592928 Problem Slow transit constipation K59.01 Acti ve 37094120 Problem Psoriasis L40.9 Active 5495907 Problem Lipoma D17.9 Active 91238110 Problem Hyperlipidemia, unspecified hyperlipidemia type E7 8.5 Active 79466246 Problem Seasonal allergic rhinitis due to pollen J30.1 Active 09579453 Problem Sleep apnea, unspecified G47.30 Activ e [id number] ALLERGIES No Information ENCOUNTERS Encounter Location Date Diagnosis [facility] [address] [id number] [address] [place] [address] Nov, Migraine with aura, not intr actable, without status migrainosus G43.109 [facility] [address] [id number] [address] [place] [address] Oct, Dysuria R30.0 [facility] [address] [address] Sep, Psoriasis L40.9 [facility] [address] [id number] [address] [place] [address] Aug, Psoriasis L40.9 ; Poison jaylon L23.7 ; Slow transit constipation K59.01 ; Breast cancer screening by mammogram Z12.31 and Colon cancer screening Z12.11 [facility] [address] [facility] [id number] [address] [place] [id number] 13 Jul, 2017 Poison jyalon L23.7 [facility] [address] [facility] [id number] [address] [place] [phone] Apr, Elevated LFTs R79.89 ; Hypot hyroid E03.9 ; Hyperlipidemia, unspecified hyperlipidemia type E78.5 ; Seasonal allergic rhinitis due to pollen J30.1 and Essential (primary) hypertension I10 [facility] [address] [facility] [id number] [address] [place] [address] Mar, [place] [address] [facility] [id number] [address] [place] [phone] Mar, [place] [address] [facility] [id number] [address] [place] [address] Feb, Hypothyroid E03.9 and Hyperl ipidemia, unspecified hyperlipidemia type E78.5 [place] [address] [facility] [id number] [address] [place] [address] Jan, Sleep apnea, unspecified G47 .30 ; Hypothyroid E03.9 and Hyperlipidemia, unspecified hyperlipidemia type E78.5 [facility] [address] [facility] [id number] [address] [place] [address] Jan, [place] [address] [place] [id number] [address] [place] [address] Jan, [facility] [address] [facility] [id number] [address] [place] [address] Dec, [facility] [address] [facility] [id number] [address] [place] [id number] Oct, Blood in stool K92.1 and Ext ernal hemorrhoid, bleeding K64.4 [facility] [address] [facility] [id number] [address] [place] [address] Aug, Migraine with aura, not intr actable, without status migrainosus G43.109 [place] [address] [id number] [address] [place] [address] June, Breast cancer screening Z12. 39 [place] [address] [address] May, Callus L84 [place] [address] [address] Apr, Callus L84 [place] [address] [address] Apr, Hypothyroid E03.9 [place] [address] [address] Apr, Hypothyroid E03.9 ; Callus L 84 and Hidradenitis L73.2 [place] [address] [address] Jan, Hyperlipidemia, unspecified hyperlipidemia type E78.5 [place] [address] [address] [id number] [address] [place] [address] Jan, [place] [address] [address] Oct, Hyperlipidemia, unspecified hyperlipidemia type E78.5 [place] [address] [address] Oct, Seroma T14.8 [place] [id number] [place] [address] Sep, [place] [address] [place] [id number] [address] [place] [address] Sep, Hyperlipidemia, unspecified hyperlipidemia type E78.5 and Hypothyroid E03.9 [place] [address] [id number] [address] [place] [address] Sep, Hyperlipidemia, unspecified hyperlipidemia type E78.5 ; Hypothyroid E03.9 ; Tension headache G44.209 and Candidiasis of anus B37.89 [facility] [address] [facility] [id number] [address] [place] [address] Jul, [facility] [address] [facility] [id number] [address] [place] [address] June, Tension headache G44.209 [facility] [address] [facility] [id number] [address] [place] [address] 10 Apr, 2015 Hyperlipidemia, unspecified hyperlipidemia type E78.5 ; Hypothyroid E03.9 ; Lipoma D17.9 and Breast cancer screening Z12.39 [facility] [address] [facility] [id number] [address] [place] [id number] 24 Mar, 2015 [facility] [address] [facility] [id number] [address] [place] [address] [id number] 10 Mar, 2015 Encounter for dental examina tion Z01.20 [place] [address] [place] [id number] [address] [place] [address] Feb, [facility] [address] [id number] [address] [place] [address] Jan, Allergic rhinitis J30.9 [facility] [address] [facility] [id number] [address] [place] [address] Jan, [facility] [address] [id number] [address] [place] [phone] Dec, Dysuria R30.0 and UTI (urina ry tract infection) N39.0 [facility] [address] [facility] [id number] [address] [place] [phone] Dec, [facility] [address] [facility] [id number] [address] [place] [address] Dec, Dysuria R30.0 and Urinary tr act infection, site unspecified N39.0 [facility] [address] [facility] [id number] [address] [place] [address] Nov, Benign lipomatous neoplasm o f skin and subcutaneous tissue of head, face and neck D17.0 and Hypothyroidism, unspecified E03.9 [facility] [address] [facility] [id number] [address] [place] [address] Sep, [facility] [address] [facility] [id number] [address] [place] [address] Aug, Hypothyroidism 244.9 [facility] [address] [facility] [id number] [address] [place] [address] Jul, Hypothyroidism 244.9 [facility] [address] [facility] [id number] [address] [place] [address] Jul, Sleep apnea 780.57 [facility] [address] [facility] [id number] [address] [place] [address] May, [facility] [address] [facility] [id number] [address] [place] [address] May, [facility] [address] [facility] [id number] [address] [place] [address] Apr, [facility] [address] [facility] [id number] [address] [place] [address] Apr, [facility] [address] [facility] [id number] [address] [place] [address] Mar, [facility] [address] [facility] [id number] [address] [place] [address] Mar, [facility] [address] [facility] [id number] [address] [place] [address] Mar, [facility] [address] [facility] [id number] [address] [place] [address] Mar, [facility] [address] [facility] [id number] [address] [place] [address] Mar, [facility] [address] [facility] [id number] [address] [place] [phone] Mar, [facility] [address] [facility] [id number] [address] [place] [phone] Jan, [facility] [address] [id number] [address] [place] [address], [place] [address] Jan, [facility] [address] [id number] [address] [place] [address], [place] [address] Jan, [facility] [address] [id number] [address] [place] [address], [place] [address] Jan, [facility] [address] [id number] [address] [place] [address], [place] [address] Oct, [facility] [address] [id number] [address] [place] [address], [place] [address] Oct, [facility] [address] [id number] [address] [place] [address], [place] [address] Sep, [facility] [address] [id number] [address] [place] [address], [place] [address] Sep, [facility] [address] [id number] [address] [place] [address], [place] [address] Aug, [facility] [address] [id number] [address] [place] [address], [place] [address] Aug, [facility] [address] [id number] [address] [place] [address], [place] [address] Aug, [facility] [address] [id number] [address] [place] [address], [place] [address] Aug, [facility] [address] [id number] [address] [place] [address], [place] [address] Jul, [facility] [address] [id number] [address] [place] [address], [place] [address] Jul, [facility] [address] [id number] [address] [place] [address], [place] [address] June, [facility] [address] [id number] [address] [place] [address], [place] [address] June, [facility] [address] [id number] [address] [place] [address], [place] [address] June, [facility] [address] [id number] [address] [place] [address], [place] [address] June, [facility] [address] [id number] [address] [place] [address], [place] [address] June, [facility] [address] [id number] [address] [place] [address], [place] [address] June, [facility] [address] [id number] [address] [place] [address], [place] [address] May, [facility] [address] [id number] [address] [place] [address], [place] [address] May, [facility] [address] [id number] [address] [place] [address], [place] [address] Apr, [facility] [address] [id number] [address] [place] [address], [place] [address] Apr, [facility] [address] [id number] [address] [place] [address], [place] [address] Apr, [facility] [address] [id number] [address] [place] [address], [place] [address] Apr, [facility] [address] [id number] [address] [place] [address], [place] [address] Apr, [facility] [address] [id number] [address] [place] [address], [place] [address] Mar, [facility] [address] [id number] [address] [place] [address], [place] [address] Mar, [facility] [address] [id number] [address] [place] [address], [place] [address] Mar, [facility] [address] [id number] [address] [place] [address], [place] [address] Mar, [facility] [address] [id number] [address] [place] [address] [address] Feb, [facility] [address] [id number] [address] [place] [address], [place] [address] Feb, [facility] [address] [id number] [address] [place] [address], [place] [address] Jan, [facility] [address] [id number] [address] [place] [address], [place] [address] Jan, [facility] [address] [id number] [address] [place] [address], [place] [address] Jan, [facility] [address] [id number] [address] [place] [address], [place] [address] Jan, [facility] [address] [id number] [address] [place] [address], [place] [address] Jan, [facility] [address] [id number] [address] [place] [address], [place] [address] Jan, [facility] [address] [id number] [address] [place] [address], [place] [address] Dec, [facility] [address] [id number] [address] [place] [address], [place] [address] Dec, [facility] [address] [id number] [address] [place] [address], [place] [address] Nov, [facility] [address] [id number] [address] [place] [address], [place] [address] Nov, [facility] [address] [id number] [address] [place] [address] Oct, [facility] [address] [id number] [address] [place] [address], [place] [address] Aug, [facility] [address] [id number] [address] [place] [address] Aug, [facility] [address] [id number] [address] [place] [address], [place] [address] Jul, [facility] [address] [id number] [address] [place] [address], [place] [address] May, [facility] [address] [id number] [address] [place] [address], [place] [address] Apr, [facility] [address] [id number] [address] [place] [address], [place] [address] Apr, [facility] [address] [id number] [address] [place] [address], [place] [address] Mar, [facility] [address] [id number] [address] [place] [address], [place] [address] Dec, [facility] [address] [id number] [address] [place] [address], [place] [address] Dec, [facility] [address] [id number] [address] [place] [address], [place] [address] Dec, [facility] [address] [id number] [address] [place] [address], [place] [address] Dec, [facility] [address] [id number] [address] [place] [address], [place] [address] Dec, [facility] [address] [id number] [address] [place] [address], [place] [address] Dec, [facility] [address] [id number] [address] [place] [address], [place] [address] Nov, [facility] [address] [id number] [address] [place] [address], [place] [address] Nov, [facility] [address] [id number] [address] [place] [address], [place] [address] Nov, [facility] [address] [id number] [address] [place] [address], [place] [address] Nov, [facility] [address] [id number] [address] [place] [address], [place] [address] Sep, [facility] [address] [id number] [address] [place] [address], [place] [address] Sep, [facility] [address] [id number] [address] [place] [address], [place] [address] Aug, [facility] [address] [id number] [address] [place] [address], [place] [address] Aug, [facility] [address] [id number] [address] [place] [address], [place] [address] May, [facility] [address] [id number] [address] [place] [address], [place] [address] May, [facility] [address] [id number] [address] [place] [address], [place] [address] May, [facility] [address] [id number] [address] [place] [address], [place] [address] Apr, [facility] [address] [id number] [address] [place] [address], [place] [address] Apr, [facility] [address] [id number] [address] [place] [address], [place] [address] Apr, [facility] [address] [id number] [address] [place] [address], [place] [address] Feb, [facility] [address] [id number] [address] [place] [address], [place] [address] Feb, [facility] [address] [id number] [address] [place] [address], [place] [address] Jan, [facility] [address] [id number] [address] [place] [address], [place] [address] Jan, [facility] [address] [id number] [address] [place] [address], [place] [address] Dec, [facility] [address] [id number] [address] [place] [address], [place] [address] Dec, [facility] [address] [id number] [address] [place] [address], [place] [address] Dec, [facility] [address] [id number] [address] [place] [address] Nov, [facility] [address] [id number] [address] [place] [id number] 10 Nov, 2010 [facility] [address] [id number] [address] [place] [id number] 15 Mar, 2010 [facility] [address] [id number] [address] [place] [id number] 16 Jan, 2010 [facility] [address] [id number] [address] [place] [address] Dec, [facility] [address] [id number] [address] [place] [address] Dec, [facility] [address] [id number] [address] [place] [address] Dec, [facility] [address] [id number] [address] [place] [address] Dec, [facility] [address] [id number] [address] [place] [address] Nov, [facility] [address] [id number] [address] [place] [address] Jan, [facility] [address] [id number] [address] [place] [address] 14 Nov, 2008 [facility] [address] [id number] [address] [place] [address] Nov, IMMUNIZATIONS No Known Immunizations SOCIAL HISTORY Never Assessed REASON FOR VISIT medication reconciliation PLAN OF CARE VITAL SIGNS MEDICATIONS Medication Instructions Dosage Frequency Start Date End Date Duration S tatus Gabapentin 300 MG Orally twice a day 1 capsule 12h 25 Nov, 2017 30 day(s) Active RESULTS No Results PROCEDURES [...]
--- OUTSIDE RECORDS SUMMARY | 2019-05-01 17:47 | XMS REPORT ---
Author Author Candace RICH Organization [facility] Address [address] [place] [address] Phone Unavailable Care Team Providers Care Lacemaker Name Role Phone ALVARO RICH Unavailable Unavailable PROBLEMS Type Condition ICD9-CM Code XTI42-PC Code Onset Dates Condition S tatus SNOMED Code Problem Mood disorder F39 Active 879592 05 Problem Hypothyroid E03.9 Active 52303817 Problem Sleep apnea in adult G47.33 Active 95782496 Problem Migraine with aura, not intractable, without sta tus migrainosus G43.109 Active 87156192 Problem Essential (primary) hypertension I10 Active 00177200 Problem Slow transit constipation K59.01 Acti ve 59622218 Problem Psoriasis L40.9 Active 0625825 Problem Lipoma D17.9 Active 44088416 Problem Hyperlipidemia, unspecified hyperlipidemia type E7 8.5 Active 34328857 Problem Seasonal allergic rhinitis due to pollen J30.1 Active 31028251 Problem Sleep apnea, unspecified G47.30 Activ e 81409693 ALLERGIES Substance Reaction Event Type Date Status Tetanus Unknown Drug Allergy Oct, Active ENCOUNTERS Encounter Location Date Diagnosis [facility] [address] [place] [id number] [address] [place] [phone] Oct, Dysuria R30.0 [facility] [address] [id number] [address] [place] [phone] 09 Sep, 2017 Psoriasis L40.9 [facility] [address] [id number] [address] [place] [phone] Aug, Psoriasis L40.9 ; Poison jaylon L23.7 ; Slow transit constipation K59.01 ; Breast cancer screening by mammogram Z12.31 and Colon cancer screening Z12.11 [facility] [address] [id number] [address] [place] [id number] 13 Jul, 2017 Poison jaylon L23.7 [place] [address] [address] Apr, Elevated LFTs R79.89 ; Hypot hyroid E03.9 ; Hyperlipidemia, unspecified hyperlipidemia type E78.5 ; Seasonal allergic rhinitis due to pollen J30.1 and Essential (primary) hypertension I10 [place] [address] [address] Mar, [place] [address] [address] Mar, [place] [address] [address] Feb, Hypothyroid E03.9 and Hyperl ipidemia, unspecified hyperlipidemia type E78.5 [place] [address] [address] Jan, Sleep apnea, unspecified G47 .30 ; Hypothyroid E03.9 and Hyperlipidemia, unspecified hyperlipidemia type E78.5 [place] [address] [address] Jan, [place] [address] [address] Jan, [place] [address] [address] Dec, [facility] [address] [address] Oct, Blood in stool K92.1 and Ext ernal hemorrhoid, bleeding K64.4 [place] [address] [address] Aug, Migraine with aura, not intr actable, without status migrainosus G43.109 [place] [address] [address] June, Breast cancer screening Z12. 39 [place] [id number] [facility] [id number] [address] [place] [phone] May, Callus L84 [facility] [address] [facility] [id number] [address] [place] [phone] Apr, Callus L84 [facility] [address] [facility] [id number] [address] [place] [phone] Apr, Hypothyroid E03.9 [facility] [address] [facility] [id number] [address] [place] [phone] Apr, Hypothyroid E03.9 ; Callus L 84 and Hidradenitis L73.2 [facility] [address] [facility] [id number] [address] [place] [phone] Jan, Hyperlipidemia, unspecified hyperlipidemia type E78.5 [facility] [address] [facility] [id number] [address] [place] [phone] Jan, [facility] [address] [id number] [address] [place] [phone] Oct, Hyperlipidemia, unspecified hyperlipidemia type E78.5 [facility] [address] [facility] [id number] [address] [place] [phone] Oct, Seroma T14.8 [facility] [address] [facility] [id number] [address] [place] [phone] Sep, [facility] [address] [facility] [id number] [address] [place] [phone] Sep, Hyperlipidemia, unspecified hyperlipidemia type E78.5 and Hypothyroid E03.9 [facility] [address] [facility] [id number] [address] [place] [phone] Sep, Hyperlipidemia, unspecified hyperlipidemia type E78.5 ; Hypothyroid E03.9 ; Tension headache G44.209 and Candidiasis of anus B37.89 [facility] [address] [facility] [id number] [address] [place] [phone] Jul, [facility] [address] [address] June, Tension headache G44.209 [place] [address] [address] Apr, Hyperlipidemia, unspecified hyperlipidemia type E78.5 ; Hypothyroid E03.9 ; Lipoma D17.9 and Breast cancer screening Z12.39 [place] [address] [address] Mar, [facility] [address] [place] [id number] [address] [place] [address] [id number] Mar, 2015 Encounter for dental examina tion Z01.20 [place] [address] [address] Feb, [facility] [place] [address] [address] Jan, Allergic rhinitis J30.9 [place] [address] [address] Jan, [facility] [address] [address] Dec, Dysuria R30.0 and UTI (urina ry tract infection) N39.0 [place] [address] [address] Dec, [place] [address] [address] Dec, Dysuria R30.0 and Urinary tr act infection, site unspecified N39.0 [place] [address] [address] Nov, Benign lipomatous neoplasm o f skin and subcutaneous tissue of head, face and neck D17.0 and Hypothyroidism, unspecified E03.9 [place] [address] [address] Sep, [place] [address] [id number] [address] [place] [phone] Aug, Hypothyroidism 244.9 [facility] [address] [facility] [id number] [address] [place] [phone] Jul, Hypothyroidism 244.9 [facility] [address] [facility] [id number] [address] [place] [address] Jul, Sleep apnea 780.57 [facility] [address] [id number] [address] [place] [phone] May, [facility] [address] [id number] [address] [place] [phone] May, [facility] [address] [id number] [address] [place] [phone] Apr, [facility] [address] [id number] [address] [place] [phone] Apr, [facility] [address] [id number] [address] [place] [phone] Mar, [facility] [address] [id number] [address] [place] [phone] Mar, [facility] [address] [id number] [address] [place] [phone] Mar, [facility] [address] [id number] [address] [place] [phone] Mar, [facility] [address] [id number] [address] [place] [phone] Mar, [facility] [address] [id number] [address] [place] [phone] Mar, [facility] [address] [id number] [address] [place] [phone] Jan, [facility] [address] [facility] [id number] [address] [place] [phone] Jan, [facility] [address] [id number] [address] [place] [address], [place] [address] Jan, [facility] [address] [id number] [address] [place] [place] [address], [place] [address] Jan, [facility] [address] [id number] [address] [place] [place] [address], [place] [address] Oct, [facility] [address] [id number] [address] [place] [place] [address], [place] [address] Oct, [facility] [address] [id number] [address] [place] [address], [place] [address] Sep, [facility] [address] [id number] [address] [place] [place] [address], [place] [address] Sep, [facility] [address] [id number] [address] [place] [address], [place] [address] Aug, [facility] [address] [id number] [address] [place] [address], [place] [address] Aug, [facility] [address] [id number] [address] [place] [address], [place] [address] Aug, [facility] [address] [id number] [address] [place] [address], [place] [address] Aug, [facility] [address] [id number] [address] [place] [address], [place] [address] Jul, [facility] [address] [id number] [address] [place] [address], [place] [address] Jul, [facility] [address] [id number] [address] [place] [address], [place] [address] June, [facility] [address] [id number] [address] [place] [address], [place] [address] June, [facility] [address] [id number] [address] [place] [address], [place] [address] June, [facility] [address] [id number] [address] [place] [address], [place] [address] June, [facility] [address] [id number] [facility] [place] [address] June, [facility] [address] [id number] [address] [place] [address], [place] [address] June, [facility] [address] [id number] [address] [place] [address], [place] [address] May, [facility] [address] [id number] [address] [place] [address], [place] [address] May, [facility] [address] [id number] [address] [place] [address], [place] [address] Apr, [facility] [address] [id number] [address] [place] [address], [place] [address] Apr, [facility] [address] [id number] [address] [place] [address], [place] [address] Apr, [facility] [address] [id number] [address] [place] [address], [place] [address] Apr, [facility] [address] [id number] [address] [place] [address], [place] [address] Apr, [facility] [address] [id number] [address] [place] [address], [place] [address] Mar, [facility] [address] [id number] [address] [place] [address], [place] [address] Mar, [facility] [address] [id number] [address] [place] [address], [place] [address] Mar, [facility] [address] [id number] [address] [place] [address], [place] [address] Mar, [facility] [address] [id number] [address] [place] [address], [place] [address] Feb, [facility] [address] [id number] [address] [place] [address], [place] [address] Feb, [facility] [address] [id number] [address] [place] [address], [place] [address] 13 Jan, 2013 [facility] [address] [id number] [address] [place] [address], [place] [address] Jan, [facility] [address] [id number] [address] [place] [address], [place] [address] Jan, [facility] [address] [id number] [address] [place] [place] [address], [place] [address] Jan, [facility] [address] [id number] [address] [place] [address], [place] [address] Jan, [facility] [address] [id number] [address] [place] [place] [address], [place] [address] Jan, [facility] [address] [id number] [address] [place] [place] [address], [place] [address] Dec, [facility] [address] [id number] [address] [place] [place] [address], [place] [address] Dec, [facility] [address] [id number] [address] [place] [place] [address], [place] [address] Nov, [facility] [address] [id number] [address] [place] [place] [address], [place] [address] Nov, [facility] [address] [id number] [address] [place] [place] [address], [place] [address] Oct, [facility] [address] [id number] [address] [place] [place] [address], [place] [address] Aug, [facility] [address] [id number] [address] [place] [place] [address], [place] [address] Aug, [facility] [address] [id number] [address] [place] [place] [address], [place] [address] Jul, [facility] [address] [id number] [address] [place] [place] [address], [place] [address] May, [facility] [address] [id number] [address] [place] [place] [address], [place] [address] Apr, [facility] [address] [id number] [address] [place] [place] [address], [place] [address] Apr, [facility] [address] [id number] [address] [place] [place] [address], [place] [address] Mar, [facility] [address] [id number] [address] [place] [place] [address], [place] [address] Dec, [facility] [address] [id number] [address] [place] [place] [address], [place] [address] Dec, [facility] [address] [id number] [address] [place] [place] [address], [place] [address] Dec, [facility] [address] [id number] [address] [place] [place] [address], [place] [address] Dec, [facility] [address] [id number] [address] [place] [place] [address], [place] [address] Dec, [facility] [address] [id number] [address] [place] [place] [address], [place] [address] Dec, [facility] [address] [id number] [address] [place] [place] [address], [place] [address] Nov, [facility] [address] [id number] [address] [place] [place] [address], [place] [address] Nov, [facility] [address] [id number] [address] [place] [address], [place] [address] Nov, [facility] [address] [id number] [address] [place] [id number] Nov, [facility] [address] [id number] [address] [place] [place] [address], [place] [address] Sep, [facility] [address] [id number] [address] [place] [place] [address], [place] [address] Sep, [facility] [address] [id number] [address] [place] [place] [address], [place] [address] Aug, [facility] [address] [id number] [address] [place] [place] [address], [place] [address] Aug, [facility] [address] [id number] [address] [place] [place] [address], [place] [address] 08 May, 2011 [facility] [address] [id number] [address] [place] [address], [place] [address] May, [facility] [address] [id number] [address] [place] [place] [address], [place] [address] May, [facility] [address] [id number] [address] [place] [place] [address], [place] [address] Apr, [facility] [address] [id number] [address] [place] [place] [address], [place] [address] 14 Apr, 2011 [facility] [address] [id number] [address] [place] [address], [place] [address] Apr, [facility] [address] [id number] [address] [place] [address], [place] [address] Feb, [facility] [address] [id number] [address] [place] [place] [address], [place] [address] Feb, [facility] [address] [id number] [address] [place] [place] [address], [place] [address] Jan, [facility] [address] [id number] [address] [place] [place] [address], [place] [address] Jan, [facility] [address] [id number] [address] [place] [place] [address], [place] [address] Dec, [facility] [address] [id number] [address] [place] [place] [address], [place] [address] Dec, [facility] [address] [id number] [address] [place] [place] [address], [place] [address] Dec, [facility] [address] [id number] [address] [place] [address], [place] [address] Nov, [facility] [address] [id number] [address] [place] [address], [place] [address] Nov, [facility] [address] [id number] [address] [place] [id number] 15 Mar, 2010 [facility] [address] [id number] [address] [place] [id number] 16 Jan, 2010 [facility] [address] [id number] [address] [place] [id number] Dec, [facility] [address] [id number] [address] [place] [phone] Dec, [facility] [address] [id number] [address] [place] [phone] Dec, [facility] [address] [id number] [address] [place] [id number] Dec, [facility] [address] [id number] [address] [place] [id number] Nov, [facility] [address] [id number] [address] [place] [id number] 14 Jan, 2009 [facility] [address] [id number] [address] [place] [id number] 14 Nov, 2008 [facility] [address] [id number] [address] [place] [phone] Nov, IMMUNIZATIONS No Known Immunizations SOCIAL HISTORY Never Assessed REASON FOR VISIT UTI symptoms started almost 2 weeks ago JStrasserRN PLAN OF CARE Activity Details Follow Up prn Reason: VITAL SIGNS Height 67 in 2017-10-22 Weight 210.0 lbs 2017-10-22 Temperature 98.1 degrees Fahrenheit 2017-10-22 Heart Rate 68 bpm 2017-10-22 Respiratory Rate 18 2017-10-22 BMI 32.89 kg/m2 2017-10-22 Blood pressure systolic 110 mmHg 2017-10-22 Blood pressure diastolic 70 mmHg 2017-10-22 MEDICATIONS Medication Instructions Dosage Frequency Start Date End Date Duration S baous Triamcinolone Acetonide 0.5 % Externally Twice a day as need ed 1 application to affected area Sep, Active Colace 100 mg Orally twice a day 1 capsule as needed 12h 23 Ju 2017Dec, 30 day(s) Not-Taking Timolol Maleate 20 mg Orally 2 times a day 1 tablet 12h 25 Jul, 2013 90 days Active Lipitor 80 Orally Once a day 1 tablet 24h 90 Ac tive Amitriptyline HCl 150 MG Orally Once a day 1 tablet 24h 08 Jan, 2017 30 day(s) Active Bactrim DS 800-160 MG Orally Twice a day 1 tablet 12h 04 Oct, 018 14 Oct, 2017 10 day(s) Active Flonase 50 MCG/ACT Nasally Once a day 1 spray in each nostril 24h Active Lumigan 0.01 % Ophthalmic Once a day 1 drop into affected eye i n the evening 24h Active Levothyroxine Sodium 150 TAKE ONE TABLET BY MOUTH SEBASTIAN Y ON AN EMPTY STOMACH 90 Active RESULTS No Results PROCEDURES Procedure Date Ordered Result Body Site URINALYSIS, AUTO, W/O SCOPE Oct 22, 2017 LAB NOT BILLED BY [employer] Oct 22, 2017 FQ VISIT ESTABLISHED PATIENT Oct 22, 2017 INSTRUCTIONS MEDICATIONS ADMINISTERED No Known Medications MEDICAL [...]
--- OUTSIDE RECORDS SUMMARY | 2019-05-01 17:47 | XMS REPORT ---
Author Author Candace Mane Doctor Organization 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 Name Role Phone Migration, Doctor Unavailable Unavailable PROBLEMS Type Condition ICD9-CM Code [id number] Code Onset Dates Condition S tatus SNOMED Code Problem Mood disorder F39 Active 018107 05 Problem Sleep apnea in adult G47.33 Active 08186585 Problem Hypothyroid E03.9 Active 08920079 Problem Psoriasis L40.9 Active 0996617 Problem Essential (primary) hypertension I10 Active 57247942 Problem Slow transit constipation K59.01 Acti ve 50967312 Problem Migraine with aura, not intractable, without sta tus migrainosus G43.109 Active 45796015 Problem Hyperlipidemia, unspecified hyperlipidemia type E7 8.5 Active 61427000 Problem Lipoma D17.9 Active 57168749 Problem Sleep apnea, unspecified G47.30 Activ e 08044879 Problem Seasonal allergic rhinitis due to pollen J30.1 Active 08796631 ALLERGIES No Information ENCOUNTERS Encounter Location Date Diagnosis [place] [address] [place] [id number] [place] [address] May, Hyperlipidemia, unspecified hyperlipidemia type E78.5 [place] [address] [place] [id number] [place] [address] 13 Mar, 2018 Hypothyroid E03.9 ; Hyperlip idemia, unspecified hyperlipidemia type E78.5 ; Tension headache G44.209 ; Psoriasis L40.9 and Breast cancer screening by mammogram Z12.31 [place] [address] [place] [id number] [place] [address] Feb, Essential (primary) hyperten vandana I10 [place] [address] [place] [id number] [place] [address] 14 Feb, 2018 Essential (primary) hyperten vandana I10 [place] [address] [address] Dec, Essential (primary) hyperten vandana I10 [place] [address] [address] Nov, Migraine with aura, not intr actable, without status migrainosus G43.109 [facility] [place] [address] [address] 04 Oct, 2017 Dysuria R30.0 [place] [address] [address] Sep, Psoriasis L40.9 [place] [address] [address] Aug, Psoriasis L40.9 ; Poison jaylon L23.7 ; Slow transit constipation K59.01 ; Breast cancer screening by mammogram Z12.31 and Colon cancer screening Z12.11 [facility] [place] [address] [address] Jul, Poison jaylon L23.7 [place] [address] [address] Apr, Elevated LFTs R79.89 ; Hypot hyroid E03.9 ; Hyperlipidemia, unspecified hyperlipidemia type E78.5 ; Seasonal allergic rhinitis due to pollen J30.1 and Essential (primary) hypertension I10 [place] [address] [address] Mar, [place] [address] [address] Mar, [place] [address] [address] Feb, Hypothyroid E03.9 and Hyperl ipidemia, unspecified hyperlipidemia type E78.5 [place] [address] [address] Jan, Sleep apnea, unspecified G47 .30 ; Hypothyroid E03.9 and Hyperlipidemia, unspecified hyperlipidemia type E78.5 [place] [address] [address] Jan, [place] [address] [address] Jan, [place] [address] [address] Dec, [facility] [address] [address] Oct, Blood in stool K92.1 and Ext ernal hemorrhoid, bleeding K64.4 [place] [address] [address] Aug, Migraine with aura, not intr actable, without status migrainosus G43.109 [place] [address] [address] June, Breast cancer screening Z12. 39 [place] [address] [address] May, Callus L84 [place] [address] [address] Apr, Callus L84 [place] [address] [address] Apr, Hypothyroid E03.9 [place] [address] [address] Apr, Hypothyroid E03.9 ; Callus L 84 and Hidradenitis L73.2 [place] [address] [address] Jan, Hyperlipidemia, unspecified hyperlipidemia type E78.5 [place] [address] [address] Jan, [place] [address] [place] [address] Oct, Hyperlipidemia, unspecified hyperlipidemia type E78.5 [facility] [address] [place] [id number] [place] [address] Oct, Seroma T14.8 [facility] [address] [place] [id number] [address] [place] [address] Sep, [facility] [address] [place] [id number] [place] [address] Sep, Hyperlipidemia, unspecified hyperlipidemia type E78.5 and Hypothyroid E03.9 [place] [address] [address] Sep, Hyperlipidemia, unspecified hyperlipidemia type E78.5 ; Hypothyroid E03.9 ; Tension headache G44.209 and Candidiasis of anus B37.89 [place] [address] [place] [id number] [place] [address] Jul, [facility] [address] [place] [id number] [place] [address] June, Tension headache G44.209 [facility] [address] [place] [id number] [place] [address] Apr, Hyperlipidemia, unspecified hyperlipidemia type E78.5 ; Hypothyroid E03.9 ; Lipoma D17.9 and Breast cancer screening Z12.39 [facility] [address] [place] [id number] [place] [address] Mar, [facility] [address] [facility] [id number] [address] [place] [id number] 10 Mar, 2015 Encounter for dental examina tion Z01.20 [facility] [address] [place] [id number] [place] [address] Feb, [facility] [address] [place] [id number] [address] [place] [address] Jan, Allergic rhinitis J30.9 [facility] [address] [facility] [id number] [address] [place] [address] Jan, [facility] [address] [facility] [id number] [address] [place] [address] Dec, Dysuria R30.0 and UTI (urina ry tract infection) N39.0 [facility] [address] [facility] [id number] [address] [place] [address] Dec, [facility] [address] [facility] [id number] [address] [place] [address] Dec, Dysuria R30.0 and Urinary tr act infection, site unspecified N39.0 [facility] [address] [place] [id number] [address] [place] [address] Nov, Benign lipomatous neoplasm o f skin and subcutaneous tissue of head, face and neck D17.0 and Hypothyroidism, unspecified E03.9 [facility] [address] [place] [id number] [address] [place] [address] Sep, [facility] [address] [place] [id number] [address] [place] [address] Aug, Hypothyroidism 244.9 [facility] [address] [place] [id number] [place] [address] Jul, Hypothyroidism 244.9 [facility] [address] [place] [id number] [address] [place] [address] Jul, Sleep apnea 780.57 [facility] [address] [place] [id number] [address] [place] [address] May, [facility] [address] [place] [id number] [address] [place] [address] May, [facility] [address] [place] [id number] [address] [place] [address] Apr, [facility] [address] [place] [id number] [address] [place] [address] Apr, [facility] [address] [id number] [address] [place] [address], [place] [address] Mar, 2014 [facility] [address] [id number] [address] [place] [address], [place] [address] Mar, 2014 [facility] [address] [id number] [address] [place] [address], [place] [address] Mar, 2014 [facility] [address] [id number] [address] [place] [address], [place] [address] Mar, 2014 [facility] [address] [id number] [address] [place] [address], [place] [address] Mar, 2014 [facility] [address] [id number] [address] [place] [address], [place] [address] Mar, 2014 [facility] [address] [id number] [address] [place] [address], [place] [address] Jan, [facility] [address] [id number] [address] [place] [address], [place] [address] Jan, [facility] [address] [id number] [address] [place] [address], [place] [address] Jan, [facility] [address] [id number] [address] [place] [address], [place] [address] Jan, [facility] [address] [id number] [address] [place] [address] Oct, [facility] [address] [id number] [address] [place] [address] Oct, [facility] [address] [id number] [address] [place] [address], [place] [address] Sep, [facility] [address] [id number] [address] [place] [address], [place] [address] Sep, [facility] [address] [id number] [address] [place] [address] Aug, [facility] [address] [id number] [address] [place] [address], [place] [address] Aug, [facility] [address] [id number] [address] [place] [address], [place] [address] Aug, [facility] [address] [id number] [address] [place] [address], [place] [address] Aug, [facility] [address] [id number] [address] [place] [address], [place] [address] Jul, [facility] [address] [id number] [address] [place] [address], [place] [address] Jul, [facility] [address] [id number] [address] [place] [address], [place] [address] June, [facility] [address] [id number] [address] [place] [address], [place] [address] June, [facility] [address] [id number] [address] [place] [address], [place] [address] June, [facility] [address] [id number] [address] [place] [address], [place] [address] June, [facility] [address] [id number] [address] [place] [address], [place] [address] June, [facility] [address] [id number] [address] [place] [address], [place] [address] June, [facility] [address] [id number] [address] [place] [address], [place] [address] May, [facility] [address] [id number] [address] [place] [address], [place] [address] May, [facility] [address] [id number] [address] [place] [address], [place] [address] Apr, [facility] [address] [id number] [address] [place] [address], [place] [address] Apr, [facility] [address] [id number] [address] [place] [address], [place] [address] Apr, [facility] [address] [id number] [address] [place] [address], [place] [address] Apr, [facility] [address] [id number] [address] [place] [address], [place] [address] Apr, [facility] [address] [id number] [address] [place] [address], [place] [address] Mar, [facility] [address] [id number] [address] [place] [address], [place] [address] Mar, [facility] [address] [id number] [address] [place] [address], [place] [address] Mar, [facility] [address] [id number] [address] [place] [address], [place] [address] Mar, [facility] [address] [id number] [address] [place] [address], [place] [address] Feb, [facility] [address] [id number] [address] [place] [address], [place] [address] Feb, [facility] [address] [id number] [address] [place] [address], [place] [address] Jan, [facility] [address] [id number] [address] [place] [address], [place] [address] Jan, [facility] [address] [id number] [address] [place] [address], [place] [address] Jan, [facility] [address] [id number] [address] [place] [address], [place] [address] Jan, [facility] [address] [id number] [address] [place] [address], [place] [address] Jan, [facility] [address] [id number] [address] [place] [address], [place] [address] Jan, [facility] [address] [id number] [address] [place] [address], [place] [address] 13 Dec, 2012 [facility] [address] [id number] [address] [address] Dec, [facility] [address] [id number] [address] [place] [address], [place] [address] Nov, [facility] [address] [id number] [address] [place] [address], [place] [address] Nov, [facility] [address] [id number] [address] [place] [address], [place] [address] Oct, [facility] [address] [id number] [address] [place] [address] Aug, [facility] [address] [id number] [address] [place] [address], [place] [address] Aug, [facility] [address] [id number] [address] [place] [address], [place] [address] Jul, [facility] [address] [id number] [address] [place] [address], [place] [address] May, [facility] [address] [id number] [address] [place] [address], [place] [address] Apr, [facility] [address] [id number] [address] [place] [address], [place] [address] Apr, [facility] [address] [id number] [address] [place] [address], [place] [address] Mar, [facility] [address] [id number] [address] [place] [address], [place] [address] 16 Dec, 2011 [facility] [address] [id number] [address] [place] [address], [place] [address] 16 Dec, 2011 [facility] [address] [id number] [address] [place] [address], [place] [address] 15 Dec, 2011 [facility] [address] [id number] [address] [place] [address], [place] [address] 15 Dec, 2011 [facility] [address] [id number] [address] [place] [address], [place] [address] 12 Dec, 2011 [facility] [address] [id number] [address] [place] [address], [place] [address] Dec, [facility] [address] [id number] [address] [place] [address], [place] [address] Nov, [facility] [address] [id number] [address] [place] [address], [place] [address] Nov, [facility] [address] [id number] [address] [place] [address], [place] [address] Nov, [facility] [address] [id number] [address] [place] [address], [place] [address] Nov, [facility] [address] [id number] [address] [place] [address], [place] [address] Sep, [facility] [address] [id number] [address] [place] [address], [place] [address] Sep, [facility] [address] [id number] [address] [place] [address], [place] [address] Aug, [facility] [address] [id number] [address] [place] [address], [place] [address] Aug, [facility] [address] [id number] [address] [place] [address], [place] [address] May, [facility] [address] [id number] [address] [place] [address], [place] [address] May, [facility] [address] [id number] [address] [place] [address], [place] [address] May, [facility] [address] [id number] [address] [place] [address], [place] [address] Apr, [facility] [address] [id number] [address] [place] [address], [place] [address] 14 Apr, 2011 [facility] [address] [id number] [address] [place] [address], [place] [address] Apr, [facility] [address] [id number] [address] [place] [address], [place] [address] Feb, [facility] [address] [id number] [address] [place] [address], [place] [address] Feb, [facility] [address] [id number] [address] [place] [address], [place] [address] Jan, [facility] [address] [id number] [address] [place] [address], [place] [address] Jan, [facility] [address] [id number] [address] [place] [address], [place] [address] Dec, [facility] [address] [id number] [address] [place] [address], [place] [address] Dec, [facility] [address] [id number] [address] [place] [address], [place] [address] Dec, [facility] [address] [id number] [address] [place] [address], [place] [address] Nov, [facility] [address] [id number] [address] [place] [address], [place] [address] Nov, [facility] [address] [id number] [address] [place] [address], [place] [address] 15 Mar, 2010 [facility] [address] [id number] [address] [place] [address], [place] [address] 16 Jan, 2010 [facility] [address] [id number] [address] [place] [address], [place] [address] Dec, [facility] [address] [id number] [address] [place] [address], [place] [address] Dec, [facility] [address] [id number] [address] [place] [address], [place] [address] Dec, [facility] [address] [id number] [address] [place] [address], [place] [address] Dec, [facility] [address] [id number] [address] [place] [address], [place] [address] Nov, [facility] [address] [id number] [address] [place] [address] 14 Jan, 2009 [facility] [address] [facility] [id number] [address] [place] [address] 14 Nov, 2008 [facility] [address] [facility] [id number] [address] [place] [address] 12 Nov, 2008 IMMUNIZATIONS No Known Immunizations SOCIAL HISTORY Never Assessed REASON FOR VISIT EMR-[facility] PLAN OF CARE VITAL SIGNS MEDICATIONS Unknown [...]
--- OUTSIDE RECORDS SUMMARY | 2019-05-01 17:48 | XMS REPORT ---
Author Author Candace VAZQUEZ Organization [facility] Address [address] [place] [address] Care Team Providers Care Network Security Engineer Name Role Phone ANASTACIO VAZQUEZ Unavailable PROBLEMS Type Condition ICD9-CM Code YQY15-ST Code Onset Dates Condition S tatus SNOMED Code Problem Mood disorder F39 Active 612590 05 Problem Migraine with aura, not intractable, without sta tus migrainosus G43.109 Active 22524588 Problem Sleep apnea in adult G47.33 Active 62156985 Problem Seasonal allergic rhinitis due to pollen J30.1 Active 64851095 Problem Sleep apnea, unspecified G47.30 Activ e 30581330 Problem Hyperlipidemia, unspecified hyperlipidemia type E7 8.5 Active 02550371 Problem Essential (primary) hypertension I10 Active 00619817 Problem Hypothyroid E03.9 Active 39926682 Problem Lipoma D17.9 Active 03567277 ALLERGIES No Information ENCOUNTERS Encounter Location Date Diagnosis [place] [id number] [place] [id number] [place] [address] Apr, Elevated LFTs R79.89 ; Hypot hyroid E03.9 ; Hyperlipidemia, unspecified hyperlipidemia type E78.5 ; Seasonal allergic rhinitis due to pollen J30.1 and Essential (primary) hypertension I10 [facility] [address] [place] [address] Mar, [place] [address] [address] Mar, [place] [address] [address] Feb, Hypothyroid E03.9 and Hyperl ipidemia, unspecified hyperlipidemia type E78.5 [place] [address] [address] Jan, Sleep apnea, unspecified G47 .30 ; Hypothyroid E03.9 and Hyperlipidemia, unspecified hyperlipidemia type E78.5 [place] [address] [address] Jan, [place] [address] [address] Jan, [place] [address] [address] Dec, [facility] [address] [address] Oct, Blood in stool K92.1 and Ext ernal hemorrhoid, bleeding K64.4 [place] [address] [address] Aug, Migraine with aura, not intr actable, without status migrainosus G43.109 [place] [address] [address] June, Breast cancer screening Z12. 39 [place] [address] [address] May, Callus L84 [place] [address] [address] Apr, Callus L84 [place] [address] [address] Apr, Hypothyroid E03.9 [place] [address] [address] 15 Apr, 2016 Hypothyroid E03.9 ; Callus L 84 and Hidradenitis L73.2 [place] [address] [address] Jan, Hyperlipidemia, unspecified hyperlipidemia type E78.5 [place] [address] [address] Jan, [facility] [address] [facility] [id number] [address] [place] [address] Oct, Hyperlipidemia, unspecified hyperlipidemia type E78.5 [facility] [address] [facility] [id number] [address] [place] [address] Oct, Seroma T14.8 [facility] [address] [place] [id number] [place] [address] Sep, [facility] [address] [place] [id number] [place] [address] Sep, Hyperlipidemia, unspecified hyperlipidemia type E78.5 and Hypothyroid E03.9 [facility] [address] [place] [id number] [place] [address] Sep, Hyperlipidemia, unspecified hyperlipidemia type E78.5 ; Hypothyroid E03.9 ; Tension headache G44.209 and Candidiasis of anus B37.89 [facility] [address] [place] [id number] [place] [address] Jul, [facility] [address] [address] June, Tension headache G44.209 [facility] [address] [place] [id number] [place] [address] Apr, Hyperlipidemia, unspecified hyperlipidemia type E78.5 ; Hypothyroid E03.9 ; Lipoma D17.9 and Breast cancer screening Z12.39 [facility] [address] [facility] [id number] [address] [place] [address] Mar, [facility] [address] [place] [address] [id number] 10 Mar, 2015 Encounter for dental examina tion Z01.20 [facility] [address] [place] [id number] [place] [address] Feb, [facility] [address] [place] [id number] [address] [place] [address] Jan, Allergic rhinitis J30.9 [facility] [address] [facility] [id number] [address] [place] [address] Jan, [facility] [address] [facility] [id number] [address] [place] [address] Dec, Dysuria R30.0 and UTI (urina ry tract infection) N39.0 [facility] [address] [facility] [id number] [address] [place] [address] Dec, [facility] [address] [facility] [id number] [place] [address] Dec, Dysuria R30.0 and Urinary tr act infection, site unspecified N39.0 [facility] [address] [place] [id number] [place] [address] Nov, Benign lipomatous neoplasm o f skin and subcutaneous tissue of head, face and neck D17.0 and Hypothyroidism, unspecified E03.9 [facility] [address] [place] [id number] [place] [address] Sep, [facility] [address] [address] Aug, Hypothyroidism 244.9 [facility] [address] [place] [id number] [place] [address] Jul, Hypothyroidism 244.9 [facility] [address] [place] [id number] [place] [address] Jul, Sleep apnea 780.57 [facility] [address] [place] [id number] [place] [address] May, [facility] [address] [place] [id number] [place] [address] May, [facility] [address] [place] [id number] [place] [address] Apr, [facility] [address] [place] [address] Apr, [facility] [address] [id number] [address] [place] [address], [place] [address] Mar, 2014 [facility] [address] [id number] [address] [place] [address], [place] [address] Mar, 2014 [facility] [address] [id number] [address] [place] [address], [place] [address] Mar, 2014 [facility] [address] [id number] [address] [place] [address], [place] [address] Mar, 2014 [facility] [address] [id number] [address] [place] [address], [place] [address] Mar, 2014 [facility] [address] [id number] [address] [place] [address], [place] [address] Mar, 2014 [facility] [address] [id number] [address] [place] [address], [place] [address] Jan, [facility] [address] [id number] [address] [place] [address], [place] [address] Jan, [facility] [address] [id number] [address] [place] [address], [place] [address] Jan, [facility] [address] [id number] [address] [place] [address], [place] [address] Jan, [facility] [address] [id number] [address] [place] [address], [place] [address] Oct, [facility] [address] [id number] [address] [place] [address], [place] [address] Oct, [facility] [address] [id number] [address] [place] [address], [place] [address] Sep, [facility] [address] [id number] [address] [place] [address], [place] [address] Sep, [facility] [address] [id number] [address] [place] [address], [place] [address] Aug, [facility] [address] [id number] [facility] [place] [address] Aug, [facility] [address] [id number] [address] [place] [address], [place] [address] Aug, [facility] [address] [id number] [address] [place] [address], [place] [address] Aug, [facility] [address] [id number] [address] [place] [address], [place] [address] Jul, [facility] [address] [id number] [address] [place] [address], [place] [address] Jul, [facility] [address] [id number] [address] [place] [address], [place] [address] June, [facility] [address] [id number] [address] [place] [address], [place] [address] June, [facility] [address] [id number] [address] [place] [address], [place] [address] June, [facility] [address] [id number] [address] [place] [address], [place] [address] June, [facility] [address] [id number] [address] [place] [address], [place] [address] June, [facility] [address] [id number] [address] [place] [address], [place] [address] June, [facility] [address] [id number] [address] [place] [address], [place] [address] May, [facility] [address] [id number] [address] [place] [address], [place] [address] May, [facility] [address] [id number] [address] [place] [address], [place] [address] Apr, [facility] [address] [id number] [address] [place] [address], [place] [address] Apr, [facility] [address] [id number] [address] [place] [address], [place] [address] Apr, [facility] [address] [id number] [address] [place] [address], [place] [address] Apr, [facility] [address] [id number] [address] [place] [address], [place] [address] Apr, [facility] [address] [id number] [address] [place] [address], [place] [address] Mar, [facility] [address] [id number] [address] [place] [address], [place] [address] Mar, [facility] [address] [id number] [address] [place] [address], [place] [address] Mar, [facility] [address] [id number] [address] [place] [address], [place] [address] Mar, [facility] [address] [id number] [address] [place] [address], [place] [address] Feb, [facility] [address] [id number] [address] [place] [address], [place] [address] Feb, [facility] [address] [id number] [address] [place] [address], [place] [address] Jan, [facility] [address] [id number] [address] [place] [address], [place] [address] Jan, [facility] [address] [id number] [address] [place] [address], [place] [address] Jan, [facility] [address] [id number] [address] [place] [address], [place] [address] Jan, [facility] [address] [id number] [address] [place] [address], [place] [address] Jan, [facility] [address] [id number] [address] [place] [address], [place] [address] 06 Jan, 2013 [facility] [address] [id number] [address] [place] [address], [place] [address] Dec, [facility] [address] [id number] [address] [place] [address], [place] [address] Dec, [facility] [address] [id number] [address] [place] [address], [place] [address] Nov, [facility] [address] [id number] [address] [place] [address], [place] [address] Nov, [facility] [address] [id number] [address] [place] [address], [place] [address] Oct, [facility] [address] [id number] [address] [place] [address], [place] [address] Aug, [facility] [address] [id number] [address] [place] [address], [place] [address] Aug, [facility] [address] [id number] [address] [place] [address], [place] [address] Jul, [facility] [address] [id number] [address] [place] [address], [place] [address] May, [facility] [address] [id number] [address] [place] [address], [place] [address] Apr, [facility] [address] [id number] [address] [place] [address], [place] [address] Apr, [facility] [address] [id number] [address] [place] [address], [place] [address] Mar, [facility] [address] [id number] [address] [place] [address], [place] [address] Dec, [facility] [address] [id number] [address] [place] [address], [place] [address] Dec, [facility] [address] [id number] [address] [place] [address], [place] [address] Dec, [facility] [address] [id number] [address] [place] [address], [place] [address] Dec, [facility] [address] [id number] [address] [place] [address], [place] [address] Dec, [facility] [address] [id number] [address] [place] [address], [place] [address] Dec, [facility] [address] [id number] [address] [place] [address], [place] [address] Nov, [facility] [address] [id number] [address] [place] [address], [place] [address] Nov, [facility] [address] [id number] [address] [place] [address], [place] [address] Nov, [facility] [address] [id number] [address] [place] [address], [place] [address] Nov, [facility] [address] [id number] [address] [place] [address], [place] [address] Sep, [facility] [address] [id number] [address] [place] [address], [place] [address] Sep, [facility] [address] [id number] [address] [place] [address], [place] [address] Aug, [facility] [address] [id number] [address] [place] [address], [place] [address] Aug, [facility] [address] [id number] [address] [place] [address], [place] [address] May, [facility] [address] [id number] [address] [place] [address], [place] [address] May, [facility] [address] [id number] [address] [place] [address], [place] [address] May, [facility] [address] [id number] [address] [place] [address], [place] [address] Apr, [facility] [address] [id number] [address] [place] [address], [place] [address] Apr, [facility] [address] [id number] [address] [place] [address], [place] [address] Apr, [facility] [address] [id number] [address] [place] [address], [place] [address] 18 Feb, 2011 [facility] [address] [id number] [address] [place] [address], [place] [address] Feb, [facility] [address] [id number] [address] [place] [address], [place] [address] Jan, [facility] [address] [id number] [address] [place] [address], [place] [address] Jan, [facility] [address] [id number] [address] [place] [address], [place] [address] Dec, [facility] [address] [id number] [address] [place] [address], [place] [address] Dec, [facility] [address] [id number] [address] [place] [address], [place] [address] Dec, [facility] [address] [id number] [address] [place] [address], [place] [address] Nov, [facility] [address] [id number] [address] [place] [address], [place] [address] Nov, [facility] [address] [id number] [address] [place] [address], [place] [address] 15 Mar, 2010 [facility] [address] [id number] [address] [place] [address], [place] [address] 16 Jan, 2010 [facility] [address] [id number] [address] [place] [address], [place] [address] Dec, [facility] [address] [id number] [address] [place] [address], [place] [address] Dec, [facility] [address] [id number] [address] [place] [address], [place] [address] Dec, [facility] [address] [id number] [address] [place] [address], [place] [address] Dec, [facility] [address] [id number] [address] [place] [address], [place] [address] Nov, [facility] [address] [facility] [id number] [address] [place] [address] Jan, [facility] [address] [facility] [id number] [address] [place] [address] 14 Nov, 2008 [facility] [address] [facility] [id number] [address] [place] [address] 12 Nov, 2008 IMMUNIZATIONS No Known Immunizations SOCIAL HISTORY Never Assessed REASON FOR VISIT Medication refill request PLAN OF CARE VITAL SIGNS MEDICATIONS Medication Instructions Dosage Frequency Start Date End Date Duration S tobias Timolol Maleate 20 mg Orally 2 times a day 1 tablet 12h 25 Jul, 2013 90 days Active RESULTS No Results PROCEDURES No Known [...]
--- OUTSIDE RECORDS SUMMARY | 2019-05-01 17:48 | XMS REPORT ---
Author Author Candace MARTELL [facility] IN [facility] Address [address] [place] [address] Care Team Providers Care Geospatial Analyst Name Role Phone CYNTHIA MARTELL Unavailable PROBLEMS Type Condition ICD9-CM Code [id number] Code Onset Dates Condition S tatus SNOMED Code Problem Mood disorder F39 Active 085082 05 Problem Hypothyroid E03.9 Active 68077871 Problem Sleep apnea in adult G47.33 Active 95744516 Problem Migraine with aura, not intractable, without sta tus migrainosus G43.109 Active 70368107 Problem Essential (primary) hypertension I10 Active 85315764 Problem Slow transit constipation K59.01 Acti ve 69631647 Problem Psoriasis L40.9 Active 6230903 Problem Lipoma D17.9 Active 98666506 Problem Hyperlipidemia, unspecified hyperlipidemia type E7 8.5 Active 99779130 Problem Seasonal allergic rhinitis due to pollen J30.1 Active 03119253 Problem Sleep apnea, unspecified G47.30 Activ e 37081367 ALLERGIES Substance Reaction Event Type Date Status Tetanus Unknown Drug Allergy Jul, Active ENCOUNTERS Encounter Location Date Diagnosis [facility] [id number] [place] [address] Sep, Psoriasis L40.9 [facility] [address] [address] [id number] [address] [place] [address] Aug, Psoriasis L40.9 ; Poison jaylon L23.7 ; Slow transit constipation K59.01 ; Breast cancer screening by mammogram Z12.31 and Colon cancer screening Z12.11 [facility] [address] [address] [id number] [address] [place] [phone] Jul, Poison jaylon L23.7 [facility] [address] [id number] [address] [place] [address] Apr, Elevated LFTs R79.89 ; Hypot hyroid E03.9 ; Hyperlipidemia, unspecified hyperlipidemia type E78.5 ; Seasonal allergic rhinitis due to pollen J30.1 and Essential (primary) hypertension I10 [place] [address] [address] Mar, [place] [address] [address] Mar, [place] [address] [address] Feb, Hypothyroid E03.9 and Hyperl ipidemia, unspecified hyperlipidemia type E78.[address] [address] Jan, Sleep apnea, unspecified G47 .30 ; Hypothyroid E03.9 and Hyperlipidemia, unspecified hyperlipidemia type E78.5 [place] [address] [address] Jan, [place] [address] [address] Jan, [place] [address] [address] Dec, [facility] [address] [address] Oct, Blood in stool K92.1 and Ext ernal hemorrhoid, bleeding K64.4 [place] [address] [address] Aug, Migraine with aura, not intr actable, without status migrainosus G43.109 [place] [address] [address] June, Breast cancer screening Z12. [address] [address] May, Callus L84 [facility] [address] [facility] [id number] [address] [place] [address] Apr, Callus L84 [facility] [address] [facility] [id number] [address] [place] [address] Apr, Hypothyroid E03.9 [facility] [address] [place] [id number] [place] [address] Apr, Hypothyroid E03.9 ; Callus L 84 and Hidradenitis L73.2 [facility] [address] [facility] [id number] [address] [place] [address] Jan, Hyperlipidemia, unspecified hyperlipidemia type E78.5 [place] [address] [place] [id number] [address] [place] [address] Jan, [facility] [address] [address] [id number] [place] [address] Oct, Hyperlipidemia, unspecified hyperlipidemia type E78.5 [facility] [address] [address] [id number] [address] [place] [address] Oct, Seroma T14.8 [facility] [address] [address] [id number] [place] [address] Sep, [facility] [address] [address] [id number] [address] [place] [address] Sep, Hyperlipidemia, unspecified hyperlipidemia type E78.5 and Hypothyroid E03.9 [facility] [address] [address] [id number] [place] [address] Sep, Hyperlipidemia, unspecified hyperlipidemia type E78.5 ; Hypothyroid E03.9 ; Tension headache G44.209 and Candidiasis of anus B37.89 [facility] [address] [facility] [id number] [address] [place] [address] Jul, [facility] [address] [address] [id number] [address] [place] [address] June, Tension headache G44.209 [facility] [address] [id number] [address] [place] [address] 10 Apr, 2015 Hyperlipidemia, unspecified hyperlipidemia type E78.5 ; Hypothyroid E03.9 ; Lipoma D17.9 and Breast cancer screening Z12.39 [facility] [address] [id number] [address] [place] [address] 24 Mar, 2015 [facility] [address] [place] [id number] 10 Mar, 2015 Encounter for dental examina tion Z01.20 [facility] [address] [address] Feb, [facility] [address] [address] Jan, Allergic rhinitis J30.9 [place] [address] [address] Jan, [facility] [address] [address] Dec, Dysuria R30.0 and UTI (urina ry tract infection) N39.0 [place] [address] [address] Dec, [facility] [address] [address] Dec, Dysuria R30.0 and Urinary tr act infection, site unspecified N39.0 [facility] [address] [id number] [address] [place] [address] Nov, Benign lipomatous neoplasm o f skin and subcutaneous tissue of head, face and neck D17.0 and Hypothyroidism, unspecified E03.9 [facility] [address] [id number] [address] [place] [address] Sep, [facility] [address] [address] Aug, Hypothyroidism 244.9 [facility] [address] [id number] [address] [place] [address] Jul, Hypothyroidism 244.9 [facility] [address] [id number] [address] [place] [address] Jul, Sleep apnea 780.57 [facility] [address] [id number] [address] [place] [address] May, [facility] [address] [id number] [address] [place] [phone] May, [facility] [address] [id number] [address] [place] [phone] Apr, [facility] [address] [id number] [address] [place] [phone] Apr, [facility] [address] [id number] [address] [place] [address] Mar, [facility] [address] [id number] [address] [place] [phone] Mar, [facility] [address] [id number] [address] [place] [phone] Mar, [facility] [address] [id number] [address] [place] [phone] Mar, [facility] [address] [id number] [address] [place] [phone] Mar, [facility] [address] [id number] [address] [place] [address] Mar, [facility] [address] [id number] [address] [place] [phone] Jan, [facility] [address] [id number] [address] [place] [phone] Jan, [facility] [address] [facility] [id number] [address] [place] [phone] Jan, [facility] [address] [id number] [address] [place] [address], [place] [address] Jan, [facility] [address] [id number] [address] [place] [address], [place] [address] Oct, [facility] [address] [id number] [address] [place] [address], [place] [address] Oct, [facility] [address] [id number] [address] [place] [address], [place] [address] Sep, [facility] [address] [id number] [address] [place] [address], [place] [address] Sep, [facility] [address] [id number] [address] [place] [address], [place] [address] Aug, [facility] [address] [id number] [address] [place] [address], [place] [address] Aug, [facility] [address] [id number] [address] [place] [address], [place] [address] Aug, [facility] [address] [id number] [address] [place] [address], [place] [address] Aug, [facility] [address] [id number] [address] [place] [address], [place] [address] Jul, [facility] [address] [id number] [address] [place] [address], [place] [address] Jul, [facility] [address] [id number] [address] [place] [address], [place] [address] June, [facility] [address] [id number] [address] [place] [address], [place] [address] June, [facility] [address] [id number] [address] [place] [address], [place] [address] June, [facility] [address] [id number] [address] [place] [address], [place] [address] June, [facility] [address] [id number] [address] [place] [address], [place] [address] June, [facility] [address] [id number] [address] [place] [address], [place] [address] June, [facility] [address] [id number] [address] [place] [address], [place] [address] May, [facility] [address] [id number] [address] [place] [address], [place] [address] May, [facility] [address] [id number] [address] [place] [address], [place] [address] Apr, [facility] [address] [id number] [address] [place] [address], [place] [address] Apr, [facility] [address] [id number] [address] [place] [address], [place] [address] Apr, [facility] [address] [id number] [address] [place] [address], [place] [address] Apr, [facility] [address] [id number] [address] [place] [address], [place] [address] Apr, [facility] [address] [id number] [address] [place] [address], [place] [address] Mar, [facility] [address] [id number] [address] [place] [address], [place] [address] Mar, [facility] [address] [id number] [address] [place] [address], [place] [address] Mar, [facility] [address] [id number] [address] [place] [address], [place] [address] Mar, [facility] [address] [id number] [address] [place] [address], [place] [address] Feb, [facility] [address] [id number] [address] [place] [address], [place] [address] Feb, [facility] [address] [id number] [address] [place] [address], [place] [address] Jan, [facility] [address] [id number] [address] [place] [address], [place] [address] 13 Jan, 2013 [facility] [address] [id number] [address] [place] [address], [place] [address] Jan, [facility] [address] [id number] [address] [place] [address], [place] [address] Jan, [facility] [address] [id number] [address] [place] [address], [place] [address] Jan, [facility] [address] [id number] [address] [place] [address], [place] [address] Jan, [facility] [address] [id number] [address] [place] [address], [place] [address] Dec, [facility] [address] [id number] [address] [place] [address], [place] [address] Dec, [facility] [address] [id number] [address] [place] [address], [place] [address] Nov, [facility] [address] [id number] [address] [place] [address], [place] [address] Nov, [facility] [address] [id number] [address] [place] [address], [place] [address] Oct, [facility] [address] [id number] [address] [place] [address], [place] [address] Aug, [facility] [address] [id number] [address] [place] [address], [place] [address] Aug, [facility] [address] [id number] [address] [place] [address], [place] [address] Jul, [facility] [address] [id number] [address] [place] [address], [place] [address] May, [facility] [address] [id number] [address] [place] [address], [place] [address] Apr, [facility] [address] [id number] [address] [place] [address], [place] [address] Apr, [facility] [address] [id number] [address] [place] [address], [place] [address] Mar, [facility] [address] [id number] [address] [place] [address], [place] [address] Dec, [facility] [address] [id number] [address] [place] [address], [place] [address] Dec, [facility] [address] [id number] [address] [place] [address], [place] [address] Dec, [facility] [address] [id number] [address] [place] [address], [place] [address] Dec, [facility] [address] [id number] [address] [place] [address], [place] [address] Dec, [facility] [address] [id number] [address] [place] [address], [place] [address] Dec, [facility] [address] [id number] [address] [place] [address], [place] [address] Nov, [facility] [address] [id number] [address] [place] [address], [place] [address] Nov, [facility] [address] [id number] [address] [place] [address], [place] [address] Nov, [facility] [address] [id number] [address] [place] [address], [place] [address] Nov, [facility] [address] [id number] [address] [place] [address] Sep, [facility] [address] [id number] [address] [place] [address], [place] [address] Sep, [facility] [address] [id number] [address] [place] [address], [place] [address] Aug, [facility] [address] [id number] [address] [place] [address], [place] [address] Aug, [facility] [address] [id number] [address] [place] [address], [place] [address] 08 May, 2011 [facility] [address] [id number] [address] [place] [address], [place] [address] May, [facility] [address] [id number] [address] [place] [address], [place] [address] May, [facility] [address] [id number] [address] [place] [address], [place] [address] Apr, [facility] [address] [id number] [address] [place] [address], [place] [address] 14 Apr, 2011 [facility] [address] [id number] [address] [place] [address], [place] [address] Apr, [facility] [address] [id number] [address] [place] [address], [place] [address] Feb, [facility] [address] [id number] [address] [place] [address], [place] [address] Feb, [facility] [address] [id number] [address] [place] [address], [place] [address] Jan, [facility] [address] [id number] [address] [place] [address], [place] [address] Jan, [facility] [address] [id number] [address] [place] [address], [place] [address] Dec, [facility] [address] [id number] [address] [place] [address], [place] [address] Dec, [facility] [address] [id number] [address] [place] [address], [place] [address] Dec, [facility] [address] [id number] [address] [place] [address], [place] [address] Nov, [facility] [address] [id number] [address] [place] [address], [place] [address] Nov, [facility] [address] [id number] [address] [place] [address], [place] [address] 15 Mar, 2010 [facility] [address] [id number] [address] [place] [address] 16 Jan, 2010 [facility] [address] [id number] [address] [place] [address] Dec, [facility] [address] [id number] [address] [place] [address] Dec, [facility] [address] [facility] [id number] [address] [place] [address] Dec, [facility] [address] [id number] [address] [place] [address] Dec, [facility] [address] [id number] [address] [place] [address] Nov, [facility] [address] [facility] [id number] [address] [place] [address] Jan, [facility] [address] [facility] [id number] [address] [place] [address] Nov, [facility] [address] [facility] [id number] [address] [place] [address] Nov, IMMUNIZATIONS Vaccine Route Administration Date Status SOLUMEDROL (UP TO 125 MG) IM Intramuscular July 31, 2017 Admin istered SOCIAL HISTORY Never Assessed REASON FOR VISIT poison jaylon started 11 days ago JStrasserRN PLAN OF CARE Activity Details Follow Up 2 Weeks, prn Reason:poison i vy worsens or not improving VITAL SIGNS Height 67 in 2017-07-31 Weight 211.2 lbs 2017-07-31 Temperature 98.3 degrees Fahrenheit 2017-07-31 Heart Rate 68 bpm 2017-07-31 Respiratory Rate 20 2017-07-31 BMI 33.07 kg/m2 2017-07-31 Blood pressure systolic 146 mmHg 2017-07-31 Blood pressure diastolic 98 mmHg 2017-07-31 MEDICATIONS Medication Instructions Dosage Frequency Start Date End Date Duration S tatus Lipitor 80 Orally Once a day 1 tablet 24h 90 Ac tive Flonase 50 MCG/ACT Nasally Once a day 1 spray in each nostril 24h Active Levothyroxine Sodium 150 TAKE ONE TABLET BY MOUTH SEBASTIAN Y ON AN EMPTY STOMACH 90 Active PredniSONE 10 mg Orally Once a day On Saturday, t aking 2 tablets daily for 5 days 24h Jul, Jul, 05 days Active Timolol Maleate 20 mg Orally 2 times a day 1 tablet 12h 25 Jul, 2013 90 days Active Zyrtec Allergy 10 mg Orally Once a day 1 tablet 24h Jul, 8 13 Aug, 2017 30 day(s) Active Lumigan 0.01 % Ophthalmic Once a day 1 drop into affected eye i n the evening 24h Active Amitriptyline HCl 150 MG Orally Once a day 1 tablet 24h Jan, 30 day(s) Active RESULTS No Results PROCEDURES Procedure Date Ordered Result Body Site [facility] VISIT ESTABLISHED PATIENT July 31, 2017 THER/PROPH/DIAG INJ, SC/IM July 31, 2017 SOLUMEDROL (UP TO 125 MG) July 31, 2017 INSTRUCTIONS MEDICATIONS ADMINISTERED No Known Medications [...]
--- OUTSIDE RECORDS SUMMARY | 2019-05-01 17:48 | XMS REPORT ---
Author Author Candace VAZQUEZ [facility] Address [address] [place] [address] Care Team Providers Care Casualty Claim Adjuster Name Role Phone ANASTACIO VAZQUEZ Unavailable PROBLEMS Type Condition ICD9-CM Code [id number] Code Onset Dates Condition S tatus SNOMED Code Assessment Hyperlipidemia, unspecified hyperlipidemia type E78.5 Sep, Active 22378672 Problem Mood disorder F39 Active 135496 05 Problem Essential (primary) hypertension I10 Active 84029290 Assessment Candidiasis of anus B37.89 Sep, Active 12711109 Assessment Tension headache G44.209 Sep, Active 527359332 Problem Hyperlipidemia, unspecified hyperlipidemia type E7 8.5 Active 61341320 Problem Hypothyroid E03.9 Active 04060181 Problem Acquired hypothyroidism E03.9 Active 979877972 Problem Sleep apnea in adult G47.33 Active 20288188 Problem Lipoma D17.9 Active 47014896 Problem Migraine with aura, not intractable, without sta tus migrainosus G43.109 Active 16058900 ALLERGIES Substance Reaction Event Type Date Status Tetanus Unknown Drug Allergy Sep, Active SOCIAL HISTORY No smoking Hx information available PLAN OF CARE VITAL SIGNS Height 67 in 2015-10-11 Weight 200.8 lbs 2015-10-11 Heart Rate 76 bpm 2015-10-11 Respiratory Rate 18 2015-10-11 BMI 31.45 kg/m2 2015-10-11 Blood pressure systolic 130 mmHg 2015-10-11 Blood pressure diastolic 88 mmHg 2015-10-11 MEDICATIONS Medication Instructions Dosage Frequency Start Date End Date Duration S tatus Lipitor 40 TAKE ONE TABLET BY MOUTH DAILY 30 Active Levothyroxine Sodium 150 MCG Orally Once a day TAKE ONE TA BLET BY MOUTH DAILY ON AN EMPTY STOMACH 24h 90 Active Timolol Maleate 20 MG 1 Tablet by Oral r oute 2 times per day 03/[address] Collins pt is taking 30mg 25 Jul, 2013 Active Aspirin by oral route 325mg daily per Dr Collins due to cerebral small vessels Mar, Active Lotrisone 1-0.05 % Externally Twice a day 1 application to affected area 12h Sep, Active amitriptyline by oral route 150mg at hs per Dr Collins Mar, 90 days Active RESULTS No Results PROCEDURES Procedure Date Ordered Related Diagnosis Body Site [facility] VISIT ESTABLISHED PATIENT Oct 11, 2015 Office Visit, Est Pt., Level 3 Oct 11, 2015 IMMUNIZATIONS No Known Immunizations
--- OUTSIDE RECORDS SUMMARY | 2019-05-01 17:48 | XMS REPORT ---
Author Author Candace VAZQUEZ Organization [facility] Address [address] [place] [address] Care Team Providers Care Claims Support Specialist Name Role Phone ANASTACIO VAZQUEZ Unavailable PROBLEMS Type Condition ICD9-CM Code PLD73-XA Code Onset Dates Condition S tatus SNOMED Code Problem Mood disorder F39 Active 865333 05 Problem Hypothyroid E03.9 Active 28139553 Problem Sleep apnea in adult G47.33 Active 89050435 Problem Migraine with aura, not intractable, without sta tus migrainosus G43.109 Active 17793230 Problem Essential (primary) hypertension I10 Active 83075140 Problem Slow transit constipation K59.01 Acti ve 58549124 Problem Psoriasis L40.9 Active 9640767 Problem Lipoma D17.9 Active 95612823 Problem Hyperlipidemia, unspecified hyperlipidemia type E7 8.5 Active 56366495 Problem Seasonal allergic rhinitis due to pollen J30.1 Active 44831337 Problem Sleep apnea, unspecified G47.30 Activ e 16748097 ALLERGIES Substance Reaction Event Type Date Status Tetanus Unknown Drug Allergy Aug, Active ENCOUNTERS Encounter Location Date Diagnosis [facility] [address] [facility] [id number] [address] [place] [address] Oct, Dysuria R30.0 [facility] [address] [facility] [id number] [address] [place] [address] Sep, Psoriasis L40.9 [facility] [address] [place] [id number] [address] [place] [address] Aug, Psoriasis L40.9 ; Poison jaylon L23.7 ; Slow transit constipation K59.01 ; Breast cancer screening by mammogram Z12.31 and Colon cancer screening Z12.11 [facility] [address] [place] [id number] [address] [place] [address] Jul, Poison jaylon L23.7 [place] [address] [address] Apr, Elevated LFTs R79.89 ; Hypot hyroid E03.9 ; Hyperlipidemia, unspecified hyperlipidemia type E78.5 ; Seasonal allergic rhinitis due to pollen J30.1 and Essential (primary) hypertension I10 [address] [address] Mar, [place] [address] [address] Mar, [address] [address] Feb, Hypothyroid E03.9 and Hyperl ipidemia, unspecified hyperlipidemia type E78.[address] [address] Jan, Sleep apnea, unspecified G47 .30 ; Hypothyroid E03.9 and Hyperlipidemia, unspecified hyperlipidemia type E78.5 [place] [address] [address] Jan, [place] [address] [address] Jan, [address] [address] Dec, [facility] [address] [address] Oct, Blood in stool K92.1 and Ext ernal hemorrhoid, bleeding K64.[address] [address] Aug, Migraine with aura, not intr actable, without status migrainosus G43.[address] [address] June, Breast cancer screening Z12. 39 [facility] [address] [place] [id number] [address] [place] [address] May, Callus L84 [facility] [address] [address] Apr, Callus L84 [facility] [address] [place] [id number] [address] [place] [address] Apr, Hypothyroid E03.9 [facility] [address] [place] [id number] [place] [address] Apr, Hypothyroid E03.9 ; Callus L 84 and Hidradenitis L73.2 [place] [address] [place] [id number] [place] [address] Jan, Hyperlipidemia, unspecified hyperlipidemia type E78.5 [place] [address] [place] [id number] [address] [place] [address] Jan, [facility] [address] [address] Oct, Hyperlipidemia, unspecified hyperlipidemia type E78.5 [facility] [address] [place] [id number] [address] [place] [address] Oct, Seroma T14.8 [place] [address] [place] [id number] [address] [place] [address] Sep, [facility] [address] [place] [id number] [place] [address] Sep, Hyperlipidemia, unspecified hyperlipidemia type E78.5 and Hypothyroid E03.9 [facility] [address] [place] [id number] [address] [place] [address] Sep, Hyperlipidemia, unspecified hyperlipidemia type E78.5 ; Hypothyroid E03.9 ; Tension headache G44.209 and Candidiasis of anus B37.89 [facility] [address] [place] [id number] [address] [place] [address] Jul, [place] [address] [place] [id number] [address] [place] [address] June, Tension headache G44.209 [place] [address] [address] Apr, Hyperlipidemia, unspecified hyperlipidemia type E78.5 ; Hypothyroid E03.9 ; Lipoma D17.9 and Breast cancer screening Z12.39 [place] [address] [address] Mar, [facility] [address] [place] [id number] [place] [id number] 10 Mar, 2015 Encounter for dental examina tion Z01.20 [place] [address] [address] Feb, [facility] [address] [place] [address] Jan, Allergic rhinitis J30.9 [place] [address] [address] Jan, [facility] [address] [address] Dec, Dysuria R30.0 and UTI (urina ry tract infection) N39.[address] [address] Dec, [place] [address] [address] Dec, Dysuria R30.0 and Urinary tr act infection, site unspecified N39.[address] [address] Nov, Benign lipomatous neoplasm o f skin and subcutaneous tissue of head, face and neck D17.0 and Hypothyroidism, unspecified E03.[address] [address] Sep, [facility] [address] [id number] [address] [place] [address] Aug, Hypothyroidism 244.9 [facility] [address] [id number] [address] [place] [address] Jul, Hypothyroidism 244.9 [facility] [address] [facility] [id number] [address] [place] [address] Jul, Sleep apnea 780.57 [facility] [address] [id number] [address] [place] [address] May, [facility] [address] [id number] [address] [place] [address] May, [facility] [address] [id number] [address] [place] [address] Apr, [facility] [address] [id number] [address] [place] [address] Apr, [facility] [address] [id number] [address] [place] [address] Mar, [facility] [address] [id number] [address] [place] [address] Mar, [facility] [address] [id number] [address] [place] [address] Mar, [facility] [address] [id number] [address] [place] [address] Mar, [facility] [address] [id number] [address] [place] [address] Mar, [facility] [address] [id number] [address] [place] [address] Mar, [facility] [address] [id number] [address] [place] [address] Jan, [facility] [address] [id number] [address] [place] [address] Jan, [facility] [address] [id number] [address] [place] [address], [place] [address] Jan, [facility] [address] [id number] [address] [place] [address], [place] [address] Jan, [facility] [address] [id number] [address] [place] [address], [place] [address] Oct, [facility] [address] [id number] [address] [place] [address], [place] [address] Oct, [facility] [address] [id number] [address] [place] [address], [place] [address] Sep, [facility] [address] [id number] [address] [place] [address], [place] [address] Sep, [facility] [address] [id number] [address] [place] [address], [place] [address] Aug, [facility] [address] [id number] [address] [place] [address], [place] [address] Aug, [facility] [address] [id number] [address] [place] [address], [place] [address] Aug, [facility] [address] [id number] [address] [place] [address], [place] [address] Aug, [facility] [address] [id number] [address] [place] [address], [place] [address] Jul, [facility] [address] [id number] [address] [place] [address], [place] [address] Jul, [facility] [address] [id number] [address] [place] [address], [place] [address] June, [facility] [address] [id number] [address] [place] [address], [place] [address] June, [facility] [address] [id number] [address] [place] [address], [place] [address] June, [facility] [address] [id number] [address] [place] [address], [place] [address] June, [facility] [address] [id number] [address] [place] [address], [place] [address] June, [facility] [address] [id number] [address] [place] [address], [place] [address] June, [facility] [address] [id number] [address] [place] [address], [place] [address] May, [facility] [address] [id number] [address] [place] [address], [place] [address] May, [facility] [address] [id number] [address] [place] [address], [place] [address] Apr, [facility] [address] [id number] [address] [place] [address], [place] [address] Apr, [facility] [address] [id number] [address] [place] [address], [place] [address] Apr, [facility] [address] [id number] [address] [place] [address], [place] [address] Apr, [facility] [address] [id number] [address] [place] [address], [place] [address] Apr, [facility] [address] [id number] [address] [place] [address], [place] [address] Mar, [facility] [address] [id number] [address] [place] [address], [place] [address] Mar, [facility] [address] [id number] [address] [place] [address], [place] [address] Mar, [facility] [address] [id number] [address] [place] [address], [place] [address] Mar, [facility] [address] [id number] [address] [place] [address], [place] [address] Feb, [facility] [address] [id number] [address] [place] [address], [place] [address] Feb, [facility] [address] [id number] [address] [place] [address], [place] [address] Jan, [facility] [address] [id number] [address] [place] [address], [place] [address] Jan, [facility] [address] [id number] [address] [place] [address], [place] [address] Jan, [facility] [address] [id number] [address] [place] [address], [place] [address] Jan, [facility] [address] [id number] [address] [place] [address], [place] [address] Jan, [facility] [address] [id number] [address] [place] [address], [place] [address] Jan, [facility] [address] [id number] [address] [place] [address], [place] [address] Dec, [facility] [address] [id number] [address] [place] [address], [place] [address] Dec, [facility] [address] [id number] [address] [place] [address], [place] [address] Nov, [facility] [address] [id number] [address] [place] [address], [place] [address] Nov, [facility] [address] [id number] [address] [place] [address], [place] [address] Oct, [facility] [address] [id number] [address] [place] [address] Aug, [facility] [address] [id number] [address] [place] [address], [place] [address] Aug, [facility] [address] [id number] [address] [place] [address], [place] [address] Jul, [facility] [address] [id number] [address] [place] [address] May, [facility] [address] [id number] [address] [place] [address] Apr, [facility] [address] [id number] [address] [place] [address], [place] [address] Apr, [facility] [address] [id number] [address] [place] [address], [place] [address] Mar, [facility] [address] [id number] [address] [place] [address], [place] [address] 16 Dec, 2011 [facility] [address] [id number] [address] [place] [address], [place] [address] 16 Dec, 2011 [facility] [address] [id number] [address] [place] [address], [place] [address] Dec, [facility] [address] [id number] [address] [place] [address], [place] [address] Dec, [facility] [address] [id number] [address] [place] [address], [place] [address] Dec, [facility] [address] [id number] [address] [place] [address], [place] [address] Dec, [facility] [address] [id number] [address] [place] [address], [place] [address] Nov, [facility] [address] [id number] [address] [place] [address], [place] [address] Nov, [facility] [address] [id number] [address] [place] [address], [place] [address] Nov, [facility] [address] [id number] [address] [place] [address], [place] [address] Nov, [facility] [address] [id number] [address] [place] [address], [place] [address] Sep, [facility] [address] [id number] [address] [place] [address], [place] [address] Sep, [facility] [address] [id number] [address] [place] [address], [place] [address] Aug, [facility] [address] [id number] [address] [place] [address], [place] [address] Aug, [facility] [address] [id number] [address] [place] [address], [place] [address] 08 May, 2011 [facility] [address] [id number] [address] [place] [address], [place] [address] May, [facility] [address] [id number] [address] [place] [address], [place] [address] May, [facility] [address] [id number] [address] [place] [address], [place] [address] Apr, [facility] [address] [id number] [address] [place] [address], [place] [address] Apr, [facility] [address] [id number] [address] [place] [address], [place] [address] Apr, [facility] [address] [id number] [address] [place] [address], [place] [address] Feb, [facility] [address] [id number] [address] [place] [address], [place] [address] Feb, [facility] [address] [id number] [address] [place] [address], [place] [address] Jan, [facility] [address] [id number] [address] [place] [address], [place] [address] Jan, [facility] [address] [id number] [address] [place] [address], [place] [address] Dec, [facility] [address] [id number] [address] [place] [address], [place] [address] Dec, [facility] [address] [id number] [address] [place] [address], [place] [address] Dec, [facility] [address] [id number] [address] [place] [address], [place] [address] Nov, [facility] [address] [id number] [address] [place] [address], [place] [address] 10 Nov, 2010 [facility] [address] [id number] [address] [place] [address] 15 Mar, 2010 [facility] [address] [id number] [address] [place] [address] 16 Jan, 2010 [facility] [address] [id number] [address] [place] [address] Dec, [facility] [address] [id number] [address] [place] [address] Dec, [facility] [address] [id number] [address] [place] [address] 18 Dec, 2009 [facility] [address] [id number] [address] [place] [address] 18 Dec, 2009 [facility] [address] [id number] [address] [place] [address] 18 Nov, 2009 [facility] [address] [id number] [address] [place] [address] 14 Jan, 2009 [facility] [address] [id number] [address] [place] [address] 14 Nov, 2008 [facility] [address] [id number] [address] [place] [address] 12 Nov, 2008 IMMUNIZATIONS No Known Immunizations SOCIAL HISTORY Never Assessed REASON FOR VISIT Hypothyroid, PT reports she needs some medication for her psoriasis flared up on the palm of her hands -Thomas CHOE PLAN OF CARE Activity Details Follow Up 3 Months Reason:thryoid Pending Test Mammogram, Bilateral Screeni ng VITAL SIGNS Height 67 in 2017-09-09 Weight 213.2 lbs 2017-09-09 Temperature 98.0 degrees Fahrenheit 2017-09-09 Heart Rate 67 bpm 2017-09-09 Respiratory Rate 20 2017-09-09 Oximetry 98 % 2017-09-09 BMI 33.39 kg/m2 2017-09-09 Blood pressure systolic 130 mmHg 2017-09-09 Blood pressure diastolic 72 mmHg 2017-09-09 MEDICATIONS Medication Instructions Dosage Frequency Start Date End Date Duration S tatus Betamethasone Dipropionate Aug 0.05 % Externally Once a day 1 application to affected area 24h 23 Aug, 2017 2 Sep, 2017 10 days Active Levothyroxine Sodium 150 TAKE ONE TABLET BY MOUTH SEBASTIAN Y ON AN EMPTY STOMACH 90 Active Lumigan 0.01 % Ophthalmic Once a day 1 drop into affected eye i n the evening 24h Active Lipitor 80 Orally Once a day 1 tablet 24h 90 Ac tive Amitriptyline HCl 150 MG Orally Once a day 1 tablet 24h 08 Jan, 2017 30 day(s) Active Colace 100 mg Orally twice a day 1 capsule as needed 12h 23 2017Dec, 30 day(s) Active Flonase 50 MCG/ACT Nasally Once a day 1 spray in each nostril 24h Active Timolol Maleate 20 mg Orally 2 times a day 1 tablet 12h 25 Jul, 2013 90 days Active RESULTS Name Result Date Reference Range COLOGUARD (OUTSIDE ORDER) 2017-09-24 Date Performed Results PROCEDURES Procedure Date Ordered Result Body Site [facility] VISIT ESTABLISHED PATIENT September 09, 2017 INSTRUCTIONS MEDICATIONS ADMINISTERED No Known Medications [...]
--- OUTSIDE RECORDS SUMMARY | 2019-05-01 17:48 | XMS REPORT ---
Author Author Candace VAZQUEZ Organization [employer] Address Unknown Phone Unavailable Care Team Providers [employer] Sales Representative Name Role Phone ANASTACIO VAZQUEZ CP Unavailable Allergies, Adverse Reactions, Alerts Substance Reaction Event Type Tetanus Info Not Available Drug Allergy Problems Problem Type Condition Code Onset Dates Condition Statu s Problem Essential (primary) hypertension I10 Active Assessment Seroma T14.8 Active Problem Hypothyroid E03.9 Active Problem Lipoma D17.9 Active Problem Hyperlipidemia, unspecified hyperlipidemia type E78.5 Active Problem Sleep apnea in adult G47.33 Active Problem Mood disorder F39 Active Problem Migraine with aura, not intractable, without sta tus migrainosus G43.109 Active Problem Acquired hypothyroidism E03.9 Acti ve Medications Medication Code System Code Instructions Start Date End Date Status Dosage Lotrisone [facility] [address]-92 1-0.05 % Externally Twice a day Oct 11, 2015 1 application to affected area amitriptyline [facility] 0 Mar 28, 2014 by or al route 150mg at hs per Dr Collins Timolol Maleate [facility] [address]-41 20 MG August 12, 2013 1 Tablet by Oral route 2 times per day 03/[address] Collins pt is taking 30mg Aspirin [facility] [address]-74 Mar 28, 2014 by or al route 325mg daily per Dr Collins due to cerebral small vessels Lipitor [facility] [id number] 40 TAKE ONE TAB LET BY MOUTH DAILY Levothyroxine Sodium ND [id number] 150 Orally Once a day TAKE ONE TABLET BY MOUTH DAILY ON AN EMPTY STOMACH Procedures Procedure Coding System Code Date Office Visit, Est Pt., Level 3 CPT-4 94684 S ept 2015 [facility] VISIT ESTABLISHED PATIENT CPT-4 G0467 S ept 2015 Vital Signs Date/Time: Nov 01, 2015 Cardiac Monitoring Heart Rate 80 bpm Weight 197.0 lbs Height 67 in BMI 30.85 Index Blood Pressure Diastolic 100 mmHg Blood Pressure Systolic 144 mmHg Results No Known Results Summary Purpose eClinicalWorks Submission
--- OUTSIDE RECORDS SUMMARY | 2019-05-01 17:48 | XMS REPORT ---
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 Name Role Phone ANASTACIO VAZQUEZ Unavailable PROBLEMS Type Condition ICD9-CM Code SLZ39-TQ Code Onset Dates Condition S tatus SNOMED Code Problem Mood disorder F39 Active 277063 05 Problem Migraine with aura, not intractable, without sta tus migrainosus G43.109 Active 45860191 Problem Sleep apnea in adult G47.33 Active 98272550 Problem Seasonal allergic rhinitis due to pollen J30.1 Active 00402407 Problem Sleep apnea, unspecified G47.30 Activ e 11240371 Problem Hyperlipidemia, unspecified hyperlipidemia type E7 8.5 Active 40404704 Problem Essential (primary) hypertension I10 Active 40112106 Problem Hypothyroid E03.9 Active 84584261 Problem Lipoma D17.9 Active 39770556 ALLERGIES Substance Reaction Event Type Date Status Tetanus Unknown Drug Allergy Apr, Active ENCOUNTERS Encounter Location Date Diagnosis [facility] [address] [id number] [address] [place] [address] Aug, [facility] [address] [id number] [address] [place] [address] Jul, Poison jaylon L23.7 [facility] [address] [id number] [address] [place] [address] Apr, Elevated LFTs R79.89 ; Hypot hyroid E03.9 ; Hyperlipidemia, unspecified hyperlipidemia type E78.5 ; Seasonal allergic rhinitis due to pollen J30.1 and Essential (primary) hypertension I10 [facility] [address] [id number] [address] [place] [address] 13 Mar, 2017 [facility] [address] [id number] [address] [place] [address] Mar, [facility] [address] [address] Feb, Hypothyroid E03.9 and Hyperl ipidemia, unspecified hyperlipidemia type E78.5 [place] [address] [address] Jan, Sleep apnea, unspecified G47 .30 ; Hypothyroid E03.9 and Hyperlipidemia, unspecified hyperlipidemia type E78.5 [place] [address] [address] Jan, [place] [address] [address] Jan, [place] [address] [address] Dec, [facility] [address] [address] Oct, Blood in stool K92.1 and Ext ernal hemorrhoid, bleeding K64.4 [place] [address] [address] Aug, Migraine with aura, not intr actable, without status migrainosus G43.109 [place] [address] [address] June, Breast cancer screening Z12. 39 [place] [address] [address] May, Callus L84 [place] [address] [address] Apr, Callus L84 [place] [address] [address] Apr, Hypothyroid E03.9 [place] [address] [address] Apr, Hypothyroid E03.9 ; Callus L 84 and Hidradenitis L73.2 [facility] [address] [id number] [address] [place] [address] Jan, Hyperlipidemia, unspecified hyperlipidemia type E78.5 [facility] [address] [id number] [address] [place] [address] Jan, [facility] [address] [address] Oct, Hyperlipidemia, unspecified hyperlipidemia type E78.5 [facility] [id number] [address] [place] [address] Oct, Seroma T14.8 [facility] [id number] [address] [place] [address] Sep, [facility] [address] [address] Sep, Hyperlipidemia, unspecified hyperlipidemia type E78.5 and Hypothyroid E03.9 [facility] [address] [id number] [address] [place] [address] Sep, Hyperlipidemia, unspecified hyperlipidemia type E78.5 ; Hypothyroid E03.9 ; Tension headache G44.209 and Candidiasis of anus B37.89 [facility] [address] [place] [address] Jul, [facility] [id number] [address] [place] [address] June, Tension headache G44.209 [facility] [id number] [address] [place] [address] Apr, Hyperlipidemia, unspecified hyperlipidemia type E78.5 ; Hypothyroid E03.9 ; Lipoma D17.9 and Breast cancer screening Z12.39 [facility] [id number] [address] [place] [address] Mar, [facility] [address] [id number] [address] [place] [id number] 10 Mar, 2015 Encounter for dental examina tion Z01.20 [facility] [address] [id number] [place] [address] Feb, [facility] [address] [place] [address] Jan, Allergic rhinitis J30.9 [facility] [id number] [place] [address] Jan, [facility] [address] [place] [address] Dec, Dysuria R30.0 and UTI (urina ry tract infection) N39.0 [place] [id number] [place] [address] Dec, [place] [address] [address] Dec, Dysuria R30.0 [address] Urinary tr act infection, site unspecified N39.0 [place] [id number] [place] [address] Nov, Benign lipomatous neoplasm o f skin and subcutaneous tissue of head, face and neck D17.0 and Hypothyroidism, unspecified E03.9 [place] [address] [place] [address] Sep, [place] [address] [id number] [place] [address] Aug, Hypothyroidism 244.9 [place] [id number] [place] [address] Jul, Hypothyroidism 244.9 [place] [address] [id number] [place] [address] Jul, Sleep apnea 780.57 [place] [address] [address] 14 May, 2014 [facility] [address] [id number] [address] [place] [address], [place] [address] May, [facility] [address] [id number] [address] [place] [address], [place] [address] Apr, [facility] [address] [id number] [address] [place] [address], [place] [address] Apr, [facility] [address] [id number] [address] [place] [address], [place] [address] Mar, 2014 [facility] [address] [id number] [address] [place] [address], [place] [address] Mar, 2014 [facility] [address] [id number] [address] [place] [address], [place] [address] Mar, 2014 [facility] [address] [id number] [address] [place] [address], [place] [address] Mar, 2014 [facility] [address] [id number] [address] [place] [address], [place] [address] Mar, 2014 [facility] [address] [id number] [address] [place] [address], [place] [address] Mar, [facility] [address] [id number] [address] [place] [address], [place] [address] Jan, [facility] [address] [id number] [address] [place] [address], [place] [address] Jan, [facility] [address] [id number] [address] [place] [address], [place] [address] Jan, [facility] [address] [id number] [address] [place] [address], [place] [address] Jan, [facility] [address] [id number] [address] [place] [address], [place] [address] Oct, [facility] [address] [id number] [address] [place] [address], [place] [address] Oct, [facility] [address] [id number] [address] [place] [address], [place] [address] Sep, [facility] [address] [id number] [address] [place] [address], [place] [address] Sep, [facility] [address] [id number] [address] [place] [address], [place] [address] Aug, [facility] [address] [id number] [address] [place] [address], [place] [address] Aug, [facility] [address] [id number] [address] [place] [address], [place] [address] Aug, [facility] [address] [id number] [address] [place] [address], [place] [address] Aug, [facility] [address] [id number] [address] [place] [address], [place] [address] Jul, [facility] [address] [id number] [address] [place] [address], [place] [address] Jul, [facility] [address] [id number] [address] [place] [address], [place] [address] June, [facility] [address] [id number] [address] [place] [address], [place] [address] June, [facility] [address] [id number] [address] [place] [address], [place] [address] June, [facility] [address] [id number] [address] [place] [address], [place] [address] June, [facility] [address] [id number] [address] [place] [address], [place] [address] June, [facility] [address] [id number] [address] [place] [address], [place] [address] June, [facility] [address] [id number] [address] [place] [address], [place] [address] May, [facility] [address] [id number] [address] [place] [address], [place] [address] May, [facility] [address] [id number] [address] [place] [address], [place] [address] Apr, [facility] [address] [id number] [address] [place] [address], [place] [address] Apr, [facility] [address] [id number] [address] [place] [address], [place] [address] Apr, [facility] [address] [id number] [address] [place] [address], [place] [address] Apr, [facility] [address] [id number] [address] [place] [address], [place] [address] Apr, [facility] [address] [id number] [address] [place] [address], [place] [address] Mar, [facility] [address] [id number] [address] [place] [address], [place] [address] Mar, [facility] [address] [id number] [address] [place] [address], [place] [address] Mar, [facility] [address] [id number] [address] [place] [address], [place] [address] Mar, [facility] [address] [id number] [address] [place] [address], [place] [address] Feb, [facility] [address] [id number] [address] [place] [address], [place] [address] Feb, [facility] [address] [id number] [address] [place] [address], [place] [address] Jan, [facility] [address] [id number] [address] [place] [address], [place] [address] Jan, [facility] [address] [id number] [address] [place] [address], [place] [address] Jan, [facility] [address] [id number] [address] [place] [address], [place] [address] Jan, [facility] [address] [id number] [address] [place] [address], [place] [address] Jan, [facility] [address] [id number] [address] [place] [address], [place] [address] Jan, [facility] [address] [id number] [address] [place] [address], [place] [address] Dec, [facility] [address] [id number] [address] [place] [address], [place] [address] Dec, [facility] [address] [id number] [address] [place] [address], [place] [address] Nov, [facility] [address] [id number] [address] [place] [address], [place] [address] Nov, [facility] [address] [id number] [address] [place] [address], [place] [address] Oct, [facility] [address] [id number] [address] [place] [address], [place] [address] Aug, [facility] [address] [id number] [address] [place] [address], [place] [address] Aug, [facility] [address] [id number] [address] [place] [address], [place] [address] Jul, [facility] [address] [id number] [address] [place] [address], [place] [address] May, [facility] [address] [id number] [address] [place] [address], [place] [address] Apr, [facility] [address] [id number] [address] [place] [address], [place] [address] Apr, [facility] [address] [id number] [address] [place] [address], [place] [address] Mar, [facility] [address] [id number] [address] [place] [address], [place] [address] Dec, [facility] [address] [id number] [address] [place] [address], [place] [address] Dec, [facility] [address] [id number] [address] [place] [address], [place] [address] Dec, [facility] [address] [id number] [address] [place] [address], [place] [address] Dec, [facility] [address] [id number] [address] [place] [address], [place] [address] Dec, [facility] [address] [id number] [address] [place] [address], [place] [address] Dec, [facility] [address] [id number] [address] [place] [address], [place] [address] Nov, [facility] [address] [id number] [address] [place] [address], [place] [address] Nov, [facility] [address] [id number] [address] [place] [address], [place] [address] Nov, [facility] [address] [id number] [address] [place] [address], [place] [address] Nov, [facility] [address] [id number] [address] [place] [address], [place] [address] Sep, [facility] [address] [id number] [address] [place] [address] Sep, [facility] [address] [id number] [address] [place] [address] Aug, [facility] [address] [id number] [address] [place] [address] Aug, [facility] [address] [id number] [address] [place] [address], [place] [address] May, [facility] [address] [id number] [address] [place] [address] May, [facility] [address] [id number] [address] [place] [address] May, [facility] [address] [id number] [address] [place] [address] Apr, [facility] [address] [id number] [address] [place] [address], [place] [address] Apr, [facility] [address] [id number] [address] [place] [address], [place] [address] Apr, [facility] [address] [id number] [address] [place] [address], [place] [address] Feb, [facility] [address] [id number] [address] [place] [address], [place] [address] Feb, [facility] [address] [id number] [address] [place] [address], [place] [address] Jan, [facility] [address] [id number] [address] [place] [address], [place] [address] Jan, [facility] [address] [id number] [address] [place] [address], [place] [address] Dec, [facility] [address] [id number] [address] [place] [address], [place] [address] 29 Dec, 2010 [facility] [address] [id number] [address] [place] [address], [place] [address] Dec, [facility] [address] [id number] [address] [place] [address], [place] [address] Nov, [facility] [address] [id number] [address] [place] [address], [place] [address] Nov, [facility] [address] [id number] [address] [place] [address], [place] [address] 15 Mar, 2010 [facility] [address] [id number] [address] [place] [address], [place] [address] 16 Jan, 2010 [facility] [address] [id number] [address] [place] [address], [place] [address] Dec, [facility] [address] [id number] [address] [place] [address], [place] [address] Dec, [facility] [address] [facility] [id number] [address] [place] [address] 18 Dec, 2009 [facility] [address] [facility] [id number] [address] [place] [address] 18 Dec, 2009 [facility] [address] [facility] [id number] [address] [place] [address] 18 Nov, 2009 [facility] [address] [facility] [id number] [address] [place] [address] Jan, [facility] [address] [facility] [id number] [address] [place] [address] Nov, [facility] [address] [facility] [id number] [address] [place] [address] Nov, IMMUNIZATIONS No Known Immunizations SOCIAL HISTORY Never Assessed REASON FOR VISIT hypothyroid, med check, needs refills on levothyroxine, atorvastatin, timolol, a nd flonase. CBrumbackRN PLAN OF CARE Activity Details Follow Up 6 Months Reason:BP VITAL SIGNS Height 67 in 2017-05-06 Weight 209.4 lbs 2017-05-06 Temperature 98.1 degrees Fahrenheit 2017-05-06 Heart Rate 68 bpm 2017-05-06 Respiratory Rate 18 2017-05-06 BMI 32.79 kg/m2 2017-05-06 Blood pressure systolic 132 mmHg 2017-05-06 Blood pressure diastolic 94 mmHg 2017-05-06 MEDICATIONS Medication Instructions Dosage Frequency Start Date End Date Duration S tatus Lumigan 0.01 % Ophthalmic Once a day 1 drop into affected eye i n the evening 24h Active Levothyroxine Sodium 150 TAKE ONE TABLET BY MOUTH SEBASTIAN Y ON AN EMPTY STOMACH 90 Active Aspirin 81 MG Orally Once a day 1 capsule 24h 08 Mar, 2014 Not-Taking Timolol Maleate 20 mg Orally 2 times a day 1 tablet 12h 25 Jul, 2013 90 days Active Amitriptyline HCl 150 MG Orally Once a day 1 tablet 24h 08 Jan, 2017 30 day(s) Active Lipitor 80 Orally Once a day 1 tablet 24h 90 Ac tive Flonase 50 MCG/ACT Nasally Once a day 1 spray in each nostril 24h Active RESULTS No Results PROCEDURES Procedure Date Ordered Result Body Site [facility] VISIT ESTABLISHED PATIENT May 06, 2017 INSTRUCTIONS MEDICATIONS ADMINISTERED No Known Medications [...]
--- OUTSIDE RECORDS SUMMARY | 2019-05-01 17:48 | XMS REPORT ---
Author Author Candace VAZQUEZ Organization [facility] Address [address] [place] [address] Care Team Providers Care Direct Sales Representative Name Role Phone ANASTACIO VAZQUEZ Unavailable PROBLEMS Type Condition ICD9-CM Code AUO39-SX Code Onset Dates Condition S tatus SNOMED Code Problem Mood disorder F39 Active 752974 05 Problem Hypothyroid E03.9 Active 49740620 Problem Sleep apnea in adult G47.33 Active 19895001 Problem Migraine with aura, not intractable, without sta tus migrainosus G43.109 Active 41805985 Problem Essential (primary) hypertension I10 Active 15856027 Problem Slow transit constipation K59.01 Acti ve 83676963 Problem Psoriasis L40.9 Active 3421158 Problem Lipoma D17.9 Active 94597218 Problem Hyperlipidemia, unspecified hyperlipidemia type E7 8.5 Active 10776409 Problem Seasonal allergic rhinitis due to pollen J30.1 Active 16602347 Problem Sleep apnea, unspecified G47.30 Activ e 98440108 ALLERGIES No Information ENCOUNTERS Encounter Location Date Diagnosis [facility] IN [facility] [address] [id number] [address] [place] [address] 04 Oct, 2017 Dysuria R30.0 [facility] [address] [id number] [address] [place] [address] Sep, Psoriasis L40.9 [facility] [address] [id number] [address] [place] [address] Aug, Psoriasis L40.9 ; Poison jaylon L23.7 ; Slow transit constipation K59.01 ; Breast cancer screening by mammogram Z12.31 and Colon cancer screening Z12.11 [facility]ALK IN [facility] [address] [facility] [id number] [address] [place] [address] 13 Jul, 2017 Poison jaylon L23.7 [place] [address] [address] Apr, Elevated LFTs R79.89 ; Hypot hyroid E03.9 ; Hyperlipidemia, unspecified hyperlipidemia type E78.5 ; Seasonal allergic rhinitis due to pollen J30.1 and Essential (primary) hypertension I10 [address] [address] Mar, [place] [address] [address] Mar, [address] [address] Feb, Hypothyroid E03.9 and Hyperl ipidemia, unspecified hyperlipidemia type E78.[address] [address] Jan, Sleep apnea, unspecified G47 .30 ; Hypothyroid E03.9 and Hyperlipidemia, unspecified hyperlipidemia type E78.5 [place] [address] [address] Jan, [place] [address] [address] Jan, [place] [address] [address] Dec, [facility] [address] [address] Oct, Blood in stool K92.1 and Ext ernal hemorrhoid, bleeding K64.[address] [address] Aug, Migraine with aura, not intr actable, without status migrainosus G43.109 [place] [address] [address] June, Breast cancer screening Z12. 39 [place] [address] [facility] [id number] [address] [place] [address] May, Callus L84 [facility] [address] [facility] [id number] [address] [place] [address] Apr, Callus L84 [facility] [address] [facility] [id number] [address] [place] [address] Apr, Hypothyroid E03.9 [facility] [address] [facility] [id number] [address] [place] [address] Apr, Hypothyroid E03.9 ; Callus L 84 and Hidradenitis L73.2 [facility] [address] [facility] [id number] [address] [place] [address] Jan, Hyperlipidemia, unspecified hyperlipidemia type E78.5 [facility] [address] [id number] [address] [place] [address] Jan, [facility] [address] [facility] [id number] [address] [place] [address] Oct, Hyperlipidemia, unspecified hyperlipidemia type E78.5 [facility] [address] [facility] [id number] [address] [place] [address] Oct, Seroma T14.8 [facility] [address] [facility] [id number] [address] [place] [address] Sep, [facility] [address] [facility] [id number] [address] [place] [address] Sep, Hyperlipidemia, unspecified hyperlipidemia type E78.5 and Hypothyroid E03.9 [facility] [address] [facility] [id number] [address] [place] [address] Sep, Hyperlipidemia, unspecified hyperlipidemia type E78.5 ; Hypothyroid E03.9 ; Tension headache G44.209 and Candidiasis of anus B37.89 [facility] [address] [facility] [id number] [address] [place] [address] Jul, [facility] [address] [facility] [id number] [address] [place] [address] June, Tension headache G44.209 [facility] [address] [address] Apr, Hyperlipidemia, unspecified hyperlipidemia type E78.5 ; Hypothyroid E03.9 ; Lipoma D17.9 and Breast cancer screening Z12.39 [place] [address] [address] Mar, [facility] [address] [id number] [place] [id number] Mar, 2015 Encounter for dental examina tion Z01.20 [place] [address] [address] Feb, [facility] WALK [facility] [place] [address] [address] Jan, Allergic rhinitis J30.9 [place] [address] [address] Jan, [facility] [address] [address] Dec, Dysuria R30.0 and UTI (urina ry tract infection) N39.0 [place] [address] [address] Dec, [place] [address] [address] Dec, Dysuria R30.0 and Urinary tr act infection, site unspecified N39.0 [place] [address] [address] Nov, Benign lipomatous neoplasm o f skin and subcutaneous tissue of head, face and neck D17.0 and Hypothyroidism, unspecified E03.9 [place] [address] [address] Sep, [place] [address] [id number] [address] [place] [address] Aug, Hypothyroidism 244.9 [facility] [address] [id number] [address] [place] [address] Jul, Hypothyroidism 244.9 [facility] [address] [facility] [id number] [address] [place] [address] Jul, Sleep apnea 780.57 [facility] [address] [id number] [address] [place] [address] May, [facility] [address] [id number] [address] [place] [address] May, [facility] [address] [id number] [address] [place] [address] Apr, [facility] [address] [id number] [address] [place] [address] Apr, [facility] [address] [id number] [address] [place] [address] Mar, [facility] [address] [id number] [address] [place] [address] Mar, [facility] [address] [id number] [address] [place] [address] Mar, [facility] [address] [id number] [address] [place] [address] Mar, [facility] [address] [id number] [address] [place] [address] Mar, [facility] [address] [id number] [address] [place] [address] Mar, [facility] [address] [id number] [address] [place] [address] Jan, [facility] [address] [id number] [address] [place] [address] Jan, [facility] [address] [id number] [address] [place] [address], [place] [address] Jan, [facility] [address] [id number] [address] [place] [address], [place] [address] Jan, [facility] [address] [id number] [address] [place] [address], [place] [address] Oct, [facility] [address] [id number] [address] [place] [address], [place] [address] Oct, [facility] [address] [id number] [address] [place] [address], [place] [address] Sep, [facility] [address] [id number] [address] [place] [address], [place] [address] Sep, [facility] [address] [id number] [address] [place] [address], [place] [address] Aug, [facility] [address] [id number] [address] [place] [address], [place] [address] Aug, [facility] [address] [id number] [address] [place] [address], [place] [address] Aug, [facility] [address] [id number] [address] [place] [address], [place] [address] Aug, [facility] [address] [id number] [address] [place] [address], [place] [address] Jul, [facility] [address] [id number] [address] [place] [address], [place] [address] Jul, [facility] [address] [id number] [address] [place] [address], [place] [address] June, [facility] [address] [id number] [address] [place] [address], [place] [address] June, [facility] [address] [id number] [address] [place] [address], [place] [address] June, [facility] [address] [id number] [address] [place] [address], [place] [address] June, [facility] [address] [id number] [facility] [place] [address] June, [facility] [address] [id number] [address] [place] [address], [place] [address] June, [facility] [address] [id number] [address] [place] [address], [place] [address] May, [facility] [address] [id number] [address] [place] [address], [place] [address] May, [facility] [address] [id number] [address] [place] [address], [place] [address] Apr, [facility] [address] [id number] [address] [place] [address], [place] [address] Apr, [facility] [address] [id number] [address] [place] [address], [place] [address] Apr, [facility] [address] [id number] [address] [place] [address], [place] [address] Apr, [facility] [address] [id number] [address] [place] [address], [place] [address] Apr, [facility] [address] [id number] [address] [place] [address], [place] [address] Mar, [facility] [address] [id number] [address] [place] [address], [place] [address] Mar, [facility] [address] [id number] [address] [place] [address], [place] [address] Mar, [facility] [facility] [address] [id number] [address] [place] [address], [place] [address] Mar, [facility] [address] [id number] [address] [place] [address], [place] [address] Feb, [facility] [address] [id number] [address] [place] [address], [place] [address] Feb, [facility] [place] [facility] [address] [id number] [address] [place] [address] Jan, [facility] [address] [id number] [address] [place] [address], [place] [address] Jan, [facility] [address] [id number] [address] [place] [address], [place] [address] Jan, [facility] [address] [id number] [address] [place] [address], [place] [address] Jan, [facility] [address] [id number] [address] [place] [address], [place] [address] Jan, [facility] [address] [id number] [address] [place] [address], [place] [address] Jan, [facility] [address] [id number] [address] [place] [address], [place] [address] Dec, [facility] [address] [id number] [address] [place] [address], [place] [address] Dec, [facility] [address] [id number] [address] [place] [address], [place] [address] Nov, [facility] [address] [id number] [address] [place] [address], [place] [address] Nov, [facility] [address] [id number] [address] [place] [address], [place] [address] Oct, [facility] [address] [id number] [address] [place] [address], [place] [address] Aug, [facility] [address] [id number] [address] [place] [address], [place] [address] Aug, [facility] [address] [id number] [address] [place] [address], [place] [address] Jul, [facility] [address] [id number] [address] [place] [address], [place] [address] May, [facility] [address] [id number] [address] [place] [address], [place] [address] Apr, [facility] [address] [id number] [address] [place] [address], [place] [address] Apr, [facility] [address] [id number] [address] [place] [address], [place] [address] Mar, [facility] [address] [id number] [address] [place] [address], [place] [address] Dec, [facility] [address] [id number] [address] [place] [address], [place] [address] Dec, [facility] [address] [id number] [address] [place] [address], [place] [address] Dec, [facility] [address] [id number] [address] [place] [address], [place] [address] Dec, [facility] [address] [id number] [address] [place] [address], [place] [address] Dec, [facility] [address] [id number] [address] [place] [address], [place] [address] Dec, [facility] [address] [id number] [address] [place] [address], [place] [address] Nov, [facility] [address] [id number] [address] [place] [address], [place] [address] Nov, [facility] [address] [id number] [address] [place] [address], [place] [address] Nov, [facility] [address] [id number] [address] [place] [address] Nov, [facility] [address] [id number] [address] [place] [address], [place] [address] Sep, [facility] [address] [id number] [address] [place] [address], [place] [address] Sep, [facility] [address] [id number] [address] [place] [address], [place] [address] Aug, [facility] [address] [id number] [address] [place] [address] Aug, [facility] [address] [id number] [address] [place] [address], [place] [address] May, [facility] [address] [id number] [address] [place] [address], [place] [address] May, [facility] [address] [id number] [address] [place] [address], [place] [address] May, [facility] [address] [id number] [address] [place] [address], [place] [address] Apr, [facility] [address] [id number] [address] [place] [address], [place] [address] Apr, [facility] [address] [id number] [address] [place] [address], [place] [address] Apr, [facility] [address] [id number] [address] [place] [address], [place] [address] Feb, [facility] [address] [id number] [address] [place] [address], [place] [address] Feb, [facility] [address] [id number] [address] [place] [address], [place] [address] Jan, [facility] [address] [id number] [address] [place] [address], [place] [address] Jan, [facility] [address] [id number] [address] [place] [address], [place] [address] Dec, [facility] [address] [id number] [address] [place] [address], [place] [address] Dec, [facility] [address] [id number] [address] [place] [address], [place] [address] Dec, [facility] [address] [id number] [address] [place] [address], [place] [address] Nov, [facility] [address] [id number] [address] [place] [address], [place] [address] Nov, [facility] [address] [id number] [address] [place] [address] 15 Mar, 2010 [facility] [address] [id number] [address] [place] [address] 16 Jan, 2010 [facility] [address] [id number] [address] [place] [id number] 22 Dec, 2009 [facility] [address] [id number] [address] [place] [address] Dec, [facility] [address] [id number] [address] [place] [address] Dec, [facility] [address] [id number] [address] [place] [address] Dec, [facility] [address] [id number] [address] [place] [address] 18 Nov, 2009 [facility] [address] [id number] [address] [place] [address] 14 Jan, 2009 [facility] [address] [id number] [address] [place] [address] 14 Nov, 2008 [facility] [address] [id number] [address] [place] [address] Nov, IMMUNIZATIONS No Known Immunizations SOCIAL HISTORY Never Assessed REASON FOR VISIT Refill request PLAN OF CARE VITAL SIGNS MEDICATIONS Medication Instructions Dosage Frequency Start Date End Date Duration S tatus Triamcinolone Acetonide 0.5 % Externally Twice a day as need ed 1 application to affected area Sep, Active RESULTS No Results PROCEDURES No Known [...]
--- OUTSIDE RECORDS SUMMARY | 2019-05-01 17:49 | XMS REPORT ---
Author Author Candace VAZQUEZ Organization [facility] Address [address] [place] [address] Care Team Providers Care Mattress Specialist Name Role Phone ANASTACIO VAZQUEZ Unavailable PROBLEMS Type Condition ICD9-CM Code IEU62-XD Code Onset Dates Condition S tatus SNOMED Code Problem Mood disorder F39 Active 849366 05 Problem Migraine with aura, not intractable, without sta tus migrainosus G43.109 Active 33158331 Problem Sleep apnea in adult G47.33 Active 25963302 Problem Seasonal allergic rhinitis due to pollen J30.1 Active 88280284 Problem Sleep apnea, unspecified G47.30 Activ e 24743527 Problem Hyperlipidemia, unspecified hyperlipidemia type E7 8.5 Active 45543822 Problem Essential (primary) hypertension I10 Active 51587145 Problem Hypothyroid E03.9 Active 58914287 Problem Lipoma D17.9 Active 75409936 ALLERGIES No Information ENCOUNTERS Encounter Location Date Diagnosis [place] [id number] [place] [id number] [place] [address] Apr, Elevated LFTs R79.89 ; Hypot hyroid E03.9 ; Hyperlipidemia, unspecified hyperlipidemia type E78.5 ; Seasonal allergic rhinitis due to pollen J30.1 and Essential (primary) hypertension I10 [facility] [address] [place] [address] Mar, [place] [id number] [address] Mar, [place] [address] [address] Feb, Hypothyroid E03.9 and Hyperl ipidemia, unspecified hyperlipidemia type E78.5 [place] [address] [address] Jan, Sleep apnea, unspecified G47 .30 ; Hypothyroid E03.9 and Hyperlipidemia, unspecified hyperlipidemia type E78.5 [place] [address] [address] Jan, [place] [address] [address] Jan, [place] [address] [address] Dec, [facility] [address] [address] Oct, Blood in stool K92.1 and Ext ernal hemorrhoid, bleeding K64.4 [place] [address] [address] Aug, Migraine with aura, not intr actable, without status migrainosus G43.109 [place] [address] [address] June, Breast cancer screening Z12. 39 [place] [address] [address] May, Callus L84 [place] [address] [address] Apr, Callus L84 [place] [address] [address] Apr, Hypothyroid E03.9 [place] [address] [address] 15 Apr, 2016 Hypothyroid E03.9 ; Callus L 84 and Hidradenitis L73.2 [place] [address] [address] Jan, Hyperlipidemia, unspecified hyperlipidemia type E78.5 [place] [address] [address] Jan, [facility] [address] [facility] [id number] [address] [place] [address] Oct, Hyperlipidemia, unspecified hyperlipidemia type E78.5 [facility] [address] [facility] [id number] [address] [place] [address] Oct, Seroma T14.8 [facility] [address] [place] [id number] [place] [address] Sep, [facility] [address] [place] [id number] [place] [address] Sep, Hyperlipidemia, unspecified hyperlipidemia type E78.5 and Hypothyroid E03.9 [facility] [address] [place] [id number] [address] [place] [address] Sep, Hyperlipidemia, unspecified hyperlipidemia type E78.5 ; Hypothyroid E03.9 ; Tension headache G44.209 and Candidiasis of anus B37.89 [facility] [address] [place] [id number] [address] [place] [address] Jul, [facility] [address] [address] June, Tension headache G44.209 [facility] [address] [place] [id number] [address] [place] [address] Apr, Hyperlipidemia, unspecified hyperlipidemia type E78.5 ; Hypothyroid E03.9 ; Lipoma D17.9 and Breast cancer screening Z12.39 [facility] [address] [facility] [id number] [address] [place] [address] Mar, [facility] [address] [place] [id number] Mar, 2015 Encounter for dental examina tion Z01.20 [facility] [address] [place] [id number] [address] [place] [address] Feb, [facility] [address] [place] [id number] [place] [address] Jan, Allergic rhinitis J30.9 [facility] [address] [facility] [id number] [address] [place] [address] Jan, [facility] [address] [facility] [id number] [address] [place] [address] Dec, Dysuria R30.0 and UTI (urina ry tract infection) N39.0 [facility] [address] [facility] [id number] [address] [place] [address] Dec, [facility] [address] [facility] [id number] [place] [address] Dec, Dysuria R30.0 and Urinary tr act infection, site unspecified N39.0 [facility] [address] [place] [id number] [place] [address] Nov, Benign lipomatous neoplasm o f skin and subcutaneous tissue of head, face and neck D17.0 and Hypothyroidism, unspecified E03.9 [facility] [address] [place] [id number] [place] [address] Sep, [facility] [address] [address] Aug, Hypothyroidism 244.9 [facility] [address] [place] [id number] [place] [address] Jul, Hypothyroidism 244.9 [facility] [address] [place] [id number] [address] [place] [address] Jul, Sleep apnea 780.57 [facility] [address] [place] [id number] [place] [address] May, [facility] [address] [place] [id number] [place] [address] May, [facility] [address] [place] [id number] [place] [address] Apr, [facility] [address] [place] [address] Apr, [facility] [address] [id number] [address] [place] [address], [place] [address] Mar, 2014 [facility] [address] [id number] [address] [place] [address], [place] [address] Mar, 2014 [facility] [address] [id number] [address] [place] [address], [place] [address] Mar, 2014 [facility] [address] [id number] [address] [place] [address], [place] [address] Mar, 2014 [facility] [address] [id number] [address] [place] [address], [place] [address] Mar, 2014 [facility] [address] [id number] [address] [place] [address], [place] [address] Mar, 2014 [facility] [address] [id number] [address] [place] [address], [place] [address] Jan, [facility] [address] [id number] [address] [place] [address], [place] [address] Jan, [facility] [address] [id number] [address] [place] [address], [place] [address] Jan, [facility] [address] [id number] [address] [place] [address], [place] [address] Jan, [facility] [address] [id number] [address] [place] [address], [place] [address] Oct, [facility] [address] [id number] [address] [place] [address], [place] [address] Oct, [facility] [address] [id number] [address] [place] [address], [place] [address] Sep, [facility] [address] [id number] [address] [place] [address], [place] [address] Sep, [facility] [address] [id number] [address] [place] [address], [place] [address] Aug, [facility] [address] [id number] [facility] [place] [address] Aug, [facility] [address] [id number] [address] [place] [address], [place] [address] Aug, [facility] [address] [id number] [address] [place] [address], [place] [address] Aug, [facility] [address] [id number] [address] [place] [address], [place] [address] Jul, [facility] [address] [id number] [address] [place] [address], [place] [address] Jul, [facility] [address] [id number] [address] [place] [address], [place] [address] June, [facility] [address] [id number] [address] [place] [address], [place] [address] June, [facility] [address] [id number] [address] [place] [address], [place] [address] June, [facility] [address] [id number] [address] [place] [address], [place] [address] June, [facility] [address] [id number] [address] [place] [address], [place] [address] June, [facility] [address] [id number] [address] [place] [address], [place] [address] June, [facility] [address] [id number] [address] [place] [address], [place] [address] May, [facility] [address] [id number] [address] [place] [address], [place] [address] May, [facility] [address] [id number] [address] [place] [address], [place] [address] Apr, [facility] [address] [id number] [address] [place] [address], [place] [address] Apr, [facility] [address] [id number] [address] [place] [address], [place] [address] Apr, [facility] [address] [id number] [address] [place] [address], [place] [address] Apr, [facility] [address] [id number] [address] [place] [address], [place] [address] Apr, [facility] [address] [id number] [address] [place] [address], [place] [address] Mar, [facility] [address] [id number] [address] [place] [address], [place] [address] Mar, [facility] [address] [id number] [address] [place] [address], [place] [address] Mar, [facility] [address] [id number] [address] [place] [address], [place] [address] Mar, [facility] [address] [id number] [address] [place] [address], [place] [address] Feb, [facility] [address] [id number] [address] [place] [address], [place] [address] Feb, [facility] [address] [id number] [address] [place] [address], [place] [address] Jan, [facility] [address] [id number] [address] [place] [address], [place] [address] Jan, [facility] [address] [id number] [address] [place] [address], [place] [address] Jan, [facility] [address] [id number] [address] [place] [address], [place] [address] Jan, [facility] [address] [id number] [address] [place] [address], [place] [address] Jan, [facility] [address] [id number] [address] [place] [address], [place] [address] 06 Jan, 2013 [facility] [address] [id number] [address] [place] [address], [place] [address] Dec, [facility] [address] [id number] [address] [place] [address], [place] [address] Dec, [facility] [address] [id number] [address] [place] [address], [place] [address] Nov, [facility] [address] [id number] [address] [place] [address], [place] [address] Nov, [facility] [address] [id number] [address] [place] [address], [place] [address] Oct, [facility] [address] [id number] [address] [place] [address], [place] [address] Aug, [facility] [address] [id number] [address] [place] [address], [place] [address] Aug, [facility] [address] [id number] [address] [place] [address], [place] [address] Jul, [facility] [address] [id number] [address] [place] [address], [place] [address] May, [facility] [address] [id number] [address] [place] [address], [place] [address] Apr, [facility] [address] [id number] [address] [place] [address], [place] [address] Apr, [facility] [address] [id number] [address] [place] [address], [place] [address] Mar, [facility] [address] [id number] [address] [place] [address], [place] [address] Dec, [facility] [address] [id number] [address] [place] [address], [place] [address] Dec, [facility] [address] [id number] [address] [place] [address], [place] [address] Dec, [facility] [address] [id number] [address] [place] [address], [place] [address] Dec, [facility] [address] [id number] [address] [place] [address], [place] [address] Dec, [facility] [address] [id number] [address] [place] [address], [place] [address] Dec, [facility] [address] [id number] [address] [place] [address], [place] [address] Nov, [facility] [address] [id number] [address] [place] [address], [place] [address] Nov, [facility] [address] [id number] [address] [place] [address], [place] [address] Nov, [facility] [address] [id number] [address] [place] [address], [place] [address] Nov, [facility] [address] [id number] [address] [place] [address], [place] [address] Sep, [facility] [address] [id number] [address] [place] [address], [place] [address] Sep, [facility] [address] [id number] [address] [place] [address], [place] [address] Aug, [facility] [address] [id number] [address] [place] [address], [place] [address] Aug, [facility] [address] [id number] [address] [place] [address], [place] [address] May, [facility] [address] [id number] [address] [place] [address], [place] [address] May, [facility] [address] [id number] [address] [place] [address], [place] [address] May, [facility] [address] [id number] [address] [place] [address], [place] [address] Apr, [facility] [address] [id number] [address] [place] [address], [place] [address] Apr, [facility] [address] [id number] [address] [place] [address], [place] [address] Apr, [facility] [address] [id number] [address] [place] [address], [place] [address] 18 Feb, 2011 [facility] [address] [id number] [address] [place] [address], [place] [address] Feb, [facility] [address] [id number] [address] [place] [address], [place] [address] Jan, [facility] [address] [id number] [address] [place] [address], [place] [address] Jan, [facility] [address] [id number] [address] [place] [address], [place] [address] Dec, [facility] [address] [id number] [address] [place] [address], [place] [address] Dec, [facility] [address] [id number] [address] [place] [address], [place] [address] Dec, [facility] [address] [id number] [address] [place] [address], [place] [address] Nov, [facility] [address] [id number] [address] [place] [address], [place] [address] Nov, [facility] [address] [id number] [address] [place] [address], [place] [address] 15 Mar, 2010 [facility] [address] [id number] [address] [place] [address], [place] [address] 16 Jan, 2010 [facility] [address] [id number] [address] [place] [address], [place] [address] Dec, [facility] [address] [id number] [address] [place] [address], [place] [address] Dec, [facility] [address] [id number] [address] [place] [address], [place] [address] Dec, [facility] [address] [id number] [address] [place] [address], [place] [address] Dec, [facility] [address] [id number] [address] [place] [address], [place] [address] Nov, [facility] [address] [facility] [id number] [address] [place] [address] Jan, [facility] [address] [facility] [id number] [address] [place] [address] 14 Nov, 2008 [facility] [address] [facility] [id number] [address] [place] [address] 12 Nov, 2008 IMMUNIZATIONS No Known Immunizations SOCIAL HISTORY Never Assessed REASON FOR VISIT Refill request PLAN OF CARE VITAL SIGNS MEDICATIONS Medication Instructions Dosage Frequency Start Date End Date Duration S tobias Timolol Maleate 20 MG Orally 2 times a day 1 tablet [...]
--- OUTSIDE RECORDS SUMMARY | 2019-05-01 17:49 | XMS REPORT ---
Author Author Candace VAZQUEZ Organization [facility] Address [address] [place] [address] Care Team Providers Care Mission Assessment Specialist Name Role Phone ANASTACIO VAZQUEZ Unavailable PROBLEMS Type Condition ICD9-CM Code TAY33-DZ Code Onset Dates Condition S tatus SNOMED Code Problem Mood disorder F39 Active 114298 05 Problem Essential (primary) hypertension I10 Active 59107235 Problem Hyperlipidemia, unspecified hyperlipidemia type E7 8.5 Active 65697617 Problem Hypothyroid E03.9 Active 05800643 Problem Acquired hypothyroidism E03.9 Active 711551034 Problem Sleep apnea in adult G47.33 Active 12206131 Problem Lipoma D17.9 Active 02138875 Problem Migraine with aura, not intractable, without sta tus migrainosus G43.109 Active 65802948 ALLERGIES Unknown Allergies SOCIAL HISTORY No smoking Hx information available PLAN OF CARE VITAL SIGNS MEDICATIONS Unknown Medications RESULTS Name Result Date Reference Range LIPID PANEL 2016-02-09 Cholesterol, Total 223 100-199 Triglycerides 277 0-149 HDL Cholesterol 38 >39 VLDL Cholesterol Mikhail 55 5-40 LDL Cholesterol Calc 130 0-99 Comment: PROCEDURES Procedure Date Ordered Related Diagnosis Body Site LAB NOT BILLED BY [facility] Feb 09, 2016 IZABEL MORATAYA* Feb 09, 2016 IMMUNIZATIONS No Known Immunizations
--- OUTSIDE RECORDS SUMMARY | 2019-05-01 17:49 | XMS REPORT ---
Author Author Candace PULIDO Organization [employer] Address Unknown Phone Unavailable Care Team Providers Care Status Controller Name Role Phone STEVEN PLUIDO CP Unavailable Allergies, Adverse Reactions, Alerts Substance Reaction Event Type N.K.D.A. Info Not Available Non Drug Allergy Problems Problem Type Condition Code Onset Dates Condition Statu s Assessment UTI (urinary tract infection) N39.0 Active Problem Acquired hypothyroidism E03.9 Acti ve Problem Sleep apnea in adult G47.33 Active Problem Migraine with aura, not intractable, without sta tus migrainosus G43.109 Active Problem Hyperlipidemia, unspecified E78.5 Active Assessment Dysuria R30.0 Active Problem Mood disorder F39 Active Problem Essential (primary) hypertension I10 Active Medications Medication Code System Code Instructions Start Date End Date Status Dosage Aspirin [facility] [address]-54 Mar 28, 2014 by or al route 325mg daily per Dr Collins due to cerebral small vessels Lipitor [facility] 76797933075 40 TAKE ONE TAB LET BY MOUTH DAILY Timolol Maleate [facility] [address]-08 20 MG August 12, 2013 1 Tablet by Oral route 2 times per day 03/[address] Collins pt is taking 30mg Pyridium [facility] [address]-83 100 MG Orally Three times a day N ov 2014Jan 12, 2015 1 tablet after meals Cipro [facility] [address]-98 250 MG Orally every 12 hrs Jan 10, 2015 No v 2014 2 tablets Levothyroxine Sodium [facility] [address]-18 150 MCG Orally Once a day TAKE ONE TABLET BY MOUTH DAILY ON AN EMPTY STOMACH amitriptyline ND 0 Mar 28, 2014 by or al route 150mg at hs per Dr Collins Procedures Procedure Coding System Code Date LAB NOT BILLED BY [facility] CPT-4 NOBLL Jan 10, 2015 [facility] VISIT ESTABLISHED PATIENT CPT-4 G0467 N 2014 URINALYSIS, AUTO, W/O SCOPE CPT-4 55084 Jan 10, 2015 Office Visit, Est Pt., Level 3 CPT-4 11290 N 2014 Vital Signs Date/Time: Jan 10, 2015 Temperature 97.9 F Weight 206 lbs Height 67 in BMI 32.26 Index Blood Pressure Diastolic 70 mmHg Blood Pressure Systolic 130 mmHg Cardiac Monitoring Heart Rate 70 bpm Results Name Result Date Reference Range Unit Abnormali ty Flag UA LONG DIP (IN HOUSE) Summary Purpose eClinicalWorks Submission
--- OUTSIDE RECORDS SUMMARY | 2019-05-01 17:49 | XMS REPORT ---
Author Author Candace VAZQUEZ [facility] eClinicalWorks Address Unknown Phone Unavailable Care Team Providers Care Maintenance Journeyman Name Role Phone ANASTACIO VAZQUEZ CP Unavailable Allergies, Adverse Reactions, Alerts Substance Reaction Event Type N.K.D.A. Info Not Available Non Drug Allergy Problems Problem Type Condition Code Onset Dates Condition Statu s Assessment Hypothyroidism, unspecified E03.9 Active Problem Acquired hypothyroidism E03.9 Acti ve Problem Sleep apnea in adult G47.33 Active Problem Migraine with aura, not intractable, without sta tus migrainosus G43.109 Active Problem Hyperlipidemia, unspecified E78.5 Active Assessment Benign lipomatous neoplasm o f skin and subcutaneous tissue of head, face and neck D17.0 Active Problem Mood disorder F39 Active Problem Essential (primary) hypertension I10 Active Medications Medication Code System Code Instructions Start Date End Date Status Dosage Timolol Maleate [facility] [address]-83 20 MG August 12, 2013 1 Tablet by Oral route 2 times per day 03/[address] Collins pt is taking 30mg Flonase [facility] [address]-38 50 mcg/actuation 2 spray(s) intranasally 2 times a day April 23, 2013 1 sprays by Nasa l route 2 times per day in each nostril Levothyroxine Sodium [facility] [address]-47 150 MCG Orally Once a day TAKE ONE TABLET BY MOUTH DAILY [place] [address]-00 Mar 28, 2014 by or al route 325mg daily per Dr Collins due to cerebral small vessels amitriptyline ND 0 Mar 28, 2014 by or al route 150mg at hs per Dr Collins Lipitor [facility] [id number] 40 TAKE ONE TAB LET BY MOUTH DAILY Procedures Procedure Coding System Code Date VENIPUNCT, ROUTINE* CPT-4 77727 Nov 18, 2014 [facility] VISIT ESTABLISHED PATIENT CPT-[address] 2014 LAB NOT BILLED BY [facility] CPT-4 NOBLL Nov 18, 2014 Office Visit, Est Pt., Level 3 CPT-[address] 2014 Vital Signs Date/Time: Nov 18, 2014 Temperature 97.4 F Weight 206.4 lbs Height 67 in BMI 32.32 Index Blood Pressure Diastolic 88 mmHg Blood Pressure Systolic 148 mmHg Cardiac Monitoring Heart Rate 76 bpm Results Name Result Date Reference Range Unit Abnormali ty Flag ROUTINE VENIPUNCTURE Summary Purpose eClinicalWorks Submission
--- OUTSIDE RECORDS SUMMARY | 2019-05-01 17:49 | XMS REPORT ---
Author Author Candace VAZQUEZ Organization [facility] Address [address] [place] [address] Care Team Providers Care Beauty Operator Apprentice Name Role Phone ANASTACIO VAZQUEZ Unavailable PROBLEMS Type Condition ICD9-CM Code WZT72-PI Code Onset Dates Condition S tatus SNOMED Code Problem Mood disorder F39 Active 819451 05 Problem Migraine with aura, not intractable, without sta tus migrainosus G43.109 Active 11844642 Problem Sleep apnea in adult G47.33 Active 03505576 Problem Seasonal allergic rhinitis due to pollen J30.1 Active 73819461 Problem Sleep apnea, unspecified G47.30 Activ e 92245275 Problem Hyperlipidemia, unspecified hyperlipidemia type E7 8.5 Active 87581013 Problem Essential (primary) hypertension I10 Active 87254320 Problem Hypothyroid E03.9 Active 46816629 Problem Lipoma D17.9 Active 58748204 ALLERGIES No Information ENCOUNTERS Encounter Location Date Diagnosis [place] [id number] [place] [id number] [address] [place] [address] Apr, Elevated LFTs R79.89 ; Hypot hyroid E03.9 ; Hyperlipidemia, unspecified hyperlipidemia type E78.5 ; Seasonal allergic rhinitis due to pollen J30.1 and Essential (primary) hypertension I10 [facility] [address] [place] [address] Mar, [place] [address] [address] Mar, [place] [address] [address] Feb, Hypothyroid E03.9 and Hyperl ipidemia, unspecified hyperlipidemia type E78.5 [place] [address] [address] Jan, Sleep apnea, unspecified G47 .30 ; Hypothyroid E03.9 and Hyperlipidemia, unspecified hyperlipidemia type E78.5 [place] [address] [address] Jan, [place] [address] [address] Jan, [place] [address] [address] Dec, [facility] [address] [address] Oct, Blood in stool K92.1 and Ext ernal hemorrhoid, bleeding K64.4 [place] [address] [address] Aug, Migraine with aura, not intr actable, without status migrainosus G43.109 [place] [address] [address] June, Breast cancer screening Z12. 39 [place] [address] [address] May, Callus L84 [place] [address] [address] Apr, Callus L84 [place] [address] [address] Apr, Hypothyroid E03.9 [place] [address] [address] 15 Apr, 2016 Hypothyroid E03.9 ; Callus L 84 and Hidradenitis L73.2 [place] [address] [address] Jan, Hyperlipidemia, unspecified hyperlipidemia type E78.5 [place] [address] [address] Jan, [facility] [address] [facility] [id number] [address] [place] [address] Oct, Hyperlipidemia, unspecified hyperlipidemia type E78.5 [facility] [address] [facility] [id number] [address] [place] [address] Oct, Seroma T14.8 [facility] [address] [place] [id number] [place] [address] Sep, [facility] [address] [place] [id number] [address] [place] [address] Sep, Hyperlipidemia, unspecified hyperlipidemia type E78.5 and Hypothyroid E03.9 [facility] [address] [place] [id number] [address] [place] [address] Sep, Hyperlipidemia, unspecified hyperlipidemia type E78.5 ; Hypothyroid E03.9 ; Tension headache G44.209 and Candidiasis of anus B37.89 [facility] [address] [place] [id number] [address] [place] [address] Jul, [facility] [address] [address] June, Tension headache G44.209 [facility] [address] [place] [id number] [address] [place] [address] Apr, Hyperlipidemia, unspecified hyperlipidemia type E78.5 ; Hypothyroid E03.9 ; Lipoma D17.9 and Breast cancer screening Z12.39 [facility] [address] [facility] [id number] [address] [place] [address] Mar, [facility] [address] [place] [id number] 10 Mar, 2015 Encounter for dental examina tion Z01.20 [facility] [address] [place] [id number] [address] [place] [address] Feb, [facility] [address] [place] [id number] [address] [place] [address] Jan, Allergic rhinitis J30.9 [facility] [address] [facility] [id number] [address] [place] [address] Jan, [facility] [address] [facility] [id number] [address] [place] [address] Dec, Dysuria R30.0 and UTI (urina ry tract infection) N39.0 [facility] [address] [facility] [id number] [address] [place] [address] Dec, [facility] [address] [facility] [id number] [place] [address] Dec, Dysuria R30.0 and Urinary tr act infection, site unspecified N39.0 [facility] [address] [place] [id number] [address] [place] [address] Nov, Benign lipomatous neoplasm o f skin and subcutaneous tissue of head, face and neck D17.0 and Hypothyroidism, unspecified E03.9 [facility] [address] [place] [id number] [address] [place] [address] Sep, [facility] [address] [address] Aug, Hypothyroidism 244.9 [facility] [address] [place] [id number] [place] [address] Jul, Hypothyroidism 244.9 [facility] [address] [place] [id number] [address] [place] [address] Jul, Sleep apnea 780.57 [facility] [address] [place] [id number] [place] [address] May, [facility] [address] [place] [id number] [place] [address] May, [facility] [address] [place] [id number] [place] [address] Apr, [facility] [address] [place] [address] Apr, [facility] [address] [id number] [address] [place] [address], [place] [address] Mar, 2014 [facility] [address] [id number] [address] [place] [address], [place] [address] Mar, 2014 [facility] [address] [id number] [address] [place] [address], [place] [address] Mar, 2014 [facility] [address] [id number] [address] [place] [address], [place] [address] Mar, 2014 [facility] [address] [id number] [address] [place] [address], [place] [address] Mar, 2014 [facility] [address] [id number] [address] [place] [address], [place] [address] Mar, 2014 [facility] [address] [id number] [address] [place] [address], [place] [address] Jan, [facility] [address] [id number] [address] [place] [address], [place] [address] Jan, [facility] [address] [id number] [address] [place] [address], [place] [address] Jan, [facility] [address] [id number] [address] [place] [address], [place] [address] Jan, [facility] [address] [id number] [address] [place] [address], [place] [address] Oct, [facility] [address] [id number] [address] [place] [address], [place] [address] Oct, [facility] [address] [id number] [address] [place] [address], [place] [address] Sep, [facility] [address] [id number] [address] [place] [address], [place] [address] Sep, [facility] [address] [id number] [address] [place] [address], [place] [address] Aug, [facility] [address] [id number] [facility] [place] [address] Aug, [facility] [address] [id number] [address] [place] [address], [place] [address] Aug, [facility] [address] [id number] [address] [place] [address], [place] [address] Aug, [facility] [address] [id number] [address] [place] [address], [place] [address] Jul, [facility] [address] [id number] [address] [place] [address], [place] [address] Jul, [facility] [address] [id number] [address] [place] [address], [place] [address] June, [facility] [address] [id number] [address] [place] [address], [place] [address] June, [facility] [address] [id number] [address] [place] [address], [place] [address] June, [facility] [address] [id number] [address] [place] [address], [place] [address] June, [facility] [address] [id number] [address] [place] [address], [place] [address] June, [facility] [address] [id number] [address] [place] [address], [place] [address] June, [facility] [address] [id number] [address] [place] [address], [place] [address] May, [facility] [address] [id number] [address] [place] [address], [place] [address] May, [facility] [address] [id number] [address] [place] [address], [place] [address] Apr, [facility] [address] [id number] [address] [place] [address], [place] [address] Apr, [facility] [address] [id number] [address] [place] [address], [place] [address] Apr, [facility] [address] [id number] [address] [place] [address], [place] [address] Apr, [facility] [address] [id number] [address] [place] [address], [place] [address] Apr, [facility] [address] [id number] [address] [place] [address], [place] [address] Mar, [facility] [address] [id number] [address] [place] [address], [place] [address] Mar, [facility] [address] [id number] [address] [place] [address], [place] [address] Mar, [facility] [address] [id number] [address] [place] [address], [place] [address] Mar, [facility] [address] [id number] [address] [place] [address], [place] [address] Feb, [facility] [address] [id number] [address] [place] [address], [place] [address] Feb, [facility] [address] [id number] [address] [place] [address], [place] [address] Jan, [facility] [address] [id number] [address] [place] [address], [place] [address] Jan, [facility] [address] [id number] [address] [place] [address], [place] [address] Jan, [facility] [address] [id number] [address] [place] [address], [place] [address] Jan, [facility] [address] [id number] [address] [place] [address], [place] [address] Jan, [facility] [address] [id number] [address] [place] [address], [place] [address] 06 Jan, 2013 [facility] [address] [id number] [address] [place] [address], [place] [address] Dec, [facility] [address] [id number] [address] [place] [address], [place] [address] Dec, [facility] [address] [id number] [address] [place] [address], [place] [address] Nov, [facility] [address] [id number] [address] [place] [address], [place] [address] Nov, [facility] [address] [id number] [address] [place] [address], [place] [address] Oct, [facility] [address] [id number] [address] [place] [address], [place] [address] Aug, [facility] [address] [id number] [address] [place] [address], [place] [address] Aug, [facility] [address] [id number] [address] [place] [address], [place] [address] Jul, [facility] [address] [id number] [address] [place] [address], [place] [address] May, [facility] [address] [id number] [address] [place] [address], [place] [address] Apr, [facility] [address] [id number] [address] [place] [address], [place] [address] Apr, [facility] [address] [id number] [address] [place] [address], [place] [address] Mar, [facility] [address] [id number] [address] [place] [address], [place] [address] Dec, [facility] [address] [id number] [address] [place] [address], [place] [address] Dec, [facility] [address] [id number] [address] [place] [address], [place] [address] Dec, [facility] [address] [id number] [address] [place] [address], [place] [address] Dec, [facility] [address] [id number] [address] [place] [address], [place] [address] Dec, [facility] [address] [id number] [address] [place] [address], [place] [address] Dec, [facility] [address] [id number] [address] [place] [address], [place] [address] Nov, [facility] [address] [id number] [address] [place] [address], [place] [address] Nov, [facility] [address] [id number] [address] [place] [address], [place] [address] Nov, [facility] [address] [id number] [address] [place] [address], [place] [address] Nov, [facility] [address] [id number] [address] [place] [address], [place] [address] Sep, [facility] [address] [id number] [address] [place] [address], [place] [address] Sep, [facility] [address] [id number] [address] [place] [address], [place] [address] Aug, [facility] [address] [id number] [address] [place] [address], [place] [address] Aug, [facility] [address] [id number] [address] [place] [address], [place] [address] May, [facility] [address] [id number] [address] [place] [address], [place] [address] May, [facility] [address] [id number] [address] [place] [address], [place] [address] May, [facility] [address] [id number] [address] [place] [address], [place] [address] Apr, [facility] [address] [id number] [address] [place] [address], [place] [address] Apr, [facility] [address] [id number] [address] [place] [address], [place] [address] Apr, [facility] [address] [id number] [address] [place] [address], [place] [address] 18 Feb, 2011 [facility] [address] [id number] [address] [place] [address], [place] [address] Feb, [facility] [address] [id number] [address] [place] [address], [place] [address] Jan, [facility] [address] [id number] [address] [place] [address], [place] [address] Jan, [facility] [address] [id number] [address] [place] [address], [place] [address] Dec, [facility] [address] [id number] [address] [place] [address], [place] [address] Dec, [facility] [address] [id number] [address] [place] [address], [place] [address] Dec, [facility] [address] [id number] [address] [place] [address], [place] [address] Nov, [facility] [address] [id number] [address] [place] [address], [place] [address] Nov, [facility] [address] [id number] [address] [place] [address], [place] [address] 15 Mar, 2010 [facility] [address] [id number] [address] [place] [address], [place] [address] 16 Jan, 2010 [facility] [address] [id number] [address] [place] [address], [place] [address] Dec, [facility] [address] [id number] [address] [place] [address], [place] [address] Dec, [facility] [address] [id number] [address] [place] [address], [place] [address] Dec, [facility] [address] [id number] [address] [place] [address], [place] [address] Dec, [facility] [address] [id number] [address] [place] [address], [place] [address] Nov, [facility] [address] [facility] [id number] [address] [place] [address] Jan, [facility] [address] [facility] [id number] [address] [place] [address] 14 Nov, 2008 [facility] [address] [facility] [id number] [address] [place] [address] 12 Nov, 2008 IMMUNIZATIONS No Known Immunizations SOCIAL HISTORY Never Assessed REASON FOR VISIT sleep apnea box PLAN OF CARE VITAL SIGNS MEDICATIONS No Known Medications RESULTS No Results PROCEDURES No Known [...]
--- OUTSIDE RECORDS SUMMARY | 2019-05-01 17:49 | XMS REPORT ---
Author Author Candace VAZQUEZ Organization [employer] Address Unknown Phone Unavailable Care Team Providers Care Senior Communications Specialist Name Role Phone ANASTACIO VAZQUEZ CP Unavailable Allergies No Known Allergies Problems Problem Type Condition Code Onset Dates Condition Statu s Problem Acquired hypothyroidism E03.9 Acti ve Problem Sleep apnea in adult G47.33 Active Problem Migraine with aura, not intractable, without sta tus migrainosus G43.109 Active Problem Hyperlipidemia, unspecified E78.5 Active Problem Mood disorder F39 Active Problem Essential (primary) hypertension I10 Active Medications No Known Medications Results No Known Results Summary Purpose [employer] Submission
--- OUTSIDE RECORDS SUMMARY | 2019-05-01 17:49 | XMS REPORT ---
Author Author Candace VAZQUEZ [facility] Address [address] [place] [address] Care Team Providers Care Stock Chaser Name Role Phone ANASTACIO VAZQUEZ Unavailable PROBLEMS Type Condition ICD9-CM Code MGS49-JC Code Onset Dates Condition S tatus SNOMED Code Problem Sleep apnea in adult G47.33 Active 06238093 Problem Mood disorder F39 Active 601166 05 Problem Hypothyroid E03.9 Active 41876264 Problem Lipoma D17.9 Active 56054880 Problem Migraine with aura, not intractable, without sta tus migrainosus G43.109 Active 79949403 Problem Acquired hypothyroidism E03.9 Active 043137248 Problem Hyperlipidemia, unspecified hyperlipidemia type E7 8.5 Active 27481155 Problem Essential (primary) hypertension I10 Active 08433174 ALLERGIES Substance Reaction Event Type Date Status Tetanus Unknown Drug Allergy May, Active SOCIAL HISTORY Never Assessed PLAN OF CARE Activity Details Follow Up prn Reason: VITAL SIGNS Height 67 in 2016-05-30 Weight 201 lbs 2016-05-30 Temperature 97.7 degrees Fahrenheit 2016-05-30 Heart Rate 64 bpm 2016-05-30 Respiratory Rate 18 2016-05-30 BMI 31.48 kg/m2 2016-05-30 Blood pressure systolic 146 mmHg 2016-05-30 Blood pressure diastolic 88 mmHg 2016-05-30 MEDICATIONS Medication Instructions Dosage Frequency Start Date End Date Duration S tatus Timolol Maleate 20 MG 1 Tablet by Oral r oute 2 times per day 03/[address] Collins pt is taking 30mg 25 Jul, 2013 Active Aspirin 81 MG Orally Once a day 1 capsule 24h Mar, Active Levothyroxine Sodium 150 TAKE ONE TABLET BY MOUTH SEBASTIAN Y ON AN EMPTY STOMACH 90 Active Lipitor 80 Orally Once a day 1 tablet 24h 90 Ac tive amitriptyline by oral route 150mg at hs per Dr Collins Mar, 90 days Active RESULTS No Results PROCEDURES Procedure Date Ordered Result Body Site SHAVE SKIN LESION 0.6-1 cm 2016-05-30 N/A SHAVE F,E,E,N,L,M 0.6-1 CM May 30, 2016 [facility] VISIT ESTABLISHED PATIENT May 30, 2016 IMMUNIZATIONS No Known Immunizations MEDICAL (GENERAL) HISTORY Type Description Date Medical [...]
--- OUTSIDE RECORDS SUMMARY | 2019-05-01 17:49 | XMS REPORT ---
Author Author Candace VAZQUEZ Organization [facility] Address [address] [place] [address] Care Team Providers Care Window Shade Ring Sewer Name Role Phone ANASTACIO VAZQUEZ Unavailable PROBLEMS Type Condition ICD9-CM Code [id number] Code Onset Dates Condition S tatus SNOMED Code Problem Mood disorder F39 Active 560527 05 Problem Migraine with aura, not intractable, without sta tus migrainosus G43.109 Active 86052288 Problem Sleep apnea in adult G47.33 Active 61328762 Problem Seasonal allergic rhinitis due to pollen J30.1 Active 43005368 Problem Sleep apnea, unspecified G47.30 Activ e 76708531 Problem Hyperlipidemia, unspecified hyperlipidemia type E7 8.5 Active 76204273 Problem Essential (primary) hypertension I10 Active 38148137 Problem Hypothyroid E03.9 Active 92017695 Problem Lipoma D17.9 Active 43487123 ALLERGIES No Information ENCOUNTERS Encounter Location Date Diagnosis [place] [id number] [place] [id number] [place] [address] Apr, Elevated LFTs R79.89 ; Hypot hyroid E03.9 ; Hyperlipidemia, unspecified hyperlipidemia type E78.5 ; Seasonal allergic rhinitis due to pollen J30.1 and Essential (primary) hypertension I10 [facility] [address] [place] [address] Mar, [place] [address] [address] Mar, [place] [address] [address] Feb, Hypothyroid E03.9 and Hyperl ipidemia, unspecified hyperlipidemia type E78.5 [place] [address] [address] Jan, Sleep apnea, unspecified G47 .30 ; Hypothyroid E03.9 and Hyperlipidemia, unspecified hyperlipidemia type E78.5 [place] [address] [address] Jan, [place] [address] [address] Jan, [place] [address] [address] Dec, [facility] [address] [address] Oct, Blood in stool K92.1 and Ext ernal hemorrhoid, bleeding K64.4 [place] [address] [address] Aug, Migraine with aura, not intr actable, without status migrainosus G43.109 [place] [address] [address] June, Breast cancer screening Z12. 39 [place] [address] [address] May, Callus L84 [place] [address] [address] Apr, Callus L84 [place] [address] [address] Apr, Hypothyroid E03.9 [place] [address] [address] 15 Apr, 2016 Hypothyroid E03.9 ; Callus L 84 and Hidradenitis L73.2 [place] [address] [address] Jan, Hyperlipidemia, unspecified hyperlipidemia type E78.5 [place] [address] [address] Jan, [facility] [address] [facility] [id number] [address] [place] [address] Oct, Hyperlipidemia, unspecified hyperlipidemia type E78.5 [facility] [address] [facility] [place] [id number] [address] [place] [address] Oct, Seroma T14.8 [facility] [address] [place] [id number] [place] [address] Sep, [facility] [address] [place] [id number] [address] [place] [address] Sep, Hyperlipidemia, unspecified hyperlipidemia type E78.5 and Hypothyroid E03.9 [facility] [address] [place] [id number] [address] [place] [address] Sep, Hyperlipidemia, unspecified hyperlipidemia type E78.5 ; Hypothyroid E03.9 ; Tension headache G44.209 and Candidiasis of anus B37.89 [facility] [address] [place] [id number] [address] [place] [address] Jul, [facility] [address] [address] June, Tension headache G44.209 [facility] [address] [place] [id number] [address] [place] [address] Apr, Hyperlipidemia, unspecified hyperlipidemia type E78.5 ; Hypothyroid E03.9 ; Lipoma D17.9 and Breast cancer screening Z12.39 [facility] [address] [facility] [id number] [address] [place] [address] Mar, [facility] [address] [place] [id number] 10 Mar, 2015 Encounter for dental examina tion Z01.20 [facility] [address] [place] [id number] [address] [place] [address] Feb, [facility] [address] [place] [id number] [address] [place] [address] Jan, Allergic rhinitis J30.9 [facility] [address] [facility] [facility] [id number] [address] [place] [address] Jan, [facility] [address] [facility] [place] [id number] [address] [place] [address] Dec, Dysuria R30.0 and UTI (urina ry tract infection) N39.0 [facility] [address] [facility] [place] [id number] [address] [place] [address] Dec, [facility] [address] [facility] [id number] [place] [address] Dec, Dysuria R30.0 and Urinary tr act infection, site unspecified N39.0 [facility] [address] [place] [id number] [address] [place] [address] Nov, Benign lipomatous neoplasm o f skin and subcutaneous tissue of head, face and neck D17.0 and Hypothyroidism, unspecified E03.9 [facility] [address] [place] [id number] [address] [place] [address] Sep, [facility] [address] [address] Aug, Hypothyroidism 244.9 [facility] [address] [place] [id number] [place] [address] Jul, Hypothyroidism 244.9 [facility] [address] [place] [id number] [address] [place] [address] Jul, Sleep apnea 780.57 [facility] [address] [place] [id number] [place] [address] May, [facility] [address] [place] [id number] [place] [address] May, [facility] [address] [place] [id number] [place] [address] Apr, [facility] [address] [place] [address] Apr, [facility] [address] [id number] [address] [place] [address], [place] [address] Mar, 2014 [facility] [address] [id number] [address] [place] [address], [place] [address] Mar, 2014 [facility] [address] [id number] [address] [place] [address], [place] [address] Mar, 2014 [facility] [address] [id number] [address] [place] [address], [place] [address] Mar, 2014 [facility] [address] [id number] [address] [place] [address], [place] [address] Mar, 2014 [facility] [address] [id number] [address] [place] [address], [place] [address] Mar, 2014 [facility] [address] [id number] [address] [place] [address], [place] [address] Jan, [facility] [address] [id number] [address] [place] [address], [place] [address] Jan, [facility] [address] [id number] [address] [place] [address], [place] [address] Jan, [facility] [address] [id number] [address] [place] [address], [place] [address] Jan, [facility] [address] [id number] [address] [place] [address], [place] [address] Oct, [facility] [address] [id number] [address] [place] [address], [place] [address] Oct, [facility] [address] [id number] [address] [place] [address], [place] [address] Sep, [facility] [address] [id number] [address] [place] [address], [place] [address] Sep, [facility] [address] [id number] [address] [place] [address], [place] [address] Aug, [facility] [address] [id number] [facility] [place] [address] Aug, [facility] [address] [id number] [address] [place] [address], [place] [address] Aug, [facility] [address] [id number] [address] [place] [address], [place] [address] Aug, [facility] [address] [id number] [address] [place] [address], [place] [address] Jul, [facility] [address] [id number] [address] [place] [address], [place] [address] Jul, [facility] [address] [id number] [address] [place] [address], [place] [address] June, [facility] [address] [id number] [address] [place] [address], [place] [address] June, [facility] [address] [id number] [address] [place] [address], [place] [address] June, [facility] [address] [id number] [address] [place] [address], [place] [address] June, [facility] [address] [id number] [address] [place] [address], [place] [address] June, [facility] [address] [id number] [address] [place] [address], [place] [address] June, [facility] [address] [id number] [address] [place] [address], [place] [address] May, [facility] [address] [id number] [address] [place] [address], [place] [address] May, [facility] [address] [id number] [address] [place] [address], [place] [address] Apr, [facility] [address] [id number] [address] [place] [address], [place] [address] Apr, [facility] [address] [id number] [address] [place] [address], [place] [address] Apr, [facility] [address] [id number] [address] [place] [address], [place] [address] Apr, [facility] [address] [id number] [address] [place] [address], [place] [address] Apr, [facility] [address] [id number] [address] [place] [address], [place] [address] Mar, [facility] [address] [id number] [address] [place] [address], [place] [address] Mar, [facility] [address] [id number] [address] [place] [address], [place] [address] Mar, [facility] [address] [id number] [address] [place] [address], [place] [address] Mar, [facility] [address] [id number] [address] [place] [address], [place] [address] Feb, [facility] [address] [id number] [address] [place] [address], [place] [address] Feb, [facility] [address] [id number] [address] [place] [address], [place] [address] Jan, [facility] [address] [id number] [address] [place] [address], [place] [address] Jan, [facility] [address] [id number] [address] [place] [address], [place] [address] Jan, [facility] [address] [id number] [address] [place] [address], [place] [address] Jan, [facility] [address] [id number] [address] [place] [address], [place] [address] Jan, [facility] [address] [id number] [address] [place] [address], [place] [address] 06 Jan, 2013 [facility] [address] [id number] [address] [place] [address], [place] [address] Dec, [facility] [address] [id number] [address] [place] [address], [place] [address] Dec, [facility] [address] [id number] [address] [place] [address], [place] [address] Nov, [facility] [address] [id number] [address] [place] [address], [place] [address] Nov, [facility] [address] [id number] [address] [place] [address], [place] [address] Oct, [facility] [address] [id number] [address] [place] [address], [place] [address] Aug, [facility] [address] [id number] [address] [place] [address], [place] [address] Aug, [facility] [address] [id number] [address] [place] [address], [place] [address] Jul, [facility] [address] [id number] [address] [place] [address], [place] [address] May, [facility] [address] [id number] [address] [place] [address], [place] [address] Apr, [facility] [address] [id number] [address] [place] [address], [place] [address] Apr, [facility] [address] [id number] [address] [place] [address], [place] [address] Mar, [facility] [address] [id number] [address] [place] [address], [place] [address] Dec, [facility] [address] [id number] [address] [place] [address], [place] [address] Dec, [facility] [address] [id number] [address] [place] [address], [place] [address] Dec, [facility] [address] [id number] [address] [place] [address], [place] [address] Dec, [facility] [address] [id number] [address] [place] [address], [place] [address] Dec, [facility] [address] [id number] [address] [place] [address], [place] [address] Dec, [facility] [address] [id number] [address] [place] [address], [place] [address] Nov, [facility] [address] [id number] [address] [place] [address], [place] [address] Nov, [facility] [address] [id number] [address] [place] [address], [place] [address] Nov, [facility] [address] [id number] [address] [place] [address], [place] [address] Nov, [facility] [address] [id number] [address] [place] [address], [place] [address] Sep, [facility] [address] [id number] [address] [place] [address], [place] [address] Sep, [facility] [address] [id number] [address] [place] [address], [place] [address] Aug, [facility] [address] [id number] [address] [place] [address], [place] [address] Aug, [facility] [address] [id number] [address] [place] [address], [place] [address] May, [facility] [address] [id number] [address] [place] [address], [place] [address] May, [facility] [address] [id number] [address] [place] [address], [place] [address] May, [facility] [address] [id number] [address] [place] [address], [place] [address] Apr, [facility] [address] [id number] [address] [place] [address], [place] [address] Apr, [facility] [address] [id number] [address] [place] [address], [place] [address] Apr, [facility] [address] [id number] [address] [place] [address], [place] [address] 18 Feb, 2011 [facility] [address] [id number] [address] [place] [address], [place] [address] Feb, [facility] [address] [id number] [address] [place] [address], [place] [address] Jan, [facility] [address] [id number] [address] [place] [address], [place] [address] Jan, [facility] [address] [id number] [address] [place] [address], [place] [address] Dec, [facility] [address] [id number] [address] [place] [address], [place] [address] Dec, [facility] [address] [id number] [address] [place] [address], [place] [address] Dec, [facility] [address] [id number] [address] [place] [address], [place] [address] Nov, [facility] [address] [id number] [address] [place] [address], [place] [address] Nov, [facility] [address] [id number] [address] [place] [address], [place] [address] 15 Mar, 2010 [facility] [address] [id number] [address] [place] [address], [place] [address] 16 Jan, 2010 [facility] [address] [id number] [address] [place] [address], [place] [address] Dec, [facility] [address] [id number] [address] [place] [address], [place] [address] Dec, [facility] [address] [id number] [address] [place] [address], [place] [address] Dec, [facility] [address] [id number] [address] [place] [address], [place] [address] Dec, [facility] [address] [id number] [address] [place] [address], [place] [address] Nov, [facility] [address] [facility] [id number] [address] [place] [address] Jan, [facility] [address] [facility] [id number] [address] [place] [address] Nov, [facility] [address] [facility] [id number] [address] [place] [address] Nov, IMMUNIZATIONS No Known Immunizations SOCIAL HISTORY Never Assessed REASON FOR VISIT Refill request PLAN OF CARE VITAL SIGNS MEDICATIONS Medication Instructions Dosage Frequency Start Date End Date Duration S tobias Amitriptyline HCl 150 MG Orally Once a [...]
--- OUTSIDE RECORDS SUMMARY | 2019-05-01 17:49 | XMS REPORT ---
Author Author Candace VAZQUEZ Organization [facility] Address [address] [place] [address] Care Team Providers Care Bulk Tank Car Unloader Name Role Phone ANASTACIO VAZQUEZ Unavailable PROBLEMS Type Condition ICD9-CM Code MYP71-VT Code Onset Dates Condition S tatus SNOMED Code Problem Mood disorder F39 Active 414400 05 Problem Migraine with aura, not intractable, without sta tus migrainosus G43.109 Active 38101733 Problem Sleep apnea in adult G47.33 Active 37163667 Problem Seasonal allergic rhinitis due to pollen J30.1 Active 16485589 Problem Sleep apnea, unspecified G47.30 Activ e 11189512 Problem Hyperlipidemia, unspecified hyperlipidemia type E7 8.5 Active 93344765 Problem Essential (primary) hypertension I10 Active 33436155 Problem Hypothyroid E03.9 Active 89276472 Problem Lipoma D17.9 Active 96833845 ALLERGIES No Information ENCOUNTERS Encounter Location Date Diagnosis [facility] [address] [address] Aug, [facility] [address] [id number] [address] [place] [address] Jul, Poison jaylon L23.7 [facility] [address] [id number] [address] [place] [address] Apr, Elevated LFTs R79.89 ; Hypot hyroid E03.9 ; Hyperlipidemia, unspecified hyperlipidemia type E78.5 ; Seasonal allergic rhinitis due to pollen J30.1 and Essential (primary) hypertension I10 [facility] [address] [id number] [address] [place] [address] 13 Mar, 2017 [facility] [address] [address] Mar, [facility] [address] [address] Feb, Hypothyroid E03.9 and Hyperl ipidemia, unspecified hyperlipidemia type E78.5 [place] [address] [address] Jan, Sleep apnea, unspecified G47 .30 ; Hypothyroid E03.9 and Hyperlipidemia, unspecified hyperlipidemia type E78.5 [place] [address] [address] Jan, [place] [address] [address] Jan, [place] [address] [address] Dec, [facility] [address] [address] Oct, Blood in stool K92.1 and Ext ernal hemorrhoid, bleeding K64.4 [place] [address] [address] Aug, Migraine with aura, not intr actable, without status migrainosus G43.109 [place] [address] [address] June, Breast cancer screening Z12. 39 [place] [address] [address] May, Callus L84 [place] [address] [address] Apr, Callus L84 [place] [address] [address] Apr, Hypothyroid E03.9 [place] [address] [address] Apr, Hypothyroid E03.9 ; Callus L 84 and Hidradenitis L73.2 [facility] [address] [facility] [id number] [address] [place] [address] Jan, Hyperlipidemia, unspecified hyperlipidemia type E78.5 [facility] [address] [facility] [id number] [address] [place] [address] Jan, [facility] [address] [id number] [address] [place] [address] Oct, Hyperlipidemia, unspecified hyperlipidemia type E78.5 [facility] [address] [facility] [id number] [address] [place] [address] Oct, Seroma T14.8 [facility] [address] [facility] [id number] [address] [place] [address] Sep, [facility] [address] [id number] [address] [place] [address] Sep, Hyperlipidemia, unspecified hyperlipidemia type E78.5 and Hypothyroid E03.9 [facility] [id number] [address] [place] [address] Sep, Hyperlipidemia, unspecified hyperlipidemia type E78.5 ; Hypothyroid E03.9 ; Tension headache G44.209 and Candidiasis of anus B37.89 [facility] [address] [id number] [address] [place] [address] Jul, [facility] [id number] [address] [place] [address] June, Tension headache G44.209 [facility] [id number] [address] [place] [address] Apr, Hyperlipidemia, unspecified hyperlipidemia type E78.5 ; Hypothyroid E03.9 ; Lipoma D17.9 and Breast cancer screening Z12.39 [facility] [address] [facility] [id number] [address] [place] [address] Mar, [facility] [address] [id number] [address] [place] [id number] 10 Mar, 2015 Encounter for dental examina tion Z01.20 [facility] [address] [facility] [id number] [address] [place] [address] Feb, [facility] [address] [id number] [address] [place] [address] Jan, Allergic rhinitis J30.9 [facility] [id number] [place] [address] Jan, [facility] [address] [facility] [id number] [address] [place] [address] Dec, Dysuria R30.0 and UTI (urina ry tract infection) N39.0 [place] [address] [place] [id number] [place] [address] Dec, [place] [address] [address] Dec, Dysuria R30.0 and Urinary tr act infection, site unspecified N39.0 [facility] [id number] [address] [place] [address] Nov, Benign lipomatous neoplasm o f skin and subcutaneous tissue of head, face and neck D17.0 and Hypothyroidism, unspecified E03.9 [place] [address] [id number] [place] [address] Sep, [place] [address] [address] Aug, Hypothyroidism 244.9 [facility] [address] [id number] [address] [place] [address] Jul, Hypothyroidism 244.9 [place] [address] [address] Jul, Sleep apnea 780.57 [place] [address] [place] [id number] [place] [address] May, [facility] [address] [id number] [address] [place] [address], [place] [address] May, 2014 [facility] [address] [id number] [address] [place] [address], [place] [address] Apr, 2014 [facility] [address] [id number] [address] [place] [address], [place] [address] Apr, 2014 [facility] [address] [id number] [address] [place] [address], [place] [address] Mar, 2014 [facility] [address] [id number] [address] [place] [address], [place] [address] Mar, 2014 [facility] [address] [id number] [address] [place] [address], [place] [address] Mar, 2014 [facility] [address] [id number] [address] [place] [address], [place] [address] Mar, 2014 [facility] [address] [id number] [address] [place] [address], [place] [address] Mar, 2014 [facility] [address] [id number] [address] [place] [address], [place] [address] Mar, [facility] [address] [id number] [address] [place] [address], [place] [address] Jan, [facility] [address] [id number] [address] [place] [address], [place] [address] Jan, [facility] [address] [id number] [address] [place] [address], [place] [address] Jan, [facility] [address] [id number] [address] [place] [address], [place] [address] Jan, [facility] [address] [id number] [address] [place] [address], [place] [address] Oct, [facility] [address] [id number] [address] [place] [address], [place] [address] Oct, [facility] [address] [id number] [address] [place] [address] Sep, [facility] [address] [id number] [address] [place] [address], [place] [address] Sep, [facility] [address] [id number] [address] [place] [address], [place] [address] Aug, [facility] [address] [id number] [address] [place] [address], [place] [address] Aug, [facility] [address] [id number] [address] [place] [address], [place] [address] Aug, [facility] [address] [id number] [address] [place] [address], [place] [address] Aug, [facility] [address] [id number] [address] [place] [address], [place] [address] Jul, [facility] [address] [id number] [address] [place] [address], [place] [address] Jul, [facility] [address] [id number] [address] [place] [address], [place] [address] June, [facility] [address] [id number] [address] [place] [address], [place] [address] June, [facility] [address] [id number] [address] [place] [address], [place] [address] June, [facility] [address] [id number] [address] [place] [address], [place] [address] June, [facility] [address] [id number] [address] [place] [address], [place] [address] June, [facility] [address] [id number] [address] [place] [address], [place] [address] June, [facility] [address] [id number] [address] [place] [address], [place] [address] May, [facility] [address] [id number] [address] [place] [address], [place] [address] May, [facility] [address] [id number] [address] [place] [address], [place] [address] 12 Apr, 2013 [facility] [address] [id number] [address] [place] [address], [place] [address] Apr, [facility] [address] [id number] [address] [place] [address], [place] [address] Apr, [facility] [address] [id number] [address] [place] [address], [place] [address] Apr, [facility] [address] [id number] [address] [place] [address], [place] [address] Apr, [facility] [address] [id number] [address] [place] [address], [place] [address] Mar, [facility] [address] [id number] [address] [place] [address], [place] [address] Mar, [facility] [address] [id number] [address] [place] [address], [place] [address] Mar, [facility] [address] [id number] [address] [place] [address], [place] [address] Mar, [facility] [address] [id number] [address] [place] [address], [place] [address] Feb, [facility] [address] [id number] [address] [place] [address], [place] [address] Feb, [facility] [address] [id number] [address] [place] [address], [place] [address] Jan, [facility] [address] [id number] [address] [place] [address], [place] [address] 13 Jan, 2013 [facility] [address] [id number] [address] [place] [address], [place] [address] Jan, [facility] [address] [id number] [address] [place] [address], [place] [address] 11 Jan, 2013 [facility] [address] [id number] [address] [place] [address], [place] [address] Jan, [facility] [address] [id number] [address] [place] [address], [place] [address] Jan, [facility] [address] [id number] [address] [place] [address], [place] [address] Dec, [facility] [address] [id number] [address] [place] [address], [place] [address] Dec, [facility] [address] [id number] [address] [place] [address], [place] [address] Nov, [facility] [address] [id number] [address] [place] [address], [place] [address] Nov, [facility] [address] [id number] [address] [place] [address], [place] [address] Oct, [facility] [address] [id number] [address] [place] [address], [place] [address] Aug, [facility] [address] [id number] [address] [place] [address], [place] [address] Aug, [facility] [address] [id number] [address] [place] [address], [place] [address] Jul, [facility] [address] [id number] [address] [place] [address], [place] [address] May, [facility] [address] [id number] [address] [place] [address] Apr, [facility] [address] [id number] [address] [place] [address] Apr, [facility] [address] [id number] [address] [place] [address], [place] [address] Mar, [facility] [address] [id number] [address] [place] [address] Dec, [facility] [address] [id number] [address] [place] [address], [place] [address] Dec, [facility] [address] [id number] [address] [place] [address], [place] [address] Dec, [facility] [address] [id number] [address] [place] [address], [place] [address] Dec, [facility] [address] [id number] [address] [place] [address], [place] [address] Dec, [facility] [address] [id number] [address] [place] [address], [place] [address] Dec, [facility] [address] [id number] [address] [place] [address], [place] [address] Nov, [facility] [address] [id number] [address] [place] [address], [place] [address] Nov, [facility] [address] [id number] [address] [place] [address], [place] [address] Nov, [facility] [address] [id number] [address] [place] [address], [place] [address] Nov, [facility] [address] [id number] [address] [place] [address], [place] [address] Sep, [facility] [address] [id number] [address] [place] [address], [place] [address] Sep, [facility] [address] [id number] [address] [place] [address], [place] [address] Aug, [facility] [address] [id number] [address] [place] [address], [place] [address] Aug, [facility] [address] [id number] [address] [place] [address], [place] [address] May, [facility] [address] [id number] [address] [place] [address], [place] [address] May, [facility] [address] [id number] [address] [place] [address], [place] [address] May, [facility] [address] [id number] [address] [place] [address], [place] [address] Apr, [facility] [address] [id number] [address] [place] [address], [place] [address] 14 Apr, 2011 [facility] [address] [id number] [address] [place] [address], [place] [address] Apr, [facility] [address] [id number] [address] [place] [address], [place] [address] Feb, [facility] [address] [id number] [address] [place] [address], [place] [address] Feb, [facility] [address] [id number] [address] [place] [address], [place] [address] Jan, [facility] [address] [id number] [address] [place] [address], [place] [address] Jan, [facility] [address] [id number] [address] [place] [address], [place] [address] Dec, [facility] [address] [id number] [address] [place] [address], [place] [address] 29 Dec, 2010 [facility] [address] [id number] [address] [place] [address], [place] [address] Dec, [facility] [address] [id number] [address] [place] [address], [place] [address] Nov, [facility] [address] [id number] [address] [place] [address] Nov, [facility] [address] [id number] [address] [place] [address] 15 Mar, 2010 [facility] [address] [id number] [address] [place] [address], [place] [address] Jan, [facility] [address] [id number] [address] [place] [address], [place] [address] Dec, [facility] [address] [id number] [address] [place] [address] Dec, [facility] [address] [id number] [address] [place] [address] 18 Dec, 2009 [facility] [address] [facility] [id number] [address] [place] [address] Dec, [facility] [address] [facility] [id number] [address] [place] [address] 18 Nov, 2009 [facility] [address] [facility] [id number] [address] [place] [address] Jan, [facility] [address] [facility] [id number] [address] [place] [address] 14 Nov, 2008 [facility] [address] [facility] [id number] [address] [place] [address] 12 Nov, 2008 IMMUNIZATIONS No Known Immunizations SOCIAL HISTORY Never Assessed REASON FOR VISIT Questions PLAN OF CARE VITAL SIGNS MEDICATIONS Unknown [...]
--- OUTSIDE RECORDS SUMMARY | 2019-05-01 17:50 | XMS REPORT ---
Author Author Candace ROBLES [facility] Address Unknown Phone Unavailable Care Team Providers Care Rubber Liner Name Role Phone MO ROBLES CP Unavailable Allergies, Adverse Reactions, Alerts Substance Reaction Event Type N.K.D.A. Info Not Available Non Drug Allergy Problems Problem Type Condition Code Onset Dates Condition Statu s Problem Acquired hypothyroidism E03.9 Acti ve Problem Sleep apnea in adult G47.33 Active Problem Migraine with aura, not intractable, without sta tus migrainosus G43.109 Active Problem Hyperlipidemia, unspecified E78.5 Active Assessment Allergic rhinitis J30.9 Active Problem Mood disorder F39 Active Problem Essential (primary) hypertension I10 Active Medications Medication Code System Code Instructions Start Date End Date Status Dosage Timolol Maleate [facility] [address]-14 20 MG August 12, 2013 1 Tablet by Oral route 2 times per day 03/[address] Collins pt [place] taking 30mg Lipitor [place] 55349964884 40 TAKE ONE TAB [place] [address]-88 Mar 28, 2014 by or al route 325mg daily per Dr Collins due to cerebral small vessels Claritin [facility] [address]-84 10 MG Orally Once a day Jan 28, 2015 Feb 27, 2015 1 tablet Levothyroxine Sodium [facility] [address]-57 150 MCG Orally Once a day TAKE ONE TABLET BY MOUTH DAILY ON AN EMPTY STOMACH amitriptyline NDC 0 Mar 28, 2014 by or al route 150mg at hs per Dr Collins Flonase NDC 0 50 mcg/actuation 2 spray(s) intranasally 2 times a day April 23, 2013 1 sprays by Nasal ro lytton 2 times per day in each nostril Procedures Procedure Coding System Code Date Office Visit, Est Pt., Level 3 CPT-4 85739 D ec 2014 [facility] VISIT ESTABLISHED PATIENT CPT-4 G0467 D ec 2014 Vital Signs Date/Time: Jan 28, 2015 Temperature 99.5 F Weight 213.6 lbs Height 67 in BMI 33.45 Index Blood Pressure Diastolic 62 mmHg Blood Pressure Systolic 118 mmHg Cardiac Monitoring Heart Rate 68 bpm Results No Known Results Summary Purpose [employer] Submission
--- OUTSIDE RECORDS SUMMARY | 2019-05-01 17:50 | XMS REPORT ---
Author Author Candace VAZQUEZ [facility] Address [address] [place] [address] Care Team Providers Care Candy Supervisor Name Role Phone ANASTACIO VAZQUEZ Unavailable PROBLEMS Type Condition ICD9-CM Code JSW80-JC Code Onset Dates Condition S tatus SNOMED Code Problem Sleep apnea in adult G47.33 Active 28465207 Problem Mood disorder F39 Active 247210 05 Problem Hypothyroid E03.9 Active 18959304 Problem Lipoma D17.9 Active 79562898 Problem Migraine with aura, not intractable, without sta tus migrainosus G43.109 Active 46387840 Problem Acquired hypothyroidism E03.9 Active 899664509 Problem Hyperlipidemia, unspecified hyperlipidemia type E7 8.5 Active 13664703 Problem Essential (primary) hypertension I10 Active 51728908 ALLERGIES Substance Reaction Event Type Date Status Tetanus Unknown Drug Allergy Apr, Active SOCIAL HISTORY Never Assessed PLAN OF CARE Activity Details Follow Up 6 Months Reason:hypothyroid and fasting labs VITAL SIGNS Height 67 in 2016-05-02 Weight 198 lbs 2016-05-02 Temperature 97.8 degrees Fahrenheit 2016-05-02 Heart Rate 80 bpm 2016-05-02 Respiratory Rate 18 2016-05-02 BMI 31.01 kg/m2 2016-05-02 Blood pressure systolic 120 mmHg 2016-05-02 Blood pressure diastolic 80 mmHg 2016-05-02 MEDICATIONS Medication Instructions Dosage Frequency Start Date End Date Duration S tatus Triamcinolone Acetonide 0.5 % Externally Twice a day 1 appli cation to affected area 12h 15 Apr, 2016 10 days Active Lipitor 80 Orally Once a day 1 tablet 24h 90 Ac tive Aspirin 81 MG Orally Once a day 1 capsule 24h Mar, Active amitriptyline by oral route 150mg at hs per Dr Collins Mar, 90 days Active Timolol Maleate 20 MG 1 Tablet by Oral r oute 2 times per day 03/[address] Collins pt is taking 30mg 25 Jul, 2013 Active Levothyroxine Sodium 150 TAKE ONE TABLET BY MOUTH SEBASTIAN Y ON AN EMPTY STOMACH 90 Active RESULTS No Results PROCEDURES Procedure Date Ordered Result Body Site [facility] VISIT ESTABLISHED PATIENT May 02, 2016 IMMUNIZATIONS No Known Immunizations MEDICAL (GENERAL) [...]
--- OUTSIDE RECORDS SUMMARY | 2019-05-01 17:50 | XMS REPORT ---
Author Author Candace VAZQUEZ Organization [facility] [place] Address [address] [place] [address] Care Team Providers Care Drug Enforcement Administration Agent Name Role Phone ANASTACIO VAZQUEZ Unavailable PROBLEMS Type Condition ICD9-CM Code [id number] Code Onset Dates Condition S tatus SNOMED Code Problem Sleep apnea in adult G47.33 Active 87297406 Problem Mood disorder F39 Active 323076 05 Problem Hypothyroid E03.9 Active 51395434 Problem Lipoma D17.9 Active 70459235 Problem Migraine with aura, not intractable, without sta tus migrainosus G43.109 Active 66935834 Problem Acquired hypothyroidism E03.9 Active 051322737 Problem Hyperlipidemia, unspecified hyperlipidemia type E7 8.5 Active 37260989 Problem Essential (primary) hypertension I10 Active 33786974 ALLERGIES Substance Reaction Event Type Date Status Tetanus Unknown Drug Allergy Apr, Active SOCIAL HISTORY Never Assessed PLAN OF CARE VITAL SIGNS MEDICATIONS Unknown Medications RESULTS Name Result Date Reference Range TSH 2016-05-07 TSH 0.308 0.450-4.500 PROCEDURES Procedure Date Ordered Result Body Site LAB NOT BILLED BY [facility] May 07, 2016 VENIPUNCT, ROUTINE* May 07, 2016 IMMUNIZATIONS No Known Immunizations MEDICAL (GENERAL) [...]
--- OUTSIDE RECORDS SUMMARY | 2019-05-01 17:50 | XMS REPORT ---
Author Author Candace VAZQUEZ [facility] Address [address] [place] [address] Care Team Providers Care Electrician Apprentice Name Role Phone ANASTACIO VAZQUEZ Unavailable PROBLEMS Type Condition ICD9-CM Code DFP70-GE Code Onset Dates Condition S tatus SNOMED Code Assessment Hyperlipidemia, unspecified hyperlipidemia type E78.5 13 Oct, 2015 Active 63992816 Problem Mood disorder F39 Active 766395 05 Problem Essential (primary) hypertension I10 Active 55104298 Problem Hyperlipidemia, unspecified hyperlipidemia type E7 8.5 Active 77706374 Problem Hypothyroid E03.9 Active 93884565 Problem Acquired hypothyroidism E03.9 Active 710709791 Problem Sleep apnea in adult G47.33 Active 74883645 Problem Lipoma D17.9 Active 74031392 Problem Migraine with aura, not intractable, without sta tus migrainosus G43.109 Active 02784813 ALLERGIES Unknown Allergies SOCIAL HISTORY No smoking Hx information available PLAN OF CARE VITAL SIGNS MEDICATIONS Medication Instructions Dosage Frequency Start Date End Date Duration S tatus Lipitor 80 MG Orally Once a day 1 tablet 24h 90 days Active RESULTS No Results PROCEDURES No Known procedures IMMUNIZATIONS No Known Immunizations
--- OUTSIDE RECORDS SUMMARY | 2019-05-01 17:50 | XMS REPORT ---
Author Author Candace VAZQUEZ Organization [facility] Address [address] [place] [address] Care Team Providers Care Geology Faculty Member Name Role Phone ANASTACIO VAZQUEZ Unavailable PROBLEMS Type Condition ICD9-CM Code GKG79-XT Code Onset Dates Condition S tatus SNOMED Code Problem Mood disorder F39 Active 358153 05 Problem Migraine with aura, not intractable, without sta tus migrainosus G43.109 Active 98053917 Problem Sleep apnea in adult G47.33 Active 55104865 Problem Seasonal allergic rhinitis due to pollen J30.1 Active 84507966 Problem Sleep apnea, unspecified G47.30 Activ e 24180970 Problem Hyperlipidemia, unspecified hyperlipidemia type E7 8.5 Active 48455780 Problem Essential (primary) hypertension I10 Active 14253319 Problem Hypothyroid E03.9 Active 82038274 Problem Lipoma D17.9 Active 47102819 ALLERGIES No Information ENCOUNTERS Encounter Location Date Diagnosis [facility] [address] [address] Aug, [facility] [address] [id number] [address] [place] [address] Jul, Poison jaylon L23.7 [facility] [address] [id number] [address] [place] [address] Apr, Elevated LFTs R79.89 ; Hypot hyroid E03.9 ; Hyperlipidemia, unspecified hyperlipidemia type E78.5 ; Seasonal allergic rhinitis due to pollen J30.1 and Essential (primary) hypertension I10 [facility] [address] [id number] [address] [place] [address] 13 Mar, 2017 [facility] [address] [address] Mar, [facility] [address] [address] Feb, Hypothyroid E03.9 and Hyperl ipidemia, unspecified hyperlipidemia type E78.5 [place] [address] [address] Jan, Sleep apnea, unspecified G47 .30 ; Hypothyroid E03.9 and Hyperlipidemia, unspecified hyperlipidemia type E78.5 [place] [address] [address] Jan, [place] [address] [address] Jan, [place] [address] [address] Dec, [facility] [address] [address] Oct, Blood in stool K92.1 and Ext ernal hemorrhoid, bleeding K64.4 [place] [address] [address] Aug, Migraine with aura, not intr actable, without status migrainosus G43.109 [place] [address] [address] June, Breast cancer screening Z12. 39 [place] [address] [address] May, Callus L84 [place] [address] [address] Apr, Callus L84 [place] [address] [address] Apr, Hypothyroid E03.9 [place] [address] [address] Apr, Hypothyroid E03.9 ; Callus L 84 and Hidradenitis L73.2 [facility] [address] [facility] [id number] [address] [place] [address] Jan, Hyperlipidemia, unspecified hyperlipidemia type E78.5 [facility] [address] [facility] [id number] [address] [place] [address] Jan, [facility] [address] [id number] [address] [place] [address] Oct, Hyperlipidemia, unspecified hyperlipidemia type E78.5 [facility] [address] [facility] [id number] [address] [place] [address] Oct, Seroma T14.8 [facility] [address] [facility] [id number] [address] [place] [address] Sep, [facility] [address] [id number] [address] [place] [address] Sep, Hyperlipidemia, unspecified hyperlipidemia type E78.5 and Hypothyroid E03.9 [facility] [address] [id number] [address] [place] [address] Sep, Hyperlipidemia, unspecified hyperlipidemia type E78.5 ; Hypothyroid E03.9 ; Tension headache G44.209 and Candidiasis of anus B37.89 [facility] [address] [id number] [address] [place] [address] Jul, [facility] [address] [id number] [address] [place] [address] June, Tension headache G44.209 [facility] [address] [id number] [address] [place] [address] Apr, Hyperlipidemia, unspecified hyperlipidemia type E78.5 ; Hypothyroid E03.9 ; Lipoma D17.9 and Breast cancer screening Z12.39 [facility] [address] [facility] [id number] [address] [place] [address] Mar, [facility] [address] [id number] [address] [place] [id number] 10 Mar, 2015 Encounter for dental examina tion Z01.20 [facility] [address] [facility] [id number] [address] [place] [address] Feb, [facility] [address] [id number] [address] [place] [address] Jan, Allergic rhinitis J30.9 [facility] [id number] [place] [address] Jan, [facility] [address] [facility] [id number] [address] [place] [address] Dec, Dysuria R30.0 and UTI (urina ry tract infection) N39.0 [place] [address] [address] [id number] [place] [address] Dec, [place] [address] [address] Dec, Dysuria R30.0 and Urinary tr act infection, site unspecified N39.0 [facility] [address] [id number] [address] [place] [address] Nov, Benign lipomatous neoplasm o f skin and subcutaneous tissue of head, face and neck D17.0 and Hypothyroidism, unspecified E03.9 [place] [address] [id number] [address] [place] [address] Sep, [place] [address] [address] Aug, Hypothyroidism 244.9 [facility] [address] [id number] [address] [place] [address] Jul, Hypothyroidism 244.9 [place] [address] [address] Jul, Sleep apnea 780.57 [place] [address] [id number] [address] [place] [address] May, [facility] [address] [id number] [address] [place] [address], [place] [address] May, 2014 [facility] [address] [id number] [address] [place] [address], [place] [address] Apr, 2014 [facility] [address] [id number] [address] [place] [address], [place] [address] Apr, 2014 [facility] [address] [id number] [address] [place] [address], [place] [address] Mar, 2014 [facility] [address] [id number] [address] [place] [address], [place] [address] Mar, 2014 [facility] [address] [id number] [address] [place] [address], [place] [address] Mar, 2014 [facility] [address] [id number] [address] [place] [address], [place] [address] Mar, 2014 [facility] [address] [id number] [address] [place] [address], [place] [address] Mar, 2014 [facility] [address] [id number] [address] [place] [address], [place] [address] Mar, [facility] [address] [id number] [address] [place] [address], [place] [address] Jan, [facility] [address] [id number] [address] [place] [address], [place] [address] Jan, [facility] [address] [id number] [address] [place] [address], [place] [address] Jan, [facility] [address] [id number] [address] [place] [address], [place] [address] Jan, [facility] [address] [id number] [address] [place] [address], [place] [address] Oct, [facility] [address] [id number] [address] [place] [address], [place] [address] Oct, [facility] [address] [id number] [address] [place] [address] Sep, [facility] [address] [id number] [address] [place] [address], [place] [address] Sep, [facility] [address] [id number] [address] [place] [address], [place] [address] Aug, [facility] [address] [id number] [address] [place] [address], [place] [address] Aug, [facility] [address] [id number] [address] [place] [address], [place] [address] Aug, [facility] [address] [id number] [address] [place] [address], [place] [address] Aug, [facility] [address] [id number] [address] [place] [address], [place] [address] Jul, [facility] [address] [id number] [address] [place] [address], [place] [address] Jul, [facility] [address] [id number] [address] [place] [address], [place] [address] June, [facility] [address] [id number] [address] [place] [address], [place] [address] June, [facility] [address] [id number] [address] [place] [address], [place] [address] June, [facility] [address] [id number] [address] [place] [address], [place] [address] June, [facility] [address] [id number] [address] [place] [address], [place] [address] June, [facility] [address] [id number] [address] [place] [address], [place] [address] June, [facility] [address] [id number] [address] [place] [address], [place] [address] May, [facility] [address] [id number] [address] [place] [address], [place] [address] May, [facility] [address] [id number] [address] [place] [address], [place] [address] 12 Apr, 2013 [facility] [address] [id number] [address] [place] [address], [place] [address] Apr, [facility] [address] [id number] [address] [place] [address], [place] [address] Apr, [facility] [address] [id number] [address] [place] [address], [place] [address] Apr, [facility] [address] [id number] [address] [place] [address], [place] [address] Apr, [facility] [address] [id number] [address] [place] [address], [place] [address] Mar, [facility] [address] [id number] [address] [place] [address], [place] [address] Mar, [facility] [address] [id number] [address] [place] [address], [place] [address] Mar, [facility] [address] [id number] [address] [place] [address], [place] [address] Mar, [facility] [address] [id number] [address] [place] [address], [place] [address] Feb, [facility] [address] [id number] [address] [place] [address], [place] [address] Feb, [facility] [address] [id number] [address] [place] [address], [place] [address] Jan, [facility] [address] [id number] [address] [place] [address], [place] [address] 13 Jan, 2013 [facility] [address] [id number] [address] [place] [address], [place] [address] Jan, [facility] [address] [id number] [address] [place] [address], [place] [address] 11 Jan, 2013 [facility] [address] [id number] [address] [place] [address], [place] [address] Jan, [facility] [address] [id number] [address] [place] [address], [place] [address] Jan, [facility] [address] [id number] [address] [place] [address], [place] [address] Dec, [facility] [address] [id number] [address] [place] [address], [place] [address] Dec, [facility] [address] [id number] [address] [place] [address], [place] [address] Nov, [facility] [address] [id number] [address] [place] [address], [place] [address] Nov, [facility] [address] [id number] [address] [place] [address], [place] [address] Oct, [facility] [address] [id number] [address] [place] [address], [place] [address] Aug, [facility] [address] [id number] [address] [place] [address], [place] [address] Aug, [facility] [address] [id number] [address] [place] [address], [place] [address] Jul, [facility] [address] [id number] [address] [place] [address], [place] [address] May, [facility] [address] [id number] [address] [place] [address] Apr, [facility] [address] [id number] [address] [place] [address] Apr, [facility] [address] [id number] [address] [place] [address], [place] [address] Mar, [facility] [address] [id number] [address] [place] [address] Dec, [facility] [address] [id number] [address] [place] [address], [place] [address] Dec, [facility] [address] [id number] [address] [place] [address], [place] [address] Dec, [facility] [address] [id number] [address] [place] [address], [place] [address] Dec, [facility] [address] [id number] [address] [place] [address], [place] [address] Dec, [facility] [address] [id number] [address] [place] [address], [place] [address] Dec, [facility] [address] [id number] [address] [place] [address], [place] [address] Nov, [facility] [address] [id number] [address] [place] [address], [place] [address] Nov, [facility] [address] [id number] [address] [place] [address], [place] [address] Nov, [facility] [address] [id number] [address] [place] [address], [place] [address] Nov, [facility] [address] [id number] [address] [place] [address], [place] [address] Sep, [facility] [address] [id number] [address] [place] [address], [place] [address] Sep, [facility] [address] [id number] [address] [place] [address], [place] [address] Aug, [facility] [address] [id number] [address] [place] [address], [place] [address] Aug, [facility] [address] [id number] [address] [place] [address], [place] [address] May, [facility] [address] [id number] [address] [place] [address], [place] [address] May, [facility] [address] [id number] [address] [place] [address], [place] [address] May, [facility] [address] [id number] [address] [place] [address], [place] [address] Apr, [facility] [address] [id number] [address] [place] [address], [place] [address] 14 Apr, 2011 [facility] [address] [id number] [address] [place] [address], [place] [address] Apr, [facility] [address] [id number] [address] [place] [address], [place] [address] Feb, [facility] [address] [id number] [address] [place] [address], [place] [address] Feb, [facility] [address] [id number] [address] [place] [address], [place] [address] Jan, [facility] [address] [id number] [address] [place] [address], [place] [address] Jan, [facility] [address] [id number] [address] [place] [address], [place] [address] Dec, [facility] [address] [id number] [address] [place] [address], [place] [address] 29 Dec, 2010 [facility] [address] [id number] [address] [place] [address], [place] [address] Dec, [facility] [address] [id number] [address] [place] [address], [place] [address] Nov, [facility] [address] [id number] [address] [place] [address] Nov, [facility] [address] [id number] [address] [place] [address] 15 Mar, 2010 [facility] [address] [id number] [address] [place] [address], [place] [address] Jan, [facility] [address] [id number] [address] [place] [address], [place] [address] Dec, [facility] [address] [id number] [address] [place] [address] Dec, [facility] [address] [id number] [address] [place] [address] Dec, [facility] [address] [facility] [id number] [address] [place] [address] Dec, [facility] [address] [facility] [id number] [address] [place] [address] Nov, [facility] [address] [facility] [id number] [address] [place] [address] Jan, [facility] [address] [facility] [id number] [address] [place] [address] 14 Nov, 2008 [facility] [address] [facility] [id number] [address] [place] [address] Nov, IMMUNIZATIONS No Known Immunizations SOCIAL HISTORY Never Assessed REASON FOR VISIT Lab (walk-in) PLAN OF CARE VITAL SIGNS MEDICATIONS Unknown Medications RESULTS No Results PROCEDURES Procedure Date Ordered Result Body Site LAB NOT BILLED BY [facility] Feb 22, 2017 HOOD, ROUTINE* Feb 22, 2017 INSTRUCTIONS MEDICATIONS ADMINISTERED No Known [...]
--- OUTSIDE RECORDS SUMMARY | 2019-05-01 17:50 | XMS REPORT ---
Author Author Candace AVZQUEZ Organization [facility] Address [address] [place] [address] Care Team Providers Care Photoresist Contact Printer Name Role Phone ANASTACIO VAZQUEZ Unavailable PROBLEMS Type Condition ICD9-CM Code [id number] Code Onset Dates Condition S tatus SNOMED Code Problem Sleep apnea in adult G47.33 Active 15871500 Problem Mood disorder F39 Active 115293 05 Problem Hypothyroid E03.9 Active 78187553 Problem Lipoma D17.9 Active 10033812 Problem Migraine with aura, not intractable, without sta tus migrainosus G43.109 Active 46856073 Problem Acquired hypothyroidism E03.9 Active 839954382 Problem Hyperlipidemia, unspecified hyperlipidemia type E7 8.5 Active 57304706 Problem Essential (primary) hypertension I10 Active 63848484 ALLERGIES No Information SOCIAL HISTORY Never Assessed PLAN OF CARE VITAL SIGNS MEDICATIONS No Known Medications RESULTS Name Result Date Reference Range Mammogram, Bilateral Screening 2016-07-10 PROCEDURES No Known procedures IMMUNIZATIONS No Known Immunizations MEDICAL (GENERAL) HISTORY [...]
--- OUTSIDE RECORDS SUMMARY | 2019-05-01 17:50 | XMS REPORT ---
Author Author Candace VAZQUEZ Organization [employer] Address Unknown Phone Unavailable Care Team Providers Care Plastic Eye Technician Name Role Phone ANASTACIO VAZQUEZ CP Unavailable [...] Instructions Start Date End Date Status Dosage Flonase NDC 0 50 mcg/actuation 2 spray(s) intranasally 2 times a day April 23, 2013 1 sprays by Nasal ro [place] 2 times per day in each nostril Results No Known Results Summary Purpose [employer] Submission
--- OUTSIDE RECORDS SUMMARY | 2019-05-01 17:50 | XMS REPORT ---
Author Author Candace VAZQUEZ [facility] [employer] Address Unknown Phone Unavailable Care Team Providers Care Machine Lacer Name Role Phone ANASTACIO VAZQUEZ CP Unavailable Allergies, Adverse Reactions, Alerts Substance Reaction Event Type N.K.D.A. Info Not Available Non Drug Allergy Problems Problem Type Condition Code Onset Dates Condition Statu s Assessment Urinary tract infection, site unspecified N39.0 Active Problem Acquired hypothyroidism E03.9 Acti ve Problem Sleep apnea in adult G47.33 Active Problem Migraine with aura, not intractable, without sta tus migrainosus G43.109 Active Problem Hyperlipidemia, unspecified E78.5 Active Assessment Dysuria R30.0 Active Problem Mood disorder F39 Active Problem Essential (primary) hypertension I10 Active Medications Medication Code System Code Instructions Start Date End Date Status Dosage Timolol Maleate [facility] [address]-41 20 MG August 12, 2013 1 Tablet by Oral route 2 times per day 03/[address] Collins pt is taking 30mg Flonase NDC 0 50 mcg/actuation 2 spray(s) intranasally 2 times a day April 23, 2013 1 sprays by Nasal ro [place] 2 times per day in each nostril Bactrim DS [facility] [address]-57 800-160 MG Orally 2 times a day N 2014Jan 03, 2015 1 tablet Levothyroxine Sodium [facility] [address]-01 150 MCG Orally Once a day TAKE ONE TABLET BY MOUTH DAILY [place] [address]-48 Mar 28, 2014 by or al route 325mg daily per Dr Collins due to cerebral small vessels amitriptyline NDC 0 Mar 28, 2014 by or al route 150mg at hs per Dr Collins Lipitor ND [id number] 40 TAKE ONE TAB LET BY MOUTH DAILY Procedures Procedure Coding System Code Date [facility] VISIT ESTABLISHED PATIENT CPT-4 G0467 N 2014 Office Visit, Est Pt., Level 3 CPT-4 72282 N 2014 URINALYSIS, AUTO, W/O SCOPE CPT-4 25813 Dec 27, 2014 Vital Signs Date/Time: Dec 27, 2014 Temperature 97.7 F Weight 207 lbs Height 67 in BMI 32.42 Index Blood Pressure Diastolic 76 mmHg Blood Pressure Systolic 140 mmHg Cardiac Monitoring Heart Rate 76 bpm Results No Known Results Summary Purpose [employer] Submission
--- OUTSIDE RECORDS SUMMARY | 2019-05-01 17:50 | XMS REPORT ---
Author Author Candace VAZQUEZ Organization [employer] Address Unknown Phone Unavailable Care Team Providers Care Public Health Sanitarian Technician Name Role Phone ANASTACIO VAZQUEZ CP Unavailable Allergies No Known Allergies Problems Problem Type Condition Code Onset Dates Condition Statu s Problem Essential (primary) hypertension I10 Active Problem Hypothyroid E03.9 Active Problem Lipoma D17.9 Active Problem Hyperlipidemia, unspecified hyperlipidemia type E78.5 Active Problem Sleep apnea in adult G47.33 Active Problem Mood disorder F39 Active Problem Migraine with aura, not intractable, without sta tus migrainosus G43.109 Active Problem Acquired hypothyroidism E03.9 Acti ve Medications Medication Code System Code Instructions Start Date End Date Status Dosage Levothyroxine Sodium [facility] [address]-70 150 MCG Orally Once a day 1 tablet Results No Known Results Summary Purpose [employer] Submission
--- OUTSIDE RECORDS SUMMARY | 2019-05-01 17:50 | XMS REPORT ---
Author Author Candace VAZQUEZ Organization [facility] Address [address] [place] [address] Care Team Providers Care Estate Planning Attorney Name Role Phone ANASTACIO VAZQUEZ Unavailable PROBLEMS Type Condition ICD9-CM Code SBX89-DP Code Onset Dates Condition S tatus SNOMED Code Problem Mood disorder F39 Active 948711 05 Problem Migraine with aura, not intractable, without sta tus migrainosus G43.109 Active 87458471 Problem Sleep apnea in adult G47.33 Active 05542900 Problem Seasonal allergic rhinitis due to pollen J30.1 Active 67770467 Problem Sleep apnea, unspecified G47.30 Activ e 96734475 Problem Hyperlipidemia, unspecified hyperlipidemia type E7 8.5 Active 13058482 Problem Essential (primary) hypertension I10 Active 43106366 Problem Hypothyroid E03.9 Active 96073766 Problem Lipoma D17.9 Active 03871337 ALLERGIES Substance Reaction Event Type Date Status Tetanus Unknown Drug Allergy Jan, Active ENCOUNTERS Encounter Location Date Diagnosis [facility] [address] [id number] [address] [place] [address] Apr, Elevated LFTs R79.89 ; Hypot hyroid E03.9 ; Hyperlipidemia, unspecified hyperlipidemia type E78.5 ; Seasonal allergic rhinitis due to pollen J30.1 and Essential (primary) hypertension I10 [facility] [address] [facility] [id number] [address] [place] [address] Mar, [facility] [address] [id number] [address] [place] [address] Mar, [facility] [address] [facility] [id number] [address] [place] [address] Feb, Hypothyroid E03.9 and Hyperl ipidemia, unspecified hyperlipidemia type E78.5 [place] [address] [id number] [address] [place] [address] 13 Jan, 2017 Sleep apnea, unspecified G47 .30 ; Hypothyroid E03.9 and Hyperlipidemia, unspecified hyperlipidemia type E78.5 [place] [address] [address] Jan, [place] [address] [address] Jan, [place] [address] [address] Dec, [facility] [address] [address] Oct, Blood in stool K92.1 and Ext ernal hemorrhoid, bleeding K64.4 [place] [address] [address] Aug, Migraine with aura, not intr actable, without status migrainosus G43.109 [place] [address] [address] June, Breast cancer screening Z12. 39 [place] [address] [address] May, Callus L84 [place] [address] [address] Apr, Callus L84 [place] [address] [address] Apr, Hypothyroid E03.9 [place] [address] [address] 15 Apr, 2016 Hypothyroid E03.9 ; Callus L 84 and Hidradenitis L73.2 [place] [address] [address] Jan, Hyperlipidemia, unspecified hyperlipidemia type E78.5 [place] [address] [facility] [id number] [address] [place] [address] Jan, [facility] [address] [facility] [id number] [address] [place] [address] Oct, Hyperlipidemia, unspecified hyperlipidemia type E78.5 [facility] [address] [facility] [id number] [address] [place] [address] Oct, Seroma T14.8 [facility] [address] [facility] [id number] [address] [place] [address] Sep, [facility] [address] [facility] [id number] [address] [place] [address] Sep, Hyperlipidemia, unspecified hyperlipidemia type E78.[address] [facility] [address] [facility] [id number] [address] [place] [address] Sep, Hyperlipidemia, unspecified hyperlipidemia type E78.5 ; Hypothyroid E03.9 ; Tension headache G44.209 and Candidiasis of anus B37.89 [facility] [address] [facility] [id number] [address] [place] [address] Jul, [facility] [address] [facility] [id number] [address] [place] [address] June, Tension headache G44.209 [facility] [address] [facility] [id number] [address] [place] [address] Apr, Hyperlipidemia, unspecified hyperlipidemia type E78.5 ; Hypothyroid E03.9 ; Lipoma D17.9 and Breast cancer screening Z12.39 [facility] [address] [facility] [id number] [address] [place] [address] Mar, [facility] [address] [id number] [address] [place] [id number] 10 Mar, 2015 Encounter for dental examina tion Z01.20 [facility] [address] [facility] [id number] [address] [place] [address] Feb, [facility] [address] [facility] [id number] [address] [place] [address] Jan, Allergic rhinitis J30.9 [facility] [address] [facility] [id number] [address] [place] [address] Jan, [facility] [address] [facility] [id number] [address] [place] [address] Dec, Dysuria R30.0 and UTI (urina ry tract infection) N39.0 [facility] [address] [facility] [id number] [address] [place] [address] Dec, [facility] [id number] [place] [address] Dec, Dysuria R30.0 and Urinary tr act infection, site unspecified N39.0 [facility] [id number] [place] [address] Nov, Benign lipomatous neoplasm o f skin and subcutaneous tissue of head, face and neck D17.0 and Hypothyroidism, unspecified E03.9 [facility] [address] [address] Sep, [facility] [id number] [place] [address] Aug, Hypothyroidism 244.9 [facility] [id number] [place] [address] Jul, Hypothyroidism 244.9 [facility] [address] [id number] [address] [place] [address] Jul, Sleep apnea 780.57 [facility] [id number] [place] [address] May, [facility] [id number] [place] [address] May, [facility] [address] [address] Apr, [facility] [address] [id number] [address] [place] [address], [place] [address] Apr, [facility] [address] [id number] [address] [place] [address], [place] [address] Mar, 2014 [facility] [address] [id number] [address] [place] [address], [place] [address] Mar, 2014 [facility] [address] [id number] [address] [place] [address], [place] [address] Mar, 2014 [facility] [address] [id number] [address] [place] [address], [place] [address] Mar, 2014 [facility] [address] [id number] [address] [place] [address], [place] [address] Mar, 2014 [facility] [address] [id number] [address] [place] [address], [place] [address] Mar, 2014 [facility] [address] [id number] [address] [place] [address], [place] [address] Jan, [facility] [address] [id number] [address] [place] [address], [place] [address] Jan, [facility] [address] [id number] [address] [place] [address], [place] [address] Jan, [facility] [address] [id number] [address] [place] [address], [place] [address] Jan, [facility] [address] [id number] [address] [place] [address], [place] [address] Oct, [facility] [address] [id number] [address] [place] [address], [place] [address] Oct, [facility] [address] [id number] [address] [place] [address], [place] [address] Sep, [facility] [address] [id number] [address] [place] [address], [place] [address] Sep, [facility] [address] [id number] [address] [place] [address], [place] [address] Aug, [facility] [address] [id number] [address] [place] [address], [place] [address] Aug, [facility] [address] [id number] [address] [place] [address], [place] [address] Aug, [facility] [address] [id number] [address] [place] [address], [place] [address] Aug, [facility] [address] [id number] [address] [place] [address], [place] [address] Jul, [facility] [address] [id number] [address] [place] [address], [place] [address] Jul, [facility] [address] [id number] [address] [place] [address], [place] [address] June, [facility] [address] [id number] [address] [place] [address], [place] [address] June, [facility] [address] [id number] [address] [place] [address], [place] [address] June, [facility] [address] [id number] [address] [place] [address], [place] [address] June, [facility] [address] [id number] [address] [place] [address], [place] [address] June, [facility] [address] [id number] [address] [place] [address], [place] [address] June, [facility] [address] [id number] [address] [place] [address], [place] [address] May, [facility] [address] [id number] [address] [place] [address], [place] [address] May, [facility] [address] [id number] [address] [place] [address], [place] [address] Apr, [facility] [address] [id number] [address] [place] [address], [place] [address] Apr, [facility] [address] [id number] [address] [place] [address], [place] [address] Apr, [facility] [address] [id number] [address] [place] [address], [place] [address] Apr, [facility] [address] [id number] [address] [place] [address], [place] [address] Apr, [facility] [address] [id number] [address] [place] [address], [place] [address] Mar, [facility] [address] [id number] [address] [place] [address], [place] [address] Mar, [facility] [address] [id number] [address] [place] [address], [place] [address] Mar, [facility] [address] [id number] [address] [place] [address], [place] [address] Mar, [facility] [address] [id number] [address] [place] [address], [place] [address] Feb, [facility] [address] [id number] [address] [place] [address], [place] [address] Feb, [facility] [address] [id number] [address] [place] [address], [place] [address] Jan, [facility] [address] [id number] [address] [place] [address], [place] [address] Jan, [facility] [address] [id number] [address] [place] [address], [place] [address] Jan, [facility] [address] [id number] [address] [place] [address], [place] [address] Jan, [facility] [address] [id number] [address] [place] [address], [place] [address] Jan, [facility] [address] [id number] [address] [place] [address], [place] [address] Jan, [facility] [address] [id number] [address] [place] [address] Dec, [facility] [address] [id number] [address] [place] [address], [place] [address] Dec, [facility] [address] [id number] [address] [place] [address] Nov, [facility] [address] [id number] [address] [place] [address], [place] [address] Nov, [facility] [address] [id number] [address] [place] [address], [place] [address] Oct, [facility] [address] [id number] [address] [place] [address], [place] [address] Aug, [facility] [address] [id number] [address] [place] [address], [place] [address] Aug, [facility] [address] [id number] [address] [place] [address], [place] [address] Jul, [facility] [address] [id number] [address] [place] [address], [place] [address] May, [facility] [address] [id number] [address] [place] [address], [place] [address] Apr, [facility] [address] [id number] [address] [place] [address], [place] [address] Apr, [facility] [address] [id number] [address] [place] [address], [place] [address] Mar, [facility] [address] [id number] [address] [place] [address], [place] [address] Dec, [facility] [address] [id number] [address] [place] [address], [place] [address] Dec, [facility] [address] [id number] [address] [place] [address], [place] [address] 15 Dec, 2011 [facility] [address] [id number] [address] [place] [address], [place] [address] 15 Dec, 2011 [facility] [address] [id number] [address] [place] [address], [place] [address] Dec, [facility] [address] [id number] [address] [place] [address], [place] [address] Dec, [facility] [address] [id number] [address] [place] [address], [place] [address] Nov, [facility] [address] [id number] [address] [place] [address], [place] [address] Nov, [facility] [address] [id number] [address] [place] [address], [place] [address] Nov, [facility] [address] [id number] [address] [place] [address], [place] [address] Nov, [facility] [address] [id number] [address] [place] [address], [place] [address] Sep, [facility] [address] [id number] [address] [place] [address], [place] [address] Sep, [facility] [address] [id number] [address] [place] [address], [place] [address] Aug, [facility] [address] [id number] [address] [place] [address], [place] [address] Aug, [facility] [address] [id number] [address] [place] [address], [place] [address] May, [facility] [address] [id number] [address] [place] [address], [place] [address] May, [facility] [address] [id number] [address] [place] [address], [place] [address] May, [facility] [address] [id number] [address] [place] [address], [place] [address] Apr, [facility] [address] [id number] [address] [place] [address], [place] [address] Apr, [facility] [address] [id number] [address] [place] [address], [place] [address] Apr, [facility] [address] [id number] [address] [place] [address], [place] [address] Feb, [facility] [address] [id number] [address] [place] [address], [place] [address] Feb, [facility] [address] [id number] [address] [place] [address], [place] [address] Jan, [facility] [address] [id number] [address] [place] [address], [place] [address] Jan, [facility] [address] [id number] [address] [place] [address], [place] [address] Dec, [facility] [address] [id number] [address] [place] [address], [place] [address] Dec, [facility] [address] [id number] [address] [place] [address], [place] [address] Dec, [facility] [address] [id number] [address] [place] [address], [place] [address] Nov, [facility] [address] [id number] [address] [place] [address], [place] [address] Nov, [facility] [address] [id number] [address] [place] [address], [place] [address] 15 Mar, 2010 [facility] [address] [id number] [address] [place] [address], [place] [address] Jan, [facility] [address] [id number] [address] [place] [address], [place] [address] Dec, [facility] [address] [id number] [address] [place] [address], [place] [address] Dec, [facility] [address] [id number] [address] [place] [address], [place] [address] Dec, [facility] [address] [id number] [address] [place] [address], [place] [address] Dec, [facility] [address] [id number] [address] [place] [address] [address], [address] [facility] [address] [facility] [id number] [address] [place] [address] [address], [address] [facility] [address] [facility] [id number] [address] [place] [address] [address], [address] [facility] [address] [facility] [id number] [address] [place] [address] Nov, IMMUNIZATIONS No Known Immunizations SOCIAL HISTORY Never Assessed REASON FOR VISIT needing a new script for CPAP----DBennettRN, needing to have lipid panel drawn f or neurology PLAN OF CARE Activity Details Follow Up 6 Months Reason:hypothyroid VITAL SIGNS Height 67 in 2017-01-30 Weight 203 lbs 2017-01-30 Temperature 98.3 degrees Fahrenheit 2017-01-30 Heart Rate 80 bpm 2017-01-30 Respiratory Rate 20 2017-01-30 BMI 31.79 kg/m2 2017-01-30 Blood pressure systolic 164 mmHg 2017-01-30 Blood pressure diastolic 98 mmHg 2017-01-30 MEDICATIONS Medication Instructions Dosage Frequency Start Date End Date Duration S tatus Lipitor 80 Orally Once a day 1 tablet 24h 90 Ac tive Lumigan 0.01 % Ophthalmic Once a day 1 drop into affected eye i n the evening 24h Active Timolol Maleate 20 mg Orally 2 times a day 1 tablet 12h 25 Jul, 2013 90 days Active Aspirin 81 MG Orally Once a day 1 capsule 24h 08 Mar, 2014 Active Levothyroxine Sodium 150 TAKE ONE TABLET BY MOUTH SEBASTIAN Y ON AN EMPTY STOMACH 90 Active Amitriptyline HCl 150 MG Orally Once a day 1 tablet 24h Jan, 30 day(s) Active RESULTS No Results PROCEDURES Procedure Date Ordered Result Body Site [facility] VISIT ESTABLISHED PATIENT Jan 30, 2017 INSTRUCTIONS MEDICATIONS ADMINISTERED No Known Medications [...]
--- OUTSIDE RECORDS SUMMARY | 2019-05-01 17:50 | XMS REPORT ---
Author Author Candace VAZQUEZ [facility] Address [address] [place] [address] Care Team Providers Care Rack Room Worker Name Role Phone ANASTACIO VAZQUEZ Unavailable PROBLEMS Type Condition ICD9-CM Code [id number] Code Onset Dates Condition S tatus SNOMED Code Problem Mood disorder F39 Active 161720 05 Problem Essential (primary) hypertension I10 Active 91635434 Problem Hyperlipidemia, unspecified hyperlipidemia type E7 8.5 Active 67130597 Problem Hypothyroid E03.9 Active 60367033 Problem Acquired hypothyroidism E03.9 Active 899078600 Problem Sleep apnea in adult G47.33 Active 42019570 Problem Lipoma D17.9 Active 12892087 Problem Migraine with aura, not intractable, without sta tus migrainosus G43.109 Active 44059688 ALLERGIES Unknown Allergies SOCIAL HISTORY No smoking Hx information available PLAN OF CARE VITAL SIGNS MEDICATIONS Unknown Medications RESULTS No Results PROCEDURES No Known procedures IMMUNIZATIONS No Known Immunizations
--- OUTSIDE RECORDS SUMMARY | 2019-05-01 17:50 | XMS REPORT ---
Author Author Candace VAZQUEZ Organization [employer] Address Unknown Phone Unavailable Care Team Providers Care Power Plant Inspector Name Role Phone ANASTACIO VAZQUEZ CP Unavailable [...]
--- OUTSIDE RECORDS SUMMARY | 2019-05-01 17:50 | XMS REPORT ---
Author Author Candace ZUNIGA [facility] Address [address] [place] [address] Care Team Providers Care Turnaround Planner Name Role Phone NADIA TAHIR Unavailable PROBLEMS Type Condition ICD9-CM Code [id number] Code Onset Dates Condition S tatus SNOMED Code Problem Mood disorder F39 Active 136452 05 Problem Migraine with aura, not intractable, without sta tus migrainosus G43.109 Active 54054413 Problem Sleep apnea in adult G47.33 Active 21546411 Problem Seasonal allergic rhinitis due to pollen J30.1 Active 81496024 Problem Sleep apnea, unspecified G47.30 Activ e 68835461 Problem Hyperlipidemia, unspecified hyperlipidemia type E7 8.5 Active 76589640 Problem Essential (primary) hypertension I10 Active 36529617 Problem Hypothyroid E03.9 Active 02523607 Problem Lipoma D17.9 Active 84919365 ALLERGIES Substance Reaction Event Type Date Status Tetanus Unknown Drug Allergy Oct, Active ENCOUNTERS Encounter Location Date Diagnosis [place] [id number] [facility] [id number] [address] [place] [address] Apr, Elevated LFTs R79.89 ; Hypot hyroid E03.9 ; Hyperlipidemia, unspecified hyperlipidemia type E78.5 ; Seasonal allergic rhinitis due to pollen J30.1 and Essential (primary) hypertension I10 [facility] [address] [facility] [id number] [address] [place] [address] Mar, [facility] [address] [place] [id number] [address] [place] [address] Mar, [facility] [address] [facility] [id number] [address] [place] [address] Feb, Hypothyroid E03.9 and Hyperl ipidemia, unspecified hyperlipidemia type E78.5 [place] [address] [address] Jan, Sleep apnea, unspecified G47 .30 ; Hypothyroid E03.9 and Hyperlipidemia, unspecified hyperlipidemia type E78.5 [place] [address] [address] Jan, [place] [address] [address] Jan, [place] [address] [address] Dec, [facility] [address] [address] Oct, Blood in stool K92.1 and Ext ernal hemorrhoid, bleeding K64.4 [place] [address] [address] Aug, Migraine with aura, not intr actable, without status migrainosus G43.109 [place] [address] [address] June, Breast cancer screening Z12. 39 [place] [address] [address] May, Callus L84 [place] [address] [address] Apr, Callus L84 [place] [address] [address] Apr, Hypothyroid E03.9 [place] [address] [address] 15 Apr, 2016 Hypothyroid E03.9 ; Callus L 84 and Hidradenitis L73.2 [place] [address] [address] Jan, Hyperlipidemia, unspecified hyperlipidemia type E78.5 [place] [address] [facility] [id number] [address] [place] [address] Jan, [facility] [address] [facility] [id number] [address] [place] [address] Oct, Hyperlipidemia, unspecified hyperlipidemia type E78.5 [facility] [address] [facility] [id number] [address] [place] [address] Oct, Seroma T14.8 [facility] [address] [facility] [id number] [address] [place] [address] Sep, [facility] [address] [facility] [id number] [address] [place] [address] Sep, Hyperlipidemia, unspecified hyperlipidemia type E78.5 and Hypothyroid E03.9 [facility] [address] [facility] [id number] [address] [place] [address] Sep, Hyperlipidemia, unspecified hyperlipidemia type E78.5 ; Hypothyroid E03.9 ; Tension headache G44.209 and Candidiasis of anus B37.89 [facility] [address] [facility] [id number] [address] [place] [address] Jul, [facility] [address] [facility] [id number] [address] [place] [address] June, Tension headache G44.209 [facility] [address] [facility] [id number] [address] [place] [address] Apr, Hyperlipidemia, unspecified hyperlipidemia type E78.5 ; Hypothyroid E03.9 ; Lipoma D17.9 and Breast cancer screening Z12.39 [facility] [address] [facility] [id number] [address] [place] [address] Mar, [facility] [address] [facility] [id number] [address] [place] [id number] 10 Mar, 2015 Encounter for dental examina tion Z01.20 [facility] [address] [facility] [id number] [address] [place] [address] Feb, [facility] [address] [facility] [id number] [address] [place] [address] Jan, Allergic rhinitis J30.9 [facility] [address] [facility] [id number] [address] [place] [address] Jan, [facility] [address] [facility] [id number] [address] [place] [address] Dec, Dysuria R30.0 and UTI (urina ry tract infection) N39.0 [facility] [address] [facility] [id number] [address] [place] [address] Dec, [facility] [address] [place] [id number] [place] [address] Dec, Dysuria R30.0 and Urinary tr act infection, site unspecified N39.0 [facility] [address] [place] [id number] [place] [address] Nov, Benign lipomatous neoplasm o f skin and subcutaneous tissue of head, face and neck D17.0 and Hypothyroidism, unspecified E03.9 [facility] [address] [address] Sep, [place] [address] [place] [id number] [place] [address] Aug, Hypothyroidism 244.9 [place] [address] [place] [id number] [place] [address] Jul, Hypothyroidism 244.9 [facility] [address] [place] [id number] [place] [address] Jul, Sleep apnea 780.57 [facility] [address] [address] May, [facility] [address] [place] [id number] [place] [address] May, [facility] [address] [address] Apr, [facility] [address] [id number] [address] [place] [address], [place] [address] Apr, [facility] [address] [id number] [address] [place] [address], [place] [address] Mar, 2014 [facility] [address] [id number] [address] [place] [address], [place] [address] Mar, 2014 [facility] [address] [id number] [address] [place] [address], [place] [address] Mar, 2014 [facility] [address] [id number] [address] [place] [address], [place] [address] Mar, 2014 [facility] [address] [id number] [address] [place] [address], [place] [address] Mar, 2014 [facility] [address] [id number] [address] [place] [address], [place] [address] Mar, 2014 [facility] [address] [id number] [address] [place] [address], [place] [address] Jan, [facility] [address] [id number] [address] [place] [address], [place] [address] Jan, [facility] [address] [id number] [address] [place] [address], [place] [address] Jan, [facility] [address] [id number] [address] [place] [address] Jan, [facility] [address] [id number] [address] [place] [address] Oct, [facility] [address] [id number] [address] [place] [address], [place] [address] Oct, [facility] [address] [id number] [address] [place] [address], [place] [address] Sep, [facility] [address] [id number] [address] [place] [address], [place] [address] Sep, [facility] [address] [id number] [address] [place] [address] Aug, [facility] [address] [id number] [address] [place] [address], [place] [address] Aug, [facility] [address] [id number] [address] [place] [address], [place] [address] Aug, [facility] [address] [id number] [address] [place] [address], [place] [address] Aug, [facility] [address] [id number] [address] [place] [address], [place] [address] Jul, [facility] [address] [id number] [address] [place] [address], [place] [address] Jul, [facility] [address] [id number] [address] [place] [address], [place] [address] June, [facility] [address] [id number] [address] [place] [address], [place] [address] June, [facility] [address] [id number] [address] [place] [address], [place] [address] June, [facility] [address] [id number] [address] [place] [address], [place] [address] June, [facility] [address] [id number] [address] [place] [address], [place] [address] June, [facility] [address] [id number] [address] [place] [address], [place] [address] June, [facility] [address] [id number] [address] [place] [address], [place] [address] May, [facility] [address] [id number] [address] [place] [address], [place] [address] May, [facility] [address] [id number] [address] [place] [address], [place] [address] Apr, [facility] [address] [id number] [address] [place] [address], [place] [address] Apr, [facility] [address] [id number] [address] [place] [address], [place] [address] 11 Apr, 2013 [facility] [address] [id number] [address] [place] [address], [place] [address] 06 Apr, 2013 [facility] [address] [id number] [address] [place] [address], [place] [address] Apr, [facility] [address] [id number] [address] [place] [address], [place] [address] Mar, [facility] [address] [id number] [address] [place] [address], [place] [address] Mar, [facility] [address] [id number] [address] [place] [address], [place] [address] Mar, [facility] [address] [id number] [address] [place] [address], [place] [address] Mar, [facility] [address] [id number] [address] [place] [address], [place] [address] Feb, [facility] [address] [id number] [address] [place] [address], [place] [address] Feb, [facility] [address] [id number] [address] [place] [address], [place] [address] Jan, [facility] [address] [id number] [address] [place] [address], [place] [address] Jan, [facility] [address] [id number] [address] [place] [address], [place] [address] Jan, [facility] [address] [id number] [address] [place] [address], [place] [address] Jan, [facility] [address] [id number] [address] [place] [address], [place] [address] Jan, [facility] [address] [id number] [address] [place] [address], [place] [address] Jan, [facility] [address] [id number] [address] [place] [address], [place] [address] Dec, [facility] [address] [id number] [address] [place] [address], [place] [address] Dec, [facility] [address] [id number] [address] [place] [address], [place] [address] Nov, [facility] [address] [id number] [address] [place] [address], [place] [address] Nov, [facility] [address] [id number] [address] [place] [address], [place] [address] Oct, [facility] [address] [id number] [address] [place] [address], [place] [address] Aug, [facility] [address] [id number] [address] [place] [address], [place] [address] Aug, [facility] [address] [id number] [address] [place] [address], [place] [address] Jul, [facility] [address] [id number] [address] [place] [address], [place] [address] May, [facility] [address] [id number] [address] [place] [address], [place] [address] Apr, [facility] [address] [id number] [address] [place] [address], [place] [address] Apr, [facility] [address] [id number] [address] [place] [address], [place] [address] Mar, [facility] [address] [id number] [address] [place] [address], [place] [address] Dec, [facility] [address] [id number] [address] [place] [address], [place] [address] Dec, [facility] [address] [id number] [address] [place] [address], [place] [address] Dec, [facility] [address] [id number] [address] [place] [address], [place] [address] Dec, [facility] [address] [id number] [address] [place] [address], [place] [address] Dec, [facility] [address] [id number] [address] [place] [address], [place] [address] Dec, [facility] [address] [id number] [address] [place] [address], [place] [address] Nov, [facility] [address] [id number] [address] [place] [address], [place] [address] Nov, [facility] [address] [id number] [address] [place] [address], [place] [address] Nov, [facility] [address] [id number] [address] [place] [address], [place] [address] Nov, [facility] [address] [id number] [address] [place] [address], [place] [address] Sep, [facility] [address] [id number] [address] [place] [address], [place] [address] Sep, [facility] [address] [id number] [address] [place] [address], [place] [address] Aug, [facility] [address] [id number] [address] [place] [address], [place] [address] Aug, [facility] [address] [id number] [address] [place] [address], [place] [address] May, [facility] [address] [id number] [address] [place] [address], [place] [address] May, [facility] [address] [id number] [address] [place] [address], [place] [address] May, [facility] [address] [id number] [address] [place] [address], [place] [address] Apr, [facility] [address] [id number] [address] [place] [address], [place] [address] Apr, [facility] [address] [id number] [address] [place] [address], [place] [address] Apr, [facility] [address] [id number] [address] [place] [address], [place] [address] Feb, [facility] [address] [id number] [address] [place] [address], [place] [address] Feb, [facility] [address] [id number] [address] [place] [address], [place] [address] Jan, [facility] [address] [id number] [address] [place] [address], [place] [address] Jan, [facility] [address] [id number] [address] [place] [address], [place] [address] Dec, [facility] [address] [id number] [address] [place] [address], [place] [address] Dec, [facility] [address] [id number] [address] [place] [address], [place] [address] Dec, [facility] [address] [id number] [address] [place] [address], [place] [address] Nov, [facility] [address] [id number] [address] [place] [address], [place] [address] Nov, [facility] [address] [id number] [address] [place] [address], [place] [address] 15 Mar, 2010 [facility] [address] [id number] [address] [place] [address], [place] [address] Jan, [facility] [address] [id number] [address] [place] [address], [place] [address] Dec, [facility] [address] [id number] [address] [place] [address], [place] [address] Dec, [facility] [address] [id number] [address] [place] [address], [place] [address] Dec, [facility] [address] [id number] [address] [place] [address], [place] [address] Dec, [facility] [address] [id number] [address] [place] [address] 18 Nov, 2009 [facility] [address] [facility] [id number] [address] [place] [address] 14 Jan, 2009 [facility] [address] [facility] [id number] [address] [place] [address] 14 Nov, 2008 [facility] [address] [facility] [id number] [address] [place] [address] 12 Nov, 2008 IMMUNIZATIONS No Known Immunizations SOCIAL HISTORY Never Assessed REASON FOR VISIT diarrhea/blood in stool started yesterday JStrasserRN PLAN OF CARE Activity Details Follow Up prn Reason: VITAL SIGNS Height 67 in 2016-11-06 Weight 204.4 lbs 2016-11-06 Temperature 97.9 degrees Fahrenheit 2016-11-06 Heart Rate 72 bpm 2016-11-06 Respiratory Rate 20 2016-11-06 BMI 32.01 kg/m2 2016-11-06 Blood pressure systolic 142 mmHg 2016-11-06 Blood pressure diastolic 96 mmHg 2016-11-06 MEDICATIONS Medication Instructions Dosage Frequency Start Date End Date Duration S tatus Lipitor 80 Orally Once a day 1 tablet 24h 90 Ac tive Aspirin 81 MG Orally Once a day 1 capsule 24h 08 Mar, 2014 Active Timolol Maleate 20 MG Orally 2 times a day 1 tablet 12h 25 Jul, 2013 90 days Active Levothyroxine Sodium 150 TAKE ONE TABLET BY MOUTH SEBASTIAN Y ON AN EMPTY STOMACH 90 Active amitriptyline by oral route 150mg at hs per Dr Collins Mar, 90 days Active RESULTS Name Result Date Reference Range CULTURE, STOOL 2016-11-06 Salmonella/Shigella Screen Final report Campylobacter Culture Preliminary report Result 1 Result 1 STOOL (O & P) 2016-11-06 Ova + Parasite Exam CULTURE, STOOL 2016-11-06 Campylobacter Culture Final report Result 1 CULTURE, STOOL 2016-11-06 Salmonella/Shigella Screen Final report Campylobacter Culture Final report E coli Shiga Toxin EIA Negative Negative Result 1 Result 1 STOOL (O & P) 2016-11-06 Ova + Parasite Exam Final report Result 1 PROCEDURES Procedure Date Ordered Result Body Site LAB NOT BILLED BY [facility] Nov 06, 2016 [facility] VISIT ESTABLISHED PATIENT Nov 06, 2016 INSTRUCTIONS MEDICATIONS ADMINISTERED No Known Medications MEDICAL [...]
--- OUTSIDE RECORDS SUMMARY | 2019-05-01 17:51 | XMS REPORT | Continuity of Care Document ---
Author Organization Unknown Address Unknown Phone Unavailable Allergies Active Description Code Type Severity Reaction Onset Reported/Identified Relationship to Patient Clinical Status Yes No Known Drug Allergies [id number] Drug Allergy Unknown N/A 11/20/2010 Medications There is no data. Problems Date Dx Coded Attending Type Code Diagnosis Diagnosed By 09/30/2007 ANASTACIO VAZQUEZ APRN S 616.10 Vaginitis And Vulvovaginitis Unspecified 09/30/2007 616.10 Vag initis And Vulvovaginitis Unspecified 09/30/2007 GEORGE OTT ANASTACIO S 616.10 Vaginitis And Vulvovaginitis Unspecified 09/30/2007 GEORGE OTT ANASTACIO S 616.10 Vaginitis And Vulvovaginitis Unspecified 09/30/2007 GEORGE OTT ANASTACIO S 616.10 Vaginitis And Vulvovaginitis Unspecified 09/30/2007 GEORGE OTT, ANASTACIO S 616.10 Vaginitis And Vulvovaginitis Unspecified 09/30/2007 GEORGE OTT, ANASTACIO S 616.10 Vaginitis And Vulvovaginitis Unspecified 09/30/2007 GEORGE OTT, ANASTACIO S 616.10 Vaginitis And Vulvovaginitis Unspecified 09/30/2007 GEORGE OTT, ANASTACIO S 616.10 Vaginitis And Vulvovaginitis Unspecified 09/30/2007 GEORGE OTT, ANASTACIO S 616.10 Vaginitis And Vulvovaginitis Unspecified 09/30/2007 GEORGE OTT ANASTACIO S 616.10 Vaginitis And Vulvovaginitis Unspecified 11/25/2007 GEORGE OTT ANASTACIO S 244.9 HYPOTHYROIDISM 11/25/2007 GEORGE OTT ANASTACIO S 696.1 Psoriasis 11/25/2007 GEORGE STONEMASON HELPER, ANASTACIO S 719.41 Pain In Joint Involving Shoulder Region 11/25/2007 244.9 HYPO THYROIDISM 11/25/2007 696.1 Psor iasis 11/25/2007 719.41 Vandana n In Joint Involving Shoulder Region 11/25/2007 GEORGE STONEMASON HELPER, ANASTACIO S 244.9 HYPOTHYROIDISM 11/25/2007 GEORGE STONEMASON HELPER, ANASTACIO S 696.1 Psoriasis 11/25/2007 GEORGE OTT, ANASTACIO S 719.41 Pain In Joint Involving Shoulder Region 11/25/2007 GEORGE OTT, ANASTACIO S 244.9 HYPOTHYROIDISM 11/25/2007 GEORGE OTT, ANASTACIO S 696.1 Psoriasis 11/25/2007 GEORGE OTT, ANASTACIO S 719.41 Pain In Joint Involving Shoulder Region 11/25/2007 GEORGE OTT, ANASTACIO S 244.9 HYPOTHYROIDISM 11/25/2007 GEORGE OTT, ANASTACIO S 696.1 Psoriasis 11/25/2007 GEORGE OTT ANASTACIO S 719.41 Pain In Joint Involving Shoulder Region 11/25/2007 GEORGE OTT, ANASTACIO S 244.9 HYPOTHYROIDISM 11/25/2007 GEORGE OTT, ANASTACIO S 696.1 Psoriasis 11/25/2007 GEORGE OTT, ANASTACIO S 719.41 Pain In Joint Involving Shoulder Region 11/25/2007 GEORGE OTT, ANASTACIO S 244.9 HYPOTHYROIDISM 11/25/2007 GEORGE OTT, ANASTACIO S 696.1 Psoriasis 11/25/2007 GEORGE OTT, ANASTACIO S 719.41 Pain In Joint Involving Shoulder Region 11/25/2007 GEORGE STONEMASON HELPER, ANASTACIO S 244.9 HYPOTHYROIDISM 11/25/2007 GEORGE STONEMASON HELPER, ANASTACIO S 696.1 Psoriasis 11/25/2007 GEORGE STONEMASON HELPER, ANASTACIO S 719.41 Pain In Joint Involving Shoulder Region 11/25/2007 GEORGE STONEMASON HELPER, ANASTACIO S 244.9 HYPOTHYROIDISM 11/25/2007 GEORGE STONEMASON HELPER, ANASTACIO S 696.1 Psoriasis 11/25/2007 GEORGE OTT, ANASTACIO S 719.41 Pain In Joint Involving Shoulder Region 11/25/2007 ALTHEA VAZQUEZ APRNNDA S 244.9 HYPOTHYROIDISM 11/25/2007 ALTHEA VAZQUEZ APRNNDA S 696.1 Psoriasis 11/25/2007 ALTHEA VAZQUEZ APRNNDA S 719.41 Pain In Joint Involving Shoulder Region 11/25/2007 ALTHEA VAZQUEZ APRNNDA S 244.9 HYPOTHYROIDISM 11/25/2007 ALTHEA VAZQUEZ APRNNDA S 696.1 Psoriasis 11/25/2007 ALTHEA VAZQUEZ APRNNDA S 719.41 Pain In Joint Involving Shoulder Region 12/02/2007 ALTHEA VAZQUEZ APRNNDA S 401.1 ESSENTIAL HYPERTENSION BENIGN 12/02/2007 401.1 ESSE NTIAL HYPERTENSION BENIGN 12/02/2007 ALTHEA VAZQUEZ APRNNDA S 401.1 ESSENTIAL HYPERTENSION BENIGN 12/02/2007 ALTHEA VAZQUEZ APRNNDA S 401.1 ESSENTIAL HYPERTENSION BENIGN 12/02/2007 ALTHEA VAZQUEZ APRNNDA S 401.1 ESSENTIAL HYPERTENSION BENIGN 12/02/2007 ALTHEA VAZQUEZ APRNNDA S 401.1 ESSENTIAL HYPERTENSION BENIGN 12/02/2007 ALTHEA VAZQUEZ APRNNDA S 401.1 ESSENTIAL HYPERTENSION BENIGN 12/02/2007 ALTHEA VAZQUEZ APRNNDA S 401.1 ESSENTIAL HYPERTENSION BENIGN 12/02/2007 ALTHEA VAZQUEZ APRNNDA S 401.1 ESSENTIAL HYPERTENSION BENIGN 12/02/2007 ALTHEA VAZQUEZ APRNNDA S 401.1 ESSENTIAL HYPERTENSION BENIGN 12/02/2007 ALTHEA VAZQUEZ APRNNDA S 401.1 ESSENTIAL HYPERTENSION BENIGN 04/23/2008 ALTHEA VAZQUEZ APRNNDA S 250.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 Type Ii Or Unspecified Type Not Stated As Uncontrolled 04/23/2008 ALTHEA VAZQUEZ APRNNDA S 726.71 Achilles Bursitis Or Tendinitis 04/23/2008 250.50 Ret inopathy With Ophthalmic Manifestations Type Ii Or Unspecified Type Not Stated As Uncontrolled 04/23/2008 726.71 Ach illes Bursitis Or Tendinitis 04/23/2008 ALTHEA VAZQUEZ APRNNDA S 250.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 Type Ii Or Unspecified Type Not Stated As Uncontrolled 04/23/2008 GEORGE STONEMASON HELPER, ANASTACIO S 726.71 Achilles Bursitis Or Tendinitis 04/23/2008 GEORGE STONEMASON HELPER, ANASTACIO S 250.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 Type Ii Or Unspecified Type Not Stated As Uncontrolled 04/23/2008 GEORGE STONEMASON HELPER, ANASTACIO S 726.71 Achilles Bursitis Or Tendinitis 04/23/2008 GEORGE STONEMASON HELPER, ANASTACIO S 250.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 Type Ii Or Unspecified Type Not Stated As Uncontrolled 04/23/2008 GEORGE STONEMASON HELPER, ANASTACIO S 726.71 Achilles Bursitis Or Tendinitis 04/23/2008 GEORGE STONEMASON HELPER, ANASTACIO S 250.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 Type Ii Or Unspecified Type Not Stated As Uncontrolled 04/23/2008 GEORGE STONEMASON HELPER, ANASTACIO S 726.71 Achilles Bursitis Or Tendinitis 04/23/2008 ALTHEA VAZQUEZ APRNNDA S 250.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 Type Ii Or Unspecified Type Not Stated As Uncontrolled 04/23/2008 GEORGE STONEMASON HELPER, ANASTACIO S 726.71 Achilles Bursitis Or Tendinitis 04/23/2008 ALTHEA VAZQUEZ APRNNDA S 250.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 Type Ii Or Unspecified Type Not Stated As Uncontrolled 04/23/2008 GEORGE STONEMASON HELPER, ANASTACIO S 726.71 Achilles Bursitis Or Tendinitis 04/23/2008 GEORGE OTT, ANASTACIO S 250.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 Type Ii Or Unspecified Type Not Stated As Uncontrolled 04/23/2008 GEORGE STONEMASON HELPER, ANASTACIO S 726.71 Achilles Bursitis Or Tendinitis 04/23/2008 GEORGE STONEMASON HELPER, ANASTACIO S 250.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 Type Ii Or Unspecified Type Not Stated As Uncontrolled 04/23/2008 GEORGE STONEMASON HELPER, ANASTACIO S 726.71 Achilles Bursitis Or Tendinitis 04/23/2008 GEORGE STONEMASON HELPER, ANASTACIO S 250.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 Type Ii Or Unspecified Type Not Stated As Uncontrolled 04/23/2008 GEORGE STONEMASON HELPER, ANASTACIO S 726.71 Achilles Bursitis Or Tendinitis 06/18/2008 GEORGE STONEMASON HELPER, ANASTACIO S 726.73 Calcaneal Spur 06/18/2008 726.73 Mikhail caneal Spur 06/18/2008 GEORGE STONEMASON HELPER, ANASTACIO S 726.73 Calcaneal Spur 06/18/2008 GEORGE STONEMASON HELPER, ANASTACIO S 726.73 Calcaneal Spur 06/18/2008 GEORGE STONEMASON HELPER, ANASTACIO S 726.73 Calcaneal Spur 06/18/2008 GEORGE STONEMASON HELPER, ANASTACIO S 726.73 Calcaneal Spur 06/18/2008 GEORGE STONEMASON HELPER, ANASTACIO S 726.73 Calcaneal Spur 06/18/2008 GEORGE STONEMASON HELPER, ANASTACIO S 726.73 Calcaneal Spur 06/18/2008 GEORGE STONEMASON HELPER, ANASTACIO S 726.73 Calcaneal Spur 06/18/2008 GEORGE STONEMASON HELPER, ANASTACIO S 726.73 Calcaneal Spur 06/18/2008 GEORGE STONEMASON HELPER, ANASTACIO S 726.73 Calcaneal Spur 06/20/2009 GEORGE OTT, ANASTACIO S 786.2 Cough 06/20/2009 SILVINO VAZQUEZ APRNA S V01.9 Contact With Or Exposure To Unspecified Communicable D isease 06/20/2009 SILVINO VAZQUEZ APRNA S V74.1 Screening Examination For Pulmonary Tuberculosis 06/20/2009 786.2 Cough 06/20/2009 V01.9 Cont act With Or Exposure To Unspecified Communicable Disease 06/20/2009 V74.1 Scre ening Examination For Pulmonary Tuberculosis 06/20/2009 SILVINO VAZQUEZ APRNA S 786.2 Cough 06/20/2009 SILVINO VAZQUEZ APRNA S V01.9 Contact With Or Exposure To Unspecified Communicable D isease 06/20/2009 SILVINO VAZQUEZ APRNA S V74.1 Screening Examination For Pulmonary Tuberculosis 06/20/2009 SILVINO VAZQUEZ APRNA S 786.2 Cough 06/20/2009 SILVINO VAZQUEZ APRNA S V01.9 Contact With Or Exposure To Unspecified Communicable D isease 06/20/2009 GEORGE STONEMASON HELPER, ANASTACIO S V74.1 Screening Examination For Pulmonary Tuberculosis 06/20/2009 GEORGE STONEMASON HELPER, ANASTACIO S 786.2 Cough 06/20/2009 GEORGE STONEMASON HELPER, ANASTACIO S V01.9 Contact With Or Exposure To Unspecified Communicable D isease 06/20/2009 GEORGE STONEMASON HELPER, ANASTACIO S V74.1 Screening Examination For Pulmonary Tuberculosis 06/20/2009 GEORGE STONEMASON HELPER, ANASTACIO S 786.2 Cough 06/20/2009 GEORGE STONEMASON HELPER, ANASTACIO S V01.9 Contact With Or Exposure To Unspecified Communicable D isease 06/20/2009 GEORGE STONEMASON HELPER, ANASTACIO S V74.1 Screening Examination For Pulmonary Tuberculosis 06/20/2009 GEORGE STONEMASON HELPER, ANASTACIO S 786.2 Cough 06/20/2009 GEORGE STONEMASON HELPER, ANASTACIO S V01.9 Contact With Or Exposure To Unspecified Communicable D isease 06/20/2009 GEORGE STONEMASON HELPER, ANASTACIO S V74.1 Screening Examination For Pulmonary Tuberculosis 06/20/2009 GEORGE STONEMASON HELPER, ANASTACIO S 786.2 Cough 06/20/2009 GEORGE STONEMASON HELPER, ANASTACIO S V01.9 Contact With Or Exposure To Unspecified Communicable D isease 06/20/2009 GEORGE STONEMASON HELPER, ANASTACIO S V74.1 Screening Examination For Pulmonary Tuberculosis 06/20/2009 GEORGE STONEMASON HELPER, ANASTACIO S 786.2 Cough 06/20/2009 GEORGE STONEMASON HELPER, ANASTACIO S V01.9 Contact With Or Exposure To Unspecified Communicable D isease 06/20/2009 GEORGE STONEMASON HELPER, ANASTACIO S V74.1 Screening Examination For Pulmonary Tuberculosis 06/20/2009 GEORGE STONEMASON HELPER, ANASTACIO S 786.2 Cough 06/20/2009 GEORGE STONEMASON HELPER, ANASTACIO S V01.9 Contact With Or Exposure To Unspecified Communicable D isease 06/20/2009 GEORGE STONEMASON HELPER, ANASTACIO S V74.1 Screening Examination For Pulmonary Tuberculosis 06/20/2009 GEORGE STONEMASON HELPER, ANASTACIO S 786.2 Cough 06/20/2009 GEORGE STONEMASON HELPER, ANASTACIO S V01.9 Contact With Or Exposure To Unspecified Communicable D isease 06/20/2009 ALTHEA VAZQUEZ APRNNDA S V74.1 Screening Examination For Pulmonary Tuberculosis 07/25/2009 GEORGE OTT ANASTACIO S 381.60 Obstruction Of Eustachian Tube, Unspecified 07/25/2009 381.60 Obs truction Of Eustachian Tube, Unspecified 07/25/2009 GEORGE STONEMASON HELPER, ANASTACIO S 381.60 Obstruction Of Eustachian Tube, Unspecified 07/25/2009 GEORGE STONEMASON HELPER, ANASTACIO S 381.60 Obstruction Of Eustachian Tube, Unspecified 07/25/2009 GEORGE STONEMASON HELPER, ANASTACIO S 381.60 Obstruction Of Eustachian Tube, Unspecified 07/25/2009 GEORGE STONEMASON HELPER, ANASTACIO S 381.60 Obstruction Of Eustachian Tube, Unspecified 07/25/2009 GEORGE STONEMASON HELPER, ANASTACIO S 381.60 Obstruction Of Eustachian Tube, Unspecified 07/25/2009 GEORGE STONEMASON HELPER, ANASTACIO S 381.60 Obstruction Of Eustachian Tube, Unspecified 07/25/2009 GEORGE STONEMASON HELPER, ANASTACIO S 381.60 Obstruction Of Eustachian Tube, Unspecified 07/25/2009 GEORGE STONEMASON HELPER, ANASTACIO S 381.60 Obstruction Of Eustachian Tube, Unspecified 07/25/2009 GEORGE STONEMASON HELPER, ANASTACIO S 381.60 Obstruction Of Eustachian Tube, Unspecified 08/17/2009 ALTHEA VAZQUEZ APRNNDA S 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 08/17/2009 ALTHEA VAZQUEZ APRNNDA S 311 DEPRESSIVE DISORDER, NOT ELSEWHERE CLASSIFIED 08/17/2009 301.9 UNSP ECIFIED PERSONALITY DISORDER 08/17/2009 311 DEPRES SIVE DISORDER, NOT ELSEWHERE CLASSIFIED 08/17/2009 GEORGE OTT ANASTACIO S 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 08/17/2009 GEORGE OTT ANASTACIO S 311 DEPRESSIVE DISORDER, NOT ELSEWHERE CLASSIFIED 08/17/2009 GEORGE OTT ANASTACIO S 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 08/17/2009 GEORGE OTT ANASTACIO S 311 DEPRESSIVE DISORDER, NOT ELSEWHERE CLASSIFIED 08/17/2009 GEORGE STONEMASON HELPER, ANASTACIO S 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 08/17/2009 GEORGE STONEMASON HELPER, ANASTACIO S 311 DEPRESSIVE DISORDER, NOT ELSEWHERE CLASSIFIED 08/17/2009 GEORGE STONEMASON HELPER, ANASTACIO S 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 08/17/2009 GEORGE STONEMASON HELPER, ANASTACIO S 311 DEPRESSIVE DISORDER, NOT ELSEWHERE CLASSIFIED 08/17/2009 GEORGE STONEMASON HELPER, ANASTACIO S 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 08/17/2009 GEORGE STONEMASON HELPER, ANASTACIO S 311 DEPRESSIVE DISORDER, NOT ELSEWHERE CLASSIFIED 08/17/2009 GEORGE STONEMASON HELPER, ANASTACIO S 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 08/17/2009 GEORGE STONEMASON HELPER, ANASTACIO S 311 DEPRESSIVE DISORDER, NOT ELSEWHERE CLASSIFIED 08/17/2009 GEORGE STONEMASON HELPER, ANASTACIO S 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 08/17/2009 GEORGE STONEMASON HELPER, ANASTACIO S 311 DEPRESSIVE DISORDER, NOT ELSEWHERE CLASSIFIED 08/17/2009 GEORGE STONEMASON HELPER, ANASTACIO S 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 08/17/2009 GEORGE STONEMASON HELPER, ANASTACIO S 311 DEPRESSIVE DISORDER, NOT ELSEWHERE CLASSIFIED 08/17/2009 GEORGE STONEMASON HELPER, ANASTACIO S 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 08/17/2009 GEOGRE STONEMASON HELPER, ANASTACIO S 311 DEPRESSIVE DISORDER, NOT ELSEWHERE CLASSIFIED 09/22/2009 GEORGE STONEMASON HELPER, ANASTACIO S 525.9 Unspecified Disorder Of The Teeth And Supporting Struc tures 09/22/2009 525.9 Unsp ecified Disorder Of The Teeth And Supporting Structures 09/22/2009 GEORGE STONEMASON HELPER ANASTACIO S 525.9 Unspecified Disorder Of The Teeth And Supporting Struc tures 09/22/2009 GEORGE STONEMASON HELPER, ANASTACIO S 525.9 Unspecified Disorder Of The Teeth And Supporting Struc tures 09/22/2009 GEORGE STONEMASON HELPER ANASTACIO S 525.9 Unspecified Disorder Of The Teeth And Supporting Struc tures 09/22/2009 GEORGE STONEMASON HELPER ANASTACIO S 525.9 Unspecified Disorder Of The Teeth And Supporting Struc tures 09/22/2009 GEORGE STONEMASON HELPER, ANASTACIO S 525.9 Unspecified Disorder Of The Teeth And Supporting Struc tures 09/22/2009 GEORGE STONEMASON HELPER, ANASTACIO S 525.9 Unspecified Disorder Of The Teeth And Supporting Struc tures 09/22/2009 GEORGE STONEMASON HELPER, ANASTACIO S 525.9 Unspecified Disorder Of The Teeth And Supporting Struc tures 09/22/2009 GEORGE STONEMASON HELPER, ANASTACIO S 525.9 Unspecified Disorder Of The Teeth And Supporting Struc tures 09/22/2009 GEORGE STONEMASON HELPER, ANASTACIO S 525.9 Unspecified Disorder Of The Teeth And Supporting Struc tures 01/06/2010 GEORGE STONEMASON HELPER, ANASTACIO S 272.4 HYPERLIPIDEMIA 01/06/2010 272.4 HYPE RLIPIDEMIA 01/06/2010 GEORGE STONEMASON HELPER, ANASTACIO S 272.4 HYPERLIPIDEMIA 01/06/2010 GEORGE STONEMASON HELPER, ANASTACIO S 272.4 HYPERLIPIDEMIA 01/06/2010 GEORGE STONEMASON HELPER, ANASTACIO S 272.4 HYPERLIPIDEMIA 01/06/2010 GEORGE STONEMASON HELPER, ANASTACIO S 272.4 HYPERLIPIDEMIA 01/06/2010 GEORGE STONEMASON HELPER, ANASTACIO S 272.4 HYPERLIPIDEMIA 01/06/2010 GEORGE STONEMASON HELPER, ANASTACIO S 272.4 HYPERLIPIDEMIA 01/06/2010 GEORGE STONEMASON HELPER, ANASTACIO S 272.4 HYPERLIPIDEMIA 01/06/2010 GEORGE STONEMASON HELPER, ANASTACIO S 272.4 HYPERLIPIDEMIA 01/06/2010 GEORGE STONEMASON HELPER, ANASTACIO S 272.4 HYPERLIPIDEMIA 11/14/2010 GEORGE STONEMASON HELPER, ANASTACIO S 276.51 DEHYDRATION 11/14/2010 GEORGE STONEMASON HELPER, ANASTACIO S 780.79 fatigue 11/14/2010 276.51 DEH YDRATION 11/14/2010 780.79 fatigue 11/14/2010 GEORGE STONEMASON HELPER, ANASTACIO S 276.51 DEHYDRATION 11/14/2010 GEORGE STONEMASON HELPER, ANASTACIO S 780.79 fatigue 11/14/2010 GEORGE STONEMASON HELPER, ANASTACIO S 276.51 DEHYDRATION 11/14/2010 GEORGE STONEMASON HELPER, ANASTACIO S 780.79 fatigue 11/14/2010 GEORGE STONEMASON HELPER, ANASTACIO S 276.51 DEHYDRATION 11/14/2010 GEORGE STONEMASON HELPER, ANASTACIO S 780.79 fatigue 11/14/2010 GEORGE STONEMASON HELPER, ANASTACIO S 276.51 DEHYDRATION 11/14/2010 GEORGE STONEMASON HELPER, ANASTACIO S 780.79 fatigue 11/14/2010 GEORGE STONEMASON HELPER, ANASTACIO S 276.51 DEHYDRATION 11/14/2010 GEORGE STONEMASON HELPER, ANASTACIO S 780.79 fatigue 11/14/2010 GEORGE STONEMASON HELPER, ANASTACIO S 276.51 DEHYDRATION 11/14/2010 GEORGE STONEMASON HELPER, ANASTACIO S 780.79 fatigue 11/14/2010 GEORGE STONEMASON HELPER, ANASTACIO S 276.51 DEHYDRATION 11/14/2010 GEORGE STONEMASON HELPER, ANASTACIO S 780.79 fatigue 11/14/2010 GEORGE STONEMASON HELPER, ANASTACIO S 276.51 DEHYDRATION 11/14/2010 GEORGE STONEMASON HELPER, ANASTACIO S 780.79 FATIGUE 11/14/2010 GEORGE STONEMASON HELPER, ANASTACIO S 276.51 DEHYDRATION 11/14/2010 GEORGE STONEMASON HELPER, ANASTACIO S 780.79 FATIGUE 11/21/2010 GEORGE STONEMASON HELPER, ANASTACIO S 346.00 MIGRAINE WITH AURA WITHOUT MENTION OF IN TRACTABLE MIGRAINE WITHOUT MENTION OF STATUS MIGRAINOSUS 11/21/2010 346.00 BRIGETTE VELVET WITH AURA WITHOUT MENTION OF INTRACTABLE MIGRAINE WITHOUT MENTION OF STATUS MIGRAINOSUS 11/21/2010 GEORGE STONEMASON HELPER, ANASTACIO S 346.00 MIGRAINE WITH AURA WITHOUT MENTION OF IN TRACTABLE MIGRAINE WITHOUT MENTION OF STATUS MIGRAINOSUS 11/21/2010 GEORGE STONEMASON HELPER, ANASTACIO S 346.00 MIGRAINE WITH AURA WITHOUT MENTION OF IN TRACTABLE MIGRAINE WITHOUT MENTION OF STATUS MIGRAINOSUS 11/21/2010 GEORGE STONEMASON HELPER, ANASTACIO S 346.00 MIGRAINE WITH AURA WITHOUT MENTION OF IN TRACTABLE MIGRAINE WITHOUT MENTION OF STATUS MIGRAINOSUS 11/21/2010 GEORGE STONEMASON HELPER, ANASTACIO S 346.00 MIGRAINE WITH AURA WITHOUT MENTION OF IN TRACTABLE MIGRAINE WITHOUT MENTION OF STATUS MIGRAINOSUS 11/21/2010 GEORGE STONEMASON HELPER, ANASTACIO S 346.00 MIGRAINE WITH AURA WITHOUT MENTION OF IN TRACTABLE MIGRAINE WITHOUT MENTION OF STATUS MIGRAINOSUS 11/21/2010 GEORGE STONEMASON HELPER, ANASTACIO S 346.00 MIGRAINE WITH AURA WITHOUT MENTION OF IN TRACTABLE MIGRAINE WITHOUT MENTION OF STATUS MIGRAINOSUS 11/21/2010 GEORGE STONEMASON HELPER, ANASTACIO S 346.00 MIGRAINE WITH AURA WITHOUT MENTION OF IN TRACTABLE MIGRAINE WITHOUT MENTION OF STATUS MIGRAINOSUS 11/21/2010 GEORGE STONEMASON HELPER, ANASTACIO S 346.00 MIGRAINE WITH AURA WITHOUT MENTION OF IN TRACTABLE MIGRAINE WITHOUT MENTION OF STATUS MIGRAINOSUS 11/21/2010 GEORGE STONEMASON HELPER, ANASTACIO S 346.00 MIGRAINE WITH AURA WITHOUT MENTION OF IN TRACTABLE MIGRAINE WITHOUT MENTION OF STATUS MIGRAINOSUS 11/22/2010 GEORGE STONEMASON HELPER, ANASTACIO S 784.0 headache 11/22/2010 784.0 headache 11/22/2010 GEORGE STONEMASON HELPER, ANASTACIO S 784.0 headache 11/22/2010 GEORGE STONEMASON HELPER, ANASTACIO S 784.0 headache 11/22/2010 GEORGE STONEMASON HELPER, ANASTACIO S 784.0 headache 11/22/2010 GEORGE STONEMASON HELPER, ANASTACIO S 784.0 headache 11/22/2010 GEORGE STONEMASON HELPER, ANASTACIO S 784.0 headache 11/22/2010 GEORGE STONEMASON HELPER, ANASTACIO S 784.0 headache 11/22/2010 GEORGE STONEMASON HELPER, ANASTACIO S 784.0 headache 11/22/2010 GEORGE STONEMASON HELPER, ANASTACIO S 784.0 headache 11/22/2010 GEORGE STONEMASON HELPER, ANASTACIO S 784.0 headache 02/23/2011 Ot 401.9 HYPE RTENSION NOS 02/23/2011 Ot 433.10 CAR OTID ARTERY OCCLUSION W O CEREBRAL IN 02/23/2011 Ot 780.57 UNS PECIFIED SLEEP APNEA 02/23/2011 Ot V58.66 PAXTON G-TERM (CURRENT) USE OF ASPIRIN 02/23/2011 Ot V58.69 OTH MED,LT,CURRENT USE 03/07/2011 SILVINO VAZQUEZ APRNA S 780.57 SLEEP APNEA 03/07/2011 780.57 SLE EP APNEA 03/07/2011 SILVINO VAZQUEZ APRNA S 780.57 SLEEP APNEA 03/07/2011 ALTHEA VAZQUEZ APRNNDA S 780.57 SLEEP APNEA 03/07/2011 ALTHEA VAZQUEZ APRNNDA S 780.57 SLEEP APNEA 03/07/2011 GEORGE STONEMASON HELPER, ANASTACIO S 780.57 SLEEP APNEA 03/07/2011 GEORGE STONEMASON HELPER, ANASTACIO S 780.57 SLEEP APNEA 03/07/2011 GEORGE STONEMASON HELPER, ANASTACIO S 780.57 SLEEP APNEA 03/07/2011 GEORGE STONEMASON HELPER, ANASTACIO S 780.57 SLEEP APNEA 03/07/2011 GEORGE STONEMASON HELPER, ANASTACIO S 780.57 SLEEP APNEA 03/07/2011 GEORGE STONEMASON HELPER, ANASTACIO S 780.57 SLEEP APNEA 05/17/2011 Ot 723.1 CERV ICALGIA 05/17/2011 Ot V57.1 PHYS ICAL THERAPY NEC 09/24/2011 ALTHEA VAZQUEZ APRNNDA S V76.19 OTHER SCREENING BREAST EXAMINATION 09/24/2011 V76.19 OT ER SCREENING BREAST EXAMINATION 09/24/2011 GEORGE OTT ANASTACIO S V76.19 OTHER SCREENING BREAST EXAMINATION 09/24/2011 ALTHEA VAZQUEZ APRNNDA S V76.19 OTHER SCREENING BREAST EXAMINATION 09/24/2011 GEORGE STONEMASON HELPER, ANASTACIO S V76.19 OTHER SCREENING BREAST EXAMINATION 09/24/2011 GEORGE STONEMASON HELPER, ANASTACIO S V76.19 OTHER SCREENING BREAST EXAMINATION 09/24/2011 GEORGE STONEMASON HELPER, ANASTACIO S V76.19 OTHER SCREENING BREAST EXAMINATION 09/24/2011 GEORGE STONEMASON HELPER, ANASTACIO S V76.19 OTHER SCREENING BREAST EXAMINATION 09/24/2011 GEORGE STONEMASON HELPER, ANASTACIO S V76.19 OTHER SCREENING BREAST EXAMINATION 09/24/2011 GEORGE OTT ANASTACIO S V76.19 OTHER SCREENING BREAST EXAMINATION 09/24/2011 GEORGE STONEMASON HELPER, ANASTACIO S V76.19 OTHER SCREENING BREAST EXAMINATION 12/13/2011 ALTHEA VAZQUEZ APRNNDA S V04.81 FLU DX (MEDICARE ONLY) 12/13/2011 V04.81 FLU DX (MEDICARE ONLY) 12/13/2011 ALTHEA VAZQUEZ APRNNDA S V04.81 FLU DX (MEDICARE ONLY) 12/13/2011 ALTHEA VAZQUEZ APRNNDA S V04.81 FLU DX (MEDICARE ONLY) 12/13/2011 ALTHEA VAZQUEZ APRNNDA S V04.81 FLU DX (MEDICARE ONLY) 12/13/2011 GEORGE STONEMASON HELPER, ANASTACIO S V04.81 FLU DX (MEDICARE ONLY) 12/13/2011 GEORGE STONEMASON HELPER, ANASTACIO S V04.81 FLU DX (MEDICARE ONLY) 12/13/2011 GEORGE STONEMASON HELPER, ANASTACIO S V04.81 FLU DX (MEDICARE ONLY) 12/13/2011 GEORGE STONEMASON HELPER, ANASTACIO S V04.81 FLU DX (MEDICARE ONLY) 12/13/2011 GEORGE STONEMASON HELPER, ANASTACIO S V04.81 FLU DX (MEDICARE ONLY) 12/13/2011 GEORGE STONEMASON HELPER, ANASTACIO S V04.81 FLU DX (MEDICARE ONLY) 04/02/2012 296.90 MOO D DISORDER NOS 04/02/2012 GEORGE STONEMASON HELPER, ANASTACIO S 296.90 MOOD DISORDER NOS 04/02/2012 GEORGE STONEMASON HELPER, ANASTACIO S 296.90 MOOD DISORDER NOS 04/02/2012 GEORGE STONEMASON HELPER, ANASTACIO S 296.90 MOOD DISORDER NOS 04/02/2012 GEORGE STONEMASON HELPER, ANASTACIO S 296.90 MOOD DISORDER NOS 04/02/2012 GEORGE STONEMASON HELPER, ANASTACIO S 296.90 MOOD DISORDER NOS 04/02/2012 GEORGE STONEMASON HELPER, ANASTACIO S 296.90 MOOD DISORDER NOS 04/02/2012 GEORGE STONEMASON HELPER, ANASTACIO S 296.90 MOOD DISORDER NOS 04/02/2012 GEORGE STONEMASON HELPER, ANASTACIO S 296.90 MOOD DISORDER NOS 04/02/2012 GEORGE STONEMASON HELPER, ANASTACIO S 296.90 MOOD DISORDER NOS 08/27/2012 GEORGE STONEMASON HELPER, ANASTACIO S 790.4 ABNORMAL LFT (ELEVATED) 08/27/2012 GEORGE STONEMASON HELPER, ANASTACIO S 790.4 ABNORMAL LFT (ELEVATED) 08/27/2012 GEORGE STONEMASON HELPER, ANASTACIO S 790.4 ABNORMAL LFT (ELEVATED) 08/27/2012 GEORGE STONEMASON HELPER, ANASTACIO S 790.4 ABNORMAL LFT (ELEVATED) 08/27/2012 GEORGE STONEMASON HELPER, ANASTACIO S 790.4 ABNORMAL LFT (ELEVATED) 08/27/2012 GEORGE STONEMASON HELPER, ANASTACIO S 790.4 ABNORMAL LFT (ELEVATED) 08/27/2012 GEORGE STONEMASON HELPERANASTACIO Farrell S 790.4 ABNORMAL LFT (ELEVATED) 08/27/2012 ANASTACIO VAZQUEZ APRN S 790.4 ABNORMAL LFT (ELEVATED) 05/01/2013 ESEQUIEL SHARMA DO M Ot 723.1 CERVICALGIA 05/01/2013 ESEQUIEL SHARMA DO M Ot V57.1 PHYSICAL THERAPY NEC 08/12/2013 ANASTACIO VAZQUEZ APRN S V76.10 BREAST CANCER SCREENING 08/12/2013 ANASTACIO VAZQUEZ APRN S V76.10 BREAST CANCER SCREENING 08/12/2013 ANASTACIO VAZQUEZ APRN S V76.10 BREAST CANCER SCREENING 05/13/2015 ANASTACIO VAZQUEZP Ot Z12.31 05/18/2015 ANASTACIO VAZQUEZP Ot Z12.31 06/01/2015 ANASTACIO VAZQUEZP Ot Z12.31 06/13/2015 ANASTACIO VAZQUEZP Ot Z12.31 ENCNTR SCREEN MAMMOGRAM FOR MALIGNANT NE 07/10/2016 Ot 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 07/10/2016 Ot 397.0 TRIC USPID VALVE DISEASE 07/10/2016 Ot 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 07/10/2016 Ot V76.12 OTH SCREEN MAMMO- MALIGN NEOPLASM OF JACK 07/10/2016 ANASTACIO VAZQUEZP Ot 244.9 HYPOTHYROIDISM NOS 07/10/2016 ANASTACIO VAZQUEZP Ot 401.1 BENIGN HYPERTENSION 07/10/2016 ANASTACIO VAZQUEZP Ot V76.12 OTH SCREEN MAMMO-MALIGN NEOPLASM OF JACK 07/10/2016 ANASTACIO VAZQUEZP Ot Z12.31 ENCNTR SCREEN MAMMOGRAM FOR MALIGNANT NE 07/10/2016 ANASTACIO VAZQUEZP Ot Z12.31 ENCNTR SCREEN MAMMOGRAM FOR MALIGNANT NE 07/10/2016 ANASTACIO VAZQUEZP Ot Z12.31 ENCNTR SCREEN MAMMOGRAM FOR MALIGNANT NE 07/10/2016 ANASTACIO VAZQUEZP Ot Z12.31 ENCNTR SCREEN MAMMOGRAM FOR MALIGNANT NE 07/13/2016 ANASTACIO VAZQUEZ OUTSIDE ENERGY SALES REPRESENTATIVES Ot Z12.31 ENCNTR SCREEN MAMMOGRAM FOR MALIGNANT NE 08/01/2016 ANASTACIO VAZQUEZ OUTSIDE ENERGY SALES REPRESENTATIVES Ot Z12.31 ENCNTR SCREEN MAMMOGRAM FOR MALIGNANT NE 06/17/2017 BENTLEYNatali VILLAFUERTE DEETRA Y Ot I65.2 2 OCCLUSION AND STENOSIS OF LEFT CAROTID A 06/25/2017 MC VILLAFUERTE DEETRA Y Ot I65.2 2 OCCLUSION AND STENOSIS OF LEFT CAROTID A 06/25/2017 BENTLEYNatali VILLAFURETE DEETRA Y Ot I65.2 2 OCCLUSION AND STENOSIS OF LEFT CAROTID A 07/17/2017 BENTLEYNatali VILLAFUERTE DEETRA Y Ot I65.2 2 OCCLUSION AND STENOSIS OF LEFT CAROTID A 08/02/2017 MC BENTLEY MD Y Ot I65.2 2 OCCLUSION AND STENOSIS OF LEFT CAROTID A 09/09/2017 ANASTACIO VAZQUEZ OUTSIDE ENERGY SALES REPRESENTATIVES Ot Z12.31 ENCNTR SCREEN MAMMOGRAM FOR MALIGNANT NE 12/25/2018 ANASTACIO VAZQUEZ OUTSIDE ENERGY SALES REPRESENTATIVES Ot Z12.31 ENCNTR SCREEN MAMMOGRAM FOR MALIGNANT NE 12/25/2018 ANASTACIO VAZQUEZ OUTSIDE ENERGY SALES REPRESENTATIVES Ot Z12.31 ENCNTR SCREEN MAMMOGRAM FOR MALIGNANT NE 04/13/2019 ANASTACIO VAZQUEZ OUTSIDE ENERGY SALES REPRESENTATIVES Ot Z12.31 ENCNTR SCREEN MAMMOGRAM FOR MALIGNANT NE 04/13/2019 ANASTACIO VAZQUEZ OUTSIDE ENERGY SALES REPRESENTATIVES Ot Z12.31 ENCNTR SCREEN MAMMOGRAM FOR MALIGNANT NE 04/13/2019 WILEY MDETRA Y Ot I65.2 2 OCCLUSION AND STENOSIS OF LEFT CAROTID A 04/14/2019 ANASTACIO VAZQUEZ OUTSIDE ENERGY SALES REPRESENTATIVES Ot Z12.31 ENCNTR SCREEN MAMMOGRAM FOR MALIGNANT NE 04/14/2019 ANASTACIO VAZQUEZ OUTSIDE ENERGY SALES REPRESENTATIVES Ot Z12.31 ENCNTR SCREEN MAMMOGRAM FOR MALIGNANT NE 04/14/2019 BENTLEYYOU MDETRA Y Ot I65.2 2 OCCLUSION AND STENOSIS OF LEFT CAROTID A 04/14/2019 ANASTACIO VAZQUEZ OUTSIDE ENERGY SALES REPRESENTATIVES Ot Z12.31 ENCNTR SCREEN MAMMOGRAM FOR MALIGNANT NE 04/14/2019 ANASTACIO VAZQUEZ OUTSIDE ENERGY SALES REPRESENTATIVES Ot Z12.31 ENCNTR SCREEN MAMMOGRAM FOR MALIGNANT NE 04/14/2019 BENTLEYYOU MDETRA Y Ot I65.2 2 OCCLUSION AND STENOSIS OF LEFT CAROTID A 04/14/2019 SILVINO VAZQUEZA OUTSIDE ENERGY SALES REPRESENTATIVES Ot Z12.31 ENCNTR SCREEN MAMMOGRAM FOR MALIGNANT NE 04/20/2019 SILVINO VAZQUEZA OUTSIDE ENERGY SALES REPRESENTATIVES Ot Z12.31 ENCNTR SCREEN MAMMOGRAM FOR MALIGNANT NE 04/20/2019 ALTHEA VAZQUEZNDA OUTSIDE ENERGY SALES REPRESENTATIVES Ot Z12.31 ENCNTR SCREEN MAMMOGRAM FOR MALIGNANT NE 04/20/2019 BENTLEYMC Hurst MD Y Ot I65.2 2 OCCLUSION AND STENOSIS OF LEFT CAROTID A 04/20/2019 SILVINO VAZQUEZA OUTSIDE ENERGY SALES REPRESENTATIVES Ot Z12.31 ENCNTR SCREEN MAMMOGRAM FOR MALIGNANT NE 04/21/2019 SILVINO VAZQUEZA OUTSIDE ENERGY SALES REPRESENTATIVES Ot Z12.31 ENCNTR SCREEN MAMMOGRAM FOR MALIGNANT NE 04/21/2019 ALTHEA VAZQUEZNDA OUTSIDE ENERGY SALES REPRESENTATIVES Ot Z12.31 ENCNTR SCREEN MAMMOGRAM FOR MALIGNANT NE 04/21/2019 MC BENTLEY MD Y Ot I65.2 2 OCCLUSION AND STENOSIS OF LEFT CAROTID A 04/21/2019 SILVINO VAZQUEZA OUTSIDE ENERGY SALES REPRESENTATIVES Ot Z12.31 ENCNTR SCREEN MAMMOGRAM FOR MALIGNANT NE 04/29/2019 SILVINO VAZQUEZA OUTSIDE ENERGY SALES REPRESENTATIVES Ot Z12.31 ENCNTR SCREEN MAMMOGRAM FOR MALIGNANT NE 04/29/2019 SILVINO VAZQUEZA OUTSIDE ENERGY SALES REPRESENTATIVES Ot Z12.31 ENCNTR SCREEN MAMMOGRAM FOR MALIGNANT NE 04/29/2019 MC BENTLEY MD Y Ot I65.2 2 OCCLUSION AND STENOSIS OF LEFT CAROTID A 04/29/2019 SILVINO VAZQUEZA OUTSIDE ENERGY SALES REPRESENTATIVES Ot R01.1 CARDIAC MURMUR, UNSPECIFIED 04/29/2019 SILVINO VAZQUEZA OUTSIDE ENERGY SALES REPRESENTATIVES Ot Z12.31 ENCNTR SCREEN MAMMOGRAM FOR MALIGNANT NE 04/29/2019 SILVINO VAZQUEZA OUTSIDE ENERGY SALES REPRESENTATIVES Ot Z12.31 ENCNTR SCREEN MAMMOGRAM FOR MALIGNANT NE 04/29/2019 SILVINO VAZQUEZA OUTSIDE ENERGY SALES REPRESENTATIVES Ot Z12.31 ENCNTR SCREEN MAMMOGRAM FOR MALIGNANT NE 04/29/2019 MC VILLAFUERTE DEETRA Y Ot I65.2 2 OCCLUSION AND STENOSIS OF LEFT CAROTID A 04/29/2019 SILVINO VAZQUEZA OUTSIDE ENERGY SALES REPRESENTATIVES Ot R01.1 CARDIAC MURMUR, UNSPECIFIED 04/29/2019 ANASTACIO VAZQUEZ OUTSIDE ENERGY SALES REPRESENTATIVES Ot Z12.31 ENCNTR SCREEN MAMMOGRAM FOR MALIGNANT NE Procedures Code [place] [address] ROUT INE VENIPUNCTURE 12/31/2011 48482 CMP 12/31/2011 12529 LIPI D PANEL 12/31/2011 [id number] GF R CALC (RESULT ONLY) 12/31/2011 46737 TSH 01/01/2012 92643 PSYC H DIAGNOSTIC EVALUATION 04/07/2012 78478 ROUT INE VENIPUNCTURE 01/28/2013 75754 CMP 01/28/2013 28200 LIPI D PANEL 01/28/2013 [id number] GF R CALC (RESULT ONLY) 01/28/2013 94549 TSH 01/28/2013 21659 TSH 04/23/2013 29752 MAMM OGRAM, SCREENING 08/25/2013 45363 ROUT INE VENIPUNCTURE 05/27/2014 [id number] GF R CALC (RESULT ONLY) 05/27/2014 24347 CMP 05/27/2014 75229 LIPI D PANEL 05/27/2014 95035 TSH 05/27/2014 Results Test Result Range STOOL (O T P) - 11/06/16 13:43 Ova + Parasite Exam Final report NRG Result 1 NRG LIPID PANEL - 02/22/17 12:02 CHOLESTEROL, TOTAL 197 mg/dL <200 HDL CHOLESTEROL 45 mg/dL >50 TRIGLYCERIDES 165 mg/dL <150 LDL-CHOLESTEROL 124 mg/dL (calc) NR CHOL/HDLC RATIO 4.4 (calc) <5.0 NON HDL CHOLESTEROL 152 mg/dL (calc) <13 0 [facility] - 02/22/17 12:02 GLUCOSE 93 mg/dL 65-99 UREA NITROGEN (BUN) 16 mg/dL 7-25 CREATININE 0.73 mg/dL 0.50-1.05 eGFR NON-AFR. [place] 92 mL/min/1.73m2 > OR = 60 eGFR 107 mL/min/1.73m2 > OR = 60 BUN/CREATININE RATIO NOT APPLICABLE (calc) 6-22 SODIUM 141 mmol/L 135-146 POTASSIUM 4.5 mmol/L 3.5-5.3 CHLORIDE 103 mmol/L 98-110 CARBON DIOXIDE 30 mmol/L 20-31 CALCIUM 9.7 mg/dL 8.6-10.4 PROTEIN, TOTAL 6.9 g/dL 6.1-8.1 ALBUMIN 4.1 g/dL 3.6-5.1 GLOBULIN 2.8 g/dL (calc) 1.9-3.7 ALBUMIN/GLOBULIN RATIO 1.5 (calc) 1.0-2. 5 BILIRUBIN, TOTAL 0.5 mg/dL 0.2-1.2 ALKALINE PHOSPHATASE 153 U/L 33-130 AST 28 U/L 10-35 ALT 38 U/L - TSH - 02/22/17 12:02 TSH 0.45 mIU/L 0.40-4.50 CULTURE, URINE - 10/22/17 11:12 CULTURE, URINE, ROUTINE SEE NOTE NRG [facility] - 04/02/18 09:42 GLUCOSE 104 mg/dL 65-99 UREA NITROGEN (BUN) 15 mg/dL 7-25 CREATININE 0.65 mg/dL 0.50-1.05 eGFR NON-AFR. [place] 99 mL/min/1.73m2 > OR = 60 eGFR 114 mL/min/1.73m2 > OR = 60 BUN/CREATININE RATIO NOT APPLICABLE (calc) 6-22 SODIUM 141 mmol/L 135-146 POTASSIUM 3.9 mmol/L 3.5-5.3 CHLORIDE 105 mmol/L 98-110 CARBON DIOXIDE 29 mmol/L 20-32 CALCIUM 9.3 mg/dL 8.6-10.4 PROTEIN, TOTAL 6.5 g/dL 6.1-8.1 ALBUMIN 4.0 g/dL 3.6-5.1 GLOBULIN 2.5 g/dL (calc) 1.9-3.7 ALBUMIN/GLOBULIN RATIO 1.6 (calc) 1.0-2. 5 BILIRUBIN, TOTAL 0.4 mg/dL 0.2-1.2 ALKALINE PHOSPHATASE 155 U/L 33-130 AST 24 U/L 10-35 ALT 34 U/L - TSH - 01/08/19 12:08 TSH 0.13 mIU/L 0.40-4.50 Complete blood count (CBC) with automate d white blood cell (WBC) differential - 04/29/19 17:15 Blood leukocytes automated count (number/volume) 8.7 10*3/uL 4.3-11.0 Blood erythrocytes automated count (number/volume) 5.16 10*6/uL 4.35-5.85 Venous blood hemoglobin measurement (mass/volume) 14.5 g/dL 11.5-16.0 Blood hematocrit (volume fraction) 44 % 35-52 Automated erythrocyte mean corpuscular volume 85 [ foz_us] 80-99 Automated erythrocyte mean corpuscular h emoglobin (mass per erythrocyte) 28 pg 25-34 Automated erythrocyte mean corpuscular h emoglobin concentration measurement (mass/volume) 33 g/dL 32-36 Automated erythrocyte distribution width ratio 14. 4 % 10.0- 14.5 Automated blood platelet count (count/volume) 228 10*3/uL 130-400 Automated blood platelet mean volume measurement 9.7 [foz_us] 7.4-10.4 Automated blood neutrophils/100 leukocytes 67 % 42-75 Automated blood lymphocytes/100 leukocytes 23 % 12-44 Blood monocytes/100 leukocytes 8 % 0-12 Automated blood eosinophils/100 leukocytes 1 % 0-10 Automated blood basophils/100 leukocytes 0 % 0-10 Blood neutrophils automated count (number/volume) 5.8 10*3 1.8-7.8 Blood lymphocytes automated count (number/volume) 2.0 10*3 1.0-4.0 Blood monocytes automated count (number/volume) 0. 7 10*3 0.0-1.0 Automated eosinophil count 0.1 10*3/uL 0 .0-0.3 Automated blood basophil count (count/volume) 0.0 10*3/uL 0.0-0.1 Whole blood basic metabolic panel - 04/18 03/09 17:15 Serum or plasma sodium measurement (moles/volume) 139 mmol/L 135-145 Serum or plasma potassium measurement (moles/volume) 3.5 mmol/L 3.6-5.0 Serum or plasma chloride measurement (moles/volume) 102 mmol/L 98-107 Carbon dioxide 26 mmol/L 21-32 Serum or plasma anion gap determination (moles/volume) 11 mmol/L 5-14 Serum or plasma urea nitrogen measurement (mass/volume ) 12 mg/dL 7-18 Serum or plasma creatinine measurement (mass/volume) 0.74 mg/dL 0.60-1.30 Serum or plasma urea nitrogen/creatinine mass ratio 16 NRG Serum or plasma creatinine measurement w ith calculation of estimated glomerular filtration rate > NRG Serum or plasma glucose measurement (mass/volume) 109 mg/dL 70-105 Serum or plasma calcium measurement (mass/volume) 9.1 mg/dL 8.5-10.1 Encounters ACCT No. Visit Date/Time Discharge Status Pt. Type Provider Facility Loc./Unit Complaint [id number] 05/27/2014 09:40:00 05/27/2014 23:59: 59 CLS Outpatient GEORGE OTT ANASTACIO S [id number] 11/11/2013 08:57:00 11/11/2013 23:59: 59 CLS Outpatient GEORGE STONEMASON HELPER ANASTACIO S [id number] 08/12/2013 11:11:00 08/12/2013 23:59: 59 CLS Outpatient GEORGE STONEMASON HELPER ANASTACIO S [id number] 04/23/2013 10:17:00 04/23/2013 23:59: 59 CLS Outpatient SILVINO VAZQUEZ APRNA S [id number] 04/23/2013 10:17:00 04/23/2013 23:59: 59 CLS Outpatient GEORGE STONEMASON HELPER ANASTACIO S [id number] 01/28/2013 10:23:00 01/28/2013 23:59: 59 CLS Outpatient GEORGE STONEMASON HELPERALTHEA FarrellNDA S [id number] 12/31/2012 09:53:00 12/31/2012 23:59: 59 CLS Outpatient GEORGE STONEMASON HELPERALTHEA FarrellNDA S [id number] 08/27/2012 14:58:00 08/27/2012 23:59: 59 CLS Outpatient GEORGE STONEMASON HELPER ANASTACIO S [id number] 04/22/2012 14:29:00 04/22/2012 23:59: 59 CLS Outpatient GEORGE OTT ANASTACIO S [id number] 04/02/2012 12:49:00 04/02/2012 23:59: 59 CLS Outpatient [id number] 12/31/2011 10:18:00 12/31/2011 23:59:5 9 CLS Outpatient ALTHEA VAZUQEZ APRNNDA S [id number] 04/29/2019 16:43:00 17:53:00 DIS Emergency BERKLEY MARIN STONEMASON HELPER [facility] ER BP COMPLICATIONS [id number] 04/21/2019 13:30:00 23:59:59 CLS Preadmit ANASTACIO VAZQUEZ OUTSIDE ENERGY SALES REPRESENTATIVES [facility] RAD SCREENING [id number] 04/21/2019 13:26:00 020 23:59:59 CLS Outpatient ANASTACIO VAZQUEZP [facility] CARD HEART MURMUR, SYSTOLIC [id number] 12/22/2018 12:07:00 019 23:59:59 CLS Preadmit ALTHEA VAZQUEZNDA OUTSIDE ENERGY SALES REPRESENTATIVES [facility] RAD SCREENING [id number] 04/02/2018 10:25:00 019 23:59:59 CLS Preadmit ALTHEA VAZQUEZNDA OUTSIDE ENERGY SALES REPRESENTATIVES [facility] RAD SCREENING [id number] 09/09/2017 11:53:00 018 23:59:59 CLS Preadmit SILVINO VAZQUEZA OUTSIDE ENERGY SALES REPRESENTATIVES [facility] RAD BREAST CANCER SCREENING BY MAMMOGRAM [id number] 06/24/2017 09:03:00 018 23:59:59 CLS Outpatient MC BENTLEY MD [facility] RAD STENOSIS OF LT CAROTID ARTERY [id number] 07/10/2016 12:38:00 017 23:59:59 CLS Outpatient SILVINO VAZQUEZA OUTSIDE ENER[employer] SALES REPRESENTATIVES [facility] RAD SCREENING [id number] 05/12/2015 09:10:00 016 23:59:59 CLS Outpatient SILVINO VAZQUEZA OUTSIDE ENERGY SALES REPRESENTATIVES [facility] RAD SCREENING [id number] 08/25/2013 14:36:00 014 23:59:59 CLS Outpatient ALTHEA VAZQUEZNDA OUTSIDE ENERGY SALES REPRESENTATIVES [facility] RAD SCREENING [id number] 03/16/2013 13:36:00 014 23:59:59 CLS Outpatient ESEQUIEL SHARMA DO [facility] REHAB CERVICALGIA [id number] 10/01/2011 10:51:00 Document Registration [id number] 05/17/2011 13:37:00 Document Registration [id number] 02/22/2011 12:22:00 Document Registration [id number] 01/23/2011 08:11:00 Document Registration [id number] 04/08/2019 11:15:00 04/08/2019 23:59:5 9 CLS Outpatient ANASTACIO VAZQUEZ APRN [facility] [id number] 01/08/2019 12:00:00 Document Registration [id number] 04/02/2018 09:00:00 Document Registration [id number] 10/22/2017 09:20:00 Document Registration [id number] 02/22/2017 12:00:00 Document Registration [id number] 11/06/2016 12:05:00 Document Registration
== END 2019-04-29 17:53 | disposition home or self-care (01) ==
LOC: EDUNIT# 16:41 → ER 16:43
DX: I10 Essential (primary) hypertension (principal); G43.109 Migraine with aura, not intractable, without status migrainosus; Z79.82 Long term (current) use of aspirin
CPT/HCPCS: 36415; 80048; 85025; 99283

== ENCOUNTER 2019-11-24 13:27 | Emergency (ER) | payer MEDICARE, MEDICAID ==
[~2019-11-24] VITALS: Ht 170 cm; Wt 95.0 kg
[~2019-11-24 13:27] MED LIST changes: +CLON0.1T PO
[2019-11-24] MEDS ORDERED: RT-ALBUTEROL INHALER HFA (VENTOLIN HFA) 18 GM IH SCH (14:00)
[2019-11-24 14:08] LABS: BASOPHILS % (AUTO) 0 % (0-10); EOSINOPHILS # (AUTO) 0.1 10^3/uL (0.0-0.3); EOSINOPHILS % (AUTO) 1 % (0-10); HEMATOCRIT 44 % (35-52); HEMOGLOBIN 14.3 g/dL (11.5-16.0); LYMPHOCYTES # (AUTO) 1.4 10^3/uL (1.0-4.0); LYMPHOCYTES % (AUTO) 20 % (12-44); MEAN CORPUSCULAR HEMOGLOBIN 29 pg (25-34); MEAN CORPUSCULAR HGB CONC 33 g/dL (32-36); MEAN CORPUSCULAR VOLUME 89 fL (80-99); MEAN PLATELET VOLUME 9.8 fL (9.0-12.2); MONOCYTES # (AUTO) 0.6 10^3/uL (0.0-1.0); MONOCYTES % (AUTO) 8 % (0-12); NEUTROPHILS # (AUTO) 4.8 10^3/uL (1.8-7.8); NEUTROPHILS % (AUTO) 70 % (42-75); PLATELET COUNT 229 10^3/uL (130-400); WHITE BLOOD COUNT 6.8 10^3/uL (4.3-11.0)
[2019-11-24 14:21] LABS: CHLORIDE 104 MMOL/L (98-107); POTASSIUM 4.4 MMOL/L (3.6-5.0); SODIUM 140 MMOL/L (135-145)
[2019-11-24 14:22] LABS: CALCIUM 9.3 MG/DL (8.5-10.1)
[2019-11-24 14:23] LABS: GLUCOSE 109 MG/DL (70-105); TOTAL PROTEIN 7.5 GM/DL (6.4-8.2)
[2019-11-24 14:25] LABS: BILIRUBIN,TOTAL 0.6 MG/DL (0.1-1.0); CARBON DIOXIDE 26 MMOL/L (21-32)
--- NOTE | 2019-11-24 14:26 | ED General ---
General Chief Complaint: Cough/Cold/Flu Symptoms Stated Complaint: COVID +, SOB Nursing Triage Note: PT HAS COVID, PT HAS INCREASED SOA. PT HAS COUGH PROD AT TIMES, NO FEVERS TODAY PT IS ON DAY 10 Nursing Sepsis Screen: No Definite Risk Source of Information: Patient Exam Limitations: No Limitations History of Present Illness Date Seen by Provider: Nov 24, 2019 Time Seen by Provider: 13:45 Initial Comments This 59-year-old woman presents to the emergency room with complaints of increased shortness of breath after being diagnosed with COVID-19 last week. She has been ill for about 10 days. She has been doing fairly well until the last couple of days when her shortness of breath increased. Vital signs are stable and within normal limits. She is not in respiratory distress. Allergies and Home Medications Allergies Coded Allergies: No Known Drug Allergies (Unverified , 11/20/10) Home Medications Amitriptyline Hcl 10 Mg Tablet, 1 EACH PO HS, (Reported) Amitriptyline Hcl 25 Mg Tablet, 1 EACH PO HS, (Reported) Aspirin 81 Mg Tabec, 162 MG PO DAILY, (Reported) Atenolol 100 Mg Tablet, 1 EACH PO DAILY, (Reported) Atorvastatin Calcium 40 Mg Tablet, 1 EACH PO DAILY, (Reported) Azithromycin 250 Mg Tablet, 250 MG PO UD TAKE 2 TABLETS ON DAY ONE THEN TAKE 1 TABLET DAILY FOR FOUR MORE DAYS Prescribed by: DARIUS BURTON on 11/24/19 1525 Clonidine HCl 0.1 Mg Tablet, 0.1 MG PO BID PRN for high blood pressure Used for systolic (top number) blood pressure over 170 Prescribed by: BERKLEY MARIN on 04/29/19 1753 Dextran 70/Hypromellose/Pf 1 Each Droperette, 1 EACH OU PRN, (Reported) Fluticasone Propionate 50 Mcg/16 G Toyah, 50 MCG NA PRN, (Reported) Levothyroxine Sodium 125 Mcg Tablet, 1 EACH PO DAILY, (Reported) Lisinopril 20 Mg Tab, 20 MG PO HS, (Reported) Metoprolol Succinate 25 Mg Tab.sr.24h, 1 EACH PO DAILY, (Reported) Multivitamins 1 Each Capsule, 1 EACH PO EVERY OTHER DAY, (Reported) Vitamin B Complex 1 Cap Capsule, 1 CAP PO EVERY OTHER DAY, (Reported) [Saline Eye Drops] , PRN, (Reported) Patient Home Medication List Home Medication List Reviewed: Yes Review of Systems Review of Systems Constitutional: no symptoms reported EENTM: no symptoms reported Respiratory: see HPI, cough (productive) Cardiovascular: no symptoms reported Gastrointestinal: no symptoms reported Genitourinary: no symptoms reported : No Musculoskeletal: no symptoms reported Skin: no symptoms reported Psychiatric/Neurological: No Symptoms Reported Hematologic/Lymphatic: No Symptoms Reported Immunological/Allergic: no symptoms reported Past Qbyuhtt-Qhzdpy-Ikxdqt Hx Past Med/Social Hx: Reviewed Nursing Past Med/Soc Hx Patient Social History Alcohol Use: Denies Use Recreational Drug Use: No Smoking Status: Never a Smoker Recent Foreign Travel: No Contact w/Someone Who Travel: No Recent Infectious Disease Expo: No Recent Hopitalizations: No Physical Abuse: No Sexual Abuse: No Past Medical History Surgeries: Yes (JAW SURG) Appendectomy, Eye Surgery, Hysterectomy Respiratory: No Cardiac: Yes Hypertension, Valvular Heart Disease (aortic valve stenosis) [employer] History: Hysterectomy Genitourinary: No Gastrointestinal: No Musculoskeletal: No Endocrine: No Hyperthyroidism HEENT: No Cancer: No Psychosocial: No Integumentary: No Physical Exam Vital Signs Vital Signs - First Documented 11/24/19 15:35 Pulse Ox 96 Capillary Refill : Less Than 3 Seconds Height, Weight, BMI Height: '" Weight: lbs. oz. kg; 32.00 BMI Method:Stated General Appearance: No Apparent Distress, WD/WN HEENT: PERRL/EOMI, Normal ENT Inspection Neck: Normal Inspection Respiratory: Lungs Clear, No Accessory Muscle Use, Decreased Breath Sounds, Other (splinting with decreased air movement) Cardiovascular: Regular Rate, Rhythm, No Edema, Systolic Murmur Gastrointestinal: Normal Bowel Sounds, Non Tender, Soft Extremity: Normal Inspection, Non Tender, No Calf Tenderness, No Pedal Edema Neurologic/Psychiatric: Alert, Oriented x3, No Motor/Sensory Deficits, Normal Mood/Affect, advertising assistant II-XII Norm as Tested Skin: Normal Color, Warm/Dry Progress/Results/Core Measures Suspected Sepsis Recent Fever Within 48 Hours: No Infection Criteria Present: None New/Unexplained Altered Menta: No Sepsis Screen: No Definite Risk SIRS Temperature: Pulse: 77 Respiratory Rate: 24 Laboratory Tests 11/24/19 14:00: White Blood Count 6.8 Blood Pressure 183 /97 Mean: 125 Laboratory Tests 11/24/19 14:00: Creatinine 0.79, Platelet Count 229, Total Bilirubin 0.6 Results/Orders Lab Results Laboratory Tests Test 11/24/19 14:00 Range/Units White Blood Count 6.8 4.3-11.0 10^3/uL Red Blood Count 4.96 3.80-5.11 10^6/uL Hemoglobin 14.3 11.5-16.0 g/dL Hematocrit 44 35-52 % Mean Corpuscular Volume 89 80-99 fL Mean Corpuscular Hemoglobin 29 25-34 pg Mean Corpuscular Hemoglobin Concent 33 32-36 g/dL Red Cell Distribution Width 13.4 10.0-14.5 % Platelet Count 229 130-400 10^3/uL Mean Platelet Volume 9.8 9.0-12.2 fL Immature Granulocyte % (Auto) 0 % Neutrophils (%) (Auto) 70 42-75 % Lymphocytes (%) (Auto) 20 12-44 % Monocytes (%) (Auto) 8 0-12 % Eosinophils (%) (Auto) 1 0-10 % Basophils (%) (Auto) 0 0-10 % Neutrophils # (Auto) 4.8 1.8-7.8 10^3/uL Lymphocytes # (Auto) 1.4 1.0-4.0 10^3/uL Monocytes # (Auto) 0.6 0.0-1.0 10^3/uL Eosinophils # (Auto) 0.1 0.0-0.3 10^3/uL Basophils # (Auto) 0.0 0.0-0.1 10^3/uL Immature Granulocyte # (Auto) 0.0 0.0-0.1 10^3/uL Sodium Level 140 135-145 MMOL/L Potassium Level 4.4 3.6-5.0 MMOL/L Chloride Level 104 98-107 MMOL/L Carbon Dioxide Level 26 21-32 MMOL/L Anion Gap 10 5-14 MMOL/L Blood Urea Nitrogen 9 7-18 MG/DL Creatinine 0.79 0.60-1.30 MG/DL Estimat Glomerular Filtration Rate > 60 BUN/Creatinine Ratio 11 Glucose Level 109 H 70-105 MG/DL Calcium Level 9.3 8.5-10.1 MG/DL Corrected Calcium 9.3 8.5-10.1 MG/DL Magnesium Level 2.2 1.6-2.4 MG/DL Total Bilirubin 0.6 0.1-1.0 MG/DL Aspartate Amino Transf (AST/SGOT) 20 5-34 U/L Alanine Aminotransferase (ALT/SGPT) 28 0-55 U/L Alkaline Phosphatase 145 H 40-136 U/L C-Reactive Protein High Sensitivity 4.03 H 0.00-0.50 MG/DL B-Type Natriuretic Peptide 35.2 <100.0 PG/ML Total Protein 7.5 6.4-8.2 GM/DL Albumin 4.0 3.2-4.5 GM/DL My Orders Orders - DARIUS WARD MD BNP (11/24/19 13:57) Cbc With Automated Diff (11/24/19 13:57) Comprehensive Metabolic Panel (11/24/19 13:57) Hs C Reactive Protein (11/24/19 13:57) Ed Iv/Invasive Line Start (11/24/19 13:57) Chest 1 View, Ap/Pa Only (11/24/19 13:57) Magnesium (11/24/19 13:57) Albuterol Inhaler (Ventolin Hfa) (11/24/19 14:00) Ceftriaxone For Iv Use (Rocephin For I (11/24/19 15:30) Medications Given in ED Current Medications Medications Dose Ordered Sig/Marv Route Start Time Stop Time Status Last Admin Dose Admin Ceftriaxone Sodium 1000 mg/ Sterile Water 10 ml @ 200 mls/hr ONCE ONCE IV 11/24/19 15:30 11/24/19 15:32 DC 11/24/19 15:35 200 MLS/HR Vital Signs/I&O 11/24/19 11/24/19 11/24/19 13:44 13:44 15:35 Temp 36.7 Pulse 77 72 Resp 24 20 B/P (MAP) 183/97 (125) 174/100 (125) Pulse Ox 96 O2 Delivery Room Air Room Air Room Air Capillary Refill : Less Than 3 Seconds Blood Pressure Mean: 125 Progress Note : Progress Note Patient's vital signs were stable. However, given the appearance of some basilar infiltrate on x-ray and worsening of condition, treatment with an tibiotics was felt appropriate. A dose of Rocephin was administered in the ER and she was prescribed azithromycin. She was also given an albuterol inhaler due to her poor air movement and received her first dose in the ER. Diagnostic Imaging Diagonstic Imaging: Xray Plain Films/CT/US/NM/MRI: chest Comments Chest x-ray viewed by me and report reviewed. See report below: NAME: JAY IVEY [facility] REC#: [id number] PT STATUS: REG ER : 1960 PHYSICIAN: DARIUS WARD MD ADMIT DATE: 11/24/19/ER Signed Date of Exam:11/24/19 CHEST 1 VIEW, AP/PA ONLY INDICATION: COVID positive, shortness of air. COMPARISON: 02/22/2011 TECHNIQUE: Single radiograph of the chest dated 11/24/2019. FINDINGS: The cardiac silhouette is within normal limits in size. No significant pulmonary vascular congestion. The left lung appears clear. Mild right basilar interstitial opacities are present, appearing more prominent than prior exam. No significant pleural effusion. No pneumothorax. No acute osseous abnormality. IMPRESSION: Minimal right basilar pneumonitis and/or atelectasis. Dictated by: Dictated on workstation # [id number] Dict: 11/24/19 1428 Trans: 11/24/19 1538 CVB [id number] Interpreted by: MCKAYLA AKHTAR MD Electronically signed by: MCKAYLA AKHTAR MD 11/24/19 1538 Departure Impression Primary Impression: COVID-19 Additional Impression: Pulmonary infiltrate Disposition: 01 HOME, SELF-CARE Condition: Improved Departure-Patient Inst. Decision time for Depature: 15:20 Referrals: [facility]/ (PCP) Primary Care Physician ANASTACIO VAZQUEZ (Family) Primary Care Physician Patient Instructions: COVID19 Add. Discharge Instructions: You may use use your inhaler up to 4 puffs and a 4 hour period of time for shortness of breath or wheezing. Start your antibiotic this evening and complete the entire 5 days. For pain or fever you may use Tylenol (acetaminophen) up to 1000 mg every 6 hours as needed. Avoid use of ibuprofen or other NSAIDs because of your heart issues. Call your doctor or return to care if you have worsening symptoms despite following these recommendations. All discharge instructions reviewed with patient and/or family. Voiced understanding. Scripts Azithromycin (Azithromycin) 250 Mg Tablet 250 MG PO UD, #6 TAB TAKE 2 TABLETS ON DAY ONE THEN TAKE 1 TABLET DAILY FOR FOUR MORE DAYS Prov: DARIUS WARD MD 11/24/19 Copy Copies To 1: RODGER PEREZ JOSHUA T MD Nov 24, 2019 14:26
[2019-11-24 14:27] LABS: ALKALINE PHOSPHATASE 145 U/L (40-136); CREATININE SERUM 0.79 MG/DL (0.60-1.30); GFR ESTIMATED > 60
[2019-11-24 14:28] LABS: BUN/CREATININE RATIO 11
[2019-11-24 14:30] LABS: ALANINE AMINOTRANSFERASE 28 U/L (0-55); MAGNESIUM 2.2 MG/DL (1.6-2.4)
--- NOTE | 2019-11-24 14:31 | Diagnostic Imaging Report ---
INDICATION: COVID positive, shortness of air. COMPARISON: 02/22/2011 TECHNIQUE: Single radiograph of the chest dated 11/24/2019. FINDINGS: The cardiac silhouette is within normal limits in size. No significant pulmonary vascular congestion. The left lung appears clear. Mild right basilar interstitial opacities are present, appearing more prominent than prior exam. No significant pleural effusion. No pneumothorax. No acute osseous abnormality. IMPRESSION: Minimal right basilar pneumonitis and/or atelectasis. Dictated by: Dictated on workstation # [id number]
[2019-11-24] MEDS ORDERED: AZIT250T12 PO (15:25)
[2019-11-24] MEDS ORDERED: cefTRIAXone FOR IV USE 1,000 MG in WATER (STERILE) FOR INJECTION 10 ML IV ONE (15:30)
[2019-11-24 15:35] VITALS: BP 174/100
== END 2019-11-24 15:35 | disposition home or self-care (01) ==
LOC: EDUNIT# 13:27 → ER 13:29
DX: U07.1 COVID-19 (principal); R91.8 Other nonspecific abnormal finding of lung field; I10 Essential (primary) hypertension; E05.90 Thyrotoxicosis, unspecified without thyrotoxic crisis or storm; Z79.890 Hormone replacement therapy; Z79.82 Long term (current) use of aspirin
CPT/HCPCS: 36415; 71045; 80053; 83735; 83880; 85025; 86141

== ENCOUNTER → 2020-09-27 | Day surgery (SDC) | payer MEDICARE, MEDICAID ==
[~2020-09-27] VITALS: Ht 170.2 cm; Wt 96.9 kg
[~2020-09-27] MED LIST changes: +AMIT150T PO; +AZIT250T12 PO; +BIMA2.5D4 OU; +CLN.1T PO; -CLON0.1T PO; +HEParin (CATH LAB) 0 ML IV ONE; +LIDOCAINE 1% INJ 20 ML 20 ML VIAL ONE; +NS IV 1000 ML 0 ML ONE; +NS IV 1000 ML 1,000 ML IV SCH; +PROP160C2 PO; +VITAMIN D PO
[2020-09-27 07:19] VITALS: BP 183/87
[2020-09-27 07:25] LABS: HEMATOCRIT 45 % (35-52); HEMOGLOBIN 14.3 g/dL (11.5-16.0); MEAN CORPUSCULAR HEMOGLOBIN 29 pg (25-34); MEAN CORPUSCULAR HGB CONC 32 g/dL (32-36); MEAN CORPUSCULAR VOLUME 91 fL (80-99); MEAN PLATELET VOLUME 10.2 fL (9.0-12.2); PLATELET COUNT 216 10^3/uL (130-400); WHITE BLOOD COUNT 8.2 10^3/uL (4.3-11.0)
[2020-09-27 07:44] LABS: INR 0.9 (0.8-1.4)
[2020-09-27 07:47] LABS: ALBUMIN 3.8 GM/DL (3.2-4.5); BILIRUBIN,TOTAL 0.4 MG/DL (0.1-1.0); CALCIUM 9.2 MG/DL (8.5-10.1); CREATININE SERUM 0.84 MG/DL (0.60-1.30); POTASSIUM 3.8 MMOL/L (3.6-5.0); TOTAL PROTEIN 7.4 GM/DL (6.4-8.2)
== END ==
LOC: CATH 09:00
PROVIDERS: ATTEND Internal Medicine Cardiovascular Disease
DX: I35.0 Nonrheumatic aortic (valve) stenosis (principal); Z53.09 Procedure and treatment not carried out because of other contraindication; E78.00 Pure hypercholesterolemia, unspecified; E66.9 Obesity, unspecified; F32.9 Major depressive disorder, single episode, unspecified; G43.709 Chronic migraine without aura, not intractable, without status migrainosus; I10 Essential (primary) hypertension; I65.23 Occlusion and stenosis of bilateral carotid arteries; E78.2 Mixed hyperlipidemia; Z79.899 Other long term (current) drug therapy
CPT/HCPCS: 36415; 80053; 80061; 85027; 85610; 85730; 87081

== ENCOUNTER → 2020-10-07 | Outpatient (CLI) | payer MEDICARE, MEDICAID ==
[~2020-10-07] MED LIST changes: -HEParin (CATH LAB) 0 ML IV ONE; -LIDOCAINE 1% INJ 20 ML 20 ML VIAL ONE; -NS IV 1000 ML 0 ML ONE; -NS IV 1000 ML 1,000 ML IV SCH
== END ==
LOC: CARD 11:10
PROVIDERS: ATTEND Internal Medicine Cardiovascular Disease
DX: I08.0 Rheumatic disorders of both mitral and aortic valves (principal)
CPT/HCPCS: 93306

== ENCOUNTER 2021-02-24 12:28 | Emergency (ER) | payer MEDICARE, MEDICAID ==
[~2021-02-24] VITALS: Ht 167 cm; Wt 96.6 kg
--- NOTE | 2021-02-24 13:07 | ED Cough/URI ---
General Chief Complaint: COVID19 Suspect/Confirmed Stated Complaint: SOB,COUGH,BODY ACHES Nursing Triage Note: PT REPORTS SHE HAS HAD SOA, AND COUGH SINCE 02/13. PT STATES SHE TESTED NEGATIVE 2 DAYS AGO FOR STREP AND COVID. Source: patient Exam Limitations: no limitations History of Present Illness Date Seen by Provider: Feb 24, 2021 Time Seen by Provider: 13:04 Initial Comments Patient is a 60-year-old female with a history of heart valve disease who presents ED with some chest tightness and shortness of breath. Symptoms since 02/13/2021. She states she had body aches, fatigue, sneezing, nasal congestion with mild cough. She states she got tested a few days ago tested negative for Covid and influenza and strep. Patient started having some chest tightness and shortness of breath this morning which made her concerned as she has a history of pneumonia. She states she has had intermittent diarrhea. Denies of any vomiting. She reports a mild wet productive cough. Subjective fever at home. Denies any urinary symptoms, abdominal pain, flank pain, neck pain. Allergies and Home Medications Allergies Coded Allergies: No Known Drug Allergies (Unverified , 11/20/10) Patient Home Medication List Home Medication List Reviewed: Yes Amitriptyline HCl (Amitriptyline HCl) 150 Mg Tablet, 150 MG PO HS, (Reported) Entered as Reported by: HAKAN VALLADARES on 09/27/20716 Atorvastatin Calcium (Lipitor 40MG) 40 Mg Tablet, 40 MG PO DAILY, (Reported) Entered as Reported by: GERTRUDE SIU on 11/20/10820 Azithromycin (Azithromycin) 250 Mg Tablet, 250 MG PO UD Prescribed by: LUNA HADDAD on 02/24/21 1424 Bimatoprost (Lumigan) 2.5 Ml Drops, 1 DROP OU DAILY PRN, (Reported) Entered as Reported by: HAKAN VALLADARES on 09/27/20716 Levothyroxine Sodium (Levothyroxine 125 Mcg Tab) 125 Mcg Tablet, 1 EACH PO DAILY, (Reported) Entered as Reported by: GERTRUDE SIU on 11/20/10820 Propranolol HCl (Propranolol HCl ER) 160 Mg Cap.sa.24h, 160 MG PO DAILY, (Reported) Entered as Reported by: HAKAN VALLADARES on 09/27/20716 [Vitamin D3 [facility]] , 2,000 UNITS PO DAILY, (Reported) Entered as Reported by: HAKAN VALLADARES on 09/27/20716 Review of Systems Review of Systems Constitutional: chills, fever, malaise; No weakness EENTM: nose congestion; No ear pain, No eye pain, No throat swelling Respiratory: cough, short of breath Cardiovascular: chest pain Gastrointestinal: No abdominal pain; diarrhea, nausea; No vomiting Musculoskeletal: No back pain, No joint pain Skin: No change in color, No change in hair/nails All Other Systems Reviewed Negative Unless Noted: Yes Past Rddmvxn-Eizffx-Gfusoj Hx Patient Social History Tobacco Use?: No Substance use?: No Alcohol Use?: No Pt feels they are or have been: No Immunizations Up To Date First/Initial COVID19 Vaccinat: N/A Second COVID19 Vaccination Brad: N/A Past Medical History Surgery/Hospitalization HX: PMH: THYROID, MIGRAINES, HTN, HIGH CHOL Surgeries: Yes (JAW SURG) Appendectomy, Eye Surgery, Hysterectomy Respiratory: No Cardiac: Yes High Cholesterol, Hypertension, Valvular Heart Disease Headaches /Migraines, 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 oz. kg; 34.00 BMI Method:Stated General Appearance: WD/WN Eyes: Bilateral Eye Normal Inspection, Bilateral Eye PERRL, Bilateral Eye EOMI HEENT: PERRL/EOMI, normal ENT inspection, TMs normal, pharynx normal Neck: non-tender, full range of motion, supple, normal inspection Respiratory: chest non-tender, lungs clear, normal breath sounds, no respiratory distress, no accessory muscle use Cardiovascular: regular rate, rhythm, no edema, no gallop, no JVD Gastrointestinal: normal bowel sounds, non tender, soft, no organomegaly, no pulsatile mass Extremities: normal range of motion, non-tender, normal inspection, no pedal edema Skin: normal color, warm/dry Progress/Results/Core Measures Suspected Sepsis SIRS Temperature: Pulse: 78 Respiratory Rate: 16 Laboratory Tests 02/24/21 13:20: White Blood Count 7.8 Blood Pressure 150 /80 Mean: 103 Laboratory Tests 02/24/21 13:20: Creatinine 0.77, Platelet Count 196, Total Bilirubin 0.5 Results/Orders Lab Results Laboratory Tests Test 02/24/21 12:44 02/24/21 13:20 Range/Units Influenza Type A Antigen NEGATIVE NEGATIVE Influenza Type B Antigen NEGATIVE NEGATIVE SARS-CoV-2 RNA (RT-PCR) Not Detected Negative White Blood Count 7.8 4.3-11.0 10^3/uL Red Blood Count 4.75 3.80-5.11 10^6/uL Hemoglobin 13.8 11.5-16.0 g/dL Hematocrit 43 35-52 % Mean Corpuscular Volume 90 80-99 fL Mean Corpuscular Hemoglobin 29 25-34 pg Mean Corpuscular Hemoglobin Concent 32 32-36 g/dL Red Cell Distribution Width 13.5 10.0-14.5 % Platelet Count 196 130-400 10^3/uL Mean Platelet Volume 10.0 9.0-12.2 fL Immature Granulocyte % (Auto) 0 % Neutrophils (%) (Auto) 70 42-75 % Lymphocytes (%) (Auto) 19 12-44 % Monocytes (%) (Auto) 8 0-12 % Eosinophils (%) (Auto) 2 0-10 % Basophils (%) (Auto) 0 0-10 % Neutrophils # (Auto) 5.5 1.8-7.8 10^3/uL Lymphocytes # (Auto) 1.5 1.0-4.0 10^3/uL Monocytes # (Auto) 0.6 0.0-1.0 10^3/uL Eosinophils # (Auto) 0.2 0.0-0.3 10^3/uL Basophils # (Auto) 0.0 0.0-0.1 10^3/uL Immature Granulocyte # (Auto) 0.0 0.0-0.1 10^3/uL Sodium Level 140 135-145 MMOL/L Potassium Level 3.6 3.6-5.0 MMOL/L Chloride Level 105 98-107 MMOL/L Carbon Dioxide Level 28 21-32 MMOL/L Anion Gap 7 5-14 MMOL/L Blood Urea Nitrogen 13 7-18 MG/DL Creatinine 0.77 0.60-1.30 MG/DL Estimat Glomerular Filtration Rate 76 BUN/Creatinine Ratio 17 Glucose Level 163 H 70-105 MG/DL Calcium Level 9.2 8.5-10.1 MG/DL Corrected Calcium 9.5 8.5-10.1 MG/DL Magnesium Level 2.0 1.6-2.4 MG/DL Total Bilirubin 0.5 0.1-1.0 MG/DL Aspartate Amino Transf (AST/SGOT) 15 5-34 U/L Alanine Aminotransferase (ALT/SGPT) 22 0-55 U/L Alkaline Phosphatase 135 40-136 U/L Troponin I < 0.028 <0.028 NG/ML Total Protein 6.6 6.4-8.2 GM/DL Albumin 3.6 3.2-4.5 GM/DL Lipase 14 8-78 U/L My Orders Orders - FAISAL SONG PA Ekg Tracing (02/24/21 13:02) Troponin I Gina (02/24/21 13:02) Cbc With Automated Diff (02/24/21 13:02) Comprehensive Metabolic Panel (02/24/21 13:02) Lipase (02/24/21 13:02) Magnesium (02/24/21 13:02) Chest 1 View, Ap/Pa Only (02/24/21 13:02) Covid 19 Inhouse Test (02/24/21 13:02) Influenza A & B Antigens (02/24/21 13:38) Vital Signs/I&O 02/24/21 02/24/21 12:48 14:31 Temp 36.3 Pulse 78 67 Resp 16 18 B/P (MAP) 150/80 (103) 140/73 Pulse Ox 98 96 Capillary Refill : Less Than 3 Seconds Blood Pressure Mean: 103 ECG Comment Sinus rhythm, prolonged AR interval, incomplete right bundle branch block, inferior infarct old, 69 bpm, QRS duration 115 MS, QTc 457 MS. Departure Communication (Admissions) Chest x-ray concerning for atypical type pneumonia. Influenza negative. Covid pending. Will treat with azithromycin for any atypical infections. Lab work was otherwise unremarkable. EKG sinus rhythm with prolonged AR interval, incomplete right bundle branch block. Denies history of coronary artery disease, CHF. Continue quarantine until results from the Covid. Recommend hydration. Return precautions were discussed with patient. Zpqv-des-tfmilgh cough medication as needed. If worsening symptoms return back to ED for further evaluation. Covid negative. Impression Primary Impression: Pneumonia Disposition: 01 HOME, SELF-CARE Condition: Stable Departure-Patient Inst. Decision time for Depature: 14:23 Referrals: [facility] (PCP) Primary Care Physician ANASTACIO VAZQUEZ (Family) Primary Care Physician Patient Instructions: Atypical Pneumonia (Mycoplasma and Viral) (DC) Scripts Azithromycin (Azithromycin) 250 Mg Tablet 250 MG PO UD, #6 TAB TAKE 2 TABLETS ON DAY ONE THEN TAKE 1 TABLET DAILY FOR FOUR MORE DAYS Prov: FAISAL SONG 02/24/21 Work/School Note: Work Release Form Date Seen in the Emergency Department: Feb 24, 2021 Return to Work: Feb 27, 2021 FAISAL SONG Feb 24, 2021 13:07
[2021-02-24 13:26] LABS: BASOPHILS % (AUTO) 0 % (0-10); EOSINOPHILS # (AUTO) 0.2 10^3/uL (0.0-0.3); EOSINOPHILS % (AUTO) 2 % (0-10); HEMATOCRIT 43 % (35-52); HEMOGLOBIN 13.8 g/dL (11.5-16.0); LYMPHOCYTES # (AUTO) 1.5 10^3/uL (1.0-4.0); LYMPHOCYTES % (AUTO) 19 % (12-44); MEAN CORPUSCULAR HEMOGLOBIN 29 pg (25-34); MEAN CORPUSCULAR HGB CONC 32 g/dL (32-36); MEAN CORPUSCULAR VOLUME 90 fL (80-99); MONOCYTES # (AUTO) 0.6 10^3/uL (0.0-1.0); MONOCYTES % (AUTO) 8 % (0-12); NEUTROPHILS # (AUTO) 5.5 10^3/uL (1.8-7.8); NEUTROPHILS % (AUTO) 70 % (42-75); PLATELET COUNT 196 10^3/uL (130-400); WHITE BLOOD COUNT 7.8 10^3/uL (4.3-11.0)
[2021-02-24 13:36] LABS: ALBUMIN 3.6 GM/DL (3.2-4.5); CHLORIDE 105 MMOL/L (98-107); POTASSIUM 3.6 MMOL/L (3.6-5.0); SODIUM 140 MMOL/L (135-145)
[2021-02-24 13:38] LABS: CALCIUM 9.2 MG/DL (8.5-10.1)
[2021-02-24 13:39] LABS: GLUCOSE 163 MG/DL (70-105); TOTAL PROTEIN 6.6 GM/DL (6.4-8.2)
[2021-02-24 13:40] LABS: CARBON DIOXIDE 28 MMOL/L (21-32)
[2021-02-24 13:41] LABS: BILIRUBIN,TOTAL 0.5 MG/DL (0.1-1.0)
[2021-02-24 13:42] LABS: ALKALINE PHOSPHATASE 135 U/L (40-136)
[2021-02-24 13:43] LABS: CREATININE SERUM 0.77 MG/DL (0.60-1.30); GFR ESTIMATED 76
[2021-02-24 13:44] LABS: BUN/CREATININE RATIO 17
[2021-02-24 13:45] LABS: ALANINE AMINOTRANSFERASE 22 U/L (0-55)
[2021-02-24 13:47] LABS: LIPASE 14 U/L (8-78)
--- NOTE | 2021-02-24 14:02 | Diagnostic Imaging Report ---
EXAMINATION: Chest 1 view HISTORY: cough, sob COMPARISON: 11/24/2019 FINDINGS: Heart size and pulmonary vasculature are normal. Mild bibasilar interstitial opacities. No pleural effusion or pneumothorax. The osseous structures are intact. IMPRESSION: 1. Mild bibasilar interstitial opacities which could represent atelectasis, pulmonary edema, or atypical infection. Dictated by: Dictated on workstation # [id number]
[2021-02-24] MEDS ORDERED: AZIT250T12 PO (14:24)
[2021-02-24 14:31] VITALS: BP 140/73
== END 2021-02-24 14:31 | disposition home or self-care (01) ==
LOC: EDUNIT# 12:28 → ER 12:30
DX: J18.9 Pneumonia, unspecified organism (principal); I10 Essential (primary) hypertension; E78.00 Pure hypercholesterolemia, unspecified; E05.90 Thyrotoxicosis, unspecified without thyrotoxic crisis or storm; Z20.822 Contact with and (suspected) exposure to COVID-19; Z86.73 Personal history of transient ischemic attack (TIA), and cerebral infarction without residual deficits; Z79.890 Hormone replacement therapy; Z79.899 Other long term (current) drug therapy
CPT/HCPCS: 36415; 71045; 80053; 83690; 83735; 84484; 85025; 87636; 87804; 93005

== ENCOUNTER → 2021-09-01 | Outpatient (CLI) | payer MEDICARE, MEDICAID | LOC: CARD 12:00 | PROVIDERS: ATTEND Internal Medicine Cardiovascular Disease | DX: I08.0 Rheumatic disorders of both mitral and aortic valves (principal) | CPT/HCPCS: 93306 ==

== ENCOUNTER 2021-10-31 08:50 | Day surgery (SDC) | payer MEDICARE, MEDICAID ==
[2021-10-31] VITALS (16 sets, daily range): BP systolic 133–164; BP diastolic 67–98
[~2021-10-31] VITALS: Ht 170.2 cm; Wt 97.5 kg
[2021-10-31] MEDS ORDERED: NS IV 1000 ML 1,000 ML IV SCH ×2 (09:00→12:00)
[2021-10-31] MEDS ORDERED: HEParin (CATH LAB) 2,000 ML IV ONE (09:01)
[2021-10-31] MEDS ORDERED: LIDOCAINE 1% INJ 20 ML VIAL ONE (09:01)
[2021-10-31] MEDS ORDERED: NS IV 1000 ML 1,000 ML ONE (09:01)
[2021-10-31] MEDS ORDERED: ATOR80TA76 PO (09:22)
[2021-10-31 09:24] LABS: HEMATOCRIT 44 % (35-52); HEMOGLOBIN 14.3 g/dL (11.5-16.0); MEAN CORPUSCULAR HEMOGLOBIN 29 pg (25-34); MEAN CORPUSCULAR HGB CONC 33 g/dL (32-36); MEAN CORPUSCULAR VOLUME 90 fL (80-99); PLATELET COUNT 218 10^3/uL (130-400); WHITE BLOOD COUNT 9.3 10^3/uL (4.3-11.0)
[2021-10-31 09:39] LABS: POTASSIUM 3.6 MMOL/L (3.6-5.0)
[2021-10-31 09:40] LABS: ALBUMIN 4.1 GM/DL (3.2-4.5); PROTHROMBIN TIME PATIENT 13.3 SEC (12.2-14.7)
[2021-10-31 09:41] LABS: CALCIUM 9.4 MG/DL (8.5-10.1)
[2021-10-31 09:42] LABS: TOTAL PROTEIN 7.1 GM/DL (6.4-8.2)
[2021-10-31 09:44] LABS: BILIRUBIN,TOTAL 0.6 MG/DL (0.1-1.0)
[2021-10-31 09:46] LABS: CREATININE SERUM 0.8 MG/DL (0.60-1.30)
[2021-10-31] MEDS ORDERED: MIDAZOLAM 2 MG/2 ML (VERSED) VIAL ONE ×3 (10:15→10:59)
[2021-10-31] MEDS ORDERED: fentaNYL INJ 100 MCG/2 ML AMP ONE (10:15)
--- NOTE | 2021-10-31 11:52 | Cardiac Procedure Note-CS/ASA ---
Pre-Procedure Note Pre-Op Procedure Note Date of Available H&P: Oct 18, 2021 Date H&P Reviewed: Oct 31, 2021 Time H&P Reviewed: 10:30 History & Physical: No changes noted Conscious Sedation Pre-Proced Time 10:30 ASA Score 3 For ASA 3 and 4: Consider anesthesia and medical clearance. Also, for patients with a history of failed moderate sedation consider anesthesia. Airway Lungs Heart ASA score ASA 1: a normal healthy patient ASA 2: a patient with a mild systemic disease (mid diabetes, controlled hypertension, obesity ASA 3: a patient with a severe systemic disease that limits activity (angina, COPD, prior Myocardial infarction) ASA 4: a patient with an incapacitating disease that is a constant threat to life (CHF, renal failure) ASA 5: a moribund patient not expected to survive 24 hrs. (ruptured aneurysm) ASA 6: a declared brain- patient whose organs are being harvested. For emergent operations, add the letter E after the classification Mallampati Classification Grade 2 Sedation Plan Analgesia, Amnesia, Plan communicated to team members The patient is an appropriate candidate to undergo the planned procedure, sedation, and anesthesia. The patient immediately re-assessed prior to indication. LUKAS MONTEJO MD FACP FAC CCDS Oct 31, 2021 11:52
[2021-10-31] MEDS ORDERED: FURO20TA4 PO (11:56)
[2021-10-31] MEDS ORDERED: POTA10CA43 PO (11:56)
--- NOTE | 2021-10-31 11:56 | Discharge Inst-Cardiology ---
Discharge Inst-Cardiac Discharge Medications New Medications: Furosemide (Furosemide) 20 Mg Tablet 20 MG PO Q48H, #20 TAB 2 Refills Potassium Chloride (Potassium Chloride) 10 Meq Capsule.er 10 MEQ PO Q48H, #20 CAP 2 Refills Continued Medications: Amitriptyline HCl (Amitriptyline HCl) 150 Mg Tablet 150 MG PO HS, TAB Atorvastatin Calcium (Atorvastatin Calcium) 80 Mg Tablet 80 MG PO DAILY, TAB Bimatoprost (Lumigan) 2.5 Ml Drops 1 DROP OU DAILY PRN, DROPS Levothyroxine Sodium (Levothyroxine 125 Mcg Tab) 125 Mcg Tablet 125 MCG PO DAILY Propranolol HCl (Propranolol HCl ER) 160 Mg Cap.sa.24h 160 MG PO DAILY, CAP [Vitamin D3 2000 Uni] () 2000 UNITS PO DAILY LUKAS MONTEJO MD [facility] CCDS Oct 31, 2021 11:56
--- NOTE | 2021-10-31 11:57 | Discharge Inst-Post CATH ---
Discharge Inst-CATH/EP Post Cardiac Cath/EP D/C Inst Follow Up/Plan F/u with Dr Freeman next week Have labs drawn a day before f/u with Dr Freeman ACTIVITY * Go Home directly and rest. * Limit activity of the leg (or wrist if it was used) for 7 days including aerobics, swimming, jogging, bicycling, etc. * Restrict stair-climbing for 7 days if possible, if not, climb up with your non-cath leg, then bring together on the same step. * Avoid lifting, pushing, pulling or excessive movement of the affected extremity for 7 days. * Customary sexual activity may be resumed after 2 days-use caution not to use a position that strains or causes pain to the affected extremity. * No driving for 24 hours. * NO SMOKING. * Avoid straining for bowel movements for 7 days. * Gentle walking on level ground is allowed. * Returning to work will depend on the type of procedure and the results. Your doctor will discuss this with you. CALL YOUR DOCTOR FOR ANY OF THE FOLLOWING: *If bleeding from the puncture site occurs- Apply gentle pressure to site with clean cloth and call your doctor or EMS. * If a knot or lump forms under the skin, increases in size, or causes pain. * If bruising appears to be worsening or moving further down your leg instead of disappearing. * Temperature above 101 F. CARE OF YOUR GROIN INCISION; * Bruising or purple discoloration of the skin near the puncture site is common. * You may shower only, no bathtub bathing for 5 days. Be careful to avoid slipping as your leg may feel stiff. * If a closure device was used on your femoral artery, please see the attached guide regarding care of the device and your leg. * Leave dressing on FOR 24 hours. CARE OF YOUR WRIST INCISION; * Bruising or purple discoloration of the skin near the puncture site is common. * You may shower. * DO NOT submerge wrist. * Leave dressing on FOR 24 hours. LUKAS FREEMAN MD FACP FAC CCDS Oct 31, 2021 11:57
[2021-10-31] MEDS ORDERED: PATIENT MAY USE OWN MEDS, ALL PO SCH (12:00)
--- NOTE | 2021-10-31 13:00 | CARDIAC CATHETERIZATION ---
DATE OF SERVICE: 10/31/2021 CARDIAC CATHETERIZATION REPORT INDICATION FOR PROCEDURE: The patient is a 61-year-old lady, who has severe aortic stenosis on echocardiography. She has had symptoms of shortness of breath and diminishing stamina. Cardiac catheterization was carried out prior to evaluation for valve replacement. Informed consent was obtained. DESCRIPTION OF PROCEDURE: She was brought to the cardiac catheterization laboratory in a fasting state. Right groin was prepared and draped in the usual sterile fashion. Lidocaine 1% was used for local anesthesia. Modified Seldinger technique used to advance a 5-Jamaican sheath in the right femoral artery and a 7-Jamaican sheath in the right femoral vein. We used a 7-Jamaican [place]-Mari catheter to carry out right heart catheterization and to measure oxygen saturation in the various right heart chambers. The catheter was then removed. We carried out left heart catheterization using a 5-Jamaican pigtail catheter. Left ventricular angiography was performed and then the catheter was then pulled back into the ascending aorta and removed. We used a 5-Jamaican JL4 catheter for left coronary angiography and 5-Jamaican JR4 catheter for right coronary angiography. Angiography of the right femoral artery had been carried out at the time of the initiation of the sheath. Mynx was used to achieve hemostasis following completion of the heart catheterization and removal of the arterial sheath. Manual pressure was used to achieve hemostasis following venous sheath removal. She tolerated the procedure well. HEMODYNAMICS: Pulmonary artery pressure is 65/35 with a mean of 46 mmHg. Mean pulmonary wedge pressure is 30 mmHg. Right ventricular pressure is 61/22. Mean right atrial pressure is 20 mmHg. Left ventricular pressure is 196/32. Ascending aortic pressure is 149/104. Mean gradient across the aortic valve is measured at 51. Cardiac output by thermodilution is 3.53 with a cardiac index of 1.7. Aortic valve area is calculated to be 0.43. Pulmonary vascular resistance is 3.95 Wood units. There was no significant oxygen saturation difference between the various right heart chambers. LEFT VENTRICULAR ANGIOGRAPHY: Left ventricular angiography was carried out in the right anterior oblique projection. Global left ventricular systolic function is normal to hyperdynamic. Left ventricular ejection fraction is approximately 65%. CORONARY ANGIOGRAPHY: Mild coronary plaque is seen in all vessels. Left circumflex artery has multiple 30% to 40% stenoses. Right coronary artery is dominant. CONCLUSIONS: 1. Severe aortic stenosis with a mean gradient of 51 mmHg and a valve area of 0.43 squared cm. 2. Normal left ventricular systolic function with an ejection fraction of 65%. 3. Pulmonary hypertension. 4. Diastolic left heart failure. DISCUSSION AND RECOMMENDATIONS: Low dose diuretic (furosemide 20 mg every other day) being started because of significant elevation of wedge pressure and end-diastolic pressure and the symptoms of congestive heart failure. Careful monitoring will be carried out. Outpatient followup is advised within a few days and lab work is also advised within a few days. A referral has been made to the cardiovascular surgical service at [facility] for evaluation for valve replacement. Job ID: [id number] DocumentID: [id number] Dictated Date: 10/31/2021 12:05:19 Green Material Value Added Assessor Date: 10/31/2021 12:59:29 Dictated By: LUKAS MONTEJO MD, MA, FACP, FACC,
--- NOTE | 2021-10-31 16:06 | Diagnostic Imaging Report ---
US RIGHT LOW EXT [id number] INDICATION: Right groin bleeding after vascular access. COMPARISON: None available. TECHNIQUE: Grayscale, color Doppler, and spectral Doppler imaging of the right groin. FINDINGS: The common femoral artery and vein are patent. There is no abnormal communication between these two structures to indicate fistula. No pseudoaneurysm arising from the common femoral artery. There is no loculated fluid collection that would suggest hematoma. IMPRESSION: No hematoma, pseudoaneurysm, or arteriovenous fistula. Dictated by: Dictated on workstation # [id number]
== END 2021-10-31 16:25 | disposition home or self-care (01) ==
LOC: CATH 08:50 → SDC 11:57 → CATH 16:25
PROVIDERS: ATTEND Internal Medicine Cardiovascular Disease
DX: I35.0 Nonrheumatic aortic (valve) stenosis (principal); I27.20 Pulmonary hypertension, unspecified; I11.0 Hypertensive heart disease with heart failure; I50.30 Unspecified diastolic (congestive) heart failure; I25.10 Atherosclerotic heart disease of native coronary artery without angina pectoris; E66.9 Obesity, unspecified; E78.2 Mixed hyperlipidemia; E03.9 Hypothyroidism, unspecified; G43.809 Other migraine, not intractable, without status migrainosus; I65.23 Occlusion and stenosis of bilateral carotid arteries; Z79.890 Hormone replacement therapy; Z79.899 Other long term (current) drug therapy; Z79.82 Long term (current) use of aspirin; Z28.310 Unvaccinated for COVID-19; Z68.33 Body mass index [BMI] 33.0-33.9, adult
CPT/HCPCS: 80053; 80061; 85027; 85610; 85730; 87081; 93460; 93926; C1760; C1769; C1894 ×2; 36415

== ENCOUNTER 2022-10-31 16:48 | Emergency (ER) | payer MEDICARE, MEDICAID ==
[~2022-10-31] VITALS: Ht 170.1 cm; Wt 98.4 kg
[~2022-10-31 16:48] MED LIST changes: +ATOR80TA76 PO; +FURO20TA4 PO; +POTA10CA84 PO
[2022-10-31] MEDS ORDERED: RT-ALBUTEROL HFA 8.5 GM INHALER IH STA (17:20)
--- NOTE | 2022-10-31 17:49 | Diagnostic Imaging Report ---
HISTORY: Cough and shortness of air. TECHNIQUE: Frontal view of the chest and lateral view of the chest. COMPARISON: 02/24/2021. FINDINGS: Lung volumes are normal. No consolidation is seen. There is no pleural effusion or pneumothorax. The cardiac silhouette is mildly large but stable in size. An aortic valve prosthesis and a pacemaker are noted. IMPRESSION: 1. No acute pulmonary abnormality. Dictated by: Dictated on workstation # [id number]
--- NOTE | 2022-10-31 18:21 | ED General ---
General Chief Complaint: Respiratory Problems Stated Complaint: SEVERE COUGH SINCE POST HEART SURGERY Nursing Triage Note: PT AMB TO RM 7 WITH CC OF "SEVERE" COUGH AND SOA. PT STATES HAS HAD COUGH SINCE 10/15. PT STATES COUGH HAS INCREASED THE LAST 3 DAYS. PT CONCERNED FOR PNEUMONIA AND COVID. NO RESP DISTRESS NOTED AT TIME OF TRIAGE Source of Information: Patient Exam Limitations: No Limitations Allergies and Home Medications Allergies Coded Allergies: No Known Drug Allergies (Unverified , 11/20/10) Patient Home Medication List Amitriptyline HCl (Amitriptyline HCl) 150 Mg Tablet, 150 MG PO HS, (Reported) Entered as Reported by: HAKAN VALLADARES on 09/27/20 07 Atorvastatin Calcium (Atorvastatin Calcium) 80 Mg Tablet, 80 MG PO DAILY, (Reported) Entered as Reported by: HAKAN VALLADARES on 10/31/21 0922 Bimatoprost (Lumigan) 2.5 Ml Drops, 1 DROP OU DAILY PRN, (Reported) Entered as Reported by: HAKAN VALLADARES on 09/27/20716 Furosemide (Furosemide) 20 Mg Tablet, 20 MG PO Q48H Prescribed by: LUKAS MONTEJO on 10/31/21 115 Levothyroxine Sodium (Levothyroxine 125 Mcg Tab) 125 Mcg Tablet, 125 MCG PO DAILY, (Reported) Entered as Reported by: GERTRUDE SIU on 11/20/10 0821 Potassium Chloride (Potassium Chloride) 10 Meq Capsule.er, 10 MEQ PO Q48H Prescribed by: LUKAS MONTEJO on 10/31/21 115 Propranolol HCl (Propranolol HCl ER) 160 Mg Cap.sa.24h, 160 MG PO DAILY, (R eported) Entered as Reported by: HAKAN VALLADARES on 09/27/20716 [Vitamin D3 2000 Uni] , 2,000 UNITS PO DAILY, (Reported) Entered as Reported by: HAKAN VALLADARES on 09/27/20716 Past Xzouius-Xmblbr-Nqkejp Hx Patient Social History Tobacco Use?: No Substance use?: No Alcohol Use?: No Pt feels they are or have been: No Immunizations Up To Date First/Initial COVID19 Vaccinat: N/A Second COVID19 Vaccination Brad: N/A Past Medical History Surgery/Hospitalization HX: PACEMAKER, AORTIC VALVE REPLACEMENT, Surgeries: Yes (JAW SURG) Appendectomy, Eye Surgery, Hysterectomy Respiratory: No Cardiac: Yes High Cholesterol, Hypertension, Valvular Heart Disease 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 oz. kg; 34.00 BMI Method:Stated Progress/Results/Core Measures Suspected Sepsis SIRS Temperature: Pulse: 82 Respiratory Rate: 18 Blood Pressure 186 /87 Mean: 120 Results/Orders Lab Results Laboratory Tests Test 10/31/22 17:32 Range/Units Influenza Type A (RT-PCR) Not Detected Not Detecte Influenza Type B (RT-PCR) Not Detected Not Detecte SARS-CoV-2 RNA (RT-PCR) Detected H Not Detecte My Orders Orders - DARIUS WARD MD Covid 19 Inhouse Test (10/31/22 17:20) Influenza A And B By Pcr (10/31/22 17:20) Chest Pa/Lat (2 View) (10/31/22 17:20) Albuterol Hfa Inhaler (Albuterol Hfa Inh (10/31/22 17:20) Vital Signs/I&O 10/31/22 16:57 Temp 36.9 Pulse 82 Resp 18 B/P (MAP) 186/87 (120) Pulse Ox 97 O2 Delivery Room Air Capillary Refill : Less Than 3 Seconds Blood Pressure Mean: 120 Departure Impression Primary Impression: COVID-19 Disposition: 01 HOME, SELF-CARE Condition: Stable Departure-Patient Inst. Decision time for Depature: 18:16 Referrals: [facility] (PCP/Family) Primary Care Physician Patient Instructions: COVID-19 ED, Nirmatrelvir and Ritonavir Add. Discharge Instructions: Drink plenty of clear liquids to stay well-hydrated, even if you do not feel thi rsty. You may use Tylenol (acetaminophen) up to 1000 mg every 6 hours as needed for pain or fever. You may add ibuprofen up to 600 mg every 6 hours as needed sparingly for breakthrough pain or fever. Use your inhaler up to 4 puffs in a 4-hour period of time as needed for wheezing or shortness of breath. Tessalon Perles have been prescribed for cough. Stop atorvastatin while taking Paxlovid. Decrease amitriptyline dose while taking Paxlovid. Do not take Ubrelvy while on Paxlovid. Monitor your oxygen saturations if you can get access to a pulse oximeter. Return to the emergency room for any sustained oxygen saturation less than 90% or any multiple oxygen saturations less than 92%. Check your oxygen level a few times per day or anytime you are feeling more short of breath. Avoid being completely sedentary. Getting up and moving about and changing positions while sitting or lying is very helpful for improving breathing during COVID. Return to the emergency room if you have worsening symptoms despite following these instructions. You should quarantine for 5 full days starting with the first full day of symptoms. If you are feeling better after 5 days of quarantine, you may end your quarantine but mask for an additional 5 days. All discharge instructions reviewed with patient and/or family. Voiced understanding. Scripts Amitriptyline HCl (Amitriptyline HCl) 100 Mg Tablet 100 MG PO HS, #5 TAB Prov: DARIUS WARD MD 10/31/22 Benzonatate (TESSALON PERLES) 100 Mg Capsule 200 MG PO TID PRN for COUGH, #20 CAP Prov: DARIUS WARD MD 10/31/22 Nirmatrelvir/Ritonavir (Paxlovid 300-100 mg Pack (Eua)) 300 Mg (150 Mg X 2)-100 Mg Tab.ds.pk 1 EACH PO BID, #1 PKG Use standard dose for normal renal function. Stop Ubrelvy and Atorvastatin while on Paxlovid. Use lower dose Amitriptyline. Prov: DARIUS WARD MD 10/31/22 DARIUS WARD MD Oct 31, 2022 18:21
[2022-10-31] MEDS ORDERED: AMIT100T2 PO (18:22)
[2022-10-31] MEDS ORDERED: BENZ100C18 PO (18:22)
[2022-10-31] MEDS ORDERED: NIRM1TAB PO (18:22)
[2022-10-31 18:27] VITALS: BP 144/85
== END 2022-10-31 18:27 | disposition home or self-care (01) ==
LOC: EDUNIT# 16:48 → ER 16:53
DX: U07.1 COVID-19 (principal); R05.9 Cough, unspecified; R06.02 Shortness of breath; Z28.310 Unvaccinated for COVID-19
CPT/HCPCS: 71046; 87636